=== PATIENT | male | born 1965 | race Caucasian/White ===

== ENCOUNTER 2017-12-11 03:26 | Emergency (ER) | payer OTHER, BC ==
[~2017-12-11] VITALS: Ht 175.3 cm; Wt 127.0 kg
[~2017-12-11 03:26] MED LIST: ALBUTEROL2.5 MG/3 M INH; ANDROGEL1.25 GM TD; ASPIRIN EC81 MG PO; ASPIRIN325 MG PO; CALCIUM500 MG PO; CENTRAL-VITE H1 EACH PO; CETIRIZINE HCL10 MG PO; GLUCOPHAGE XR500 MG PO; GLUCOPHAGE500 MG PO; IBUPROFEN200 MG PO; IRON325 M1 PO; LESCOL XL80 MG PO; LOVAZA1 GM PO; MEDROL4 M1 PO; MIRALAX17 GM PO; NORCO 5-325 TA1 EACH PO; NORCO 7.5-3251 EACH PO; OXYCODONE HCL5 MG PO; SEPTRA DS TABL1 EACH PO; VITAMIN C500 M1 PO; XARELTO10 MG PO; ZESTORETIC 20-1 EACH PO
[2017-12-11] MEDS ORDERED: NORCO 5-325 TA1 EACH PO (04:25)
== END 2017-12-11 05:10 | disposition home or self-care (01) ==
LOC: ED 03:26
DX: S46.212A Strain of muscle, fascia and tendon of other parts of biceps, left arm, initial encounter (principal); S93.401A Sprain of unspecified ligament of right ankle, initial encounter; I10 Essential (primary) hypertension; Z79.899 Other long term (current) drug therapy; Z79.84 Long term (current) use of oral hypoglycemic drugs; W10.9XXA Fall (on) (from) unspecified stairs and steps, initial encounter
CPT/HCPCS: 73130; 73610; 99283

== ENCOUNTER 2018-06-24 18:43 | Emergency (ER) | payer BC, OTHER ==
[~2018-06-24] VITALS: Ht 175.3 cm; Wt 138.3 kg
[~2018-06-24 18:43] MED LIST changes: +BIOTIN1000 MCG PO; +VALSARTAN-HCTZ1 EAC1 PO; +VITAMIN D34000 UNIT PO; +VITAMIN E400 UNI6 PO
[2018-06-24] MEDS ORDERED: ASPIRIN81 MG PO (18:56)
[2018-06-24] MEDS ORDERED: FISH OIL EC 1,1 EAC1 PO (18:56)
[2018-06-24] MEDS ORDERED: ATORVASTATIN CA40 MG PO (18:56)
[2018-06-24] MEDS ORDERED: DICLOFENAC POTA50 MG PO (18:56)
[2018-06-24] MEDS ORDERED: FLUOXETINE HCL20 MG PO (18:56)
[2018-06-24] MEDS ORDERED: NORCO 5-325 TA1 EACH PO (19:23)
== END 2018-06-24 19:44 | disposition home or self-care (01) ==
LOC: ED 18:43
DX: S92.514A Nondisplaced fracture of proximal phalanx of right lesser toe(s), initial encounter for closed fracture (principal); W22.8XXA Striking against or struck by other objects, initial encounter; I10 Essential (primary) hypertension; Z79.899 Other long term (current) drug therapy; Z79.82 Long term (current) use of aspirin; Z79.84 Long term (current) use of oral hypoglycemic drugs
CPT/HCPCS: 73630; 99283

== ENCOUNTER 2020-01-22 11:19 | Emergency (ER) | payer OTHER, BC ==
[~2020-01-22] VITALS: Ht 175.3 cm; Wt 136.1 kg
--- OUTSIDE RECORDS SUMMARY | ~2020-01-22 | XMS | Encounter Summary ---
Demographics + + + | Address | [address] | | | [place] [address] | + + + | Home Phone | | + + + | Preferred Language | Unknown | + + + | Marital Status | | + + + | Anabaptist Affiliation | [id number] | + + + | Race | White | + + + | Ethnic Group | Not or | + + + Author + + + | Author | [facility] | | | and [place] | + + + | Organization | [facility] | | | and [place] | + + + | Address | Unknown | + + + | Phone | Unavailable | + + + Support + + +---------+ + | Name | Relationship | Address | Phone | + + +---------+ + | Angie He | ECON | Unknown | | + + +---------+ + Care Team Providers + +------+ + | Care Molecular Biologist Name | Role | Phone | + +------+ + | Hiram Heredia DO | PCP | | + +------+ + Encounter Details +--------+ + + + + | Date | Type | Department | Care Team | Description | +--------+ + + + + | 04/05/ | Abstract | [facility] | Hiram Heredia | | | 2019 | | [facility] | E, DO [address] | | | | | [facility] [address] | [place] | | | | | [address] [place], | [address] | | | | | [place] [address] | [phone] | | | | | [phone] | | | +--------+ + + + + Social History + +-------+ +--------+------+ | Tobacco Use | Types | Packs/Day | Years | Date | | | | | Used | | + +-------+ +--------+------+ | Never Smoker | | | | | + +-------+ +--------+------+ + +------+---+--------+ | Smokeless Tobacco: | Chew | | Quit: | | Former User | | | 1992 | + +------+---+--------+ + + +---------+ + | Alcohol Use | Drinks/Week | oz/Week | Comments | + + +---------+ + | Yes | 0 Glasses of wine | 3.0 | | | | 3 Cans of beer 0 | | | | | Shots of liquor | | | + + +---------+ + + + + + | Alcohol Habits | Answer | Date Recorded | + + + + | How often do you have a drink containing | 2-3 times a week | 01/19/2019 | | alcohol? | | | + + + + | How many drinks containing alcohol do you | 1 or 2 | 01/19/2019 | | have on a typical day when you are | | | | drinking? | | | + + + + | How often do you have six or more drinks on | Never | 01/19/2019 | | one occasion? | | | + + + + + + + | Sex Assigned at | Date Recorded | | | | + + + | Not on file | | + + + documented as of this encounter Plan of Treatment +--------+---------+ + + + | Date | Type | Specialty | Care Team | Description | +--------+---------+ + + + | 02/13/ | Office | Primary Care | Hiram Heredia | | | 2020 | Visit | | E, DO [address] | | | | | | [place] | | | | | | [address] | | | | | | [phone] | | | | | | | | +--------+---------+ + + + documented as of this encounter Procedures + +--------+ + + + | Procedure Name | Priori | Date/Time | Associated Diagnosis | Comments | | | ty | | | | + +--------+ + + + | EXTERNAL LAB: [facility] | Routin | 08/06/2017 | | Results for this | | SCREEN | e | | | procedure are in the | | | | | | results section. | + +--------+ + + + documented in this encounter Results External Lab: [facility] (08/06/2017) + +-------+ + + + | Component | Value | Ref Range | Performed | Pathologist | | | | | At | Signature | + +-------+ + + + | PSA, | 0.257 | | | | | External | | | | | + +-------+ + + + + + | Specimen | + + | Blood | + + documented in this encounter Visit Diagnoses Not on filedocumented in this encounter"
--- OUTSIDE RECORDS SUMMARY | ~2020-01-22 | XMS | Encounter Summary ---
Demographics + + + | Address | [address] | | | [place] [address] | + + + | Home Phone | | + + + | Preferred Language | Unknown | + + + | Marital Status | | + + + | Hinduism Affiliation | 1073 | + + + | Race | White | + + + | Ethnic Group | Not or | + + + Author + + + | Author | [facility] | | | and [place] | + + + | Organization | [facility] | | | and [...] Team Providers + +------+ + | Care Maintenance Man Name | Role | Phone | + +------+ + | Hiram Heredia DO | PCP | | + +------+ + Reason for Visit + + + | Reason | Comments | + + + | CPAP Follow Up | | + + + Encounter Details +--------+---------+ + + + | Date | Type | Department | Care Team | Description | +--------+---------+ + + + | 05/19/ | Office | [facility] | Chino Angel PA | JOCELYN on CPAP (Primary | | 2017 | Visit | SLEEP DISORDER [address] | [address] | Dx) | | | | [address] [place] | [place] | | | | | [place] [address] | [address] | | | | | [phone] | | | +--------+---------+ + + + Social History + +-------+ +--------+------+ | Tobacco Use | Types | Packs/Day | Years | Date | | | | | Used | | + +-------+ +--------+------+ | Never Smoker | | | | | + +-------+ +--------+------+ + +------+---+---+ | Smokeless Tobacco: | Chew | | | | Former User | | | | + +------+---+---+ + + | Comments: Quit 16 years ago. | + + + + +---------+ + | Alcohol Use | Drinks/Week | oz/Week | Comments | + + +---------+ + | Yes | 6 Cans of beer | 6.0 | MODERATELY 2-3 beers | | | | | about 2-3 days | | | | | during the week | + + +---------+ + + + + | Sex Assigned at | Date Recorded | | | | + + + | Not on file | | + + + documented as of this encounter Last Filed Vital Signs + + + + + | Vital Sign | Reading | Time Taken | Comments | + + + + + | Blood Pressure | 120/70 | 05/19/2017 11:12 AM | | | | | PST | | + + + + + | Pulse | 87 | 05/19/2017 11:12 AM | | | | | PST | | + + + + + | Temperature | - | - | | + + + + + | Respiratory Rate | 16 | 05/19/2017 11:12 AM | | | | | PST | | + + + + + | Oxygen Saturation | 98% | 05/19/2017 11:12 AM | | | | | PST | | + + + + + | Inhaled Oxygen | - | - | | | Concentration | | | | + + + + + | Weight | 142.9 kg (315 lb 0.6 | 05/19/2017 11:12 AM | | | | oz) | PST | | + + + + + | Height | - | - | | + + + + + | Body Mass Index | 46.52 | 10/30/2016 1:24 PM | | | | | PDT | | + + + + + documented in this encounter Progress Notes Chino Angel PA - 05/19/2017 11:30 AM PST Subjective: Patient ID: Darin He is a 49 y.o. male. HPI last office visit: 03/17/2017 date of polysomnography: 07/08/2006 AHI: 41.4 O2%: 73% with 54.2 minutes below 90% Machine type: ResMed AirSense 10 Mask type: Cooper & Farhat Brevida nasal mask DME: [facility] [place] pressure: 9-18 cm Median: 11.1 cm 95%: 12.6 cm Maximum: 13.9 cm Nights using CPAP: 50/63 % of nights >4 hours: 76% Average usage (all nights): 7:45 Average usage (nights used): 9:46 AHI: 0.7 Darin continues to do well with his CPAP compliance. He is doing well with his CPAP usage w ith his ResMed AirSense 10. 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 He does not consider sleeping without CPAP. 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 I have discussed in detail. The download shows that his sleep apnea is controlled, with an AHI of 0.6. It also shows that his leaks are controlled. 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 It shows that he is wearing his CPAP >4 shira rs for 80% of the nights during 30 consecutive nights. He has had bilateral knee replacement surgery, cervical fusion surgery and rotator cuff yadira janneth in the last couple of years. He has fully recovered from each of the surgeries and is doing well. His pain has greatly reduced and he is starting to exercise more. BP 120/70 | Pulse 87 | Resp 16 | Wt (!) 142.9 kg (315 lb 0.6 oz) | SpO2 98% | BMI 46 .52 kg/m Review of Systems Objective: Physical Exam Assessment: Problem #1: OBSTRUCTIVE SLEEP APNEA ([id number]-X90.33) This is controlled with CPAP. His CPAP compliance is going well with his ResMed AirSense 10 . He has used his CPAP >4 hours for 80% of the nights for 30 consecutive nights. Plan: 1. He is to continue with CPAP indefinitely. 2. Touch base with medical supplier twice per year to ensure that all equipment is satisfa ctory. I will follow up again in 2 years, sooner prn. At that time we will reassess with all appr opriate paperwork. Fifteen minutes were spent [id number], with the majority of time spent in counseling. Chino Angel PA-C cc: Norman Heredia DO documented in this enco unter Plan of Treatment +--------+---------+ + + + | Date | Type | Specialty | Care Team | Description | +--------+---------+ + + + | 02/13/ | Office | Primary Care | Hiram Heredia | | | 2019 | Visit | | DO [address] | | | | | | [place] | | | | | | [address] | | | | | | [phone] | | | | | | | | +--------+---------+ + + + documented as of this encounter Visit Diagnoses + + | Diagnosis | + + | JOCELYN on CPAP - Primary Obstructive sleep apnea (adult) (pediatric) | + + documented in this encounter"
--- OUTSIDE RECORDS SUMMARY | ~2020-01-22 | XMS | Encounter Summary ---
Demographics + + + | Address | [address] | | | [place] [address] | + + + | Home Phone | | + + + | Preferred Language | Unknown | + + + | Marital Status | | + + + | Jehovah'S Witness Affiliation | 1073 | + + + | Race | White | + + + | Ethnic Group | Not or | + + + Author + + + | Author | [facility] | | | and [place] | + + + | Organization | [facility] | | | and [...] Team Providers + +------+ + | Care Spanish Tutor Name | Role | Phone | + +------+ + | Hiram Heredia DO | PCP | | + +------+ + Reason for Visit Auth/Cert +--------+--------+ + + + + | Status | Reason | Specialty | Diagnoses / | Referred By | Referred To | | | | | Procedures | Contact | Contact | +--------+--------+ + + + + | | | | Diagnoses | | | | | | | Special | | | | | | | screening | | | | | | | for | | | | | | | malignant | | | | | | | neoplasms, | | | | | | | colon | | | | | | | (Z12.11), | | | | | | | JOCELYN on CPAP | | | | | | | (G47.33, | | | | | | | Z99.89), | | | | | | | Obesity, | | | | | | | Class III, | | | | | | | BMI 40-49.9 | | | | | | | (morbid | | | | | | | obesity) | | | | | | | (HCC) | | | | | | | (E66.01) | | | | | | | Procedures | | | | | | | [place] | | | | | | | COLONOSCOPY | | | | | | | FLX DX | | | | | | | W/COLLJ SPEC | | | | | | | WHEN PFRMD | | | | | | | [place] | | | | | | | COLONOSCOPY | | | | | | | W/BIOPSY | | | | | | | SINGLE/MULTI | | | | | | | PLE [place] | | | | | | | COLSC FLX | | | | | | | W/RMVL OF | | | | | | | TUMOR POLYP | | | | | | | LESION SNARE | | | | | | | TQ [place] | | | | | | | ANESTH,INTES | | | | | | | EZEKIEL,SCOPE,L | | | | | | | OW | | | | | | | COLONOSCOPY | | | +--------+--------+ + + + + Encounter Details +--------+---------+ + + + | Date | Type | Department | Care Team | Description | +--------+---------+ + + + | 05// | Surgery | [facility] | Viraj Rodriguez MD | COLONOSCOPY | | 2017 | | MED [facility] | [address], [place] | | | | | [address] | [address] [place], [place] | | | | | [place], [place] | [address] | | | | | [address] | | | | | | [phone] | | | +--------+---------+ + + + [...] + + + | Blood Pressure | 126/83 | 10/04/2016 8:32 AM | | | | | PDT | | + + + + + | Pulse | 81 | 10/04/2016 8:32 AM | | | | | PDT | | + + + + + | Temperature | 36.3 C (97.3 F) | 10/04/2016 8:32 AM | | | | | PDT | | + + + + + | Respiratory Rate | 16 | 10/04/2016 8:32 AM | | | | | PDT | | + + + + + | Oxygen Saturation | 95% | 10/04/2016 8:32 AM | | | | | PDT | | + + + + + | Inhaled Oxygen | - | - | | | Concentration | | | | + + + + + | Weight | 133 kg (293 lb 3.2 | 10/04/2016 8:32 AM | | | | oz) | PDT | | + + + + + | Height | 175.3 cm (5' 9") | 10/04/2016 8:32 AM | | | | | PDT | | + + + + + | Body Mass Index | 43.3 | 10/04/2016 8:32 AM | | | | | PDT | | + + + + + documented in this encounter Discharge Instructions Instructions Donya Yang RN - 10/04/2016Formatting of this note might be different fr om the original. Colorectal Cancer Screening Colorectal cancer (cancer in the colon or rectum) is aleading cause of cancer deaths in [facility] [place] But it doesn t have to be. When this cancer is found and removed early, the chance s of a full recovery are very good. Because colorectal cancer rarely causes symptoms in its early stages, screening for the disease is important. It s even more crucial if you have r isk factors for the disease. Learn more about colorectal cancer and its risk factors. Then t alk to your healthcare provider about being screened. You could be saving your own life. Risk factors for colorectal cancer Your risk of having colorectal cancer increases if you: Are 50 years of age or older Have a family history or personal history of colorectal cancer orpolyps Have a personal history of type 2 diabetes, Crohn s disease, or ulcerative colitis Have an inherited genetic syndrome like Brantley syndrome (also known as HNPCC) or familial adenomatous polyposis (FAP) Are very overweight Are not physically active Smoke Drink a lot of alcohol Eat a lot of red or processed meat The colon and rectum Waste from food you eat enters the colon from the small intestine. As it travels through th e colon, the waste (stool) loses water and becomes more solid. Intestinal muscles push it to suresh the sigmoid the last section of the colon. Stool then moves into the rectum, where it s stored until it s ready to leave the body during a bowel movement. How cancer develops Polyps are growths that form on the inner lining of the colon or rectum. Most are benign, w hich means they aren t cancerous. But over time, some polyps can become cancer (malignant) . This happens when cells in these polyps begin growing abnormally. In time, malignant cells invade more and more of the colon and rectum. The cancer may also spread to nearby organs o r lymph nodes or to other parts of the body. Finding and removing polyps can help prevent ca ncer from ever forming. Your screening Screening means looking for a health problem before you have symptoms. During screening for colorectal cancer, your healthcare provider will ask about your health history, examine you , and do one or more tests. History and exam The history and exam involve the following: Health history. Your healthcare provider will ask about your health history. Mention if a family member has had colon cancer or polyps. Also mention any health problems you have watt d in the past. Digital rectal exam (DYLON). During a DYLON, the healthcare provider inserts a lubricated gl chris finger into the rectum. The test is painless and takes less than a minute. Healthcare p jennifer agree that this test alone is not enough to screen for colorectal cancer. Screening test choices Fecal occult blood test (FOBT) or fecal immunochemical test (FIT) These tests check for occult blood in stool (blood you can t see). Hidden blood may be a sign of colon polyps or cancer. A small sample of stool is tested for blood in a laboratory. Most often, you collect this sample at home using a kit your healthcare provider gives you. Follow the instructions carefully for using this kit. You might need to avoid certain foods and medicines before the test, as directed. Barium enema with contrast (double-contrast barium enema) This test uses X-rays to provide images of the entire colon and rectum. The day before this test, you will need to do a bowel prep to clean out the colon and rectum. A bowel prep is a liquid diet plus strong laxatives or enemas. You will be awake for the test, but you may be given medicine to help you relax. At the start of the test, a radiologist (a healthcare pro vider who specializes in imaging tests) places a soft tube into the rectum. The tube is used to fill the colon with a contrast liquid (barium) and air. This can be uncomfortable for so me people. The liquid helps the colon show up clearly on the X-rays. Because the test uses X -rays, it exposes you to a small amount of radiation. Virtual colonoscopy This exam is also called a CT colonography. Ituses a series of X-ray photographs to creat e a 3-D view of the colon and rectum. The day before the test, you will need to do a bowel p rep to clean out your colon. Your healthcare provider will give you instructions on how to d o this. During the procedure, you will lie on a table that is part of a special X-ray modesto e called a CT scanner. A small tube will be placed into your rectum to fill the colon and re ctum with air. This can be uncomfortable for some people. Then, the table will move into the machine and pictures will be taken of your colon and rectum. A computer will combine these photos to create a 3-D picture. Because the test uses X-rays, it exposes you to a small amou nt of radiation. Scope exams Here are two types of scope exams: Colonoscopy.This test can be used to find and remove polyps anywhere in the colon or r ectum. The day before the test, you will do a bowel prep. This is a liquid diet plus a stron g laxative solution or an enema. The bowel prep willcleanse your colon. You will be given instructions for this. Just before the test, you are given a medicine to make you sleepy. Th en, a long, flexible, lighted tube called a colonoscope is gently inserted into the rectum a nd guided through the entire colon. Images of the colon are viewed on a video screen. Any po lyps that are found are removed and sent to a lab for testing. If a polyp can t be removed , a sample of tissue is taken and the polyp might be removed later during surgery. You will need to bring someone with you to drive you home after this test. Sigmoidoscopy.This test is similar to colonoscopy, but focuses only on the sigmoid col on and rectum. As with colonoscopy, bowel prep must be done the day before this test. It etta ht not need to be as complete as the bowel prep for a colonoscopy. You are awake during the procedure, but you may be given medicine to help you relax. During the test, the healthcare provider guides a thin, flexible, lighted tube called a sigmoidoscope through your rectum an d lower colon. The images are displayed on a video screen. Polyps are removed, if possible, and sent to a lab for testing. Colonoscopy is the only screening test that lets your healthcare provider see the entire co luz elena and rectum. This test also lets your healthcare provider remove any pieces of tissue mary t need to be looked at by a lab. If something suspicious is found using any other tests, you will likely need a colonoscopy. When to call your healthcare provider after a test Call your healthcare provider if you have any of the following after any screening test: Bleeding Fever of 100.4F (38C) or higher, or as directed by your healthcare provider Abdominal pain Vomiting Date Last Reviewed: 04/05/201519992048-2628 [employer] [place] [address], [place] [address]. All righ ts reserved. This information is not intended as a substitute for professional medical care. Always follow your healthcare professional's instructions. documented in this encounter Medications at Time of Discharge + + + +---------+ + + | Medication | Sig | Dispensed | Refills | Start | End Date | | | | | | Date | | + + + +---------+ + + | cetirizine (ZYRTEC | Take 10 mg by mouth | | 0 | 02/14/20 | | | ALLERGY) 10 mg | Daily. | | | 12 | | | tablet | | | | | | + + + +---------+ + + | metFORMIN | Take 500 mg by mouth | | 0 | 09/14/20 | | | (GLUCOPHAGE) 500 mg | Daily. | | | 12 | | | tablet | | | | | | + + + +---------+ + + | multivitamin | daily | | 0 | 02/14/20 | | | (THERAGRAN) per | | | | 12 | | | tablet | | | | | | + + + +---------+ + + | Ascorbic Acid ([facility] | Take 1,000 mg by | | 0 | 02/14/20 | | | VITAMIN C PO) | mouth Daily. | | | 12 | 8 | + + + +---------+ + + | atorvaSTATin | Take 40 mg by mouth | | 0 | 08/14/19 | | | (LIPITOR) 40 mg | Daily. | | | 17 | 9 | | tablet | | | | | | + + + +---------+ + + | FLUoxetine | Take 20 mg by mouth | | 0 | 03/11/20 | | | (PROZAC) 20 mg | Daily. | | | 16 | 0 | | capsule | | | | | | + + + +---------+ + + | fluvastatin XL | Take 80 mg by mouth | | 0 | 02/14/20 | | | (LESCOL XL) 80 MG 24 | Daily. | | | 12 | 7 | | hr tablet | | | | | | + + + +---------+ + + | | Take 20-12.5 mg by | | 0 | 02/14/20 | | | lisinopril-hydrochlo | mouth Daily. | | | 12 | 7 | | rothiazide | | | | | | | (ZESTORETIC) 20-12.5 | | | | | | | MG per tablet | | | | | | + + + +---------+ + + | [place] 3-6-9 Fatty | Take by mouth. | | 0 | | | | Acids (OMEGA 3-6-9 | | | | | 8 | | COMPLEX PO) | | | | | | + + + +---------+ + + documented as of this encounter H&P Notes Viraj Rodriguez MD - 10/04/2016 10:25 AM PDTThe patient has no questions consent form is si gned we'll proceed with colonoscopy for colon cancer screening Viraj Long MD - 10/03/2016 8:16 AM PDTFormattin g of this note might be different from the original. PRE-ENDOSCOPY HISTORY AND PRE-SEDATION ASSESSMENT PATIENT NAME: Darin He : 1965 TODAY'S DATE: 10/04/2016 PLANNED PROCEDURE: colonoscopy PERTINENT HISTORY/INDICATION FOR PROCEDURE: Darin He is a 51 y.o. male who is un dergoing colonoscopy for colon cancer screening. There is no family history of colon cancer or polyps. He denies any change in bowel pattern denies any blood in the stools. He mov es his bowels once or twice a day. Patient has no questions with respect to the same as hi s recently underwent colonoscopy for colon cancer screening. Patient reports that he's had abnormal liver function tests for at least 3 years. 18 ALT have been modestly elevated at 1-1/2 of 1-4 times. Rarely an ultrasound was done 3 years a go which showed fatty liver. Patient has an elevated hemoglobin A1c at 6.8. In addition he has elevation of cholesterol and triglycerides at 227 and 365 respectively. Patient is on metformin for 3 years. In addition he's been on Lescol for treatment of his hyper lipid emia. He has had a voluntary weight loss of 17 pounds. The patient has tried to limit hi s carbohydrate intake but has not limited his fatty food intake. TSH has been normal. Th e patient reports that his family phenotype has not been of a large build which is his own b fletcher habitus. 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 Patient was congratulated with his 17 pound weight loss and encouraged to co ntinue the same along with additional dietary modifications and exercise regimen. The rhiannon ent was told that given his hyperglycemia hyperlipidemia normal TSH at this point in time do not feel that a detailed workup with respect to the etiology of fatty liver disease is need ed. . PAST HISTORY: Past Medical History Diagnosis Date Obstructive sleep apnea 08/21/2011 Benign hypertension Hyperlipidemia Diabetes mellitus (HCC) Arthritis Obesity Herniated nucleus pulposus, C6-7 left Herniated nucleus pulposus, C5-6 right Cervical radiculopathy at C7 Lumbago History of Lumbago - Chronic Hypogonadism in male Secondary polycythemia -testosterone use Testicular hypofunction Skin lesions Lesions of the scalp Dysmetabolic syndrome X Actinic keratosis PAST SURGICAL HISTORY Past Surgical History Procedure Laterality Date Knee arthroscopy 1994 AND 2007 BILATERAL Appendectomy Tonsillectomy Knee joint replacement 2013 Dr. Gonzalez, Bilateral Left rotator cuff 09/2014 Dr. Gonzalez Destruction of benign lesion by cryosurgery PARQ freeze Right rotator cuff 2015 Right elbow scope 1991 HOME MEDS: Prior to Admission medications Medication Sig Taking? Ascorbic Acid ([facility] VITAMIN C PO) Take 1,000 mg by mouth Daily. aspirin (ASPIRIN ADULT LOW STRENGTH) 81 MG EC tablet Take 81 mg by mouth Daily. atorvaSTATin (LIPITOR) 40 mg tablet Take 40 mg by mouth Daily. cetirizine (ZYRTEC ALLERGY) 10 mg tablet Take 10 mg by mouth Daily. FLUoxetine (PROZAC) 20 mg capsule Take 20 mg by mouth Daily. fluvastatin XL (LESCOL XL) 80 MG 24 hr tablet Take 80 mg by mouth Daily. lisinopril-hydrochlorothiazide (ZESTORETIC) 20-12.5 MG per tablet Take 20-12.5 mg by mouth Daily. metFORMIN (GLUCOPHAGE) 500 mg tablet Take 500 mg by mouth Daily. multivitamin (THERAGRAN) per tablet daily [place] 3-6-9 Fatty Acids (OMEGA 3-6-9 COMPLEX PO) Take by mouth. sodium sulfate-potassium sulfate-magnesium sulfate (SUPREP BOWEL PREP) oral solution Take 1 77 mLs by mouth every 12 hours. Drink one bottle at 4PM day prior to procedure and 2ND bottl e at 5AM day of procedure. ALLERGIES No Known Allergies ASA CLASSIFICATION:3 EXAMINATION: Blood pressure 126/83, pulse 81, temperature 36.3 C (97.3 F), temperature source Tempor al, resp. rate 16, height 1.753 m (5' 9"), weight 132.995 kg (293 lb 3.2 oz), SpO2 95 %. General: Alert and orientedx3 Throat: Normal Lungs: Clear Heart: Regular rate and rhythm with out significant murmur Abdomen: obese, normal bowel sounds. Soft, nontender 1. Available medical records have been reviewed.Gastroenterology consultation, medical terrell rds from [facility] 2. Medication list reviewed. IMPRESSION: colon cancer screening. Patient appropriate for procedure. PLAN: 1. Proceed with procedure as stated above with propofol sedation/analgesia due to JOCELYN and B ME >42. 2. Procedure, indications, risks and alternatives explained to patient/family and they agre ed to proceed and consent was signed. 3. Patient will be reevaluated immediately (1-2 minutes) before sedation administration and approved for the plan as stated above. Electronically Signed by: Viraj Rodriguez MD 10/04/2016 [facility] Portions of this chart may have been created with [employer] voice recognition software. Occasi onal wrong-word or sound-alike substitutions may have occurred due to the inherent [place] itations of voice recognition software. Please read the chart carefully and recognize, using context, where these substitutions have occurred documented in this enc ounter Miscellaneous Notes Op Note - Viraj Rodriguez MD - 10/04/2016 10:47 AM PDTColonoscopy was positive for small de scending colon polyp was removed. The tissue removed was slightly more generous than antici pated due to the patient's abdominal breathing. However there was no evidence of bleeding o r perforation. The patient will be discharged with post polypectomy instructions follow-up frequency I suspect 5 years -C Instructions Provation - Viraj Rodriguez MD - 10/04/2016 10:14 AM PDTDischarroxana Instr uctions for Colonoscopy Exams Patient: Darin He : 1965 Acct: [id number] Exam Date: Tuesday, October 04, 2016 Doctor: Vernon Rodriguez MD You have had an examination of the gastrointestinal tract. The chances of difficulty foll owing this procedure are minimal. The following instructions will assist you in your recov kathrin. ACTIVITIES: Rest quietly until sedation wears off. DO NOT drive a motor vehicle or operate machinery for 24 hours after sedation. Be cautious making critical decisions for 24 hours after sedation. DIET: If throat has been sprayed, do not eat or drink for 1 hour after. Start with a swallow of tap water, if you experience any lack of sensation in your throat, wait another 30 - 60 min utes and start with water again. Once swallowing has returned to normal you may resume your usual diet unless otherwise instructed by your physician. DISCOMFORT: If you had a bowel exam, you may have some abdominal discomfort from the air put into your bowel during the exam. Moving about will help you pass this air. Sometimes the medication s given to you during the exam can aggravate the veins. The chemical irritation can cause inflammation or pain along the arm with redness, swelling and warmth. This does not mean t here is an infection. You can treat the affected area by applying warm,wet compresses (tow els) 4 times a day for 20 minutes at a time until inflammation is resolved. REPORT TO YOUR DOCTOR: Unusual abdominal pain Chest pain or unusual shortness of breath Shoulder pain Nausea, vomiting Fever over 100 degrees, chills Signs of rectal bleeding (red or black stools) Any concern you have resulting from procedure You may reach your physician at Work: . If unable to reach your physician, call [facility] Emergency Department at Ext. [phone] Your doctor recommends these additional instructions: You have a contact number available for emergencies. The signs and symptoms of potential delayed complications were discussed with you. You may return to normal activities tomorro w. Written discharge instructions were provided to you. You are being discharged to home. Eat a mechanical soft diet for three days. Continue your present medications. Do not take any aspirin, ibuprofen (including Advil, Motrin or Nuprin), naproxen (includin g Aleve), or any other non-steroidal anti-inflammatory drugs for 7 days after your polyp re moval. We are waiting for your pathology results. Your physician has recommended a repeat colonoscopy for surveillance based on pathology re sults. Return to your primary care physician as previously scheduled. Telephone your GI clinic fo r pathology results in one week. These instructions have been explained to the patient and/ or escort. A copy has been given to the patient/escort. Nurse Signshania e Patient Signature Escort Signatu re Date Viraj Rodriguez MD 10/04/2016 10:52:44 AM This report has been signed electronically.Electronically signed by Viraj Rodriguez MD at 10:52 AM PDTdocumented in this encounter Plan of Treatment +--------+---------+ + + + | Date | Type | Specialty | Care Team | Description | +--------+---------+ + + + | 02/13/ | Office | Primary Care | Hiram Heredia | | | 2019 | Visit | | E, DO [address] | | | | | | [place], [place] | | | | | | [address] | | | | | | [phone] | | | | | | | | +--------+---------+ + + + documented as of this encounter Procedures + +--------+ + + + | Procedure Name | Priori | Date/Time | Associated Diagnosis | Comments | | | ty | | | | + +--------+ + + + | COLONOSCOPY | | 10/04/2016 | Special screening | | | | | 10:23 AM | for malignant | | | | | PDT | neoplasms, colon | | | | | | (Z12.11), JOCELYN on | | | | | | CPAP (G47.33, | | | | | | Z99.89), Obesity, | | | | | | Class III, BMI | | | | | | 40-49.9 (morbid | | | | | | obesity) (HCC) | | | | | | (E66.01) | | + +--------+ + + + | COLONOSCOPY | Routin | 10/04/2016 | | Results for this | | | e | 10:14 AM | | procedure are in the | | | | PDT | | results section. | + +--------+ + + + | POC GLUCOSE | Routin | 10/04/2016 | | Results for this | | | e | 9:02 AM | | procedure are in the | | | | PDT | | results section. | + +--------+ + + + | SURGICAL PATHOLOGY | Routin | 10/04/2016 | | Results for this | | EXAM | e | 12:00 AM | | procedure are in the | | | | PDT | | results section. | + +--------+ + + + documented in this encounter Results COLONOSCOPY (10/04/2016 10:14 AM PDT) + + | Specimen | + + | | + + + + -+ | Narrative | Performed At | + + -+ | | [facility] | | GastroenterologyPatient Name: Darin HeProcedure Date: 10/04/2016 | [facility] | | 10:14 AMMRN: [id number] #: [id number] of : | | | 1965Admit Type: AmbulatoryAge: [facility]: [facility]Gender: MaleNote | | | Status: FinalizedAttending MD: Viraj Rodriguez [facility]: | | | ColonoscopyIndications: Screening for colorectal malignant | | | neoplasmProviders: Viraj Rodriguez MD, Sharon Fountain, | | | RN, Laura Dacosta, Senior Telecommunications Technician, Geraldo Watkins | | | MD Julia (Anesthesia Staff)Referring MD: Norman Heredia DO | | | (Referring MD)Medicines: Sedation Required Anesthesia | | | Staff AssistanceComplications: No immediate complications. | | | Estimated blood loss: None.Procedure: Pre-Anesthesia Assessment: | | | - Prior to the procedure, a History and Physical was performed, | | | and patient medications, allergies and sensitivities were | | | reviewed. The patient's tolerance of previous anesthesia was | | | reviewed. - Prior to the procedure, a History and Physical was | | | performed, and patient medications and allergies were reviewed. | | | The patient is competent. The risks and benefits of the | | | procedure and the sedation options and risks were discussed | | | with the patient. All questions were answered and informed | | | consent was obtained. Patient identification and proposed | | | procedure were verified by the physician, the nurse, the | | | anesthesiologist and the pile driving technician in the endoscopy suite. Mental | | | Status Examination: alert and oriented. Airway Examination: | | | small/crowded oropharyngeal airway and Mallampati Class III (part of | | | the uvula and soft palate visualized). Prophylactic | | | Antibiotics: The patient does not require prophylactic | | | antibiotics. Prior Anticoagulants: The patient has taken no | | | previous anticoagulant or antiplatelet agents. ASA Grade | | | Assessment: III - A patient with severe systemic disease. After | | | reviewing the risks and benefits, the patient was deemed in | | | satisfactory condition to undergo the procedure. The anesthesia | | | plan was to use monitored anesthesia care (MAC). Immediately | | | prior to administration of medications, the patient was | | | re-assessed for adequacy to receive sedatives. The heart rate, | | | respiratory rate, oxygen saturations, blood pressure, adequacy | | | of pulmonary ventilation, and response to care were monitored | | | throughout the procedure. The physical status of the patient | | | was re-assessed after the procedure. - After reviewing the risks | | | and benefits, the patient was deemed in satisfactory condition | | | to undergo the procedure. - Using IV propofol under the | | | supervision of an anesthesiologist was determined to be | | | medically necessary for this procedure based on severe | | | comorbidity (greater than ASA Grade II), morbid obesity and patient's | | | history of sleep apnea. - Immediately prior to | | | administration of medications, the patient was re-assessed for | | | adequacy to receive sedatives. - The heart rate, respiratory | | | rate, oxygen saturations, blood pressure, adequacy of pulmonary | | | ventilation, and response to care were monitored throughout | | | the procedure. - The physical status of the patient was | | | re-assessed after the procedure. After I obtained informed | | | consent, the scope was passed under direct vision. Throughout | | | the procedure, the patient's blood pressure, pulse, and oxygen | | | saturations were monitored continuously. The Colonoscope was | | | introduced through the anus and advanced to the cecum, identified by | | | the appendiceal orifice, ileocecal valve and palpation. The | | | colonoscopy was performed without difficulty. The patient | | | tolerated the procedure well. The quality of the bowel | | | preparation was excellent.Findings: The perianal and digital | | | rectal examinations were normal. Pertinent negatives include | | | normal sphincter tone, no palpable rectal lesions and normal | | | prostate (size, shape, and consistency). A small polyp was found | | | in the proximal descending colon. The polyp was sessile. The | | | polyp was removed with a hot snare. Resection and retrieval | | | were complete. Verification of patient identification for the specimen | | | was done. Estimated blood loss: none. The exam was | | | otherwise without abnormality. The retroflexed view of the | | | distal rectum and anal verge was normal and showed no anal or | | | rectal abnormalities.Impression: - One small polyp in the | | | proximal descending colon, removed with a hot snare. Resected | | | and retrieved. - The examination was otherwise normal. - | | | The distal rectum and anal verge are normal on retroflexion | | | view.Recommendation: - Patient has a contact number available | | | for emergencies. The signs and symptoms of potential delayed | | | complications were discussed with the patient. Return to normal | | | activities tomorrow. Written discharge instructions were | | | provided to the patient. - Discharge patient to home | | | (ambulatory). - Mechanical soft diet for 3 days. - | | | Continue present medications. - No aspirin, ibuprofen, naproxen, | | | or other non-steroidal anti-inflammatory drugs for 7 days | | | after polyp removal. - Await pathology results. - Repeat | | | colonoscopy for surveillance based on pathology results. - | | | Return to primary care physician as previously scheduled. - | | | Telephone GI clinic for pathology results in 1 week.Viraj Rodriguez, | | | 10/04/2016 10:52:44 AMThis report has been signed | | | electronically.Number of Addenda: 0Note Initiated On: 10/04/2016 10:14 | | | AMScope Withdrawal Time: 0 hours 8 minutes 41 seconds Total Procedure | | | Duration: 0 hours 12 minutes 34 seconds Scope In: 10:31:22 AMScope | | | Out: 10:43:56 AM [facility], [address] | | | [place] [address] | | | - Await pathology results. | | | - Repeat colonoscopy for surveillance based on pathology results. | | | - Return to primary care physician as previously scheduled. | | | - Telephone GI clinic for pathology results in 1 week. | | |Viraj Rodriguez MD | | |10/04/2016 10:52:44 AM | | |This report has been signed electronically. | | |Number of Addenda: 0 | | |Note Initiated On: 10/04/2016 10:14 AM | | |Scope Withdrawal Time: 0 hours 8 minutes 41 seconds | | |Total Procedure Duration: 0 hours 12 minutes 34 seconds | | |Scope In: 10:31:22 AM | | |Scope Out: 10:43:56 AM | | | [facility], [address] [place], [place] | | | [address] | | + + -+ + +---------+ + + | Performing | Address | City/State/Zipcode | Phone Number | | Organization | | | | + +---------+ + + | [facility] | | | | + +---------+ + + POC Glucose (10/04/2016 9:02 AM PDT) + +-------+ + + + | Component | Value | Ref Range | Performed | Pathologist | | | | | At | Signature | + +-------+ + + + | Glucose, | 113 | 70 - 150 mg/dL | [facility] | | P[facility] | | | [facility] | | | | [facility] | | | | [facility] - | | | | | | LABORATORY | | + +-------+ + + + + + | Specimen | + + | Blood | + + + + + + + | Performing | Address | City/State/Zipcode | Phone Number | | Organization | | | | + + + + + | [facility] | [address] | [place], [place] | [phone] | | [facility] | | [address] | | | - LABORATORY | | | | + + + + + Surgical Pathology Exam (10/04/2016 12:00 AM PDT) + + | Specimen | + + | | + + + + + | Narrative | Performed At | + + + | SPECIMEN(S): A DESCENDING COLON POLYP SPECIMEN SOURCE: A. [facility] | | DESCENDING COLON POLYP CLINICAL HISTORY: Z12.11 (encounter for | [facility] | | screening for malignant neoplasm of colon), G47.33 (obstructive sleep | | | apnea [adult] [pediatric]), Z99.89 (Dependence on other enabling | | | machines and devices), E66.01 (morbid [severe] obesity due to excess | | | calories) MICROSCOPIC DESCRIPTION: Histologic sections of all | | | submitted blocks are examined by light microscopy. These findings, | | | together with the gross examination, support the pathologic diagnosis. | | | FINAL PATHOLOGIC DIAGNOSIS: Descending colon polyp, biopsy: - | | | Tubular adenoma (one fragment). JVR:[facility]:C2NR GROSS | | | DESCRIPTION: The specimen is labeled "HeDarin mcghee Mazin" and | | | designated "descending colon polyp" on the requisition. Received in | | | formalin is one light red colored tissue fragment, it measures 0.3 x | | | 0.4 cm, all into (A1). yt:JVR:[facility] PERFORMING LABORATORY: Tissue | | | processing and slide preparation were performed by [facility] | | | [facility], [address] [place] [address], [address], [place] [address] | | | (Slub[employer] Hand: Steve Triana M.D. CLIA#: [id number]). | | | Professional interpretation was performed by [facility], | | | [facility], [address] [facility] | | | [place] [address] (Slubber Hand: Steve Triana M.D.; CLIA#: | | | [id number]). Diagnostician: Steve Triana MD Pathologist | | | Electronically Signed 10/07/2016 | | + + + + +---------+ + + | Performing | Address | City/State/Zipcode | Phone Number | | Organization | | | | + +---------+ + + | [facility] | | | | | [facility] | | | | + +---------+ + + documented in this encounter Visit Diagnoses Not on filedocumented in this encounter Administered Medications + +---------+ +------+-------+------+ | Medication Order | MAR | Action | Dose | Rate | Site | | | Action | Date | | | | + +---------+ +------+-------+------+ | lactated ringers (LR) infusion | New Bag | 10/05/19 | | 100 | | | at 100 mL/hr, Intravenous, | | 17 9:25 | | mL/hr | | | CONTINUOUS, Starting Fri10/04/16 | | AM PDT | | | | | at 0900, Pre-op | | | | | | + +---------+ +------+-------+------+ +---+---+ | | | +---+---+ documented in this encounter
--- OUTSIDE RECORDS SUMMARY | ~2020-01-22 | XMS | Encounter Summary ---
Demographics + + + | Address | [address] | | | [place] [address] | + + + | Home Phone | | + + + | Preferred Language | Unknown | + + + | Marital Status | | + + + | Temple Affiliation | 1073 | + + + | Race | White | + + + | Ethnic Group | Not or | + + + Author + + + | Author | [facility] | | | and [place] | + + + | Organization | [facility] | | | and [...] Team Providers + +------+ + | Care Furnace Cleaner Name | Role | Phone | + +------+ + | Hiram Heredia DO | PCP | | + +------+ + Reason for Visit + +--------+ + | Reason | Onset | Comments | | | Date | | + +--------+ + | Follow-up | 01/21/ | | | | 2017 | | + +--------+ + Encounter Details +--------+ + + + + | Date | Type | Department | Care Team | Description | +--------+ + + + + | 01/21/ | Telephone | [facility] | Chino Angel PA | Follow-up | | 2017 | | SLEEP DISORDER [address] | [address] | | | | | [address] [place] | [place], [place] | | | | | [place] [address] | [address] | | | | | [phone] | | | +--------+ + + + [...] + + documented as of this encounter Miscellaneous Notes Telephone Encounter - Kellie Neil CNA - 01/27/2017 10:38 AM PDTPatient has appointme nt made with Chino Angel. elephone Encounter - Kellie Neil CNA - 01/21/2017 3:53 PM PDTCalled patient i n regards to their 2 year follow up with ANDERSON PRIEST. A message was left to give our off ice a call back to schedule. 3 :54 PM PDTdocumented in this encounter Plan of Treatment +--------+---------+ + + + | Date | Type | Specialty | Care Team | Description | +--------+---------+ + + + | 02/13/ | Office | Primary Care | Hiram Heredia | | | 2019 | Visit | | DO Edward [address] | | | | | | [place] | | | | | | [address] | | | | | | [phone] | | | | | | | | +--------+---------+ + + + documented as of this encounter Visit Diagnoses Not on filedocumented in this encounter"
--- OUTSIDE RECORDS SUMMARY | ~2020-01-22 | XMS | Encounter Summary ---
Demographics + + + | Address | [address] | | | [place] [address] | + + + | Home Phone | | + + + | Preferred Language | Unknown | + + + | Marital Status | | + + + | Mandaen Affiliation | Unknown | + + + | Race | White | + + + | Ethnic Group | Not or | + + + Author + + + | Author | [facility] | + + + | Organization | [facility] | + + + | Address | Unknown | + + + | Phone | Unavailable | + + + Support + + +---------+ + | Name | Relationship | Address | Phone | + + +---------+ + | Angie He | ECON | Unknown | | + + +---------+ + Care Team Providers + +------+ + | Care Mill Representative Name | Role | Phone | + +------+ + | Hiram Heredia DO | PCP | | + +------+ + Reason for Visit + + + | Reason | Comments | + + + | Bariatric Nutrition | | + + + Encounter Details +--------+---------+ + + + | Date | Type | Department | Care Team | Description | +--------+---------+ + + + | 03/06/ | Office | Digestive Health | | Morbid obesity with | | 2017 | Visit | Center at [facility] | | BMI of 45.0-49.9, | | | | [facility] [address] [address] [facility] | | adult (HCC) (Primary | | | | for Health and | | Dx) | | | | [facility] [address] | | | | | | [place], [place] | | | | | | [address] | | | | | | [phone] | | | +--------+---------+ + + + Social History + +-------+ +--------+------+ | Tobacco Use | Types | Packs/Day | Years | Date | | | | | Used | | + +-------+ +--------+------+ | Never Smoker | | | | | + +-------+ +--------+------+ + +---+---+---+ | Smokeless Tobacco: | | | | | Never Used | | | | + +---+---+---+ + + + + + | Alcohol Use | Drinks/Week | oz/Week | Comments | + + + + + | Yes | 3-4 Standard | 3.0 - 4.0 | | | | drinks or equivalent | | | + + + + + + + + [...] + + + | Blood Pressure | - | - | | + + + + + | Pulse | - | - | | + + + + + | Temperature | - | - | | + + + + + | Respiratory Rate | - | - | | + + + + + | Oxygen Saturation | - | - | | + + + + + | Inhaled Oxygen | - | - | | | Concentration | | | | + + + + + | Weight | 141.2 kg (311 lb 4.8 | 03/06/2018 4:08 PM | | | | oz) | PDT | | + + + + + | Height | 175.3 cm (5' 9") | 03/06/2018 4:08 PM | | | | | PDT | | + + + + + | Body Mass Index | 45.97 | 03/06/2018 4:08 PM | | | | | PDT | | + + + + + documented in this encounter Progress Notes Anjana Cardoso, RD - 03/06/2018 2:00 PM PDTFormatting of this note might be different fr om the original. Referring Provider: Hiram Heredia DO [facility], Pre-Bariatric Surgery Class Pre-Surgery Class #2 prior to having Eren-En-Y gastric bypass surgery or Sleeve Gastrectomy . Documented Time of Class: 2:00/3:00 until 3:00/4:00 (60 minutes djum-[id number] with patient) OBJECTIVE: Height: Ht Readings from Last 1 Encounters: 03/06/18 1.753 m (5' 9") Ht Readings from Last 1 Encounters: 03/06/18 1.753 m (5' 9") Wt Readings from Last 2 Encounters: 03/06/18 141.2 kg (311 lb 4.8 oz) 01/16/18 138.7 kg (305 lb 11.2 oz) BMI: Body mass index is 45.97 kg/m. Teaching Methods: PowerPoint and verbal presentation with additional written materials. Class content included: 1. Review of molina points. -Eat within one hour of waking, then every 3 to 4 waking hours (usually 3 meals and 2-3 sna cks daily)Include protein at meals (2-3 ounces) and at snacks (~1 ounce). -Goal is 60-80grams of protein/day -At least 64 ounces of fluids throughout the day (no calories, caffeine, or carbonation) -Separate fluids from meals nothing to drink 30 minutes before, during, and [address] eating -Practice mindful eating eat slowly (30 minutes for meals) without distractions such as T V, computer, phone -Choose foods with < 14 grams of sugar and < 5 grams of fat per serving -30-60 minutes of physical activity most days -Taking vitamins and minerals every day 2. Fluids 3. Exercise 4. Vitamins and Minerals & lab work. 5. Liver Reduction Diet 6. Post surgical diet progression Assessment: Pt remained attentive throughout the class and/or participated by asking questi ons or sharing information. Yes Anjana Cardoso RD, LD Pager # [phone] documented in this e ncounter Plan of Treatment Not on filedocumented as of this encounter Visit Diagnoses + + | Diagnosis | + + | Morbid obesity with BMI of 45.0-49.9, adult (HCC) - Primary | + + documented in this encounter
--- OUTSIDE RECORDS SUMMARY | ~2020-01-22 | XMS | Encounter Summary ---
Demographics + + + | Address | [address] | | | [place] [address] | + + + | Home Phone | | + + + | Preferred Language | Unknown | + + + | Marital Status | | + + + | Zoroastrianism Affiliation | 1073 | + + + | Race | White | + + + | Ethnic Group | Not or | + + + Author + + + | Author | [facility] | | | and [place] | + + + | Organization | [facility] | | | [...] Team Providers + +------+ + | Care Bobbin Handler Name | Role | Phone | + +------+ + | Hiram Heredia DO | PCP | | + +------+ + Reason for Visit +--------+ + | Reason | Comments | +--------+ + | Apnea | | +--------+ + Encounter Details +--------+---------+ + + + | Date | Type | Department | Care Team | Description | +--------+---------+ + + + | 08/19/ | Office | [facility] | Chino Angel PA | JOCELYN on CPAP (Primary | | 2012 | Visit | SLEEP DISORDER [address] | [address] | Dx); Organic | | | | [address] [place] | [place] | insomnia, | | | | [place] [address] | [address] | unspecified | | | | [phone] | | | +--------+---------+ + + + Social History + +-------+ +--------+------+ | Tobacco Use | Types | Packs/Day | Years | Date | | | | | Used | | + +-------+ +--------+------+ | Never Smoker | | | | | + +-------+ +--------+------+ + +---+---+---+ | Smokeless Tobacco: | | | | | Former User | | | | + +---+---+---+ + + | Comments: Quit 16 years ago. | + + + + +---------+ + | Alcohol Use | Drinks/Week | oz/Week | Comments | + + +---------+ + | Yes | | | MODERATELY | + + +---------+ + + + [...] + + + | Blood Pressure | 128/88 | 08/19/2012 9:47 AM | | | | | PDT | | + + + + + | Pulse | 75 | 08/19/2012 9:47 AM | | | | | PDT | | + + + + + | Temperature | - | - | | + + + + + | Respiratory Rate | 16 | 08/19/2012 9:47 AM | | | | | PDT | | + + + + + | Oxygen Saturation | - | - | | + + + + + | Inhaled Oxygen | - | - | | | Concentration | | | | + + + + + | Weight | 137.1 kg (302 lb 3.2 | 08/19/2012 9:47 AM | | | | oz) | PDT | | + + + + + | Height | - | - | | + + + + + | Body Mass Index | 43.36 | 06/09/2012 9:24 AM | | | | | PST | | + + + + + documented in this encounter Patient Instructions Patient Instructions Chino Angel PA - 08/19/2012 10:09 AM PDT1) Awaken at nearly the skyla e time ever day at 6:00am. 2) Obtain as much bright light as possible during your desired waking hours. Use your light box every morning at work in your cubicle and for 45 minutes after awakening on weekends. 3) No more than 2 small cups of coffee in the morning and NO OTHER SOURCES OF CAFFEINE. 4) Eliminate or minimize smoking and alcohol consumption, especially near bedtime. 5) Do not nap during the daytime; this will interfere with your night-time sleep. 6) Darken your environment an hour or two before bedtime. 7) Consider "unwinding" and "closing" your day about an hour before your anticipated bedtim e. 8) Go to bed only when you are sleepy and no earlier than 7-9 hours before your anticipated wake time. 9) Use your bedroom only for sleeping. 10) Only sleep in your bedroom - do not sleep in other areas of your house. 11) Between bedtime and wake time the only things you are allowed to do is to sleep in your bedroom or to sit comfortably in another room, in the dark, doing nothing. Do not watch TV, work on the computer, send text messages, do housework, or problem solve between bedtime an d wake time. 12) If you find that you aren't asleep, get up out of bed (keep your environment dark with just low level light, so that you won't fall) and go to another room. Sit quietly in the sridevi k until you are sleepy and then go back to bed. You may repeat this as many times as necessa ry. But you must awaken at the same time every day, regardless of how you slept that night. 13) If you continue to sleep poorly, consider going to bed a little later each night (but a waken at the same time every morning and don't nap) until you are sleeping through the major ity of the time between bed time and wake time. 14) Wear CPAP 100% of the time asleep or attempting to sleep. documented in this encounter Progress Notes Elodia Murrell - 08/19/2012 9:44 AM PDT 08/19/12 0900 Cruz Depression Inventory-II Depression Score 57.03 Insomnia Severity Index Insomnia Severity Index 54.4 Paradise Sleepiness Scale Sitting and reading 0 Watching TV 1 Sitting, inactive in a public place (e.g. a theatre or a meeting) 0 As a passenger in a car for an hour without a break 0 Lying down to rest in the afternoon when circumstances permit 2 Sitting and talking to someone 0 Sitting quietly after a lunch without alcohol 1 In a car, while stopped for a few minutes in traffic 0 Total score 4 SF-36v2 Score PF 57.03 RP 54.4 BP 50.29 GH 50.55 VT 52.09 SF 51.4 RE 48.1 MH 58.46 PCS 53.3 MCS 51.95 oram, KIMO Rodriguez - 9:20 AM PDT Subjective: Patient ID: Darin He is a 46 y.o. male. HPI last office visit was: 08/21/2011 date of polysomnography: 07/08/2006 AHI: 41.4 O2%: 73% with 54.2 minutes below 90% Machine type: ResMed S9 with nasal mask obtained from: [facility] pressure is: 9-18 cm 95%: Maximum: CPAP memory shows # nights >4 hours: 304/364 (no download) averaging hours per night: 8.4 Darin continues to do well with his CPAP compliance. He is now using a ResMed S9 when he s leeps at home. When he sleeps at [employer], he is using his [employer] and [employer]. T his appears to be working well for him. His main concern today is that he is waking during the night and struggling with getting ba ck to sleep. He falls asleep without difficulty, but is waking after 2-3 hours before he ne eds to wake to start his day. This has been happening on most nights during the last few mo nths. He works at the [employer] on 24 hour shifts and then is of for 48 hours. When he is working, his sleep is typically disrupted for him to respond to calls. As a result of many years of this, he is a very "light sleeper". I have discussed the results of the paperwork in detail. He declined slightly in several c ategories, including Vitality, OSWALDO and ESS. We were not able to get a download from his CPA P. Review of Systems Objective: Physical Exam Assessment: Problem # 1: OBSTRUCTIVE SLEEP APNEA (ICD-327.23) This is controlled with CPAP. 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 Plan: 1. He is to continue with CPAP indefinitely. I have recommended that he touch base with ia s medical supplier twice per year to ensure that his equipment is satisfactory. 2. 1) Awaken at nearly the same time ever day at 6:00am. 2) Obtain as much bright light as possible during your desired waking hours. Use your light box every morning at work in your cubicle and for 45 minutes after awakening on weekends. 3) No more than 2 small cups of coffee in the morning and NO OTHER SOURCES OF CAFFEINE. 4) Eliminate or minimize smoking and alcohol consumption, especially near bedtime. 5) Do not nap during the daytime; this will interfere with your night-time sleep. 6) Darken your environment an hour or two before bedtime. 7) Consider "unwinding" and "closing" your day about an hour before your anticipated bedtim e. 8) Go to bed only when you are sleepy and no earlier than 7-9 hours before your anticipated wake time. 9) Use your bedroom only for sleeping. 10) Only sleep in your bedroom - do not sleep in other areas of your house. 11) Between bedtime and wake time the only things you are allowed to do is to sleep in your bedroom or to sit comfortably in another room, in the dark, doing nothing. Do not watch TV, work on the computer, send text messages, do housework, or problem solve between bedtime an d wake time. 12) If you find that you aren't asleep, get up out of bed (keep your environment dark with just low level light, so that you won't fall) and go to another room. Sit quietly in the sridevi k until you are sleepy and then go back to bed. You may repeat this as many times as necessa ry. But you must awaken at the same time every day, regardless of how you slept that night. 13) If you continue to sleep poorly, consider going to bed a little later each night (but a waken at the same time every morning and don't nap) until you are sleeping through the major ity of the time between bed time and wake time. 14) Wear CPAP 100% of the time asleep or attempting to sleep. I will follow up again in 2 years, sooner prn. At that time we will reassess with all appr opiate paperwork. Thirty minutes were spent [id number], with the majority of time spent i n counseling. Chino Angel PA-C cc: Norman Heredia DO documented in this enco unter Miscellaneous Notes Miscellaneous - [facility] - 08/19/2012 12:00 AM PDT documented in this encounter Plan of Treatment +--------+---------+ + + + | Date | Type | Specialty | Care Team | Description | +--------+---------+ + + + | 02/13/ | Office | Primary Care | Hiram Heredia | | | 2019 | Visit | | DO [address] | | | | | | [place] | | | | | | [address] | | | | | | [phone] | | | | | | | | +--------+---------+ + + + documented as of this encounter Visit Diagnoses + + | Diagnosis | + + | JOCELYN on CPAP - Primary Obstructive sleep apnea (adult) (pediatric) | + + | Organic insomnia, unspecified | + + documented in this encounter
--- OUTSIDE RECORDS SUMMARY | ~2020-01-22 | XMS | Clinical Summary ---
Demographics + + + | Address | [address] | | | [place] [address] | + + + | Home Phone | | + + + | Preferred Language | Unknown | + + + | Marital Status | | + + + | Gnosticism Affiliation | Unknown | + + + | Race | White | + + + | Ethnic Group | Not or | + + + Author + + + | Author | [facility] | + + + | Organization | [facility] | + + + | Address | Unknown | + + + | Phone | Unavailable | + + + Support + + +---------+ + | Name | Relationship | Address | Phone | + + +---------+ + | Angie He | ECON | Unknown | | + + +---------+ + Care Team Providers + +------+ + | Care Glass Installer Name | Role | Phone | + +------+ + | Hiram Heredia DO | PCP | | + +------+ + Source Comments [facility] is fully live on both [facility] and [facility] Allergies No Known Allergies Medications + + + +---------+------+------+-------+ | Medication | Sig | Dispensed | Refills | Star | End | Statu | | | | | | t | Date | s | | | | | | Date | | | + + + +---------+------+------+-------+ | atorvastatin 40 mg | | | 0 | 03/1 | | Activ | | oral tablet | | | | 1/20 | | e | | | | | | 18 | | | + + + +---------+------+------+-------+ | FLUoxetine 20 mg | | | 0 | 03/1 | | Activ | | oral capsule | | | | 06/21 | | e | | | | | | 18 | | | + + + +---------+------+------+-------+ | metFORMIN SR 500 | take 2 tablets by | | 0 | 02/2 | | Activ | | mg oral tablet | mouth twice a day | | | 01/19 | | e | | extended release 24 | | | | 18 | | | | hr | | | | | | | + + + +---------+------+------+-------+ | | | | 0 | 03/2 | | Activ | | valsartan-hydrochlor | | | | 12/19 | | e | | othiazide 160-12.5 | | | | 18 | | | | mg oral tablet | | | | | | | + + + +---------+------+------+-------+ | fexofenadine 180 | Take 180 mg by mouth | | 0 | | | Activ | | mg oral tablet | once daily. | | | | | e | + + + +---------+------+------+-------+ | cholecalciferol | Take 2,000 Units by | | 0 | | | Activ | | (Vitamin D3) | mouth two times | | | | | e | | (VITAMIN D3) 2,000 | daily. | | | | | | | unit oral capsule | | | | | | | + + + +---------+------+------+-------+ | vitamin E 400 unit | Take 400 Units by | | 0 | | | Activ | | oral capsule | mouth two times | | | | | e | | | daily. | | | | | | + + + +---------+------+------+-------+ | Biotin 10,000 mcg | Take by mouth once | | 0 | | | Activ | | oral capsule | daily. | | | | | e | + + + +---------+------+------+-------+ | ascorbic acid SR | Take 1,000 mg by | | 0 | | | Activ | | (VITAMIN C) 1,000 mg | mouth two times | | | | | e | | oral tablet | daily. | | | | | | + + + +---------+------+------+-------+ | multivitamin oral | Take 1 tablet by | | 0 | | | Activ | | tablet | mouth once daily. | | | | | e | + + + +---------+------+------+-------+ | aspirin EC 81 mg | Take 81 mg by mouth | | 0 | | | Activ | | oral tablet,delayed | once daily. | | | | | e | | release (DR/EC) | | | | | | | + + + +---------+------+------+-------+ Active Problems + + + | Problem | Noted Date | + + + | Morbid obesity with BMI of 40.0-44.9, adult | 10/30/2017 | + + + | Essential hypertension | 10/30/2017 | + + + | Mixed hyperlipidemia | 10/30/2017 | + + + | JOCELYN on CPAP | 10/30/2017 | + + + | Primary osteoarthritis involving multiple joints | 10/30/2017 | + + + | H/O umbilical hernia repair | 10/30/2017 | + + + Family History + + +------+ + | Medical History | Relation | Name | Comments | + + +------+ + | Hypertension | Father | | | + + +------+ + | Breast Cancer | Mother | | | + + +------+ + + +------+--------+ + | Relation | Name | Status | Comments | + +------+--------+ + | Child | | Alive | | + +------+--------+ + | Child | | Alive | | + +------+--------+ + | Father | | Alive | | + +------+--------+ + | Mother | | Alive | | + +------+--------+ + | Sister | | Alive | | + +------+--------+ + Social History + +-------+ +--------+------+ | [...] on file | | + + + Last Filed Vital Signs + + + + + | Vital Sign | Reading | Time Taken | Comments | + + + + + | Blood Pressure | 113/81 | 10/30/2017 9:04 AM | | | | | PDT | | + + + + + | Pulse | 65 | 10/30/2017 9:04 AM | | | | | PDT | | + + + + + | Temperature | 36.7 C (98 F) | 10/30/2017 9:04 AM | | | | | PDT | | + + + + + | Respiratory Rate | 18 | 10/30/2017 9:04 AM | | | | | PDT [...] | | + + + + + Plan of Treatment + + + + + | Health Maintenance | Due Date | Last | Comments | | | | Done | | + + + + + | Pneumococcal | | 07/02/19 | | | vaccination (1 of 1 | 2 | 17 | | | - PPSV23) | | | | + + + + + | Influenza (Flu) | | 04/28/20 | | | vaccination (#1) | 9 | 18, | | | | | 06/05/19 | | | | | 18, | | | | | 07/02/19 | | | | | 17, | | | | | Addition | | | | | al | | | | | history | | | | | exists | | + + + + + Results Not on filefrom Last 3 Months Insurance + +--------+ +--------+ + +------+ | Payer | Benefi | Subscriber | Effect | Phone | Address | Type | | | t Plan | ID | chrissie | | | | | | / | | Dates | | | | | | Group | | | | | | + +--------+ +--------+ + +------+ | [employer] | REGENC | [id number] | | [phone] | [address] | PPO | | SHIELD | E BCBS | 6 | 999-Pr | 8 | [address] | | | | | | esent | | [place], | | | | | | | | [place] | | | | | | | | [id number] | | + +--------+ +--------+ + +------+ | [facility] | PROVID | [id number] | 06/02/19 | [phone] | [address] | PPO | | | ENCE | | 18-Pre | 0 | [address] | | | | CHOICE | | sent | | [place], | | | | [place] | | | | [place] [address] | | + +--------+ +--------+ + +------+ + +--------+ +--------+ + + | Guarantor Name | Accoun | Relation to | Date | Phone | Billing Address | | | t Type | Patient | of | | | | | | | | | | + +--------+ +--------+ + + | Darin He | Person | Self [birth year] | [address] | | | kirti/Shane | | 1966 | [phone] | [place] [address] | | | jarad | | | 1 (Home) | | + +--------+ +--------+ + +
--- OUTSIDE RECORDS SUMMARY | ~2020-01-22 | XMS | Encounter Summary ---
Demographics + + + | Address | [address] | | | [place] [address] | + + + | Home Phone | | + + + | Preferred Language | Unknown | + + + | Marital Status | | + + + | Christianity Affiliation | Unknown | + + + | Race | White | + + + | Ethnic Group | Not or | + + + Author + + + | Author | [facility] | + + + | Organization | [facility] | + + + | Address | Unknown | + + + | Phone | Unavailable | + + + Support + + +---------+ + | Name | Relationship | Address | Phone | + + +---------+ + | Angie He | ECON | Unknown | | + + +---------+ + Care Team Providers + +------+ + | Care Biotechnologist Name | Role | Phone | + +------+ + | Hiram Heredia DO | PCP | | + +------+ + Reason for Visit + +--------+ + | Reason | Onset | Comments | | | Date | | + +--------+ + | Evaluation AND/OR | 03/12/ | | | management - new | 2018 | | | patient | | | + +--------+ + Consultation (Routine) +--------+---------+ + + + + | Status | Reason | Specialty | Diagnoses / | Referred By | Referred To | | | | | Procedures | Contact | Contact | +--------+---------+ + + + + | Closed | Other | Pain | Diagnoses | Griffith, | Patient Registration Representative Psych | | | | Management | Morbid | Vianye, ACNP | [facility] [address] | | | | | obesity with | [address] | | | | | BMI of | [address] | Center for | | | | | 40.0-44.9, | [place], [place] | Health and | | | | | adult (HCC) | [address] | Healing, | | | | | Essential | Phone: | Building | | | | | hypertension | [phone] | [address] Floor | | | | | Mixed | Fax: | [place], [place] | | | | | hyperlipidem | [phone] | [address] | | | | | ia JOCELYN on | | Phone: | | | | | CPAP | | [phone] | | | | | Primary | | Fax: | | | | | osteoarthrit | | [phone] | | | | | is involving | | | | | | | multiple | | | | | | | joints H/O | | | | | | | umbilical | | | | | | | hernia | | | | | | | repair | | | | | | | Procedures | | | | | | | CONSULT TO | | | | | | | PAIN | | | | | | | MANAGEMENT | | | +--------+---------+ + + + + Encounter Details +--------+---------+ + + + | Date | Type | Department | Care Team | Description | +--------+---------+ + + + | 03/06/ | Office | [facility] | Ashutosh Pisano, PhD | Morbid obesity (HCC) | | 2018 | Visit | [address] | [address] | (Primary Dx); BMI | | | | Center for Health | [place], [place] | 45.0-49.9, adult | | | | and Healing, | [address] | ([facility]); Anxiety about | | | | | [phone] | health | | | | Floor [place], [place] | | | | | | [address] | | | | | | [phone] | | | +--------+---------+ + + + [...] + + documented as of this encounter Progress Notes Ashutosh Pisano, PhD - 03/06/2018 9:00 AM PDTBARIATRIC EVALUATION (INCLUDING DIET AND EXERCI SE COUNSELING) NAME: Darin He DATE OF : 1965 AGE: 52 y.o. WEIGHT: 306 lbs BMI: 45.2 CONSULTING PSYCHOLOGIST: Ashutosh Pisano, Ph.D. REFERRING PROVIDER: Vianey Griffith CHIEF COMPLAINT: Morbid obesity DATE OF SERVICE: 03/12/2018 IDENTIFYING INFORMATION: Darin He is a 52 y.o. male who lives with his in [place], [place]. He was referred for psychological evaluation and counseling on diet and exercise prior to bariatric surgery. Informed consent and limits of confidentiality were discussed p rior to the interview. Mr. He reported that he has engaged in numerous attempts at weight loss throughout his lifetime without sustained success, including 4 weight loss programs within the past year. Celena ramos see medical records for previous attempts at weight management. He stated that his ini tially encouraged to pursue bariatric surgery by his PCP, and his primary motivation for pur suing the surgery at this time is to improve his overall health so that he is able to enjoy nursing home. Recent Changes in Eating and Dietary Styles: In preparation for bariatric surgery, Mr. He has made the following lifestyle changes: He has increased the frequency of meals, including eating breakfast regularly within one shira r of waking. He has increased his water intake, and is practicing water from meal s. He is working on reducing his meal portion sizes, which has been on ongoing struggle, not ing that he often overeats during dinner and evening snacks. He has significantly reduced hi s intake of soda, and has a plan for stopping completely within the next month. Water: 64+ oz daily Soda: 12 oz weekly; also consumes 6-8 12-oz beers per week Coffee: 16 oz daily Tea: Denied Binge: Denied Overeating: Reports frequently eating more than he should for dinner and eats larger than r ecommended snacks in the evening after dinner. He reports that he will continue eating until he feels full at dinner, but refrains from overeating during other meals throughout the day . Night eating syndrome: Denied Compensatory Behaviors: The patient denied any compensatory behaviors such as vomiting, ove r-exercising, or using emetics or diuretics. Knowledge of Morbid Obesity & Surgical Intervention: The patient appears to have good knowl edge. He viewed an informational presentation and has read the Bariatric Surgery Notebook. Daily Activity and Functioning: The patient described an active lifestyle. 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 For enjoyment the patient likes to bhatia and fish, and spend time hiking in the mountains. He is socially engaged with his family and co workers. With respect to exercise, Mr. He reported that he has reduced his exercise lev el recently after injuring his bicep at work. He has been on light duty for the past month, and engages in light weight lifting. He also walks or uses a stationary bicylce for 60 minut es, 5+ days per week. Mental Status: Mr. He arrived on time for the appointment dressed in clean, casual clot billy. He was interviewed in the presence of his Angie. He was alert, oriented, pleas ant and cooperative. Speech was fluent and thought content was logical and relevant. Eye c ontact was good. Affect was normal and appropriate. Mood was cheerful. Emotional Symptoms: The patient denied any significant symptoms of depression. He denied an y current or historical suicidal ideation or intent. The patient also denied significant sy mptoms of anxiety. Mental Health History: The patient reported no history of mental health treatment. Emotional Coping: He appears to have adequate personal coping skills and good social suppo rt. He endorsed a habit of emotional eating in response to stress, and noted that he is work ing to develop better coping skills for stress management. Substance Use: Tobacco: Denied current tobacco use; has used smokeless tobacco in the past. Alcohol: Social drinker; consumes alcohol 2-3 times per week, 3-4 beers per drinking occasi on Other drug use: Denied History of substance abuse treatment: Denied Social History: Darin He was born and raised in [place], [place]. He described a hung l childhood, without history of abuse or neglect. His parents remained throughout hi s childhood, and both parents are still living in apparently good health. He has one younger sister who is also in good health. His parents and sister are not currently overweight. Relationship Status: Mr. He has been for 32 years. He described a stable and s upportive relationship and his supports his desire for surgery. His is not overwe ight. Children: 2 children, aged 31 and 29, and 5 grandchildren. His children and their families live in the [facility] and sees his children and grandchildren often. Plan for Support After Surgery: He appears to have a good plan of care. His will pro vide any needed care after surgery. He is able to take time off work as necessary following surgery. Education and Profession: Graduated from high school on time and completed a air bag curer cer tification program. 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 Current Life Stressors: He described normal life stress that is managed relatively well wi th existing coping strategies. Recent stressors have been primarily related to work as he is recovering from an injury to his bicep and has been on light duty since the injury. He is e ager to return to his regular work duties without restriction. Goals and Expectations: Mr. He stated that his primary motivation for considering baria tric surgery is to improve his health so that he may enjoy his nursing home and live a long li fe. Psychological testing: PHQ-9= 4 OLENA-7= 1 RSE= 27 Interpretation of Testing: The patient's score on the Patient Health Questionnaire-9 sugges ts minimal depression. This is consistent with his reported symptoms and presentation durin g the interview. The patient's score on the Generalized Anxiety Disorder-7 suggests minimal anxiety. This i s consistent with his reported symptoms and presentation during the interview. The patient's score on the Ellis Self-Esteem Scale suggests good self-esteem. This is consistent with his reported symptoms and presentation during the interview. Testing Performed Today: Patient Health Questionnaire-9 Generalized Anxiety Disorder-7 Ellis Self esteem Scale Weight and Lifestyle Inventory (TAYO) (shortened) CONCLUSIONS: Darin He appears from a psychological perspective to be an appropriate candidate for bariatric surgery. He appears to have adequate knowledge and understanding of the procedure and the required behavior changes and seems to have realistic goals and expec tations. He does not appear to have significant psychological factors to contraindicate the surgery. He does not currently report significant symptoms of depression, and has adequate self-esteem. And although he is worried about his terminal superintendent health and is somewhat anxious a bout his ability to change health-related habits, he does not report significant symptoms of anxiety. Although Mr. He has successfully implemented several lifestyle changes in prep aration for bariatric surgery, he has struggled to reduce overeating and endorsed frequent e motional eating. Several suggestions were provided to the patient to improve compliance in t hese areas. He expressed willingness to comply with these recommendations as well as the po st-operative treatment plan. As he continues to follow the recommendations he has been give n I anticipate that he will have successful weight loss. Diagnosis: 1. Morbid obesity with BMI 45.0-49.9 2. Anxiety about health [F41.8] RECOMMENDATIONS: 1. Darin He appears from a psychological perspective to be an appropriate candidate for bariatric surgery. 2. No psychological treatment is recommended at this time. He should return for follow-up 3 months after surgery. 3. He is urged to improve his consistency with following the shoveler's recommendations, especially engaging in mindful eating practices by chewing completely, drinking f rom eating, minimizing distractions while eating, and attending to physical cues of satiatio n. 4. He should continue his current routine for exercise. 5. He is urged to participate in a Bariatric Surgery Support Group. 6. He needs to avoid carbonated beverages. Total time I spent was approximately 50 minutes emfa-ry-byke with the patient and approxima tely 115 minutes of xsk-jsew-xc-face testing, interpreting and synthesizing results. Ashutosh Pisano, PhD [facility] [address] [place] [address] Mail Code: [address] [place] [address] documented in this enc ounter Plan of Treatment Not on filedocumented as of this encounter Visit Diagnoses + + | Diagnosis | + + | Morbid obesity (HCC) - Primary Morbid obesity | + + | BMI 45.0-49.9, adult (HCC) Body Mass Index 45.0-49.9, adult | + + | Anxiety about health | + + documented in this encounter"
--- OUTSIDE RECORDS SUMMARY | ~2020-01-22 | XMS | Encounter Summary ---
Demographics + + + | Address | [address] | | | [place] [address] | + + + | Home Phone | | + + + | Preferred Language | Unknown | + + + | Marital Status | | + + + | Latter Day Affiliation | 1073 | + + + | Race | White | + + + | Ethnic Group | Not or | + + + Author + + + | Author | [facility] | | | and [place] | + + + | Organization | [facility] | | | and [place] | + + + | Address | Unknown | + + + | Phone | Unavailable | + + + Support + + +---------+ + | Name | Relationship | Address | Phone | + + +---------+ + | Angie eH | ECON | Unknown | | + + +---------+ + Care Team Providers + +------+ + | Care Promotion Manager Name | Role | Phone | + +------+ + | Hiram Heredia DO | PCP | | + +------+ + Encounter Details +--------+ + + + + | Date | Type | Department | Care Team | Description | +--------+ + + + + | 03/25/ | [facility] | [facility] | Eduardo Mckenna | Status post cervical | | 2012 - | Encounter | MED CTR XRAY [address] | [address], [address] | spinal fusion | | | | [address] [place] | [address] | | | 03/27/ | | [place] [address] | [address] | | | 2011 | | [phone] | [phone] | | | | | | | | +--------+ + + + [...] | | | + +---+---+---+ + + +---------+ + | Alcohol Use | Drinks/Week | oz/Week | Comments | + + +---------+ + | Yes | | | MODERATELY | + + +---------+ + + + + | Sex Assigned at | Date Recorded | | | | + + + | Not on file | | + + + documented as of this encounter Medications at Time of Discharge [...] | 0 | 02/14/20 | | | (GLUCOPHAGE) 500 mg | [...] + + + +---------+ + + | aspirin (ASPIRIN | Take 81 mg by mouth | | 0 | 02/14/20 | | | ADULT LOW STRENGTH) | Daily. | | | 12 | 7 | | 81 MG EC tablet | | | | | | + + + +---------+ + + | Calcium | Take 1 tablet by | | 0 | 02/14/20 | | | Carbonate-Vitamin D | mouth Daily. | | | 12 | 3 | | (CALCIUM + D PO) | | | | | | [...] + + + +---------+ + + | omega-3 acid ethyl | Take 4 g by mouth | | 0 | 02/14/20 | | | esters (LOVAZA) 1 g | Daily. | | | 12 | 5 | | capsule | | | | | | + + + +---------+ + + documented as of this encounter Plan of Treatment +--------+---------+ + + + | Date | Type | Specialty | Care Team | Description | +--------+---------+ + + + | 02/13/ | Office | Primary Care | Hiram Heredia | | | 2020 | Visit | | E DO [address] | | | | | | [place] | | | | | | [address] | | | | | | [phone] | | | | | | | | +--------+---------+ + + + documented as of this encounter Procedures + +--------+ + + + | Procedure Name | Priori | Date/Time | Associated Diagnosis | Comments | | | ty | | | | + +--------+ + + + | XR CERVICAL SPINE 2 | Routin | 03/25/2012 | Status post | Results for this | | OR 3 VIEWS | e | 6:05 PM | cervical spinal | procedure are in the | | | | PDT | fusion | results section. | + +--------+ + + + documented in this encounter Results XR Cervical Spine 2 or 3 Vw (03/25/2012 6:05 PM PDT) + + | Specimen | + + | | + + + + + | Narrative | Performed At | + + + | [facility] | [facility] | | Department [address] [facility] | [facility] | | [ rep [address]] [ rep [facility] | [facility]] Signed | - IMAGING | | | | | Patient Name: CATHIJACLYN Physician: | | | DARRELL.01 : 1965 Age: 46 Sex: M Unit #: [id number] | | | Exam Date: 03/25/12 Location: [facility] | | | Report #: [id number] Page: | | | %(RAD)RES..mtdd.print.filter("pg") of %(RAD) | | | RES..mtdd.print.filter("tpg") | | | | | | Accession Number: [id number] | | | CERVICAL SPINE LIMITED X-RAY CLINICAL HISTORY: Status | | | post cervical fusion. COMPARISON: 01/30/2012 | | | FINDINGS: Anterior cervical spinal fusion hardware is again seen | | | at the levels of C6 through T1. The hardware appears intact and | | | appropriately positioned. Interbody fusion prostheses are seen in | | | stable position at intervening levels. Vertebral body height and | | | alignment is maintained. There is no evidence of fracture or | | | subluxation. Mild to moderate disc space narrowing and vertebral | | | spondylosis is again seen at C5-C6, with spondylosis again seen at | | | C3-C4 and C4-C5. A corticated ossicle along the posterior inferior | | | margin of the C2 spinous process is again seen, unchanged as compared | | | with the prior study. The prevertebral soft tissues and imaged | | | skull base are unremarkable. IMPRESSION: STABLE, | | | SATISFACTORY APPEARANCE OF ANTERIOR SPINAL FUSION HARDWARE AT C6-C7 | | | AND C7-T1. COMMENT: Dictated Date/Time: | | | 03/25/2012 18:05 Transcribed Date/Time: 03/25/2012 18:25 | | | Compliance Officer: AUTUMN <<Signature on File>> | | | | | | Blake Maradiaga MD03/26/12 [id number] <Electronically signed by Blake | | | Edward Maradiaga MD> Blake Maradiaga MD 03/25/12 [id number] | | | Compliance Officer: RiffRaff [id number] 1825 | | | Eduardo Mckenna MD | | + + + + + + + + | Performing | Address | City/State/Zipcode | Phone Number | | Organization | | | | + + + + + | [facility] | [address] | [place] | [phone] | | [facility] | | [address] | | | - IMAGING | | | | + + + + + documented in this encounter Visit Diagnoses + + | Diagnosis | + + | Status post cervical spinal fusion Arthrodesis status | + + documented in this encounter
--- OUTSIDE RECORDS SUMMARY | ~2020-01-22 | XMS | Encounter Summary ---
Demographics + + + | Address | [address] | | | [place] [address] | + + + | Home Phone | | + + + | Preferred Language | Unknown | + + + | Marital Status | | + + + | Methodist Affiliation | 1073 | + + + | Race | White | + + + | Ethnic Group | Not or | + + + Author + + + | Author | [facility] | | | and [place] | + + + | Organization | [facility] | | [...] Team Providers + +------+ + | Care Sas Developer Analyst Name | Role | Phone | + +------+ + | Hiram Heredia DO | PCP | | + +------+ + Reason for Visit + +--------+ + | Reason | Onset | Comments | | | Date | | + +--------+ + | Appointment | 03/23/ | regarding pre op apt with Bobo | | | 2018 | | + +--------+ + Encounter Details +--------+ + + + + | Date | Type | Department | Care Team | Description | +--------+ + + + + | 03/23/ | Telephone | [facility] | Hiram Heredia | Appointment | | 2019 | | [facility] | E, DO [address] | (regarding pre op | | | | [facility] | [place], [place] | apt with Jun) | | | | [address] [place], | [address] | | | | | [place] [address] | [phone] | | | | | [phone] | | | +--------+ + + + [...] this encounter Miscellaneous Notes Telephone Encounter - Refugio Troy - 03/24/2019 1:52 PM PDTPt scheduled 04-06-19 and apt with Bobo cancelled/robin elephone Encounter - Phoebe Alvarado CC CMA - 03/24/2019 1:43 PM PDTYes.Electronically sign ed by ISAAK Bosch CMA at 03/24/2019 1:43 PM PDTTelephone Encounter - Refugio Troy - 03/24/2019 1:34 PM PDTIt is 40 minutes is this okay? elephone Encounter - Phoebe Alvarado CC CMA - 03/24/2019 1:25 PM PDTThat is fine with me, please make sure it is a long visit. ISAAK Gandara CMA elephone Encounte r Refugio Dhillon - 03/24/2019 1:20 PM PDTI called pt and his surgery is not scheduled ye t they want the pre op appt first. Pt would like to see Dr Heredia as soon as possible, ple ase let me know when I can schedule pt, thank you, there is a same day on 04-06-19 40 minutes /robin elephone Encounter - Phoebe Alvarado CC CMA - 03/23/2019 3:59 PM PDTPlease call patient to add to schedule as per Dr. Heredia. ISAAK Gandara CMA elephone Encounte r Hiram Rome DO - 03/23/2019 3:12 PM PDTClearance needs to be within one month o f anticipated surgery; please make a spot in my schedule to see him. 40 min OK elephone Encounter - Mark Troy S - 03/23/2019 1:05 PM PDTPt called and has an apt with Bobo for a pre op for back surger y and pt saw Dr Heredia on 02-10-19 and [address] Dr Heredia would clear him for surger y or if he should keep this apt with Bobo. Please call pt/robin documented in this encounter Plan of Treatment [...] [place] | | | | | | [address] | | | | | | [phone] | | | | | | | | +--------+---------+ + + + documented as of this encounter Visit Diagnoses Not on filedocumented in this encounter"
--- OUTSIDE RECORDS SUMMARY | ~2020-01-22 | XMS | Encounter Summary ---
Demographics + + + | Address | [address] | | | [place] [address] | + + + | Home Phone | | + + + | Preferred Language | Unknown | + + + | Marital Status | | + + + | Jew Affiliation | 1073 | + + + | Race | White | + + + | Ethnic Group | Not or | + + + Author + + + | Author | [facility] | | | and [place] | + + + | Organization | [facility] | | | and [...] Team Providers + +------+ + | Care Media Marketing Specialist Name | Role | Phone | + +------+ + | Hiram Heredia DO | PCP | | + +------+ + Reason for Visit + +--------+ + | Reason | Onset | Comments | | | Date | | + +--------+ + | Diabetes Mellitus | 07/29/ | Diabetes Labs Reminder | | Management | 2020 | | + +--------+ + Encounter Details +--------+ + + + + | Date | Type | Department | Care Team | Description | +--------+ + + + + | 07/29/ | Telephone | [facility] | Hiram Heredia | Diabetes Mellitus | | 2020 | | [facility] | E, DO [address] | Management (Diabetes | | | | MED[facility] [address] | [place] | Labs Reminder) | | | [address] [place], | [address] | | | | | [place] [address] | [phone] | | | | | [phone] | | | +--------+ + + + [...] this encounter Miscellaneous Notes Telephone Encounter - Kenya Damon - 07/29/2019 4:36 PM PSTContacted patient to remind him of non-fasting labs for diabetes. He states he plans on getting those done prior to his appointment on 08/04. Spoke to [facility] in [place] and they confirmed that they have t he orders for HA1C and microalbumin in their system. documented in this encou nter Plan of Treatment +--------+---------+ + + + | Date | Type | Specialty | Care Team | Description | +--------+---------+ + + + | 02/13/ | Office | Primary Care | Hiram Heredia | | 2019 | Visit | | DO Edward [address] | | | | | | [place] | | | | | | [address] | | | | | | [phone] | | | | | | | | +--------+---------+ + + + documented as of this encounter Procedures + +--------+ + + + | Procedure Name | Priori | Date/Time | Associated Diagnosis | Comments | | | ty | | | | + +--------+ + + + | MICROALBUMIN, URINE, | Routin | 08/03/2019 | | Results for this | | RANDOM | e | 8:05 AM | | procedure are in the | | | | PST | | results section. | + +--------+ + + + | HEMOGLOBIN A1C | Routin | 08/03/2019 | | Results for this | | | e | 8:05 AM | | procedure are in the | | | | PST | | results section. | + +--------+ + + + documented in this encounter Results Microalbumin, Urine, Random (08/03/2019 8:05 AM PST) + + + + + + | Component | Value | Ref Range | Performed | Pathologist | | | | | At | Signature | + + + + + + | Microalbumi | <0.7 | 0.0 - 2.0 | REFERENCE | | | n, Urine | | | LAB | | | | | | [facility] | | | | | | [facility] | | + + + + + + | Creatinine, | 149.58 | | REFERENCE | | | random | | | LAB | | | urine | | | [facility] - | | | | | | [facility] | | + + + + + + | Microalb | Comment: Microalbumin | 0 - 30 | REFERENCE | | | Creat Ratio | Calculation is invalid | | LAB | | | | when Microalbumin | | [facility] - | | | | (mg/dl) is less than 0.7 | | BKR | | | | mg/dl | | | | | | | | | | + + + + + + + + | Specimen | + + | | + + + + + | Narrative | Performed At | + + + | Testing Performed at: [facility] CLIA: [id number] - [address] | REFERENCE LAB | | [place] [address] | [facility] | | | [place] | + + + + + + + + | Performing | Address | City/State/Zipcode | Phone Number | | Organization | | | | + + + + + | REFERENCE LAB | [address] [facility] | [place] | [phone] | | [facility] | | [address] | | + + + + + Hemoglobin A1C (08/03/2019 8:05 AM PST) + + + + + + | Component | Value | Ref Range | Performed | Pathologist | | | | | At | Signature | + + + + + + | Hemoglobin | 6.6 (H) | | REFERENCE | | | A1c | | | LAB | | | | | | [facility] | | | | | | [facility] | | + + + + + + | Estimated | 143Comment: | | REFERENCE | | | Average | Reference Range for | | LAB | | | Glucose | HEMOGLOBIN A1c: | | [facility] - | | | | Non-Diabetic | | [facility]KR | | | | <5.7% | | | | | | Increased Risk for | | | | | | Diabetes 5.7% - 6.4% | | | | | | Diagnostic for | | | | | | Diabetes >6.4 | | | | | | Diabetic Goal | | | | | | <7.0%These | | | | | | values are for | | | | | | non- individuals | | | | | | according to the | | | | | | [place] [employer] | | | | | | Association. 'Diabetes | | | | | | Care. | | | | | | 2009;33(suppl):S15-S61.' | | | | | | Hb A1C results may be | | | | | | falsely decreased in the | | | | | | presence of conditions | | | | | | that shorten red cell | | | | | | survival such as the | | | | | | presence of unstable | | | | | | hemoglobins or hemolytic | | | | | | anemia. Results may be | | | | | | falsely elevated in the | | | | | | presence of Iron | | | | | | deficiency anemia. | | | | + + + + + + + + | Specimen | + + | | + + + + + | Narrative | Performed At | + + + | Testing Performed at: [facility] CLIA: [id number] - [address] | REFERENCE LAB | | [place] [address] | [facility] | | | B[place] | + + + + + + + + | Performing | Address | City/State/Zipcode | Phone Number | | Organization | | | | + + + + + | REFERENCE LAB | [address] [facility] | [place] | [phone] | | [place] | | [address] | | + + + + + documented in this encounter Visit Diagnoses Not on filedocumented in this encounter"
--- OUTSIDE RECORDS SUMMARY | ~2020-01-22 | XMS | Encounter Summary ---
Demographics + + + | Address | [address] | | | [place] [address] | + + + | Home Phone | | + + + | Preferred Language | Unknown | + + + | Marital Status | | + + + | Buddhist Affiliation | 1073 | + + + | Race | White | + + + | Ethnic Group | Not or | + + + Author + + + | Author | [facility] | | | and [place] | + + + | Organization | [facility] | | [...] Team Providers + +------+ + | Care Custom Shoe Designer And Maker Name | Role | Phone | + +------+ + PCP | Unavailable | + +------+ + Encounter Details +--------+ + + + + | Date | Type | Department | Care Team | Description | +--------+ + + + + | 02/12/ | Abstract | [facility] | DATA [facility]IGRATION [facility] | | | 2011 | | Conversion Location | SR | | | | | [address] | | | | | | [place], [place] | | | | | | [address] | | | | | | [phone] | | | +--------+ + + + + Social History + +-------+ +--------+------+ | Tobacco Use | Types | Packs/Day | Years | Date | | | | | Used | | + +-------+ +--------+------+ | Never Assessed | | | | | + +-------+ +--------+------+ + + + | Sex Assigned at | Date Recorded | | | | + + + | Not on file | | + + + documented as of this encounter Last Filed Vital Signs + + + + + | Vital Sign | Reading | Time Taken | Comments | + + + + + | Blood Pressure | 100/66 | 08/21/2011 12:00 AM | | | | | PDT [...] + + + + | Weight | 133.4 kg (294 lb 1.6 | 08/21/2011 12:00 AM | | | | oz) | PDT | | + + + + + | Height | 177.8 cm (5' 10") | 08/21/2011 12:00 AM | | | | | PDT | | + + + + + | Body Mass Index | 42.2 | 08/21/2011 12:00 AM | | | | | PDT | | + + + + + documented in this encounter Plan of Treatment +--------+---------+ + + + | Date | Type | Specialty | Care Team | Description | +--------+---------+ + + + | 02/13/ | Office | Primary Care | Hiram Heredia | | | 2019 | Visit | | DO [address] | | | | | | [place] | | | | | | [address] | | | | | | [phone] | | | | | | | | +--------+---------+ + + + documented as of this encounter Visit Diagnoses Not on filedocumented in this encounter
--- OUTSIDE RECORDS SUMMARY | ~2020-01-22 | XMS | Encounter Summary ---
Demographics + + + | Address | [address] | | | [place] [address] | + + + | Home Phone | | + + + | Preferred Language | Unknown | + + + | Marital Status | | + + + | Voodoo Affiliation | 1073 | + + + | Race | White | + + + | Ethnic Group | Not or | + + + Author + + + | Author | [facility] | | | and [place] | + + + | Organization | [facility] | | | [...] Team Providers + +------+ + | Care Occupational Therapy Technician Name | Role | Phone | + +------+ + | Hiram Heredia DO | PCP | | + +------+ + Encounter Details +--------+ + + + + | Date | Type | Department | Care Team | Description | +--------+ + + + + | 09/24/ | Episode | [facility] | Marycruz Fine | | | 2017 | Changes | GASTROENTEROLOGY | M, RN | | | | | [address] [place] | | | | | | [address] [place] | | | | | | [address] | | | | | | [phone] | | | +--------+ + + + [...] + + +---------+ + | Yes | 3 Cans of beer | 3.0 | MODERATELY 2-3 beers | | | [...] | Visit | | DO [address] | | | | | | [place] | | | | | | [address] | | | | | | [phone] | | | | | | | | +--------+---------+ + + + documented as of this encounter Visit Diagnoses Not on filedocumented in this encounter"
--- OUTSIDE RECORDS SUMMARY | ~2020-01-22 | XMS | Encounter Summary ---
Demographics + + + | Address | [address] | | | [place] [address] | + + + | Home Phone | | + + + | Preferred Language | Unknown | + + + | Marital Status | | + + + | Pentecostalism Affiliation | 1073 | + + + | Race | White | + + + | Ethnic Group | Not or | + + + Author + + + | Author | [facility] | | | and [place] | + + + | Organization | [facility] | | | and [...] Team Providers + +------+ + | Care Cloud Consultant Name | Role | Phone | + +------+ + | Hiram Heredia DO | PCP | | + +------+ + Encounter Details +--------+ + + + + | Date | Type | Department | Care Team | Description | +--------+ + + + + | 02/12/ | Hospital | [facility] | Conversion | Pain | | 2018 | Encounter | CONVERSION DEP [address] | Transaction, | | | | | [address]NE [address] | Provider Unknown | | | | | [place], [place] | [phone] | | | | | [address] | | | | | | [phone] | | | +--------+ + + + [...] + + +---------+ + + | | take 1 tablet by | | 0 | 12/30/19 | | | HYDROcodone-acetamin | mouth every 4 to 6 | | | 18 | 9 | | ophen (NORCO) | hours if needed | | | | | | 7.5-325 mg per | | | | | | | tablet | | | | | | + + + +---------+ + + | Hecker 3-6-9 Fatty | Take by mouth. | | 0 | | | | Acids (OMEGA 3-6-9 | | | | | 8 | | COMPLEX PO) | | | | | | + + + +---------+ + + | | Take 1 tablet by | | 0 | 08/27/19 | | | valsartan-hydrochlor | mouth Daily. | | | 18 | 9 | | othiazide | | | | | | | (DIOVAN-HCT) | | | | | | | 160-12.5 MG per | | | | | | | tablet | | | | | | + + + +---------+ + + documented as of this encounter Plan of Treatment +--------+---------+ + + + | Date | Type | Specialty | Care Team | Description | +--------+---------+ + + + | 02/13/ | Office | Primary Care | Giovanna Hiram | | | 2019 | Visit | | E, DO [address] | | | | | | [place] | | | | | | [address] | | | | | | [phone] | | | | | | | | +--------+---------+ + + + documented as of this encounter Procedures + +--------+ + + + | Procedure Name | Priori | Date/Time | Associated Diagnosis | Comments | | | ty | | | | + +--------+ + + + | MRI CERVICAL SPINE | Routin | 12/17/2017 | | Results for this | | WO CONTRAST | e | 7:55 PM | | procedure are in the | | | | PDT | | results section. | + +--------+ + + + documented in this encounter Results MRI Cervical Spine wo Contrast (12/17/2017 7:55 PM PDT) + + | Specimen | + + | | + + + + + | Narrative | Performed At | + + + | This is a non-reportable procedure without a radiologist report and | | | is used for image storage only | | + + + + + | Procedure Note | + + | Fuentes Sandoval - 01/13/2019 2:50 PM PDT This is a non-reportable procedure | | without a radiologist report and isused for image storage only | + + documented in this encounter Visit Diagnoses + + | Diagnosis | + + | Pain Generalized pain | + + documented in this encounter"
--- OUTSIDE RECORDS SUMMARY | ~2020-01-22 | XMS | Encounter Summary ---
Demographics + + + | Address | [address] | | | [place] [address] | + + + | Home Phone | | + + + | Preferred Language | Unknown | + + + | Marital Status | | + + + | Yarsanism Affiliation | 1073 | + + + | Race | White | + + + | Ethnic Group | Not or | + + + Author + + + | Author | [facility] | | | and [place] | + + + | Organization | [facility] | | | [...] Team Providers + +------+ + | Care Television Installer Name | Role | Phone | + +------+ + | Hiram Heredia DO | PCP | | + +------+ + Reason for Visit + + + | Reason | Comments | + + + | Medication Refill | | + + + Encounter Details +--------+--------+ + + + | Date | Type | Department | Care Team | Description | +--------+--------+ + + + | 06/17/ | Refill | [place] [facility] | Giovanna Hiram | Medication Refill | | 2020 | | [facility] | E, DO [address] | | | | | MEDICAL [facility] [address] | [place], [place] | | | | | [address] [place], | [address] | | | | | [place] [address] | [phone] | | | | | [phone] | | | +--------+--------+ + + + Social History + +-------+ [...] this encounter Miscellaneous Notes Telephone Encounter - Phoebe Alvarado CC CMA - 06/17/2019 3:33 PM PSTLAST OFFICE VISIT 09/2018, labs up to date. ISAAK Gandara CMA documented in this encounter Plan of Treatment +--------+---------+ + + + | Date | Type | Specialty | Care Team | Description | +--------+---------+ + + + | 02/13/ | Office | Primary Care | Hiram Heredia | | 2019 | Visit | | DO [address] | | | | | | [place] | | | | | | [address] | | | | | | [phone] | | | | | | | | +--------+---------+ + + + documented as of this encounter Visit Diagnoses Not on filedocumented in this encounter"
--- OUTSIDE RECORDS SUMMARY | ~2020-01-22 | XMS | Encounter Summary ---
Demographics + + + | Address | [address] | | | [place] [address] | + + + | Home Phone | | + + + | Preferred Language | Unknown | + + + | Marital Status | | + + + | Congregational Affiliation | 1073 | + + + | Race | White | + + + | Ethnic Group | Not or | + + + Author + + + | Author | [facility] | | | and [place] | + + + | Organization | [facility] | | [...] Team Providers + +------+ + | Care House Piping Inspector Name | Role | Phone | + [...] | | | | | | | [place] | | | | | | | COLONOSCOPY | | | | | | | FLX DX | | | | | | | W/COLLJ SPEC | | | | | | | WHEN PFRMD | | | | | | | [place] | | | | | | | COLONOSCOPY | | | | | | | W/BIOPSY | | | | | | | SINGLE/MULTI | | | | | | | PLE MT | | | | | | | COLSC FLX | | | | | | | W/RMVL OF | | | | | | | TUMOR POLYP | | | | | | | LESION SNARE | | | | | | | TQ MT | | | | | | | ANESTH,INTES | | | | | | | EZEKIEL,SCOPE,L | | | | | | | OW | | | | | | | COLONOSCOPY | | | +--------+--------+ + + + + Encounter Details +--------+ + + + + | Date | Type | Department | Care Team | Description | +--------+ + + + + | 10/04/ | Hospital | [facility] | Viraj Rodriguez MD | Special screening | | 2017 | Encounter | MED [facility] | [address], [place] | for malignant | | | | [address] | [address] [place], [place] | neoplasms, colon | | | | [place], [place] | [address] | (Primary Dx) | | | | [address] | | | | | | [phone] | | | +--------+ + + + [...] + + + | Blood Pressure | 120/85 | 10/04/2016 11:30 AM | | | | | PDT | | + + + + + | Pulse | 64 | 10/04/2016 11:30 AM | | | | | PDT | | + + + + + | Temperature | 37.3 C (99.1 F) | 10/04/2016 10:52 AM | | | | | PDT | | + + + + + | Respiratory Rate | 14 | 10/04/2016 11:30 AM | | | | | PDT | | + + + + + | Oxygen Saturation | 97% | 10/04/2016 11:30 AM | | | | | PDT [...] is aleading cause of cancer deaths in [facility] [place] But it doesn t have to [...] provider Abdominal pain Vomiting Date Last Reviewed: 04/05/201519990448-[address] [place] [address], [place] [address]. All righ ts reserved. This information is [...] + + + +---------+ + + | Mcewen 3-6-9 Fatty | Take by mouth. 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 multivitamin (THERAGRAN) per tablet daily Mcewen 3-6-9 Fatty Acids (OMEGA 3-6-9 COMPLEX PO) [...] been reviewed.Gastroenterology consultation, medical terrell rds from [facility] 2. Medication list reviewed. IMPRESSION: colon [...] Electronically Signed by: Viraj Rodriguez MD 10/04/2016 [facility] Portions of this chart may have been created with WikiYou voice recognition software. Occasi onal wrong-word or [...] Viraj Rodriguez MD - 10/04/2016 10:14 AM PDTDischarge Instr uctions for Colonoscopy Exams Patient: Darin He : 1965 Acct: [id number] Exam Date: Tuesday, October 04, 2016 Doctor: [...] If unable to reach your physician, call [facility] Emergency Department at Ext. 2500 Your doctor [...] has been given to the patient/escort. Nurse Signatur e Patient Signature Escort Signatu re Date [...] ST | | | | | | [place], [place] | | | | | | [address] | | | | | | [phone] | | | | | | | [...] | | | | | | obesity) ([facility]) | | | | | | (E66.01) [...] 10/04/2016 | [facility]ATION | | 10:14 AMMRN: [id number] #: [id number] of : | | | 1965Admit Type: AmbulatoryAge: 51Room: [facility] 01Gender: MaleNote | | | Status: FinalizedAttending MD: Viraj Rodriguez , [facility]cedure: | | | ColonoscopyIndications: Screening for colorectal malignant | | | neoplasmProviders: Viraj Rodriguez MD, Sharon Fountain, | | | RNLaura, Station Mechanic, Gearldo Watkins | | | MD Julia (Anesthesia [...] the | | | anesthesiologist and the statistical technician in the endoscopy suite. Mental | [...] AMScope | | | Out: 10:43:56 AM [facility], [address] | | | [place] [address] | | | - Await pathology results. [...] |Scope Out: 10:43:56 AM | | | [facility], [address] [place], [place] | | | [address] | | + + -+ + +---------+ [...] | | | POC | | | [facility] ROOT | | | | | | [...] | + + + + + | [facility] [facility] | [address] | [place] | [phone] | | [facility] | | [address] | | | - LABORATORY | | | | + + + + + Surgical Pathology Exam (10/04/2016 12:00 AM PDT) + + | Specimen | + + | | + + + + + | Narrative | Performed At | + + + | SPECIMEN(S): A DESCENDING COLON POLYP SPECIMEN SOURCE: [facility] | | DESCENDING COLON POLYP CLINICAL [...] | | | Tubular adenoma (one fragment). JVR:[facility]:C2NR GROSS | | | DESCRIPTION: The specimen is labeled "Darin He" and | | | designated "descending colon polyp" on the requisition. Received in | | | formalin is one light red colored tissue fragment, it measures 0.3 x | | | 0.4 cm, all into (A1). yt:JVR:[facility] PERFORMING LABORATORY: Tissue | | | processing and slide preparation were performed by [facility] | | | [facility], [address], [place] [address] | | | (Hatchery Attendant: Steve Triana M.D. CLIA#: [id number]). | | | Professional interpretation was performed by [facility], | | | [facility], [address] [facility] | | | [place] [address] (Hatchery Attendant: Steve Triana M.D.; CLIA#: | | | [id number]). Diagnostician: Steve Triana MD Pathologist | | [...] + | Diagnosis | + + | Special screening for malignant neoplasms, colon - Primary | + + documented in this encounter Administered Medications + +---------+ [...] | mL/hr | | | CONTINUOUS, Starting 10/04/16 | | AM PDT | | | | | at 0900, Pre-op | | | | | | + +---------+ +------+-------+------+ +---+---+ | | | +---+---+ documented in this encounter
--- OUTSIDE RECORDS SUMMARY | ~2020-01-22 | XMS | Encounter Summary ---
Demographics + + + | Address | [address] | | | [place] [address] | + + + | Home Phone | | + + + | Preferred Language | Unknown | + + + | Marital Status | | + + + | Adventist Affiliation | 1073 | + + + | Race | White | + + + | Ethnic Group | Not or | + + + Author + + + | Author | [facility] | | | and [place] | + + + | Organization | [facility] [...] Providers + +------+ + | Care Cloud Engagement Partner Name | Role | Phone | + +------+ + | Hiram Heredia DO | PCP | | + +------+ + Reason for Visit + +--------+ + | Reason | Onset | Comments | | | Date | | + +--------+ + | Lab Results | 04/08/ | | | | 2018 | | + +--------+ + | Pre-Op | 04/08/ | | | | 2018 | | + +--------+ + Encounter Details +--------+ + + + + | Date | Type | Department | Care Team | Description | +--------+ + + + + | 04/08/ | Telephone | [facility] | Hiram Heredia | Lab Results; Pre-Op | | 2019 | | [facility] | E, DO [address] | | | | | [facility] [address] | [place], [place] | | | | | [address] [place], | [address] | | | | | [place] [address] | [phone] | | | | | [phone] | | | +--------+ + + + [...] this encounter Miscellaneous Notes Telephone Encounter - Aimee Davey CC [facility] - 04/08/2019 10:[address] Spencer ceron [phone] [email or web address] signed by ISAAK Andrea [facility] at 04/08/2019 10:05 AM PST Telephone Encounter - Aimee Davey CC [facility] - 04/08/2019 10:02 AM PST----- Message from Stephenie Heredia DO sent at 04/08/2019 7:14 PST ----- Please make sure surgeon has a copy of these labs. documented in this encounter Plan of Treatment +--------+---------+ + + + | Date | Type | Specialty | Care Team | Description | +--------+---------+ + + + | 02/13/ | Office | Primary Care | Hiram Heredia | | | 2019 | Visit | | DO Edward | | | | | | [place] | | | | | | [address] | | | | | | [phone] | | | | | | | | +--------+---------+ + + + documented as of this encounter Visit Diagnoses Not on filedocumented in this encounter"
--- OUTSIDE RECORDS SUMMARY | ~2020-01-22 | XMS | Encounter Summary ---
Demographics + + + | Address | [address] | | | [place] [address] | + + + | Home Phone | | + + + | Preferred Language | Unknown | + + + | Marital Status | | + + + | Jainism Affiliation | 1073 | + + + | Race | White | + + + | Ethnic Group | Not or | + + + Author + + + | Author | [facility] | | | and [place] | + + + | Organization | [facility] | | | [...] Team Providers + +------+ + | Care Registered Dental Hygienist Name | Role | Phone | + +------+ + | Hiram Heredia DO | PCP | | + +------+ + Reason for Referral Diagnostic/Screening (Routine) + +--------+ + + + + | Status | Reason | Specialty | Diagnoses / | Referred By | Referred To | | | | | Procedures | Contact | Contact | + +--------+ + + + + | Authorized | | | Diagnoses | [facility] | [address] | | | | | Lumbar | Hiram Leon | S[facility] | | | | | spondylosis | DO [address] | [facility]OS[facility] | | | | | DDD | [address] [place] | [address] | | | | | (degenerativ | [place], [place] | AVE | | | | | e disc | [address] | [place], [place] | | | | | disease), | Phone: | [phone] | | | | | lumbar | [phone] | Phone: | | | | | Procedures | Fax: | [phone] | | | | | MRI Lumbar | [phone] | Fax: | | | | | Spine wo | | [phone] | | | | | Contrast | | | + +--------+ + + + + Reason for Visit +--------+ + | Reason | Comments | +--------+ + | Other | | +--------+ + Encounter Details +--------+---------+ + + + | Date | Type | Department | Care Team | Description | +--------+---------+ + + + | 02/04/ | Office | [facility] | Hiram Heredia | Type 2 diabetes | | 2019 | Visit | [facility] | E, DO [address] | mellitus without | | | | [facility] [address] | [place], [place] | complication, | | | [address] [place], | [address] | without long-term | | | | [place] [address] | [phone] | current use of | | | | [phone] | | insulin (HCC) | | | | | | (Primary Dx); Mixed | | | | | | hyperlipidemia; | | | | | | Elevated liver | | | | | | enzymes; Lumbar | | | | | | spondylosis; DDD | | | | | | (degenerative disc | | | | | | disease), lumbar; | | | | | | Morbid obesity (HCC) | +--------+---------+ + + + Social History [...] + + + | Blood Pressure | 128/80 | 02/04/2019 10:09 AM | | | | | PDT | | + + + + + | Pulse | 75 | 02/04/2019 10:09 AM | | | | | PDT | | + + + + + | Temperature | - | - | | + + + + + | Respiratory Rate | 17 | 02/04/2019 10:09 AM | | | | | PDT | | + + + + + | Oxygen Saturation | 95% | 02/04/2019 10:09 AM | | | | | PDT | | + + + + + | Inhaled Oxygen | - | - | | | Concentration | | | | + + + + + | Weight | 137.4 kg (303 lb) | 02/04/2019 10:09 AM | | | | | PDT | | + + + + + | Height | 175.3 cm (5' 9") | 02/04/2019 10:09 AM | | | | | PDT | | + + + + + | Body Mass Index | 44.75 | 02/04/2019 10:09 AM | | | | | PDT | | + + + + + documented in this encounter Progress Notes Hiram Heredia, - 02/04/2019 10:20 AM PDT Patient ID: Darin He is a 53 y.o. year old male Chief Complaint: Chief Complaint Patient presents with Other Assessment 1. Type 2 diabetes mellitus without complication, without long-term current use of insulin (HCC) 2. Mixed hyperlipidemia 3. Elevated liver enzymes 4. Lumbar spondylosis - MRI Lumbar Spine wo Contrast; Future - traMADol (ULTRAM) 50 mg tablet; Take 1-2 tabs 2 times daily as needed for pain Dispense: 30 tablet; Refill: 0 5. DDD (degenerative disc disease), lumbar - MRI Lumbar Spine wo Contrast; Future - traMADol (ULTRAM) 50 mg tablet; Take 1-2 tabs 2 times daily as needed for pain Dispense: 30 tablet; Refill: 0 6. Morbid obesity (HCC) Plan: -Lengthy review of lab and xray results with the patient. -Encouraged compliance of medications. -Continue use of fish oil supplements, 2,000-4,000 units daily -MRI of lumbar spine ordered today. Will contact patient with results and updated treatment plan -Trial of Tramadol 50 mg 1-2x daily for pain. Continue use of NSAIDs rather than Tylenol gi iglesia elevated liver enzymes. -Encouraged weight loss. Consider Medifast. Not interested in weight loss surgery. Subjective: HPI: Patient presents to the clinic for lab review Labs performed on 01/20/19 included CBC, CMP, A1c, TSH, urine microalbumin, and UA. Notable results include low platelet count at 118, elevated triglycerides at 288, elevated AST/ALT a t 45/83, and elevated A1c at 7.2%. Regarding diabetes, the patient states that he has not been compliant with Metformin as he just simply forgets to take his medication occasionally. Continues to have lower back pain, radiating down left leg. Recently his pain has been loca marco a slightly higher, described as a spasm. Associated with some numbness/tingling of his lef t lower extremity. No incontinence of bladder or bowel. No saddle anesthesia. He had an xray performed on his lumbar spine 01/19/2019 which revealed degenerative disc disease with spond ylosis at L4-5. No significant change compared to previous imaging. He is considering disabi lity longterm. The patient has had chiropractic manipulation in the past without pain reli ef. Current Outpatient Medications Medication Sig Dispense Refill ascorbic acid (VITAMIN C) 500 mg chewable tablet Take 500 mg by mouth Daily. aspirin 81 MG tablet Take 81 mg by mouth. atorvaSTATin (LIPITOR) 40 mg tablet Take 1 tablet by mouth Daily. Labs needed before fu rther fills. (Patient taking differently: Take 40 mg by mouth Daily.) 90 tablet 3 cetirizine (ZYRTEC ALLERGY) 10 mg tablet Take 10 mg by mouth Daily. Cholecalciferol (VITAMIN D3 PO) Take 4,000 Int'l Units by mouth. fish oil 1,000 mg capsule Take 2,000 mg by mouth Daily. FLUoxetine (PROZAC) 20 mg capsule Take 20 mg by mouth Daily. metFORMIN (GLUCOPHAGE) 500 mg tablet Take 500 mg by mouth Daily. (Patient taking differ ently: Take 1,000 mg by mouth daily (with breakfast).) multivitamin (THERAGRAN) per tablet daily tiZANidine (ZANAFLEX) 4 mg tablet Take 1 tablet by mouth nightly for 28 days. 28 tablet 0 tocopherol (VITAMIN E) 400 units capsule Take by mouth. valsartan-hydrochlorothiazide (DIOVAN-HCT) 160-12.5 MG per tablet Take 1 tablet by mout h Daily. 90 tablet 1 No current facility-administered medications for this visit. Patient Active Problem List Diagnosis JOCELYN on CPAP Essential hypertension Mixed hyperlipidemia Diabetes mellitus Arthritis Morbid obesity Herniated nucleus pulposus, C6-7 left Herniated nucleus pulposus, C5-6 right Cervical radiculopathy at C7 S/P cervical spinal fusion H/O umbilical hernia repair Primary osteoarthritis involving multiple joints Ulnar neuropathy Family History Problem Relation Age of Onset Cancer Mother Arthritis Mother Hypertension Father No known problems Sister Heart disease Maternal Grandmother Lung cancer Maternal Grandfather Smoker Stroke Paternal Grandmother Alcohol abuse Paternal Grandmother Heart failure Paternal Grandmother Past Surgical History: Procedure Laterality Date APPENDECTOMY APPENDECTOMY BICEPS TENDON REPAIR Left 12/31/2017 CERVICAL FUSION COLONOSCOPY N/A 10/04/2016 Procedure: COLONOSCOPY; Surgeon: Viraj Rodriguez MD; Location: [facility] Destruction of benign lesion by cryosurgery PARQ freeze ELBOW ARTHROSCOPY Right KNEE ARTHROSCOPY 1994 AND 2007 BILATERAL KNEE ARTHROSCOPY Bilateral KNEE JOINT REPLACEMENT 2013 Dr. Gonzalez, Bilateral LEFT ROTATOR CUFF 09/2014 Dr. Gonzalez OTHER SURGICAL HISTORY TONSILLECTOMY Right Elbow scope 1991 Right Rotator Cuff 2016 ROTATOR CUFF REPAIR Bilateral TONSILLECTOMY TOTAL KNEE ARTHROPLASTY Bilateral UMBILICAL HERNIA REPAIR Social History Socioeconomic History Marital status: Spouse name: Angie Number of children: 2 Years of education: Not on file Highest education level: Not on file Social Needs Financial resource strain: Not on file Food insecurity - worry: Not on file Food insecurity - inability: Not on file Transportation needs - medical: Not on file Transportation needs - non-medical: Not on file Occupational History 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 Musculoskeletal: Positive for back pain and myalgias. Neurological: Positive for numbness. Negative for weakness. Objective: Vitals: BP 128/80 | Pulse 75 | Resp 17 | Ht 1.753 m (5' 9") | Wt (!) 137.4 kg (303 lb) | SpO2 95% | BMI 44.75 kg/m Physical Exam Constitutional: He is oriented to person, place, and time. He appears well-developed and we ll-nourished. HENT: Head: Normocephalic and atraumatic. Right Ear: External ear normal. Left Ear: External ear normal. Nose: Nose normal. Mouth/Throat: Oropharynx is clear and moist. No oropharyngeal exudate. Eyes: Pupils are equal, round, and reactive to light. Conjunctivae are normal. Neck: Normal range of motion. No thyromegaly present. Cardiovascular: Normal rate, regular rhythm and normal heart sounds. Pulmonary/Chest: Effort normal and breath sounds normal. Abdominal: Soft. Bowel sounds are normal. Musculoskeletal: Back: Able to balance on one leg Negative straight leg raise bilaterally Good ROM of bilateral hips Neurological: He is alert and oriented to person, place, and time. Reflex Scores: Patellar reflexes are 0 on the right side and 0 on the left side. Achilles reflexes are 0 on the right side and 0 on the left side. Subjective difficulty with left sided dorsiflexion Weakness of left lower extremity compared to right. Psychiatric: He has a normal mood and affect. His behavior is normal. Thought content hung gutierrez. This documentation prepared by Susan Mays medical collector. All aspects of this chart re viewed for accuracy and content by Hiram Heredia DO at the date and time of service. Electronically signed by: Dr. Hiram Heredia DO 02/04/2019 10:40 documented in this encounter Plan of Treatment +--------+---------+ + + + | Date | Type | Specialty | Care Team | Description | +--------+---------+ + + + | 02/13/ | Office | Primary Care | Hiram Heredia | | | 2019 | Visit | | DO Edward | | | | | | [place], [place] | | | | | | [address] | | | | | | [phone] | | | | | | | | +--------+---------+ + + + + +---------+--------+ + + | Name | Type | Priori | Associated Diagnoses | Order Schedule | | | | ty | | | + +---------+--------+ + + | MRI Lumbar Spine wo | Imaging | Routin | Lumbar spondylosis | Expected: | | Contrast | | e | DDD (degenerative | 02/04/2019, Expires: | | | | | disc disease), | 02/05/2020 | | | | | lumbar | | + +---------+--------+ + + documented as of this encounter Procedures + +--------+ + + + | Procedure Name | Priori | Date/Time | Associated Diagnosis | Comments | | | ty | | | | + +--------+ + + + | IMAGING REPORT - | | 03/04/2019 | | Results for this | | EXTERNAL SCAN | | 12:00 AM | | procedure are in the | | | | PDT | | results section. | + +--------+ + + + documented in this encounter Results IMAGING REPORT - EXTERNAL SCAN (03/04/2019 12:00 AM PDT) + + + | Narrative | Performed At | + + + | Ordered by an | | | unspecified provider. | | + + + documented in this encounter Visit Diagnoses + + | Diagnosis | + + | Type 2 diabetes mellitus without complication, without long-term current use of | | insulin (HCC) - Primary | + + | Mixed hyperlipidemia | + + | Elevated liver enzymes Nonspecific elevation of levels of transaminase or lactic acid | | dehydrogenase (LDH) | + + | Lumbar spondylosis Lumbosacral spondylosis without myelopathy | + + | DDD (degenerative disc disease), lumbar Degeneration of lumbar or lumbosacral | | intervertebral disc | + + | Morbid obesity (HCC) Morbid obesity | + + documented in this encounter
--- OUTSIDE RECORDS SUMMARY | ~2020-01-22 | XMS | Encounter Summary ---
Demographics + + + | Address | [address] | | | [place] [address] | + + + | Home Phone | | + + + | Preferred Language | Unknown | + + + | Marital Status | | + + + | Episcopalian Affiliation | 1073 | + + + | Race | White | + + + | Ethnic Group | Not or | + + + Author + + + | Author | [facility] | | | and [place] | + + + | Organization | [facility] | | | [...] Team Providers + +------+ + | Care Manager Ecommerce Name | Role | Phone | + +------+ + PCP | Unavailable | + +------+ + Encounter Details +--------+ + + + + | Date | Type | Department | Care Team | Description | +--------+ + + + + | 01/16/ | [facility] | [facility] | Ron Martinez, | | | 2009 - | Encounter | MED CTR GENERIC IP | MD [address] [facility] | | | | | CONV DEPT [address] | [place], [place] | | | 01/17/ | | [place], | [address] | | | 2009 | | [place] [address] | [phone] | | | | | [phone] | | | +--------+ + + + [...] | 2020 | Visit | | E, [address] | | | | | | [place] | | | | | | [address] | | | | | | [phone] | | | | | | | | +--------+---------+ + + + documented as of this encounter Visit Diagnoses Not on filedocumented in this encounter"
--- OUTSIDE RECORDS SUMMARY | ~2020-01-22 | XMS | Encounter Summary ---
Demographics + + + | Address | [address] | | | [place] [address] | + + + | Home Phone | | + + + | Preferred Language | Unknown | + + + | Marital Status | | + + + | Anabaptism Affiliation | 1073 | + + + | Race | White | + + + | Ethnic Group | Not or | + + + Author + + + | Author | [facility] | | | and [place] | + + + | Organization | [facility] | | [...] Team Providers + +------+ + | Care Retouching Operator Name | Role | Phone | + [...] Description | +--------+--------+ + + + | 06/16/ | Refill | [facility] | Giovanna Hiram | Medication Refill | | 2020 | | [facility] | E, DO [address] | | | | | MEDICAL [facility] [address] | [place], [place] | | | | | [address] [place], | [address] | | | | | [place] [address] | [phone] | | | | | [phone] | | | +--------+--------+ + + + [...] this encounter Miscellaneous Notes Telephone Encounter - Samantha Burnette - 06/17/2019 8:25 AM PSTPt is scheduled on 08/05/19 Tia elephone Encounter - Aimee Davey CC LAWN CARE TECHNICIAN - 06/17/2019 7:57 AM PSTPlease schedule DM fu appt 40 mins when we ather is better. Patient is aware he has nonfasting labs (dm labs) to do prior to appt. ISAAK Linton CMA elephone Aimee Villarreal CC CMA - 06/17/2019 7:12 AM PSTNeeds a1c and DM appt. I will have h im scheduled after the weather is better. ISAAK Linton CMA documented in th is encounter Plan of Treatment +--------+---------+ + + + | Date | Type | Specialty | Care Team | Description | +--------+---------+ + + + | 02/13/ | Office | Primary Care | Hiram Heredia | | 2019 | Visit | | E, DO [address] | | | | | | [place] | | | | | | [address] | | | | | | [phone] | | | | | | | | +--------+---------+ + + + documented as of this encounter Visit Diagnoses Not on filedocumented in this encounter"
--- OUTSIDE RECORDS SUMMARY | ~2020-01-22 | XMS | Encounter Summary ---
Demographics + + + | Address | [address] | | | [place] [address] | + + + | Home Phone | | + + + | Preferred Language | Unknown | + + + | Marital Status | | + + + | Sikh Affiliation | [id number] | + + + | Race | White | + + + | Ethnic Group | Not or | + + + Author + + + | Author | [facility] | | | and [place] | + + + | Organization | [facility] | | [...] Team Providers + +------+ + | Care Cone Winder Name | Role | Phone | + +------+ + | Hiram Heredia DO | PCP | | + +------+ + Reason for Visit + + + | Reason | Comments | + + + | New Patient | | + + + | Colon Cancer | | | Screening | | + + + Evaluate & Treat (Routine) +--------+--------+ + + + + | Status | Reason | Specialty | Diagnoses / | Referred By | Referred To | | | | | Procedures | Contact | Contact | +--------+--------+ + + + + | Closed | | Gastroenterol | Diagnoses | Giovanna, | Jennifer, | | | | ogy | Encounter | Hiram James, | Viraj James MD | | | | | for | DO [address] | [address], | | | | | screening | [address] [place] | [address] | | | | | for | [place], [place] | [place], | | | | | malignant | [address] | [place] [address] | | | | | neoplasm of | Phone: | Phone: | | | | | colon | [phone] | [phone] | | | | | Procedures | Fax: | Fax: | | | | | Office Visit | [phone] | [phone] | +--------+--------+ + + + + Encounter Details +--------+---------+ + + + | Date | Type | Department | Care Team | Description | +--------+---------+ + + + | 09/02/ | Office | [facility] | Viraj Rodriguez MD | Abnormal liver | | 2017 | Visit | GASTROENTEROLOGY | [address], [place] | function tests | | | | [address] [place] | [address] [place] | (Primary Dx) | | | | [address] [place] | [address] | | | | | [address] | | | | | | [phone] | | | +--------+---------+ + + + [...] + + + | Blood Pressure | 120/80 | 09/02/2016 1:58 PM | | | | | PDT | | + + + + + | Pulse | 94 | 09/02/2016 1:58 PM | | | | | PDT | | + + + + + | Temperature | 36.4 C (97.5 F) | 09/02/2016 1:58 PM | | | | | PDT | | + + + + + | Respiratory Rate | 16 | 09/02/2016 1:58 PM | | | | | PDT | | + + + + + | Oxygen Saturation | 97% | 09/02/2016 1:58 PM | | | | | PDT | | + + + + + | Inhaled Oxygen | - | - | | | Concentration | | | | + + + + + | Weight | 135.2 kg (298 lb) | 09/02/2016 1:58 PM | | | | | PDT | | + + + + + | Height | 177.8 cm (5' 10") | 09/02/2016 1:58 PM | | | | | PDT | | + + + + + | Body Mass Index | 42.76 | 09/02/2016 1:58 PM | | | | | PDT | | + + + + + documented in this encounter Progress Notes Viraj Rodriguez MD - 09/02/2016 6:26 PM PDT Subjective: Patient ID: Darin He is a 51 y.o. male. HPI Comments: The patient is seen for 2 gastrointestinal tract concerns outside records are reviewed Patient is seen for evaluation of colon cancer screening. There is no family history of co luz elena cancer or polyps. He denies any change in bowel pattern denies any blood in the stools. He moves his bowels once or twice a day. Patient has no questions with respect to the skyla james as his recently underwent colonoscopy for colon cancer screening. Patient reports that he's had abnormal liver function tests for at least 3 years. 18 ALT h ave been modestly elevated at 1-1/2 of 1-4 times. Rarely an ultrasound was done 3 years ago which showed fatty liver. Patient has an elevated hemoglobin A1c at 6.8. In addition he h as elevation of cholesterol and triglycerides at 227 and 365 respectively. Patient is on me tformin for 3 years. In addition he's been on Lescol for treatment of his hyper lipidemia. He has had a voluntary weight loss of 17 pounds. The patient has tried to limit his carboh ydrate intake but has not limited his fatty food intake. TSH has been normal. The patient reports that his family phenotype has not been of a large build which is his own body habitu s. 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 Patient was congratulated with his 17 pound weight loss and encouraged to con tinue the same along with additional dietary modifications and exercise regimen. The patien t was told that given his hyperglycemia hyperlipidemia normal TSH at this point in time do n ot feel that a detailed workup with respect to the etiology of fatty liver disease is needed . Filed Vitals: 09/02/16 1358 BP: 120/80 Pulse: 94 Temp: 36.4 C (97.5 F) Resp: 16 PainSc: 0 - No pain No Known Allergies Past Medical History Diagnosis Date Obstructive sleep apnea 08/21/2011 Benign hypertension Hyperlipidemia Diabetes mellitus (HCC) Arthritis Obesity Herniated nucleus pulposus, C6-7 left Herniated nucleus pulposus, C5-6 right Cervical radiculopathy at C7 Lumbago History of Lumbago - Chronic Hypogonadism in male Secondary polycythemia -testosterone use Testicular hypofunction Skin lesions Lesions of the scalp Dysmetabolic syndrome X Actinic keratosis Past Surgical History Procedure Laterality Date Knee arthroscopy 1994 AND 2007 BILATERAL Appendectomy Tonsillectomy Knee joint replacement 2013 Dr. Gonzalez, Bilateral Left rotator cuff 09/2014 Dr. 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 Alcohol Use: 1.8 oz/week 3 Cans of beer per week Comment: MODERATELY 2-3 beers about 2-3 days during the week Drug Use: No Sexual Activity: Not Asked Other Topics Concern None Social History Narrative Review of Systems HENT: Positive for rhinorrhea and sneezing. Respiratory: Positive for cough. Musculoskeletal: Positive for back pain and arthralgias. All other systems reviewed and are negative. Objective: Physical Exam Constitutional: He is oriented to person, place, and time. He appears well-developed and we ll-nourished. No distress. Obese BMI 43 HENT: Head: Normocephalic and atraumatic. Right Ear: External ear normal. Left Ear: External ear normal. Nose: Nose normal. Mouth/Throat: Oropharynx is clear and moist. Eyes: Conjunctivae and EOM are normal. Pupils are equal, round, and reactive to light. Righ t eye exhibits no discharge. Left eye exhibits no discharge. No scleral icterus. Neck: Normal range of motion. Neck supple. No JVD present. No tracheal deviation present. Cardiovascular: Normal rate, regular rhythm, normal heart sounds and intact distal pulses. Exam reveals no gallop and no friction rub. No murmur heard. Pulmonary/Chest: Effort normal and breath sounds normal. No stridor. No respiratory distres s. He has no wheezes. He has no rales. He exhibits no tenderness. Abdominal: Soft. Bowel sounds are normal. He exhibits no distension and no mass. There is n o tenderness. There is no rebound and no guarding. Obese liver and spleen nonpalpable no bruits were heard Musculoskeletal: Normal range of motion. He exhibits no edema or tenderness. Lymphadenopathy: He has no cervical adenopathy. Neurological: He is alert and oriented to person, place, and time. No cranial nerve deficit . He exhibits normal muscle tone. Coordination normal. Skin: Skin is warm and dry. No rash noted. He is not diaphoretic. No erythema. No pallor. Psychiatric: He has a normal mood and affect. His behavior is normal. Judgment and thought content normal. Nursing note and vitals reviewed. Assessment: Appropriate candidate for colon cancer screening via colonoscopy Fatty liver by ultrasound criteria by verbal report secondary to hyperglycemia hyperlipidem ia for which are being treated medically Other medical problems stable being addressed by primary care physician Plan: Colonoscopy with propofol sedation given his BMI of 43 obstructive sleep apnea with CPAP He was encouraged to maintain tighter control of his blood sugar and cholesterol and trigly cerides in an attempt to mobilize fat from within his liver to be metabolized peripherally. In addition to the above he was encouraged to continue his vitamin D supplement but institu te vitamin E 800 mg a day. The patient was told that there is ongoing currently to develop a medication specifically to treat fatty liver and I suspect within the next 3-4 years that that will be released on the market. Otherwise it is noted that he is on metformin which so me studies have shown to decrease the abnormalities with respect to liver biochemistries but may not alter the overall architecture of the liver on serial biopsies The patient should have liver biochemistry drawn on a semiannual basis. If his liver bioch emistries become progressively worse then liver biopsy would be indicated. documented in this enc ounter Plan of Treatment +--------+---------+ + + + | Date | Type | Specialty | Care Team | Description | +--------+---------+ + + + | 02/13/ | Office | Primary Care | Hiram Heredia | | | 2020 | Visit | | DO [address] | | | | | | [place] | | | | | | [address] | | | | | | [phone] | | | | | | | | +--------+---------+ + + + documented as of this encounter Visit Diagnoses + + | Diagnosis | + + | Abnormal liver function tests - Primary Other abnormal blood chemistry | + + documented in this encounter
--- OUTSIDE RECORDS SUMMARY | ~2020-01-22 | XMS | Encounter Summary ---
Demographics + + + | Address | [address] | | | [place] [address] | + + + | Home Phone | | + + + | Preferred Language | Unknown | + + + | Marital Status | | + + + | Anabaptist Affiliation | [id number] | + + + | Race | White | + + + | Ethnic Group | Not or | + + + Author + + + | Author | [facility] | | | and [place] | + + + | Organization | [facility] | | [...] Team Providers + +------+ + | Care Operators School Manager Name | Role | Phone | + +------+ + | Hiram Heredia DO | PCP | | + +------+ + Reason for Visit + + + | Reason | Comments | + + + | Establish Care | Re-establish care, skin check | + + + Encounter Details +--------+---------+ + + + | Date | Type | Department | Care Team | Description | +--------+---------+ + + + | 04/28/ | Office | [place] | Hiram Heredia | AK (actinic | | 2018 | Visit | [facility] | E, DO [address] | keratosis) (Primary | | | | [facility] [address] | [place], [place] | Dx); SK (seborrheic | | | | [address] [place], | [address] | keratosis); Skin | | | | [place] [address] | [phone] | tag; Type 2 diabetes | | | | [phone] | | mellitus without | | | | | | complication, | | | | | | without long-term | | | | | | current use of | | | | | | insulin (HCC); Need | | | | | | for influenza | | | | | | vaccination; | | | | | | Essential | | | | | | hypertension; Mixed | | | | | | hyperlipidemia; | | | | | | Morbid obesity | | | | | | (HCC); Nocturia; | | | | | | Prostate cancer | | | | | | screening | +--------+---------+ + + + Social History + +-------+ +--------+------+ | Tobacco Use | Types | Packs/Day | Years | Date | | | | | Used | | + +-------+ +--------+------+ | Never Smoker | | | | | + +-------+ +--------+------+ + +------+---+--------+ | Smokeless Tobacco: | Chew | | Quit: | | Former User | | | 2002 | + +------+---+--------+ + + | Tobacco Cessation: Counseling Given: No | + + + + +---------+ + [...] + | Blood Pressure | 128/80 | 04/28/2018 3:21 PM | | | | | PST | | + + + + + | Pulse | 86 | 04/28/2018 3:21 PM | | | | | PST | | + + + + + | Temperature | 36.9 C (98.4 F) | 04/28/2018 3:21 PM | | | | | PST | | + + + + + | Respiratory Rate | 17 | 04/28/2018 3:21 PM | | | | | PST | | + + + + + | Oxygen Saturation | 94% | 04/28/2018 3:21 PM | | | | | PST | | + + + + + | Inhaled Oxygen | - | - | | | Concentration | | | | + + + + + | Weight | 137.6 kg (303 lb 6.4 | 04/28/2018 3:21 PM | | | | oz) | PST | | + + + + + | Height | 175.3 cm (5' 9") | 04/28/2018 3:21 PM | | | | | PST | | + + + + + | Body Mass Index | 44.8 | 04/28/2018 3:21 PM | | | | | PST | | + + + + + documented in this encounter Progress Notes Hiram Heredia DO - 04/28/2018 3:30 PM PST Patient ID: Darin He is a 52 y.o. year old male Chief Complaint: Chief Complaint Patient presents with [facility] Re-establish care, skin check Assessment AK (actinic keratosis) (Primary) SK (seborrheic keratosis) Skin tag Type 2 diabetes mellitus without complication, without long-term current use of insulin (HC C) - Hemoglobin A1C; Future; Expected date: 2018 - Microalbumin/Creatinine Ratio, Urine; Future; Expected date: 2018 Need for influenza vaccination - Influenza PF 3Yrs or >,Quad PSKT or Vial Essential hypertension - CBC with Differential; Future; Expected date: 2018 - Comprehensive Metabolic Panel; Future; Expected date: 2018 - TSH; Future; Expected date: 2018 Mixed hyperlipidemia - Lipid Panel; Future; Expected date: 2018 Morbid obesity (HCC) Nocturia - Urinalysis with Microscopic with Culture if Indicated; Future; Expected date: 019 Prostate cancer screening - PSA, Screen; Future; Expected date: 2018 Plan -Okay to shower and bath, do not need to cover frozen spots -Continue current medications -Go to [facility] in [place] in August for blood work 60 minute visit with > 50% time spent in counseling. Subjective: SCOTT Webster presents to the clinic today to re-establish care with me from [facility], and discuss skin check. He would like to get a spot on his right forearm frozen off. He would also like his head sk in checked. He is feeling good. He was looking into weight loss surgery. He has these knobs on his heels. He does occasionally need to urinate in the middle of the night. He is seeing Dr. Zuniga for diabetic eye exam. He doesn't have any concerns about his feet. PARQ - AK face and scalp, SK right arm, Skin Tag left inter elbow Lesion treated with LN, freeze thaw times 4 cycles Procedure had no complications and patient tolerated well. Current Outpatient Prescriptions Medication Sig Dispense Refill Ascorbic Acid (VITAMIN C) 1000 MG tablet Take by mouth. aspirin 81 MG tablet Take 81 mg by mouth. atorvaSTATin (LIPITOR) 40 mg tablet Take 40 mg by mouth Daily. 0 cetirizine (ZYRTEC ALLERGY) 10 mg tablet Take 10 mg by mouth Daily. Cholecalciferol (VITAMIN D3 PO) Take 4,000 Int'l Units by mouth. FLUoxetine (PROZAC) 20 mg capsule Take 20 mg by mouth Daily. metFORMIN (GLUCOPHAGE) 500 mg tablet Take 500 mg by mouth Daily. (Patient taking differ ently: Take 1,000 mg by mouth 2 times daily.) multivitamin (THERAGRAN) per tablet daily tocopherol (VITAMIN E) 400 units capsule Take by mouth. valsartan-hydrochlorothiazide (DIOVAN-HCT) 160-12.5 MG per tablet Take 1 tablet by mout h Daily. No current facility-administered medications for this visit. Patient Active Problem List Diagnosis JOCELYN on CPAP Essential hypertension Mixed hyperlipidemia Diabetes mellitus Arthritis Morbid obesity Herniated nucleus pulposus, C6-7 left Herniated nucleus pulposus, C5-6 right Cervical radiculopathy at C7 S/P cervical spinal fusion H/O umbilical hernia repair Primary osteoarthritis involving multiple joints Family History Problem Relation Age of Onset Cancer Mother Arthritis Mother Hypertension Father No Known Problems Sister Heart disease Maternal Grandmother Lung cancer Maternal Grandfather Smoker Stroke Paternal Grandmother Alcohol abuse Paternal Grandmother Heart failure Paternal Grandmother Past Surgical History: Procedure Laterality Date APPENDECTOMY BICEPS TENDON REPAIR Left 12/31/2017 COLONOSCOPY N/A 10/04/2016 Procedure: COLONOSCOPY; Surgeon: Viraj Rodriguez MD; Location: [facility] Destruction of benign lesion by cryosurgery PARQ freeze KNEE ARTHROSCOPY 1994 AND 2007 BILATERAL KNEE JOINT REPLACEMENT 2013 Dr. Gonzalez, Bilateral LEFT ROTATOR CUFF 09/2014 Dr. 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 Respiratory: Negative for cough, chest tightness and shortness of breath. Cardiovascular: Negative for chest pain and palpitations. Gastrointestinal: Negative for abdominal pain, diarrhea and nausea. Musculoskeletal: Positive for back pain, joint swelling, neck pain and neck stiffness. Knob spots on bilateral heels Skin: Spot on skin on right forearm, and head Neurological: Positive for numbness. Negative for light-headedness and headaches. Objective: Vitals: BP 128/80 | Pulse 86 | Temp 36.9 C (98.4 F) (Oral) | Resp 17 | Ht 1.753 m (5' 9") | Wt (!) 137.6 kg (303 lb 6.4 oz) | SpO2 94% | BMI 44.80 kg/m Physical Exam Constitutional: He appears well-developed and well-nourished. Eyes: Pupils are equal, round, and reactive to light. Cardiovascular: Normal rate, regular rhythm and normal heart sounds. Pulmonary/Chest: Effort normal and breath sounds normal. Neurological: He is alert. Skin: 2 AK on face and on scalp 1 skin tag on inside left elbow SK on right forearm and right elbow All head, scalp lesions sub cm in size, macular, friable, flesh colored. Left inner elbow with tiny skin tag Right elbow with macular-papular flesh colored lesion firm, hard, scaly. Psychiatric: He has a normal mood and affect. Entered by Aury Montalvo, acting as scribe for Dr. Giovanna DO. The documentation recorded by the scribe accurately reflects the service I personally perfo rmed and the decisions made by me. Dr. Hiram Heredia DO. 04/28/2018 16:27Electronically signed by DO luz maria Acevedo 04/28/2018 5:22 PM Phoebe Duran CC CMA - 04/28/2018 3:30 PM JOSELormichaela He presents today with Chief Complaint of: Re-establish care, skin check. Current medications verified with her at time of visit. Pt currently shows no s/s of distress, shortness of breath. Vital signs: BP 128/80 | Pulse 86 | Temp 36.9 C (98.4 F) (Oral) | Resp 17 | Ht 1.75 3 m (5' 9") | Wt (!) 137.6 kg (303 lb 6.4 oz) | SpO2 94% | BMI 44.80 kg/m Labs Obtained per protocol: None. Verbal Report given to: Hiram Heredia DO. ISAAK Gandara CMA After obtaining consent, and per orders of Dr. Hiram Heredia, injection of FluZone given by Phoebe Alvarado. Site: LEFT Deltoid. Patient tolerated well and ambulated out of clinic w ith out assistance. ISAAK Gandara CMA documented in thi s encounter Plan of Treatment +--------+---------+ + + + | Date | Type | Specialty | Care Team | Description | +--------+---------+ + + + | 02/13/ | Office | Primary Care | Hiram Heredia | | | 2019 | Visit | | DO [address] | | | | | | [place] | | | | | | [address] | | | | | | [phone] | | | | | | | | +--------+---------+ + + + + +------+--------+ + + | Name | Type | Priori | Associated Diagnoses | Order Schedule | | | | ty | | | + +------+--------+ + + | Lipid Panel | Lab | Routin | Mixed | Expected: | | | | e | hyperlipidemia | 2018, Expires: | | | | | | 04/28/2019 | + +------+--------+ + + | Comprehensive | Lab | Routin | Essential | Expected: | | Metabolic Panel | | e | hypertension | 2018, Expires: | | | | | | 04/28/2019 | + +------+--------+ + + | PSA, Screen | Lab | Routin | Prostate cancer | Expected: | | | | e | screening | 2018, Expires: | | | | | | 04/28/2019 | + +------+--------+ + + | TSH | Lab | Routin | Essential | Expected: | | | | e | hypertension | 2018, Expires: | | | | | | 04/28/2019 | + +------+--------+ + + | Urinalysis with | Lab | Routin | Nocturia | Expected: | | Microscopic with | | e | | 2018, Expires: | | Culture if Indicated | | | | 04/28/2019 | + +------+--------+ + + | Hemoglobin A1C | Lab | Routin | Type 2 diabetes | Expected: | | | | e | mellitus without | 2018, Expires: | | | | | complication, | 04/28/2019 | | | | | without long-term | | | | | | current use of | | | | | | insulin (HCC) | | + +------+--------+ + + | Microalbumin/Creatin | Lab | Routin | Type 2 diabetes | Expected: | | ine Ratio, Urine | | e | mellitus without | 2018, Expires: | | | | | complication, | 04/28/2019 | | | | | without long-term | | | | | | current use of | | | | | | insulin (HCC) | | + +------+--------+ + + documented as of this encounter Visit Diagnoses + + | Diagnosis | + + | AK (actinic keratosis) - Primary Actinic keratosis | + + | SK (seborrheic keratosis) Other seborrheic keratosis | + + | Skin tag Unspecified hypertrophic and atrophic condition of skin | + + | Type 2 diabetes mellitus without complication, without long-term current use of | | insulin (HCC) | + + | Need for influenza vaccination Need for prophylactic vaccination and inoculation | | against influenza | + + | Essential hypertension Unspecified essential hypertension | + + | Mixed hyperlipidemia | + + | Morbid obesity (HCC) Morbid obesity | + + | Nocturia | + + | Prostate cancer screening Special screening for malignant neoplasm of prostate | + + documented in this encounter
--- OUTSIDE RECORDS SUMMARY | ~2020-01-22 | XMS | Encounter Summary ---
Demographics + + + | Address | [address] | | | [place] [address] | + + + | Home Phone | | + + + | Preferred Language | Unknown | + + + | Marital Status | | + + + | Nondenominational Affiliation | 1073 | + + + | Race | White | + + + | Ethnic Group | Not or | + + + Author + + + | Author | [facility] | | | and [place] | + + + | Organization | [facility] | | | [...] Team Providers + +------+ + | Care Drive Tester Name | Role | Phone | + +------+ + | Hiram Heredia DO | PCP | | + +------+ + Reason for Visit + +--------+ + | Reason | Onset | Comments | | | Date | | + +--------+ + | Lab Results | 01/20/ | | | | 2019 | | + +--------+ + Encounter Details +--------+ + + + + | Date | Type | Department | Care Team | Description | +--------+ + + + + | 01/20/ | Telephone | [facility] | Hiram Heredia | Lab Results | | 2019 | | [facility] | E, DO [address] | | | | | [facility] [address] | [place], [place] | | | | | [address] [place], | [address] | | | | | [place] [address] | [phone] | | | | | [phone] | | | +--------+ + + + [...] Notes Telephone Encounter - Aimee Davey CC CMA - 01/20/2019 4:49 PM PDTI sent patient a my chart message updating him ISAAK Linton CMA elephone Encoun Aimee Chavez CC CMA - 01/20/2019 4:42 PM PDTLabs were fasting, a1c and microalbu min ordered w/ dx elevated random bg level. Faxed requisition to [facility] [place] [facility] [place]. Copy in IP files. I left a message on [employer] number [phone]. ISAAK Linton CMA elephone Encoun Aimee Chavez CC CMA - 01/20/2019 4:36 PM PDT----- Message from Hiram Heredia DO sent at 01/20/2019 16:30 PDT ----- If this is fasting, add Hgba1c and microalbumin. documented in this encounter Plan of Treatment +--------+---------+ + + + | Date | Type | Specialty | Care Team | Description | +--------+---------+ + + + | 02/13/ | Office | Primary Care | Hiram Heredia | | | 2019 | Visit | | DO [address] | | | | | | [place], [place] | | | | | | [address] | | | | | | [phone] | | | | | | | | +--------+---------+ + + + + +------+--------+ + + | Name | Type | Priori | Associated Diagnoses | Order Schedule | | | | ty | | | + +------+--------+ + + | Hemoglobin A1C | Lab | Routin | Elevated random | 1 Occurrences | | | | e | blood glucose level | starting 01/20/2019 | | | | | | until 01/21/2020 | + +------+--------+ + + | Microalbumin/Creatin | Lab | Routin | Elevated random | 1 Occurrences | | ine Ratio, Urine | | e | blood glucose level | starting 01/20/2019 | | | | | | until 01/21/2020 | + +------+--------+ + + documented as of this encounter Visit Diagnoses + + | Diagnosis | + + | Elevated random blood glucose level - Primary Other abnormal glucose | + + documented in this encounter"
--- OUTSIDE RECORDS SUMMARY | ~2020-01-22 | XMS | Encounter Summary ---
Demographics + + + | Address | [address] | | | [place] [address] | + + + | Home Phone | | + + + | Preferred Language | Unknown | + + + | Marital Status | | + + + | Religion Affiliation | 1073 | + + + | Race | White | + + + | Ethnic Group | Not or | + + + Author + + + | Author | [facility] | | | and [place] | + + + | Organization | [facility] | | [...] Team Providers + +------+ + | Care Airplane Tube Builder Name | Role | Phone | + +------+ + | Hiram Heredia DO | PCP | | + +------+ + Reason for Visit + +--------+ + | Reason | Onset | Comments | | | Date | | + +--------+ + | Radiology | 01/20/ | | | Appointment | 2019 | | + +--------+ + Encounter Details +--------+ + + + + | Date | Type | Department | Care Team | Description | +--------+ + + + + | 01/20/ | Telephone | [facility] | Hiram Heredia | Radiology | | 2019 | | [facility] | E, DO [address] | Appointment | | | | [facility] [address] | [place], [place] | | | | | [address] [place], | [address] | | | | | [place] [address] | [phone] | | | | | [phone] | | | +--------+ + + + [...] this encounter Miscellaneous Notes Telephone Encounter - Melanie Corona CNA - 01/20/2019 9:26 AM PDTOrder for xray was darrel morrison and confirmation fax was received. Melanie L. Winburn, SKIN FORMER elephone [facility] Sil[facility] Harper - 01/20/2019 8:57 AM PDT[facility] don't have orders. Please fax to [phone] Thank you, Silvia Jamir Yousif documente d in this encounter Plan of Treatment +--------+---------+ + + + | Date | Type | Specialty | Care Team | Description | +--------+---------+ + + + | 02/13/ | Office | Primary Care | Hiram Heredia | | | 2019 | Visit | | DO [address] | | | | | | [place] | | | | | | [address] | | | | | | [phone] | | | | | | | | +--------+---------+ + + + documented as of this encounter Procedures + +--------+ + + + | Procedure Name | Priori | Date/Time | Associated Diagnosis | Comments | | | ty | | | | + +--------+ + + + | THYROID STIMULATING | Routin | 01/20/2019 | | Results for this | | HORMONE 3RD GEN | e | 8:30 AM | | procedure are in the | | | | PDT | | results section. | + +--------+ + + + | MICROALBUMIN, URINE, | Routin | 01/20/2019 | | Results for this | | RANDOM | e | 8:30 AM | | procedure are in the | | | | PDT | | results section. | + +--------+ + + + | URINALYSIS WITH | Routin | 01/20/2019 | | Results for this | | MICROSCOPIC WITH | e | 8:30 AM | | procedure are in the | | CULTURE IF INDICATED | | PDT | | results section. | + +--------+ + + + | LIPID PANEL | Routin | 01/20/2019 | | Results for this | | | e | 8:30 AM | | procedure are in the | | | | PDT | | results section. | + +--------+ + + + | CBC WITH | Routin | 01/20/2019 | | Results for this | | DIFFERENTIAL | e | 8:30 AM | | procedure are in the | | | | PDT | | results section. | + +--------+ + + + | HEMOGLOBIN A1C | Routin | 01/20/2019 | | Results for this | | | e | 8:30 AM | | procedure are in the | | | | PDT | | results section. | + +--------+ + + + | COMPREHENSIVE | Routin | 01/20/2019 | | Results for this | | METABOLIC PANEL | e | 8:30 AM | | procedure are in the | | | | PDT | | results section. | + +--------+ + + + documented in this encounter Results Thyroid Stimulating Hormone 3rd Gen (01/20/2019 8:30 AM PDT) + + + + + + | Component | Value | Ref Range | Performed | Pathologist | | | | | At | Signature | + + + + + + | TSH | 3.36Comment: Biotin in | 0.270 - 4.20 | REFERENCE | | | | specimens taken from | | LAB | | | | patients on high-dose | | [facility] | | | | biotin therapy or | | | | | | supplements may intefere | | | | | | with this test and | | | | | | cause inaccurate test | | | | | | results. It is | | | | | | recommended that for | | | | | | patients receiving | | | | | | therapy with high biotin | | | | | | doses (> 5 mg/day), no | | | | | | laboratory test specimen | | | | | | should be collected | | | | | | until at least 8 hours | | | | | | after the last biotin | | | | | | administration. | | | | + + + + + + + + | Specimen | + + | | + + + + + | Narrative | Performed At | + + + | Testing Performed at: [facility] [place] [facility] CLIA: [id number] - [address] | REFERENCE LAB | | [place] [address] | [facility] | + + + + + + + + | Performing | Address | City/State/Zipcode | Phone Number | | Organization | | | | + + + + + | REFERENCE LAB | [address] [facility] | [place] | [phone] | | [facility] | | [address] | | + + + + + | REFERENCE LAB | [address] [facility] | [place] | [phone] | | [facility] | | [address] | | + + + + + Hemoglobin A1C (01/20/2019 8:30 AM PDT) + + + + + + | Component | Value | Ref Range | Performed | Pathologist | | | | | At | Signature | + + + + + + | Hemoglobin | 7.2 (H) | | REFERENCE | | | A1c | | | LAB | | | | | | [facility] | | + + + + + + | Estimated | 160Comment: | | REFERENCE | | | Average | Reference Range for | | LAB | | | Glucose | HEMOGLOBIN A1c: | | [facility] | | | | Non-Diabetic | | | | | | <5.7% | | [...] the | | | | | | [place] Diabetes | | | | | | [...] Testing Performed at: [facility] [facility] CLIA: [id number] - [address] | REFERENCE LAB | | [place] [address] | [facility] | + + + + + + + + | Performing | Address | City/State/Zipcode | Phone Number | | Organization | | | | + + + + + | REFERENCE LAB | [address] [facility] | [place], [place] | [phone] | | [facility] | | [address] | | + + + + + | REFERENCE LAB | [address] [facility] | [place], [place] | [phone] | | [facility] | | [address] | | + + + + + Comprehensive Metabolic Panel (01/20/2019 8:30 AM PDT) + + + + + + | Component | Value | Ref Range | Performed | Pathologist | | | | | At | Signature | + + + + + + | Sodium | 141 | 132 - 143 | REFERENCE | | | | | | LAB | | | | | | [facility] | | + + + + + + | Potassium | 4.2 | 3.6 - 5.1 | REFERENCE | | | | | | LAB | | | | | | [facility] | | + + + + + + | Chloride | 103 | 95 - 112 | REFERENCE | | | | | | LAB | | | | | | [facility] | | + + + + + + | Carbon | 27 | 19 - 31 | REFERENCE | | | dioxide | | | LAB | | | | | | [facility] | | + + + + + + | Anion Gap | 15.2 | 7 - 21 | REFERENCE | | | | | | LAB | | | | | | [facility] | | + + + + + + | Glucose | 165 (H) | 70 - 100 | REFERENCE | | | | | | LAB | | | | | | [facility] | | + + + + + + | BUN | 15 | 6 - 23 | REFERENCE | | | | | | LAB | | | | | | [facility] | | + + + + + + | Creatinine | 0.88 | 0.70 - 1.33 | REFERENCE | | | | | | LAB | | | | | | [facility] | | + + + + + + | GFR | 91 | | REFERENCE | | | ESTIMATE | | | LAB | | | (REF) | | | [facility] | | + + + + + + | BUN/Creatin | 17.0 | 6.0 - 28.6 | REFERENCE | | | ine Ratio | | | LAB | | | | | | [facility] | | + + + + + + | Calcium | 9.6 | 8.5 - 10.3 | REFERENCE | | | | | | LAB | | | | | | [facility] | | + + + + + + | AST (SGOT) | 45 (H) | 13 - 39 | REFERENCE | | | (REF) | | | LAB | | | | | | [facility] | | + + + + + + | ALT (SGPT) | 83 (H) | 7 - 52 | REFERENCE | | | (REF) | | | LAB | | | | | | [facility] | | + + + + + + | MARY PINZON | 44 | 31 - 120 | REFERENCE | | | | | | LAB | | | | | | [facility] | | + + + + + + | BILIRUBIN, | 0.6 | 0.0 - 1.2 | REFERENCE | | | TOTAL | | | LAB | | | | | | [facility] | | + + + + + + | Protein, | 6.9 | 6.0 - 8.3 | REFERENCE | | | Total | | | LAB | | | | | | [facility] | | + + + + + + | Albumin | 4.4 | 3.5 - 5.0 | REFERENCE | | | | | | LAB | | | | | | [facility] | | + + + + + + | Globulin | 2.5 | 1.8 - 3.5 | REFERENCE | | | | | | LAB | | | | | | [facility] | | + + + + + + | A/G Ratio | 1.8Comment: | 1.1 - 2.4 | REFERENCE | | | | ESTIMATED GFR Reference | | LAB | | | | Range:GFR = Less than | | [facility] | | | | 60: Chronic Kidney | | | | | | Disease, if found over a | | | | | | 3 month period.GFR = | | | | | | Less than 15: Kidney | | | | | | Failure.For | | | | | | Americans, multiply the | | | | | | calculated GFR by | | | | | | 1.21.GFR calculation is | | | | | | not valid for patients | | | | | | under age 18 years.For | | | | | | patients over age 70 | | | | | | please interpret results | | | | | | with caution as results | | | | | | have not been validated | | | | | | for this calculation | | | | | | method Please Note:Total | | | | | | Protein Reference range | | | | | | change as of | | | | | | 10/20/2017.Please Note: | | | | | | Calcium reference range | | | | | | change as of 12/18/2017. | | | | + + + + + + + + | Specimen | + + | | + + + + + | Narrative | Performed At | + + + | Testing Performed at: [facility] [facility] CLIA: [id number] - [address] | REFERENCE LAB | | [place] [address] | [facility] | + + + + + + + + | Performing | Address | City/State/Zipcode | Phone Number | | Organization | | | | + + + + + | REFERENCE LAB | [address] | [place] | [phone] | | [facility] | | [address] | | + + + + + | REFERENCE LAB | [address] | [place] | [phone] | | [facility] | | [address] | | + + + + + Lipid Panel (01/20/2019 8:30 AM PDT) + + + + + + | Component | Value | Ref Range | Performed | Pathologist | | | | | At | Signature | + + + + + + | Cholesterol | 178 | OPT: <200 | REFERENCE | | | | | | LAB | | | | | | [facility] | | + + + + + + | Triglycerid | 288 (H) | 30 - 150 | REFERENCE | | | es | | | LAB | | | | | | [facility] | | + + + + + + | HDL | 36.6 (L) | OPT: >40 | REFERENCE | | | Cholesterol | | | LAB | | | | | | [facility] | | + + + + + + | LDL | 84 | OPT: <100 | REFERENCE | | | Cholesterol | | | LAB | | | | | | [facility] | | + + + + + + | Cholesterol | 58 (H) | 4 - 40 | REFERENCE | | | in VLDL | | | LAB | | | | | | [facility] | | + + + + + + | Chol/HDL | 4.9 | OPT: <4.97 | REFERENCE | | | Ratio | | | LAB | | | | | | [facility] | | + + + + + + | Non-HDL | 141 (H) | OPT: <130 | REFERENCE | | | Cholesterol | | | LAB | | | | | | [facility] | | + + + + + + + + | Specimen | + + | | + + + + + | Narrative | Performed At | + + + | Testing Performed at: [facility] [facility] CLIA: [id number] - [address] | REFERENCE LAB | | [place] [address] | [facility] | + + + + + + + + | Performing | Address | City/State/Zipcode | Phone Number | | Organization | | | | + + + + + | REFERENCE LAB | [address] [facility] | [place] | [phone] | | [facility] | | [address] | | + + + + + | REFERENCE LAB | [address] [facility] | [place] | [phone] | | [facility] | | [address] | | + + + + + Microalbumin, Urine, Random (01/20/2019 8:30 AM PDT) + +--------+ + + + | Component | Value | Ref Range | Performed | Pathologist | | | | | At | Signature | + +--------+ + + + | Microalbumi | 1.1 | 0.0 - 2.0 | REFERENCE | | | n, Urine | | | LAB | | | | | | [facility] | | + +--------+ + + + | CREATININE, | 154.76 | | REFERENCE | | | QN,UR | | | LAB | | | | | | [facility] | | + +--------+ + + + | Microalb | 7.1 | 0 - 30 | REFERENCE | | | Creat Ratio | | | LAB | | | | | | [facility] | | + +--------+ + + + + + | Specimen | + + | | + + + + + | Narrative | Performed At | + + + | Testing Performed at: [facility] [place] [facility] CLIA: [id number] - [address] | REFERENCE LAB | | [place] [address] | [facility] | + + + + + + + + | Performing | Address | City/State/Zipcode | Phone Number | | Organization | | | | + + + + + | REFERENCE LAB | [address] | [place] | [phone] | | [facility] | | [address] | | + + + + + | REFERENCE LAB | [address] | [place] | [phone] | | [facility] | | [address] | | + + + + + Urinalysis with Microscopic with Culture if Indicated (01/20/2019 8:30 AM PDT) + + + + + + | Component | Value | Ref Range | Performed | Pathologist | | | | | At | Signature | + + + + + + | Collection | CLEAN CATCH | | REFERENCE | | | | | | LAB | | | | | | [facility] | | + + + + + + | Color, UA | YELLOW | | REFERENCE | | | | | | LAB | | | | | | [facility] | | + + + + + + | Clarity, | CLEAR | | REFERENCE | | | Urine | | | LAB | | | | | | [facility] | | + + + + + + | Specific | 1.018 | 1.005 - 1.030 | REFERENCE | | | [place] | | | LAB | | | | | | [facility] | | + + + + + + | pH, | 5 | 5 - 9 | REFERENCE | | | Scalp | | | LAB | | | | | | [facility] | | + + + + + + | Protein, UA | NEGATIVE | negative | REFERENCE | | | | | | LAB | | | | | | [facility] | | + + + + + + | Glucose, UA | NORMAL | normal | REFERENCE | | | | | | LAB | | | | | | [facility] | | + + + + + + | Ketones, UA | NEGATIVE | negative | REFERENCE | | | | | | LAB | | | | | | [facility] | | + + + + + + | Bilirubin, | NEGATIVE | negative | REFERENCE | | | UA | | | LAB | | | | | | [facility] | | + + + + + + | Blood, UA | NEGATIVE | negative | REFERENCE | | | | | | LAB | | | | | | [facility] | | + + + + + + | Nitrite, UA | NEGATIVE | negative | REFERENCE | | | | | | LAB | | | | | | [facility] | | + + + + + + | Urobilinoge | NORMAL | normal | REFERENCE | | | n, Ur | | | LAB | | | | | | [facility] | | + + + + + + | Leukocyte | NEGATIVE | negative | REFERENCE | | | esterase, | | | LAB | | | UA | | | [facility] | | + + + + + + | Other Casts | NEGATIVE | 0-1+ Hyaline | REFERENCE | | | | | | LAB | | | | | | [facility] | | + + + + + + | WBC, UA | 0 | 0 - 4 | REFERENCE | | | | | | LAB | | | | | | [facility] | | + + + + + + | RBC, UA | 2 | 0 - 4 | REFERENCE | | | | | | LAB | | | | | | [facility] | | + + + + + + | Squamous | SQUAMOUS 1+ | 0-1+ Squamous | REFERENCE | | | epithelial, | | | LAB | | | UA | | | [facility] | | + + + + + + | CRYSTAL UA | SEE COMMENT | 0-1+ | REFERENCE | | | | | | LAB | | | | | | [facility] | | + + + + + + | Bacteria, | NEGATIVE | negative | REFERENCE | | | UA | | | LAB | | | | | | [facility] | | + + + + + + + + | Specimen | + + | | + + + + + | Narrative | Performed At | + + + | Testing Performed at: [facility] [place] [facility] CLIA: [id number] - [address] | REFERENCE LAB | | [place] [address] | [facility] | + + + + + + + + | Performing | Address | City/State/Zipcode | Phone Number | | Organization | | | | + + + + + | REFERENCE LAB | [address] | [place], [place] | [phone] | | [facility] | | [address] | | + + + + + | REFERENCE LAB | [address] | [place], [place] | [phone] | | [facility] | | [address] | | + + + + + CBC with Differential (01/20/2019 8:30 AM PDT) + +---------+ + + + | Component | Value | Ref Range | Performed | Pathologist | | | | | At | Signature | + +---------+ + + + | WBC | 6.1 | 4.5 - 11.0 | REFERENCE | | | | | | LAB | | | | | | [facility] | | + +---------+ + + + | Red Blood | 5.13 | 4.3 - 5.7 | REFERENCE | | | Cells | | | LAB | | | | | | [facility] | | + +---------+ + + + | Hemoglobin | 15.6 | 13.5 - 18.0 | REFERENCE | | | | | | LAB | | | | | | [facility] | | + +---------+ + + + | Hct | 46.2 | 41 - 50 | REFERENCE | | | | | | LAB | | | | | | [facility] | | + +---------+ + + + | MCV | 90.1 | 81 - 99 | REFERENCE | | | | | | LAB | | | | | | [facility] | | + +---------+ + + + | RDW | 13.5 | 10.5 - 15.0 | REFERENCE | | | | | | LAB | | | | | | [facility] | | + +---------+ + + + | MCH | 30 | 27 - 33 | REFERENCE | | | | | | LAB | | | | | | [facility] | | + +---------+ + + + | MCHC | 34 | 30 - 36 | REFERENCE | | | | | | LAB | | | | | | [facility] | | + +---------+ + + + | Platelet | 118 (L) | 140 - 440 | REFERENCE | | | Count | | | LAB | | | | | | [facility] | | + +---------+ + + + | % | 44.8 | 39 - 80 | REFERENCE | | | Neutrophils | | | LAB | | | | | | [facility] | | + +---------+ + + + | % | 42.4 | 24 - 44 | REFERENCE | | | Lymphocytes | | | LAB | | | | | | [facility] | | + +---------+ + + + | Monocyte % | 9.7 | 0 - 12 | REFERENCE | | | | | | LAB | | | | | | [facility] | | + +---------+ + + + | Eosinophils | 2.5 | 0 - 6 | REFERENCE | | | % | | | LAB | | | | | | [facility] | | + +---------+ + + + | Basophils % | 0.6 | 0 - 2 | REFERENCE | | | | | | LAB | | | | | | [facility] | | + +---------+ + + + + + | Specimen | + + | | + + + + + | Narrative | Performed At | + + + | Testing Performed at: [facility] CLIA: [id number] - [address] | REFERENCE LAB | | [place] [address] | [facility] | + + + + + + + + | Performing | Address | City/State/Zipcode | Phone Number | | Organization | | | | + + + + + | REFERENCE LAB | [facility] [facility] | [place], [place] | [phone] | | [facility] | | [address] | | + + + + + | REFERENCE LAB | [address] [place] [address] | [place], [place] | [phone] | | [facility] | | [address] | | + + + + + documented in this encounter Visit Diagnoses Not on filedocumented in this encounter"
--- OUTSIDE RECORDS SUMMARY | ~2020-01-22 | XMS | Encounter Summary ---
Demographics + + + | Address | [address] | | | [place] [address] | + + + | Home Phone | | + + + | Preferred Language | Unknown | + + + | Marital Status | | + + + | Catholic Affiliation | 1073 | + + + | Race | White | + + + | Ethnic Group | Not or | + + + Author + + + | Author | [facility] | | | and [place] | + + + | Organization | [facility] | | | [...] Team Providers + +------+ + | Care Vp Securities Name | Role | Phone | + +------+ + | Hiram Heredia DO | PCP | | + +------+ + Reason for Visit + +--------+ + | Reason | Onset | Comments | | | Date | | + +--------+ + | Medication Prior | 07/14/ | Fluorouracil 0.5% Cream | | Authorization | 2018 | | + +--------+ + Encounter Details +--------+ + + + + | Date | Type | Department | Care Team | Description | +--------+ + + + + | 07/14/ | Telephone | [facility] | Hiram Heredia | Medication Prior | | 2019 | | [facility] | E, DO [address] | Authorization | | | | [facility] [address] | [place] | (Fluorouracil 0.5% | | | | [address] [place], | [address] | [facility]) | | | | [place] [address] | [phone] | | | | | [phone] | | | +--------+ + + + + Social History + +-------+ +--------+------+ | Tobacco Use | Types | Packs/Day | Years | Date | | | | | Used | | + +-------+ +--------+------+ | Never Smoker | | | | | + +-------+ +--------+------+ + +------+---+--------+ | Smokeless Tobacco: | Chew | | Quit: | | Former User | | | 2001 | + +------+---+--------+ + + +---------+ + [...] this encounter Miscellaneous Notes Telephone Encounter - Jenny Phoebe ISAAK Bowie CMA - 08/19/2018 8:48 AM PDTPatient informed as l isted. ISAAK Gandara VENEER PATCHER elephone Encounte r - Jyothi Helm [place] - 08/18/2018 4:42 PM PDTMedication changed to Name Brand Only Carac 0.5% Cream. Medication change notification sent to scan. KIMO case closed. Jyothi Helm E lectronically signed by Jyothi Helm at 08/18/2018 4:43 PM PDTTelephone Encounter - Audrey Jyothi perez - 08/18/2018 8:29 AM PDTPA denied. I have sent the denial to the provider for review. I am waiting to hear back if our office will appeal the decision or not. Jyothi Helm elephone En counter - Jyothi Helm - 08/13/2018 11:06 AM PDTAdditional information faxed to [facility] for review. No time frame has been given for the review process. Paperwork sent to scan. Jyothi Helm P DTTelephone Encounter - Jyothi Helm - 08/12/2018 9:51 AM PDTAdditional information r equest was filled out and sent to the provider for signature, once received back I will fax the paperwork to the insurance for review. Jyothi Helm elephone Encounter - Jyothi Helm - 08/11/2018 1:56 PM PDTPanadine PA faxed to insurance for review by Clinical staff. No time frame has been given for the review process. Paperwork sent to scan. Jyothi Helm Electronically sign ed by Jyothi Helm at 08/11/2018 1:57 PM PDTTelephone Encounter - Jyothi Helm - 08/11/2018 8:09 AM PDTI spoke to the patient and informed him that I would be filling out a paper PA request and Darin agreed with this process. I advised him that it would be a long er process and longer time to review and he was still agreeable. I have decried to go this r oute as I have been unsuccessful in processing the request online. I have initiated the PA and sent it to the provider for signature, once received back I kasey gutierrez fax the paperwork to the insurance for review. Jyothi Helm elephone Encounter - Jyothi Helm - 08/10 10:42 AM PDTI have faxed the patient's [place] insurance information to Salvatore [employer]ruitt and advised them to bill [place]. I called [employer] and spoke Peggy who advised me the [employer] plan is medical only with no pharmacy benefits. Jyothi Helm Electronically si gned by Jyothi Helm at 08/10/2018 10:44 AM PDTTelephone Encounter - Toby Mejía - 08/10/2018 9:36 AM PDTPt states that he received denial of coverage letter from [facility], but that the letter stated that there may be other options that are covered under [facility]. Thanks, Toby Mejía P DTTelephone Encounter - Jyothi Helm - 08/06/2018 8:57 AM PSTThis patient does not watt ve any active pharmacy benefits through [facility] or [facility] [employer] these are both Medic al plans only. No PA's can be processed at this time. Thanks, Jyothi Helm Electronical ly signed by Jyothi Helm at 08/06/2018 8:58 AM PSTTelephone Encounter - Lanre Heredia DO - 08/06/2018 7:21 AM PSTI see this came in 3 weeks ago. 1. What is needed from me? 2. Did it take 3 weeks to process? 3. If it is complete, please do not forward to me, I don't need to see these. Electronicall y signed by Hiram Heredia DO at 08/06/2018 7:22 AM PSTTelephone Encounter - Sapphire Mejía - 08/05/2018 12:36 PM PSTPt would like Rx sent to [facility] to see if it is co k[place] that way. Thanks, Toby Mejía P STTelephone Encounter - Jyothi Helm - 07/14/2018 10:07 AM PSTPA initiated through [employer] and submitted to insurance for review. Confirmation faxed page sent to scan. Jyothi Helm Drug: Fluorouracil 0.5% EX CREA Form: [facility] [place] Prescription Drug Authorization Form documented in this enc ounter Plan of [...] [place] | | | | | | [address] | | | | | | [phone] | | | | | | | | +--------+---------+ + + + documented as of this encounter Visit Diagnoses Not on filedocumented in this encounter"
--- OUTSIDE RECORDS SUMMARY | ~2020-01-22 | XMS | Encounter Summary ---
Demographics + + + | Address | [address] | | | [place] [address] | + + + | Home Phone [...] + + + | Author | [facility] | + + + | Organization | [facility] | + + + | Address | Unknown | + + + | Phone | Unavailable | + + + Support + + +---------+ + | Name | Relationship | Address | Phone | + + +---------+ + | Angie He | ECON | Unknown | | + + +---------+ + Care Team Providers + +------+ + | Care Industrial Maintenance Manager Name | Role | Phone | [...] Description | +--------+---------+ + + + | 01/16/ | Office | [facility] | | Morbid obesity with | | 2017 | Visit | Center at [facility] [address] | | BMI of 40.0-44.9, | | | | [address] [facility] | | adult (HCC) (Primary | | | | for Health and | | Dx) | | | | [facility] | | | | | | [place], [place] | | | | | | [address] | | | | | | [phone] | | | +--------+---------+ + + + [...] + + + + | Weight | 138.7 kg (305 lb | 01/16/2018 3:54 PM | | | | 11.2 oz) | PDT | | + + + + + | Height | - | - | | + + + + + | Body Mass Index | 45.14 | 10/30/2017 9:04 AM | | | | | PDT | | + + + + + documented in this encounter Progress Notes Suzanne Ramos RD - 01/16/2018 2:00 PM PDTFormatting of this note might be different fro m the original. Referring Provider: Hiram Heredia DO [facility], Pre-Bariatric Surgery Class Pre-Surgery Class #1 prior to having Eren-En-Y gastric bypass surgery or Sleeve Gastrectomy . Documented Time of Class: 2:00/3:00 until 3:00/4:00 (60 minutes [id number] with patient) OBJECTIVE: Height: Ht Readings from Last 1 Encounters: 10/30/17 1.753 m (5' 9") Ht Readings from Last 1 Encounters: 10/30/17 1.753 m (5' 9") Wt Readings from Last 2 Encounters: 01/16/18 138.7 kg (305 lb 11.2 oz) 10/30/17 137.2 kg (302 lb 6.4 oz) BMI: Body mass index is 45.14 kg/m. Teaching Methods: PowerPoint and verbal presentation [...] -Taking vitamins and minerals every day 2. Mindful eating, emotional eating 3. Pre-surgery diet (plate method, label reading, keeping food logs) Assessment: Pt remained attentive throughout the class and/or participated by asking questi ons or sharing information. Yes Suzanne Ramos RD,KAREN Pager# [phone] Phone: [phone] documented in this en counter Plan of Treatment Not on filedocumented as of this encounter Visit Diagnoses + + | Diagnosis | + + | Morbid obesity with BMI of 40.0-44.9, adult (HCC) - Primary | + + documented in this encounter
--- OUTSIDE RECORDS SUMMARY | ~2020-01-22 | XMS | Encounter Summary ---
Demographics + + + | Address | [address] | | | [place] [address] | + + + | Home Phone | | + + + | Preferred Language | Unknown | + + + | Marital Status | | + + + | Gnosticism Affiliation | 1073 | + + + | Race | White | + + + | Ethnic Group | Not or | + + + Author + + + | Author | [facility] | | | and [place] | + + + | Organization | [facility] | | [...] Team Providers + +------+ + | Care Harness Preparer Name | Role | Phone | + +------+ + PCP | Unavailable | + +------+ + Encounter Details +--------+ + + + + | Date | Type | Department | Care Team | Description | +--------+ + + + + | 03/05/ | Abstract | [facility] | Eduardo Mckenna | | | 2011 | | NEUROSURGERY [address] | [facility] [address] | | | | | [address] | [place] | | | | | [place] | [address] | | | | | [address] | [phone] | | | | [phone] | | | +--------+ + + + [...] [place] | | | | | | [address] | | | | | | [phone] | | | | | | | | +--------+---------+ + + + documented as of this encounter Visit Diagnoses Not on filedocumented in this encounter"
--- OUTSIDE RECORDS SUMMARY | ~2020-01-22 | XMS | Encounter Summary ---
Demographics + + + | Address | [address] | | | [place] [address] | + + + | Home Phone [...] Team Providers + +------+ + | Care Restaurant Inspector Name | Role | Phone | + +------+ + | Hiram Heredia DO | PCP | | + +------+ + Reason for Visit + + + | Reason | Comments | + + + | Follow-up | 6 Month PO | + + + Encounter Details +--------+---------+ + + + | Date | Type | Department | Care Team | Description | +--------+---------+ + + + | 12/09/ | Office | [facility] | Rajesh Self, | S/P cervical spinal | | 2012 | Visit | NEUROSURGERY [address] | PA-C [address] | fusion (Primary Dx) | | | | [address] | [place], [place] | | | | | [place], [place] | [address] | | | | | [address] | | | | | | [phone] | | | +--------+---------+ + + + [...] + + + | Blood Pressure | 151/98 | 12/09/2012 10:09 AM | | | | | PDT | | + + + + + | Pulse | 83 | 12/09/2012 10:09 AM | | | | | PDT | | + + + + + | Temperature | - | - | | + + + + + | Respiratory Rate | 18 | 12/09/2012 10:09 AM | | | | | PDT | | + + + + + | Oxygen Saturation | - | - | | + + + + + | Inhaled Oxygen | - | - | | | Concentration | | | | + + + + + | Weight | 131.1 kg (289 lb) | 12/09/2012 10:09 AM | | | | | PDT | | + + + + + | Height | 177.8 cm (5' 10") | 12/09/2012 10:09 AM | | | | | PDT | | + + + + + | Body Mass Index | 41.47 | 12/09/2012 10:09 AM | | | | | PDT | | + + + + + documented in this encounter Patient Instructions Patient Instructions Rajesh Self PA-C - 12/09/2012 10:12 AM PDTFusion looks good. E lectronically signed by Rajesh Self PA-C at 12/09/2012 10:20 AM PDT documented in this encounter Progress Notes Rajesh Self PA-C - 12/09/2012 10:13 AM PDT Rajesh Self PA-C [address] [facility], [address] [place] [address] FAX: NEUROSURGERY FOLLOW-UP CHIEF COMPLAINT: Chief Complaint Patient presents with Follow-up 6 Month PO HISTORY OF PRESENT ILLNESS: The patient is a 47 y.o. male that had a C6-T1 cervical fusion about 1 year ago. He feels like he's doing great. He feels that the strength in his hands have significantly improved since we saw him last. 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 PAST MEDICAL HISTORY: Past Medical History Diagnosis Date Obstructive sleep apnea 08/21/2011 Hypertension Hyperlipidemia Diabetes mellitus Arthritis Obesity Herniated nucleus pulposus, C6-7 left Herniated nucleus pulposus, C5-6 right Cervical radiculopathy at C7 PAST SURGICAL HISTORY: Past Surgical History Procedure Date Knee arthroscopy 1994 AND 2007 BILATERAL Appendectomy Tonsillectomy CURRENT MEDICATIONS: Current Outpatient Prescriptions Medication Sig Dispense Refill Ascorbic Acid ([employer] VITAMIN C PO) Take 1,000 mg by mouth Daily. aspirin (ASPIRIN ADULT LOW STRENGTH) 81 MG EC tablet Take 81 mg by mouth Daily. cetirizine (ZYRTEC ALLERGY) 10 mg tablet Take 10 mg by mouth Daily. fluvastatin XL (LESCOL XL) 80 MG 24 hr tablet Take 80 mg by mouth Daily. lisinopril-hydrochlorothiazide (ZESTORETIC) 20-12.5 MG per tablet Take 20-12.5 mg by mo uth Daily. metFORMIN (GLUCOPHAGE) 500 mg tablet Take 500 mg by mouth Daily. multivitamin (THERAGRAN) per tablet daily omega-3 acid ethyl esters (LOVAZA) 1 g capsule Take 4 g by mouth Daily. ALLERGIES: No Known Allergies SOCIAL HISTORY: The patient reports that he has never smoked. He has quit using smokeless tobacco. He repo rts that he drinks alcohol. He reports that he does not use illicit drugs. FAMILY HISTORY: Family History Problem Relation Age of Onset Cancer Mother Arthritis Mother Hypertension Father Stroke Maternal Grandmother Alcohol abuse Maternal Grandmother Heart failure Maternal Grandmother INTERIM PHYSICAL EXAMINATION: Blood pressure 151/98, pulse 83, resp. rate 18, height 1.778 m (5' 10"), weight 131.09 kg ( 289 lb). Body mass index is 41.47 kg/(m^2). GENERAL: Darin He is in no acute distress with unlabored respirations. HEENT: HEAD/FACE: Normocephalic and atraumatic. There are no areas of recent trauma. SPINE: The patient s incision has healed further and is again without drainage, erythema, or discharge EXTREMITIES: No lower extremity edema. NEUROLOGICAL EXAMINATION: MENTAL STATUS: The patient is awake, alert, and oriented. He follows simple and complex commands MOTOR EXAM: Motor strength is . 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 RADIOGRAPHIC REVIEW: Cervical xray reviewed from today and it shows intact hardware with stable fusion. ASSESSMENT: S/p C6-T1 ACDF Encounter Diagnosis Name Primary? S/P cervical spinal fusion Yes Past Medical History Diagnosis Date Obstructive sleep apnea 08/21/2011 Hypertension Hyperlipidemia Diabetes mellitus Arthritis Obesity Herniated nucleus pulposus, C6-7 left Herniated nucleus pulposus, C5-6 right Cervical radiculopathy at C7 PLAN:Overall the patient is doing very well. He reports that he has a tiny spot of numbnes s on his pinky finger. This may improve with time, but will likely be permanent this far ou t of surgery. His fusion looks solid. He will follow up on a prn basis. I spent 10 minutes with the patient today, discussing his xrays. ELECTRONICALLY SIGNED BY: Rajesh Self PA-C, 12/09/2012 10:13 documented in this encounter Plan of Treatment [...] [place] | | | | | | [address] | | | | | | [phone] | | | | | | | | +--------+---------+ + + + documented as of this encounter Visit Diagnoses + + | Diagnosis | + + | S/P cervical spinal fusion - Primary Arthrodesis status | + + documented in this encounter
--- OUTSIDE RECORDS SUMMARY | ~2020-01-22 | XMS | Encounter Summary ---
Demographics + + + | Address | [address] | | | [place] [address] | + + + | Home Phone | | + + + | Preferred Language | Unknown | + + + | Marital Status | | + + + | Taoist Affiliation | 1073 | + + + [...] Team Providers + +------+ + | Care Works Manager Name | Role | Phone | + +------+ + PCP | Unavailable | + +------+ + Encounter Details +--------+ + + + + | Date | Type | Department | Care Team | Description | +--------+ + + + + | 01/05/ | [facility] | [facility] | Eduardo Mckenna | | | 2011 | Encounter | MED CTR XRAY [address] | [address] | | | | | [address] | [place] | | | | | [place] [address] | [address] | | | | | [phone] | | | | | | [...] [place] | | | | | | [address] | | | | | | [phone] | | | | | | | | +--------+---------+ + + + documented as of this encounter Procedures + +--------+ + + + | Procedure Name | Priori | Date/Time | Associated Diagnosis | Comments | | | ty | | | | + +--------+ + + + | XR CERVICAL SPINE 2 | | 01/06/2012 | | Results for this | | OR 3 VIEWS | | 11:16 AM | | procedure are in the | | | | PDT | | results section. | + +--------+ + + + documented in this encounter Results XR Cervical Spine 3 Vws or Less (01/06/2012 11:16 AM PDT) + + | Specimen | + + | | + + + + + | Narrative | Performed At | + + + | [facility] Diagnostic Imaging Department | [facility] | | [address] [facility] | [facility] | | CERVICAL SPINE CLINICAL | DIAG IMG | | HISTORY: NECK PAIN. FINDINGS: AP, lateral and lateral | | | flexion/extension views of the cervical spine are reviewed. The f | | | indings demonstrate C7-T1 level. Alignment is normal in the neural | | | position. Osteophytes are presen t anteriorly on the inferior | | | endplate of C3, C4 and C5. Disl spaces are relatively well | | | maintained. Mild uncinate hypertrophy is present in the mid | | | cervical spine as well. A small amount of soft tiss ue | | | calcification is present in the nuchal ligament at the C2-3 level. | | | No other adjacent soft tissue abnormalities are seen. | | | Alignment is normally maintained in flexion and extension. | | | IMPRESSION: NO RADIOGRAPHIC DEMONSTRATION OF INSTABILITY IN THE | | | CERVICAL SPINE. Dictated Date/Time: 01/07/2012 06:44 | | | Transcribed Date/Time: 01/07/2012 07:11 Glaucoma Specialist: | | | <Electronically Signed by Catracho Sandoval MD> 01/07/12 1551 | | + + + + + | Procedure Note | + + | Fuentes Sandoval Conversion - 07/09/2013 5:49 PM [facility] | | Diagnostic Imaging Department [address] [facility] | | CERVICAL SPINE CLINICAL HISTORY: NECK PAIN. | | FINDINGS: AP, lateral and lateral flexion/extension views of the cervical spine are | | reviewed. The findings demonstrate C7-T1 level. Alignment is normal in the neural | | position. Osteophytes are present anteriorly on the inferior endplate of C3, C4 and C5. | | Disl spaces are relatively well maintained. Mild uncinate hypertrophy is present in | | the mid cervical spine as well. A small amount of soft tissue calcification is present | | in the nuchal ligament at the C2-3 level. No other adjacent soft tissue abnormalities | | are seen. Alignment is normally maintained in flexion and extension. IMPRESSION: NO | | RADIOGRAPHIC DEMONSTRATION OF INSTABILITY IN THE CERVICAL SPINE. Dictated Date/Time: | | 01/07/2012 06:44Transcribed Date/Time: 01/07/2012 07:11Transcriptionist: | | <Electronically Signed by Catracho Sandoval MD> 01/07/12 [id number] | | Mild uncinate hypertrophy is present in the mid cervical spine as well. A small amount of soft tiss | |ue calcification is present in the nuchal ligament at the C2-3 level. No other adjacent so ft tissue | |abnormalities are seen. | | | |Alignment is normally maintained in flexion and extension. | | | |IMPRESSION: NO RADIOGRAPHIC DEMONSTRATION OF INSTABILITY IN THE CERVICAL SPINE. | | | | | | | |Dictated Date/Time: 01/07/2012 06:44 | |Transcribed Date/Time: 01/07/2012 07:11 | |Glaucoma Specialist: | |<Electronically Signed by Catracho Sandoval MD> 01/07/12 7148 | + + + +---------+ + + | Performing | Address | City/State/Zipcode | Phone Number | | Organization | | | | + +---------+ + + | [place] | | | | | [facility] | | | | + +---------+ + + documented in this encounter Visit Diagnoses Not on filedocumented in this encounter"
--- OUTSIDE RECORDS SUMMARY | ~2020-01-22 | XMS | Encounter Summary ---
Demographics + + + | Address | [address] | | | [place] [address] | + + + | Home Phone | | + + + | Preferred Language | Unknown | + + + | Marital Status | | + + + | [employer] Affiliation | 1073 | + + + | Race | White | + + + | Ethnic Group | Not or | + + + Author + + + | Author | [facility] | | | and [place] | + + + | Organization | [facility] | | | [...] Team Providers + +------+ + | Care Technology Strategist Name | Role | Phone | + +------+ + | Hiram Heredia DO | PCP | | + +------+ + Reason for Visit +--------+ + | Reason | Comments | +--------+ + | Apnea | | +--------+ + Encounter Details +--------+---------+ + + + | Date | Type | Department | Care Team | Description | +--------+---------+ + + + | 10/12/ | Office | [facility] | Chino Angel PA | JOCELYN on CPAP (Primary | | 2015 | Visit | SLEEP DISORDER [address] | [address] | Dx) | | | | [address] | [place] | | | | | [place] [address] | [address] | | | | | [phone] | | | +--------+---------+ + + + [...] + + + | Blood Pressure | 130/84 | 10/12/2014 9:03 AM | | | | | PDT | | + + + + + | Pulse | 72 | 10/12/2014 9:03 AM | | | | | PDT | | + + + + + | Temperature | - | - | | + + + + + | Respiratory Rate | 16 | 10/12/2014 9:03 AM | | | | | PDT | | + + + + + | Oxygen Saturation | 98% | 10/12/2014 9:03 AM | | | | | PDT | | + + + + + | Inhaled Oxygen | - | - | | | Concentration | | | | + + + + + | Weight | 132.4 kg (291 lb | 10/12/2014 9:03 AM | | | | 12.8 oz) | PDT | | + + + + + | Height | - | - | | + + + + + | Body Mass Index | 41.87 | 12/09/2012 10:09 AM | | | | | PDT | | + + + + + documented in this encounter Progress Notes Elodia Murrell, Master of Arts - 10/12/2014 9:00 AM PDTFormatting of this note might be di fferent from the original. 10/12/14 0800 Cruz Depression Inventory-II Depression Score 6 - Minimal depression Insomnia Severity Index Insomnia Severity Index 2 Bryan Sleepiness Scale Sitting and reading 1 Watching TV 1 Sitting, inactive in a public place (e.g. a theatre or a meeting) 0 As a passenger in a car for an hour without a break 2 Lying down to rest in the afternoon when circumstances permit 3 Sitting and talking to someone 0 Sitting quietly after a lunch without alcohol 2 In a car, while stopped for a few minutes in traffic 0 Total score 9 SF-36v2 Score PF 46.51 RP 39.71 BP 41.83 GH 55.32 VT 58.33 SF 40.49 RE 55.88 MH 58.46 PCS 40.96 MCS 58.85 oram, KIMO Rodriguez - 8:47 AM PDT Subjective: Patient ID: Darin He is a 49 y.o. male. HPI last office visit was: 08/21/2011 date of polysomnography: 07/08/2006 AHI: 41.4 O2%: 73% with 54.2 minutes below 90% Machine type: ResMed S9 with nasal mask obtained from: [facility] [place] pressure is: 9-18 cm Median: 10.1 cm 95%: 11.4 cm Maximum: 12.2 cm Nights using CPAP: 336/365 % of nights >4 hours: 86% Average usage (all nights): 7:49 Average usage (nights used): 8:30 AHI: 0.5 Darin continues to do well with his CPAP compliance. He is now using a ResMed S9 when he sl eeps at home. [facility] [employer], he is using his [employer]. This is working well for him. 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 He has had bilateral knee replacem ent surgery and cervical fusion surgery. He says he is going to have rotator cuff surgery i n the near future. This has had a negative impact on his sleep, but he continues to wear hi s CPAP anytime he is asleep. He does not have any questions or concerns. I have discussed the results of the paperwork in detail. He declined in several physical ca tegories. He says this is due to his shoulder pain. The download shows that his sleep apne a is well controlled, with an AHI of 0.5. It also shows that his leaks are well controlled. Review of Systems Objective: Physical Exam Assessment: Problem # 1: OBSTRUCTIVE SLEEP APNEA (ICD-327.23) This is controlled with CPAP. His CPAP compliance is going well. Plan: 1. He is to continue with CPAP indefinitely. I have recommended that he touch base with his medical supplier twice per year to ensure that his equipment is satisfactory. I will follow up again in 2 years, sooner prn. At that time we will reassess with all appro piate paperwork. Fifteen minutes were spent [id number], with the majority of time spent in [...] [place] | | | | | | [address] | | | | | | [phone] | | | | | | | | +--------+---------+ + + + documented as of this encounter Visit Diagnoses + + | Diagnosis | + + | JOCELYN on CPAP - Primary Obstructive sleep apnea (adult) (pediatric) | + + documented in this encounter"
--- OUTSIDE RECORDS SUMMARY | ~2020-01-22 | XMS | Encounter Summary ---
Demographics + + + | Address | [address] | | | [place] [address] | + + + | Home Phone | | + + + | Preferred Language | Unknown | + + + | Marital Status | | + + + | Church Affiliation | 1073 | + + + | Race | White | + + + | Ethnic Group | Not or | + + + Author + + + | Author | [facility] | | | and [place] | + + + | Organization | [facility] | | [...] Team Providers + +------+ + | Care Parking Meter Installer Name | Role | Phone | + +------+ + | Hiram Heredia DO | PCP | | + +------+ + Reason for Visit + +--------+ + | Reason | Onset | Comments | | | Date | | + +--------+ + | Appointment | 01/21/ | | | | 2019 | | + +--------+ + Encounter Details +--------+ + + + + | Date | Type | Department | Care Team | Description | +--------+ + + + + | 01/21/ | Telephone | [facility] | Hiram Heredia | Appointment | | 2019 | | [facility] | E, DO [address] | | | | | [facility] [address] | [place], [place] | | | | | [address] [place], | [address] | | | | | [place] [address] | [phone] | | | | | [phone] | | | +--------+ + + + [...] Notes Telephone Encounter - Refugio Troy - 01/21/2019 12:19 PM PDTPt is scheduled for 02-04-19 obin elephone Encounter - Hiram Heredia DO - 01/21/2019 11:33 AM PDTok elephone Encounter - Aimee Davey CC CMA - 01/21/2019 1 0:12 AM PDTOkay to use same day? Electronically signed by ISAAK Andrea CMA at 019 10:12 AM PDTTelephone Encounter - Refugio Troy - 01/21/2019 7:48 AM PDTI would have to use a Same day and it would be around 02-03-19, please let me know/robinElectronically sign ed by Refugio Troy at 01/21/2019 7:49 AM PDTTelephone Encounter - Aimee Davey CC A - 01/21/2019 7:30 AM PDTLorne had several labs results that Dr. Heredia would like to dis cuss with him. Pt has an appt coming up on 02/10 but it is only 20 mins. Can we find a 40 min spot for him please? Thanks, Aimee elephone Encounter - Aimee Davey CC CMA - 01/21/2019 7:30 AM PDT----- Message from Hiram Heredia DO sent at 01/21/2019 7:09 PDT ----- Please verify 40 minute f/u appt.Electronically signed by ISAAK Andrea CMA at 2018 7:30 AM PDTdocumented in this encounter Plan of [...] [place] | | | | | | [address] | | | | | | [phone] | | | | | | | | +--------+---------+ + + + documented as of this encounter Visit Diagnoses Not on filedocumented in this encounter"
--- OUTSIDE RECORDS SUMMARY | ~2020-01-22 | XMS | Encounter Summary ---
Demographics + + + | Address | [address] | | | [place] [address] | + + + | Home Phone | | + + + | Preferred Language | Unknown | + + + | Marital Status | | + + + | [employer] Affiliation | 1073 | + + + [...] Team Providers + +------+ + | Care Portfolio Lead Name | Role | Phone | + +------+ + | Hiram Heredia DO | PCP | | + +------+ + Encounter Details +--------+ + + + + | Date | Type | Department | Care Team | Description | +--------+ + + + + | 08/03/ | Abstract | [facility] | Hiram Heredia | | | 2020 | | [facility] | E, DO [address] | | | | | [facility] | [place] | | | | | [address] [place], | [address] | | | | | [place] [address] | [phone] | | | | | [phone] | | | +--------+ + + + [...] [place] | | | | | | [address] | | | | | | [phone] | | | | | | | | +--------+---------+ + + + documented as of this encounter Visit Diagnoses Not on filedocumented in this encounter"
--- OUTSIDE RECORDS SUMMARY | ~2020-01-22 | XMS | Encounter Summary ---
Demographics + + + | Address | [address] | | | [place] [address] | + + + | Home Phone | | + + + | Preferred Language | Unknown | + + + | Marital Status | | + + + | Church Affiliation | Unknown | + + + | Race | White | + + + | Ethnic Group | Not or | + + + Author + + + | Author | [facility] | + + + | Organization | [facility] | + + + | Address | Unknown | + + + | Phone | Unavailable | + + + Support + + +---------+ + | Name | Relationship | Address | Phone | + + +---------+ + | Angie He | ECON | Unknown | | + + +---------+ + Care Team Providers + +------+ + | Care Data Processing Manager Name | Role | Phone | + +------+ + | Hiram Heredia DO | PCP | | + +------+ + Reason for Referral Consultation (Routine) +--------+---------+ + + + + | Status | Reason | Specialty | Diagnoses / | Referred By | Referred To | | | | | Procedures | Contact | Contact | +--------+---------+ + + + + | Closed | Other | Pain | Diagnoses | 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, | 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 | Morbid | JEO Winters | [facility] [address] | | | | | obesity with | [address] | | | | | BMI of | [address] | Center for | | | | | 40.0-44.9, | [place], [place] | Health and | | | | | adult (HCC) | [address] | Healing, | | | | | Essential | Phone: | Building | | | | | hypertension | [phone] | [address] Floor | | | | | Mixed | Fax: | [place], [place] | | | | | hyperlipidem | [phone] | [address] | | | | | ia JOCELYN on | | Phone: | | | | | CPAP | | [phone] | | | | | Primary | | Fax: | | | | | osteoarthrit | | [phone] | | | | | is involving [...] | | +--------+---------+ + + + + Reason for Visit + + + | Reason | Comments | + + + | New patient | | | consultation | | + + + Intake Referral (Routine) +--------+ + + + + + | Status | Reason | Specialty | Diagnoses / | Referred By | Referred To | | | | | Procedures | Contact | Contact | +--------+ + + + + + | Closed | BAR: | Surgery | Diagnoses | Giovanna, | Eddi | | | Scheduled | | Overweight | DO Hiram | [facility] | | | with COST MANAGER | | | [address] | [address] | | | | | [place], | [address] | | | | | | [place] | [facility] | | | | | | [address] | Health and | | | | | | Phone: | Healing, | | | | | | [phone] | Building [address] | | | | | | Fax: | [place], [place] | | | | | | [phone] | [address] | | | | | | | Phone: | | | | | | | [phone] | | | | | | | Fax: | | | | | | | [phone] | +--------+ + + + + + Encounter Details +--------+---------+ + + + | Date | Type | Department | Care Team | Description | +--------+---------+ + + + | 10/30/ | Office | Digestive Health | Vianey Griffith, | Morbid obesity with | | 2018 | Visit | Center at [facility] [address] | ACNP [address] | BMI of 40.0-44.9, | | | | [address] | Ave [facility], [place] | adult (HCC) (Primary | | | | for Health and | [address] | Dx); Essential | | | | Healing, Building 2 | [phone] | hypertension; Mixed | | | | [place], [place] | | hyperlipidemia; JOCELYN | | | | [address] | | on CPAP; Primary | | | | [phone] | | osteoarthritis | | | | | | involving multiple | | | | | | joints; H/O | | | | | | umbilical hernia | | | | | | repair | +--------+---------+ + + + Social History [...] + + + + | Weight | 137.2 kg (302 lb 6.4 | 10/30/2017 9:04 AM | | | | oz) | PDT | | + + + + + | Height | 175.3 cm (5' 9") | 10/30/2017 9:04 AM | | | | | PDT | | + + + + + | Body Mass Index | 44.66 | 10/30/2017 9:04 AM | | | | | PDT | | + + + + + documented in this encounter Patient Instructions Patient Instructions Vianey Griffith ACNP - 10/30/2017 9:05 AM PDTImpression: 1. NIDDM type 2- takes metformin 2. HTN- BP normal today 113/81, takes valsartan/ HCTZ 3. HLD takes atorvastatin 4. JOCELYN uses CPAP last sleep study showed > 4 hrs use, 80% of the time 5. Osteoarthritis multiple joints- low back, neck, bilateral knees and shoulders 6. Hx umbilical repair w/ MESH This patient meets and or exceeds NIH criteria for morbid obesity with a BMI of 44.66 and c omorbidities related to obesity including Type 2 diabetes, sleep apnea, insulin resistance, obesity related hypoventilation syndrome, osteoarthritis, hypertension and hyperlipidemia wh ich may be improved with bariatric surgery. Records have been reviewed from his [facility] and [facility] attempts have been made to lose weight over the past years without success. He qualifi es for medically necessary weight loss surgery to control co-morbidities. Darin He has attended the Public Informational Session in which risks and benefits of bariatric surgery were discussed. Discussion of realistic expectations of bariatric surger y was held today. A Bariatric notebook with pre-op, inter-op and post-op guidance and inform ation was provided for the patient today. Plan: The following has been provided to Darin He This is a preliminary visit for a evaluation for bariatric surgery. There are some patients who have too many illnesses, and this elective surgery would not be safe for them. We have listed some of the potential reasons below. You can over eat ANY of the surgeries. The surgery is a tool with diet and exercise to help you obtain a healthy weight. + Dietitian consultation: Today. + Physical therapy referral for Bariatric Surgery Prehabilitation: Today + Weight Management classes: 2 classes are required in addition to your private appointme nt with the fuselage framer. These classes will be scheduled apporoximately 1 month apart to allow time for you to put the teaching into action. + Labs needed: Lipids, CBC, CMP, TSH, A1C, PTH, Vitamin D25, ferritin, B12, TIBC & iron. Please go to the 3rd floor and have these labs done. + Please have your PCP notes from the past 2 yrs faxed to us. Thank you. + EKG: Please go to 9th floor today to get this done. + Pre-op Psychological Evaluation: If your referral is at [facility], The Pain Management Office will call you in the next week to schedule. + Please start taking a daily multivitamin with iron. + Insurance requirements: your insurance requires: Six month supervised diet, [facility], fuselage framer or COST MANAGER once monthly to document supervised diet in order to get health insurance authorization for surgery. + Recommended weight loss: 5% wt loss goal of 15 pounds. If you are struggling with your w eight loss please call us to discuss some options. +The patient is willing to comply with the post-operative treatment plan Once the above list is completed and copies have been received by our office, we will submi t for insurance authorization then schedule with the surgeon. Vianey Griffith DNP ACNP MANAGER OF QUALITY Bariatric Surgery Nurse Practitioner [facility] | [address] | [place], [place] | [address] | Potential Contraindications to Bariatric Surgery Age over 69 BMI over 60 Oxygen dependence Immobility wheelchair or bed bound Cardiac issues such as ischemic heart disease as indicated on cardiac stress test or cardia c catheterization; severe or uncompensated heart failure which may be indicated by a decreas ed ejection fraction. Pulmonary issues such as untreated sleep apnea, obesity hypoventilation syndrome, severe CO PD or asthma. Liver disease such as cirrhosis, esophageal varices, or portal hypertension. Severe, untreated renal disease. Rheumatologic and other diseases requiring immune suppressant medications. Untreated or active cancer. Untreated psychological disability. If you have any of the above conditions, you may not be a candidate for bariatric surgery. Our program will perform a thorough evaluation prior to making such a determination. This evaluation may involve testing or consultations. We will make every effort to notify patien ts who are not candidates for surgery as early in the process as possible, but it is importa nt to realize that the surgeon may make that determination later in the process. Clearance for surgery by your PCP or other providers does not guarantee that the [facility] Bariatric Surger y program will deem you a surgical candidate. documented in this encounter Progress Notes Vianye Griffith ACNP - 10/30/2017 9:05 AM PDTI spent 50 minutes with the patient face to f carlos, 50% of which was counseling, 30 minutes doing chart review. Vianey Griffith DNP ACNP-BC MANAGER OF QUALITY-BC. Vianey Wynn ACNP - 10/30/2017 9:05 AM PDT BARIATRIC INITIAL VISIT Provider: Vianey DIAZ MANAGER OF QUALITY Referring Provider: Hiram Heredia DO Reason for Requested Consultation: Initial evaluation for bariatric surgery. Darin He is interested in sleeve gastrecto my. The pt is here with his , Angie, he will have his at home to help with post-op ca re after surgery. History of Present Illness: He is a morbidly obese, 52 y.o. male with a BMI of 44.66, 302 lbs., and 5 foot 9 inches who has failed prior attempts at sustained dietary/medical weight loss and desires surgical weight loss in order to "being outdoors, be more comfortable [place], be healthy". Duration of obesity: 30 years. Onset of obesity at age 22 First diet attempts at age 25 Personally initiated diets: NA Programmatic diets: 2001 Prism- lost 30 lbs, regained 30 lbs 2003 Out of [place]- lost 25 lbs, regained 30 lbs 2006 Nutrisystem- lost 15 lbs, regained 15 lbs 2007 Medifast- lost 25 lbs, regained 25 lbs 2009 Weight watchers- lost 20 lbs, regained 20 lbs Physician Monitored diet: NA Use of Redux or Phen/fen: no Transthoracic ECHO: yes Church or cultural reason you would refuse blood products? no Comorbidities include: Type 2 diabetes, sleep apnea, insulin resistance, obesity related hy poventilation syndrome, osteoarthritis, hypertension and hyperlipidemia All previous chart notes from PCP reviewed, previous tests and labs reviewed. ALLERGIES: No Known Allergies Current Outpatient Prescriptions: ascorbic acid SR (VITAMIN C) 1,000 mg oral tablet, Take 1 ,000 mg by mouth two times daily., Disp: , Rfl: atorvastatin 40 mg oral tablet, , Disp: , Rfl: 0 Biotin 10,000 mcg oral capsule, Take by mouth once daily., Disp: , Rfl: cholecalciferol (Vitamin D3) (VITAMIN D3) 2,000 unit oral capsule, Take 2,000 Units by mout h two times daily., Disp: , Rfl: fexofenadine 180 mg oral tablet, Take 180 mg by mouth once daily., Disp: , Rfl: FLUoxetine 20 mg oral capsule, , Disp: , Rfl: 0 metFORMIN SR 500 mg oral tablet extended release 24 hr, take 2 tablets by mouth twice a day , Disp: , Rfl: 0 multivitamin oral tablet, Take 1 tablet by mouth once daily., Disp: , Rfl: valsartan-hydrochlorothiazide 160-12.5 mg oral tablet, , Disp: , Rfl: 0 vitamin E 400 unit oral capsule, Take 400 Units by mouth two times daily., Disp: , Rfl: History: Past Medical History: Diagnosis Date Diabetes mellitus (HCC) HTN (hypertension) Hyperlipidemia JOCELYN treated with BiPAP Past Surgical History Procedure Laterality Date Tonsillectomy 1974 Knee arthroscopy Right 1992 Knee arthroscopy Left 2001 Appendectomy 2005 Discectomy Knee replacement Bilateral 2013 Rotator cuff surgery Left 2015 Rotator cuff surgery Right 2016 Elbow arthroscopy Right 1993 Social History Social History Marital status: Spouse name: N/A Number of children: N/A Years of education: N/A 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 Eyes/Ears/Nose/Throat: No visual changes, sore throat, dental pain, hoarseness, dysphagia, oral or tongue lesions. Respiratory: No cough or wheezing, daytime drowsiness or morning headaches. No history of asthma.Reports shortness of breath w/ exercise, nocturnal snoring, JOCELYN uses CPAP Cardiovascular: No exertional chest pain, palpitations, orthopnea, or paroxysmal nocturnal dyspnea. No history of lower extremity edema. No CHF, ID, ischemic heart disease, DVT/PE, o r pulmonary hypertension. States able to climb two flights of stairs. Reports syncopal episo de after knee surgery, HTN, HLD, had echocardiogram one year ago. Neurologic: No neurological impairment or TIAs; diplopia, dysphasia or unilateral disturba nce of motor or sensory function. No loss of balance, persistent headaches, numbness or pare sthesias. No history of seizure disorder. Reports vertigo w/ sinus changes. Musculoskeletal: No symptoms of swelling, myalgias. Reports low back pain, bilateral knee replacements, bilateral rotator cuff surgery Gastrointestinal: No abdominal or flank pain, anorexia, nausea or vomiting, dysphagia, pin[place] ge in bowel habits, black or bloody stools. No history of ulcers. Denies persistent reflux s ymptoms. No history of jaundice. Reports umbilical hernia repair with MESH, fatty liver. Genitourinary: No urinary incontinence. No history of kidney stones. No urethral discharge , dysuria, hematuria or sores on the genitals. No lumps or pain in the testicles. No prostat e sx. Skin: No intertrigenous skin infections, recent rashes, sores, or skin changes. Psychological: No anxiety, depression, thoughts of suicide or hallucinations. Heme/Lymphatic: No history of anemia, abnormal bruising, abnormal bleeding or enlarged lym ph nodes. Metabolic: No hypo or hyperthyroidism, history of polyuria, polyphagia or polydipsia. No hi story of gout. Reports NIDDM takes metformin. OBJECTIVE BP 113/81 | Pulse 65 | Temp (Src) 36.7 C (98 F) (Oral) | RR 18 | Ht 1.753 m (5' 9") | W t 137.2 kg (302 lb 6.4 oz) | BMI 44.66 kg/(m^2) Physical exam: General: Alert and cooperative. Neuro: Oriented x 3. CN III-XII grossly intact. No focal deficits. HEENT: Oropharynx clear without lesion or exudate. Neck: Neck supple. Respiratory: Good diaphragmatic excursion. Lungs clear to auscultation bilaterally. No whee zes, rales or rhonchi, able to speak in full sentences Cardiac: S1, S2, Regular rate and rhythm, no rub, murmur, gallop or bruits. Extremities: No lower extremity edema. Abdomen: Obese, surgical habitus, soft, nontender, no appreciable masses or hernia. Skin: No rashes Psych: Good eye contact. Speech clear. Laboratory/Imaging Data: 10/24/16 Nuc med myocardial perfusion study Intermediate risk myocardial perfusion imaging. Moderate inferior and small apical-inferior ischemia noted.Test limited by soft tissue and chest wall attenuation artifact. Stress EKG negative for ischemia. Low risk lynch treadmill score of 12. Normal LV systolic f unction with no wall motion abnormalities. REST EF: 53% STRESS EF: 58%. 10/24/16 Echocardiogram 1. Overall left ventricular systolic function is normal with, an EF between 60 - 65 %. 2. There is mild concentric left ventricular hypertrophy. 10/04/16 Colonoscopy Impression: - One small polyp in the proximal descending colon, removed with a hot snare. Resected and retrieved. - The examination was otherwise normal. - The distal rectum and anal verge are normal on retroflexion view. 05/19/17 CPAP use/ Sleep study Maximum: 13.9 cm. Nights using CPAP: 50/63. % of nights >4 hours: 76% Average usage (all nights): 7:45. Average usage (nights used): 9:46 Impression: 1. NIDDM type 2- takes metformin 2. HTN- BP normal today 113/81, takes valsartan/ HCTZ 3. HLD takes atorvastatin 4. JOCELYN uses CPAP last sleep study showed > 4 hrs use, 80% of the time 5. Osteoarthritis multiple joints- low back, neck, bilateral knees and shoulders 6. Hx umbilical repair w/ MESH This patient meets and or exceeds NIH criteria for morbid obesity with a BMI of 44.66 and c omorbidities related to obesity including Type 2 diabetes, sleep apnea, insulin resistance, obesity related hypoventilation syndrome, osteoarthritis, hypertension and hyperlipidemia wh ich may be improved with bariatric surgery. Records have been reviewed from his [facility] and [facility] attempts have been made to lose weight over the past years without success. He qualifi es for medically necessary weight loss surgery to control co-morbidities. Darin He has attended the Public Informational Session in which risks and benefits of bariatric surgery were discussed. Discussion of realistic expectations of bariatric surger y was held today. A Bariatric notebook with pre-op, inter-op and post-op guidance and inform ation was provided for the patient today. Plan: The following has been provided to Darin He This is a preliminary visit for a evaluation for bariatric surgery. There are some patients who have too many illnesses, and this elective surgery would not be safe for them. We have listed some of the potential reasons below. You can over eat ANY of the surgeries. The surgery is a tool with diet and exercise to help you obtain a healthy weight. + Dietitian consultation: Today. + Physical therapy referral for Bariatric Surgery Prehabilitation: Today + Weight Management classes: 2 classes are required in addition to your private appointme nt with the fuselage framer. These classes will be scheduled apporoximately 1 month apart to allow time for you to put the teaching into action. + Labs needed: Lipids, CBC, CMP, TSH, A1C, PTH, Vitamin D25, ferritin, B12, TIBC & iron. Please go to the 3rd floor and have these labs done. + Please have your PCP notes from the past 2 yrs faxed to us. Thank you. + EKG: Please go to 9th floor today to get this done. + Pre-op Psychological Evaluation: If your referral is at [facility], The Pain Management Office will call you in the next week to schedule. + Please start taking a daily multivitamin with iron. + Insurance requirements: your insurance requires: Six month supervised diet, please see [facility], fuselage framer or COST MANAGER once monthly to document supervised diet in order to get health insurance authorization for surgery. + Recommended weight loss: 5% wt loss goal of 15 pounds. If you are struggling with your w eight loss please call us to discuss some options. +The patient is willing to comply with the post-operative treatment plan Once the above list is completed and copies have been received by our office, we will submi t for insurance authorization then schedule with the surgeon. Vianey Griffith DNP ACNP MANAGER OF QUALITY Bariatric Surgery Nurse Practitioner [facility] | [address] | [place], [place] | [address] | Potential Contraindications to Bariatric Surgery Age over 69 BMI over 60 Oxygen dependence Immobility wheelchair or bed bound Cardiac issues such as ischemic heart disease as indicated on cardiac stress test or cardia c catheterization; severe or uncompensated heart failure which may be indicated by a decreas ed ejection fraction. Pulmonary issues such as untreated sleep apnea, obesity hypoventilation syndrome, severe [place] PD or asthma. Liver disease such as cirrhosis, esophageal varices, or portal hypertension. Severe, untreated renal disease. Rheumatologic and other diseases requiring immune suppressant medications. Untreated or active cancer. Untreated psychological disability. If you have any of the above conditions, you may not be a candidate for bariatric surgery. Our program will perform a thorough evaluation prior to making such a determination. This evaluation may involve testing or consultations. We will make every effort to notify patien ts who are not candidates for surgery as early in the process as possible, but it is importa nt to realize that the surgeon may make that determination later in the process. Clearance for surgery by your PCP or other providers does not guarantee that the [facility] Bariatric Surger y program will deem you a surgical candidate. documented in this e ncounter Plan of Treatment Not on filedocumented as of this encounter Procedures + +--------+ + + + | Procedure Name | Priori | Date/Time | Associated Diagnosis | Comments | | | ty | | | | + +--------+ + + + | 12 LEAD ECG | Routin | 10/30/2017 | Morbid obesity | Results for this | | | e | 10:18 AM | with BMI of | procedure are in the | | | | PDT | 40.0-44.9, adult | results section. | | | | | (HCC) Essential | | | | | | hypertension Mixed | | | | | | hyperlipidemia JOCELYN | | | | | | on CPAP Primary | | | | | | osteoarthritis | | | | | | involving multiple | | | | | | joints H/O | | | | | | umbilical hernia | | | | | | repair | | + +--------+ + + + documented in this encounter Results LIPID SET (TRIG, T CHOL, HDL, CALC LDL) (10/30/2017 12:34 PM PDT) + +---------+ + + + | Component | Value | Ref Range | Performed | Pathologist | | | | | At | Signature | + +---------+ + + + | CHOLESTEROL | 149 | <200 mg/dL | [facility] | | | (LAB) | | | LABORATORY | | | | | | SERVICES, | | | | | | CORE | | + +---------+ + + + | TRIGLYCERID | 268 (H) | <150 mg/dL | [facility] | | | ES | | | LABORATORY | | | | | | SERVICES, | | | | | | CORE | | + +---------+ + + + | HDL | 32 (L) | >40 mg/dL | [facility] | | | CHOLESTEROL | | | LABORATORY | | | | | | SERVICES, | | | | | | CORE | | + +---------+ + + + | HDL CMNT | No Hemo | | [facility] | | | | | | LABORATORY | | | | | | SERVICES, | | | | | | CORE | | + +---------+ + + + | LDL | 63 | <100 mg/dL | [facility] | | | CHOLESTEROL | | | LABORATORY | | | , | | | SERVICES, | | | CALCULATED | | | CORE | | + +---------+ + + + | VLDL | 54 (H) | <31 mg/dL | [facility] | | | CHOLESTEROL | | | LABORATORY | | | , | | | SERVICES, | | | CALCULATED | | | CORE | | + +---------+ + + + | NON-HDL | 117 | <130 mg/dL | [facility] | | | CHOLESTEROL | | | LABORATORY | | | | | | SERVICES, | | | | | | CORE | | + +---------+ + + + + + | Specimen | + + | Blood - Blood | | (substance) | + + + + + | Narrative | Performed At | + + + | Cholesterol Reference Range: Desirable: <200 | [facility] | | mg/dL Borderline High: 200 - 239 mg/dL | LABORATORY | | High: >=240 mg/dL LDL Cholesterol | SERVICES, CORE | | Reference Range: Optimal: <100 mg/dL | | | Near Optimal: 100-129 mg/dL Borderline High: 130-159 | | | mg/dL High: 160-189 mg/dL | | | Very High: >=190 mg/dL non-HDL Cholesterol Reference Range: | | | Optimal: <130 mg/dL Near Optimal: | | | 130-159 mg/dL Borderline High: 160-189 mg/dL | | | High: 190-209 mg/dL Very High: | | | >=210 mg/dL Triglyceride Reference Range: | | | Normal: <150 mg/dL Borderline High: 150-199 mg/dL | | | High: 200-499 mg/dL Very High: >=500 mg/dL | | | HDL Reference Range: High Risk: <40 mg/dL | | | Desirable: >=60 mg/dL | | + + + + + + + + | Performing | Address | City/State/Zipcode | Phone Number | | Organization | | | | + + + + + | [facility] | [address] | [place] [address] | | | SERVICES, CORE | [address] | | | + + + + + HEMOGLOBIN A1C, BLOOD (10/30/2017 12:34 PM PDT) + + + + + + | Component | Value | Ref Range | Performed | Pathologist | | | | | At | Signature | + + + + + + | HEMOGLOBIN | 6.3 (H)Comment: Hgb A1C | <5.7 % | [facility] | | | A1C | Interpretive | | LABORATORY | | | | Information: | | SERVICES, | | | | <5.7% - Normal | | SPECIAL IMM | | | | 5.7-6.4% - Consistent | | + COAG | | | | with pre-diabetes | | | | | | >6.4% - Consistent | | | | | | with diabetes | | | | | | | | | | + + + + + + + + | Specimen | + + | Blood - Blood | | (substance) | + + + + + | Narrative | Performed At | + + + | Alternate forms of testing such as fructosamine should be | [facility] | | considered for monitoring shelter glycemic control in patients with: | LABORATORY | | Increased red cell turnover, certain hemoglobinopathies (e.g., HbS, | SERVICES, | | HbE, HbC and thalassemia syndromes), anemias, blood loss, chronic | SPECIAL IMM + | | liver disease and hemochromatosis (artefactually low HbA1c); iron | [facility] | | deficiency anemia (artefactually high HbA1c due to enhanced glycation | | | of hemoglobin). | | + + + + + + + + | Performing | Address | City/State/Zipcode | Phone Number | | Organization | | | | + + + + + | [facility] | [address] | [place] [address] | | | SERVICES, SPECIAL | [address] | | | | IMM + COAG | | | | + + + + + VITAMIN B1, WHOLE BLOOD (10/30/2017 12:34 PM PDT) + + + + + + | Component | Value | Ref Range | Performed | Pathologist | | | | | At | Signature | + + + + + + | VITAMIN B1, | 117Comment: INTERPRETIVE | 70 - 180 nmol/L | [facility] | | | WHOLE | INFORMATION: Vitamin | | REG UNIV | | | BLOOD | B1, Whole Blood This | | PTH - [facility] | | | | assay measures the | | | | | | concentration of | | | | | | thiamine diphosphate | | | | | | (TDP), the primary | | | | | | active form of vitamin | | | | | | B1. Approximately 90 | | | | | | percent of vitamin B1 | | | | | | present in whole blood | | | | | | is TDP. Thiamine and | | | | | | thiamine monophosphate, | | | | | | which comprise the | | | | | | remaining 10 percent, | | | | | | are not measured. Test | | | | | | developed and | | | | | | characteristics | | | | | | determined by [facility] | | | | | | [facility]. See | | | | | | Compliance Statement B: | | | | | | [facility] | | | | | | by [employer],[address] | | | | [address], [facility],[place] | | | | | | [id number] | | | | | | [phone].[facility]. | | | | | | [facility] hospitalMatthew MD, | | | | | | Lab. Director | | | | + + + + + + + + | Specimen | + + | Blood - Blood | | (substance) | + + + + + + + | Performing | Address | City/State/Zipcode | Phone Number | | Organization | | | | + + + + + | [facility] | [address] | [place], [place] | | | UNIV [facility] | | [id number] | | + + + + + COMPLETE METABOLIC SET (NA,K,CL,CO2,BUN,CREAT,GLUC,CA,AST,ALT,BILI TOTAL,ALK PHOS,ALB,PROT TOTAL) (10/30/2017 12:34 PM PDT) + +---------+ + + + | Component | Value | Ref Range | Performed | Pathologist | | | | | At | Signature | + +---------+ + + + | GLUCOSE, | 96 | 70 - 99 mg/dL | [facility] | | | PLASMA | | | LABORATORY | | | (LAB) | | | SERVICES, | | | | | | CORE | | + +---------+ + + + | BUN, PLASMA | 18 | 6 - 20 mg/dL | [facility] | | | (LAB) | | | LABORATORY | | | | | | SERVICES, | | | | | | CORE | | + +---------+ + + + | CREATININE | 1.04 | 0.70 - 1.30 | [facility] | | | PLASMA | | mg/dL | LABORATORY | | | (LAB) | | | SERVICES, | | | | | | CORE | | + +---------+ + + + | EGFR | >60 | >60 mL/min | [facility] | | | - | | | LABORATORY | | | MAURITIAN | | | SERVICES, | | | | | | CORE | | + +---------+ + + + | EGFR NON | >60 | >60 mL/min | [facility] | | | -[facility] | | | LABORATORY | | | RICAN | | | SERVICES, | | | | | | CORE | | + +---------+ + + + | SODIUM, | 138 | 136 - 145 | [facility] | | | PLASMA | | mmol/L | LABORATORY | | | (LAB) | | | SERVICES, | | | | | | CORE | | + +---------+ + + + | POTASSIUM, | 4.4 | 3.4 - 5.0 | [facility] | | | PLASMA | | mmol/L | LABORATORY | | | (LAB) | | | SERVICES, | | | | | | CORE | | + +---------+ + + + | CHLORIDE, | 103 | 97 - 108 mmol/L | [facility] | | | PLASMA | | | LABORATORY | | | (LAB) | | | SERVICES, | | | | | | CORE | | + +---------+ + + + | TOTAL CO2, | 29 | 21 - 32 mmol/L | [facility] | | | PLASMA | | | LABORATORY | | | (LAB) | | | SERVICES, | | | | | | CORE | | + +---------+ + + + | CALCIUM, | 9.5 | 8.6 - 10.2 | [facility] | | | PLASMA | | mg/dL | LABORATORY | | | (LAB) | | | SERVICES, | | | | | | CORE | | + +---------+ + + + | CALCIUM(ALB | 9.3 | 8.6 - 10.2 | [facility] | | | CORRECTED) | | mg/dL | LABORATORY | | | | | | SERVICES, | | | | | | CORE | | + +---------+ + + + | BILIRUBIN | 0.6 | 0.3 - 1.2 mg/dL | [facility] | | | TOTAL | | | LABORATORY | | | | | | SERVICES, | | | | | | CORE | | + +---------+ + + + | TOTAL | 7.8 | 6.4 - 8.2 g/dL | [facility] | | | PROTEIN, | | | LABORATORY | | | PLASMA | | | SERVICES, | | | (LAB) | | | CORE | | + +---------+ + + + | ALBUMIN, | 4.3 | 3.5 - 4.7 g/dL | [facility] | | | PLASMA | | | LABORATORY | | | (LAB) | | | SERVICES, | | | | | | CORE | | + +---------+ + + + | ALK PHOS | 46 (L) | 53 - 128 U/L | [facility] | | | | | | LABORATORY | | | | | | SERVICES, | | | | | | CORE | | + +---------+ + + + | AST(SGOT) | 43 (H) | <=41 U/L | [facility] | | | | | | LABORATORY | | | | | | SERVICES, | | | | | | CORE | | + +---------+ + + + | ALT (SGPT) | 76 (H) | <=60 U/L | [facility] | | | | | | LABORATORY | | | | | | SERVICES, | | | | | | CORE | | + +---------+ + + + | ANION GAP | 6 | 4 - 11 mmol/L | [facility] | | | | | | LABORATORY | | | | | | SERVICES, | | | | | | CORE | | + +---------+ + + + | ANION | 5 | 4 - 11 mmol/L | [facility] | | | GAP(ALB | | | LABORATORY | | | CORRECTED) | | | SERVICES, | | | | | | CORE | | + +---------+ + + + | POTASSIUM | No Hemo | | [facility] | | | CMNT | | | LABORATORY | | | | | | SERVICES, | | | | | | CORE | | + +---------+ + + + | BILI T CMNT | No Hemo | | [facility] | | | | | | LABORATORY | | | | | | SERVICES, | | | | | | CORE | | + +---------+ + + + | AST CMNT | No Hemo | | [facility] | | | | | | LABORATORY | | | | | | SERVICES, | | | | | | CORE | | + +---------+ + + + + + | Specimen | + + | Blood - Blood | | (substance) | + + + + + | Narrative | Performed At | + + + | GFR is estimated using the MDRD equation recommended by the | [facility] | | National Kidney Disease Education Program. Estimated GFR | LABORATORY | | Interpretive Information: <60 mL/min/1.73 sq m | SERVICES, CORE | | Chronic Kidney Disease <15 mL/min/1.73 sq m | | | Kidney Failure Estimated GFR greater that 60 mL/min/1.73 sq m is of | | | limited clinical value. The MDRD equation is not valid in the | | | following situations: - Patients under 18 years of age - Severe | | | malnutrition or obesity - Vegetarian diet - Rapidly changing kidney | | | function - Amputees, paraplegics, or other muscle-wasting diseses | | + + + + + + + + | Performing | Address | City/State/Zipcode | Phone Number | | Organization | | | | + + + + + | [facility] | [address] | [place] [address] | | | SERVICES, CORE | [address] | | | + + + + + IRON AND TIBC (10/30/2017 12:34 PM PDT) + +-------+ + + + | Component | Value | Ref Range | Performed | Pathologist | | | | | At | Signature | + +-------+ + + + | IRON | 117 | 50 - 170 ug/dL | [facility] | | | | | | LABORATORY | | | | | | SERVICES, | | | | | | CORE | | + +-------+ + + + | IRON BIND | 372 | 240 - 450 ug/dL | [facility] | | | CAP | | | LABORATORY | | | | | | SERVICES, | | | | | | CORE | | + +-------+ + + + | % | 31 | 20 - 50 % | [facility] | | | SATURATION | | | LABORATORY | | | TRANSFERRIN | | | SERVICES, | | | , | | | CORE | | + +-------+ + + + + + | Specimen | + + | Blood - Blood | | (substance) | + + + + + + + | Performing | Address | City/State/Zipcode | Phone Number | | Organization | | | | + + + + + | [facility] | [address] | [place] [address] | | | SERVICES, CORE | [address] | | | + + + + + VITAMIN B-12 (10/30/2017 12:34 PM PDT) + +-------+ + + + | Component | Value | Ref Range | Performed | Pathologist | | | | | At | Signature | + +-------+ + + + | VITAMIN B12 | 642 | 193 - 986 pg/mL | [facility] | | | | | | LABORATORY | | | | | | SERVICES, | | | | | | CORE | | + +-------+ + + + | COMMENT | 1 | | [facility] | | | (HEMO) | | | LABORATORY | | | | | | SERVICES, | | | | | | CORE | | + +-------+ + + + | COMMENT | 1 | | [facility] | | | (ICTERUS) | | | LABORATORY | | | | | | SERVICES, | | | | | | CORE | | + +-------+ + + + | COMMENT | 1 | | [facility] | | | (LIPEMIA) | | | LABORATORY | | | | | | SERVICES, | | | | | | CORE | | + +-------+ + + + + + | Specimen | + + | Blood - Blood | | (substance) | + + + + + + + | Performing | Address | City/State/Zipcode | Phone Number | | Organization | | | | + + + + + | [facility] | [address] | [place] [address] | | | SERVICES, CORE | [address] | | | + + + + + FERRITIN (10/30/2017 12:34 PM PDT) + + + + + + | Component | Value | Ref Range | Performed | Pathologist | | | | | At | Signature | + + + + + + | FERRITIN | 243 (H)Comment: Male | 50 - 200 ng/mL | [facility] | | | | and Female >18 years: | | LABORATORY | | | | <20 ng/mL: | | SERVICES, | | | | Consistant with iron | | CORE | | | | deficiency 21-50 | | | | | | ng/mL: Possible | | | | | | iron deficiency 51-99 | | | | | | ng/mL: Iron | | | | | | deficiency unlikely | | | | | | unless inflammation | | | | | | present or | | | | | | patient | | | | | | >65 years of age | | | | | | 100-200 ng/mL: | | | | | | Normal, not consistent | | | | | | with iron deficiency | | | | | | >200 ng/mL: If | | | | | | transferrin saturation | | | | | | >45%, consider | | | | | | hemochromatosis | | | | + + + + + + + + | Specimen | + + | Blood - Blood | | (substance) | + + + + + + + | Performing | Address | City/State/Zipcode | Phone Number | | Organization | | | | + + + + + | [facility] | [address] [address] | [place] [address] | | | SERVICES, CORE | [address] | | | + + + + + PTH, SERUM (10/30/2017 12:34 PM PDT) + +-------+ + + + | Component | Value | Ref Range | Performed | Pathologist | | | | | At | Signature | + +-------+ + + + | PTH, SERUM | 68 | 18 - 88 pg/mL | [facility] | | | | | | LABORATORY | | | | | | SERVICES, | | | | | | CORE | | + +-------+ + + + + + | Specimen | + + | Blood - Blood | | (substance) | + + + + + | Narrative | Performed At | + + + | New Reference Range effective 17. | [facility] | | | LABORATORY | | | SERVICES, CORE | + + + + + + + + | Performing | Address | City/State/Zipcode | Phone Number | | Organization | | | | + + + + + | [facility] | [address] | [place] [address] | | | SERVICES, CORE | [address] | | | + + + + + VITAMIN D, 25-HYDROXY, SERUM (10/30/2017 12:34 PM PDT) + +-------+ + + + | Component | Value | Ref Range | Performed | Pathologist | | | | | At | Signature | + +-------+ + + + | VITAMIN D | 39.9 | 30 - 80 ng/mL | [facility] | | | 25 HYDROXY | | | LABORATORY | | | | | | SERVICES, | | | | | | CORE | | + +-------+ + + + + + | Specimen | + + | Blood - Blood | | (substance) | + + + + + | Narrative | Performed At | + + + | Reference Interval: 0-18years: Deficiency: <20 ng/mL | [facility] | | Optimum level: >or=20 ng/mL | LABORATORY | | >18years: Deficiency: <20 | SERVICES, CORE | | ng/mL Insufficiency: 20-29 ng/mL | | | Optimum Level: 30-80 ng/mL High: | | | 81-150 ng/ml Toxic: >150 ng/mL | | + + + + + + + + | Performing | Address | City/State/Zipcode | Phone Number | | Organization | | | | + + + + + | [facility] | [address] | [place] [address] | | | SERVICES, CORE | [address] | | | + + + + + TSH (10/30/2017 12:34 PM PDT) + +-------+ + + + | Component | Value | Ref Range | Performed | Pathologist | | | | | At | Signature | + +-------+ + + + | TSH | 3.90 | 0.50 - 5.07 | [facility] | | | | | mIU/L | LABORATORY | | | | | | SERVICES, | | | | | | CORE | | + +-------+ + + + + + | Specimen | + + | Blood - Blood | | (substance) | + + + + + | Narrative | Performed At | + + + | TSH reference ranges are influenced by a variety of environmental | [facility] | | influences, age, gender and ethnicity. The supplied reference limits | LABORATORY | | are based on published values utilizing a similar TSH assay, and | SERVICES, CORE | | should be interpreted with caution. | | + + + + + + + + | Performing | Address | City/State/Zipcode | Phone Number | | Organization | | | | + + + + + | [facility] | [address] | [place] [address] | | | SERVICES, CORE | [address] | | | + + + + + 12 LEAD ECG (10/30/2017 10:18 AM PDT) + + + + + + | Component | Value | Ref Range | Performed | Pathologist | | | | | At | Signature | + + + + + + | VENTRICULAR | 55 | bpm | [facility] | | | RATE | | | OF | | | | | | CARDIOLOGY | | + + + + + + | ATRIAL RATE | 54 | ms | [facility] | | | | | | OF | | | | | | CARDIOLOGY | | + + + + + + | P-R | 139 | ms | [facility] | | | INTERVAL | | | OF | | | | | | CARDIOLOGY | | + + + + + + | P AXIS | 28 | deg | [facility] | | | | | | OF | | | | | | CARDIOLOGY | | + + + + + + | QRS | 94 | ms | [facility] | | | DURATION | | | OF | | | | | | CARDIOLOGY | | + + + + + + | QT | 412 | ms | [facility] | | | | | | OF | | | | | | CARDIOLOGY | | + + + + + + | QTC-BAZETT | 394 | ms | [facility] | | | | | | OF | | | | | | CARDIOLOGY | | + + + + + + | R AXIS | -13 | deg | [facility] | | | | | | OF | | | | | | CARDIOLOGY | | + + + + + + | T AXIS | 22 | deg | [facility] | | | | | | OF | | | | | | CARDIOLOGY | | + + + + + + | ECG | Sinus bradycardia- | | [facility] | | | IMPRESSION | OTHERWISE NORMAL ECG - | | OF | | | | | | CARDIOLOGY | | + + + + + + | ECG | Electronically signed | | [facility] | | | IMPRESSION | by: JOSE JACKMAN | | OF | | | | 10-30-2017 16:41:05 | | CARDIOLOGY | | + + + + + + + + | Specimen | + + | | + + + + + | Narrative | Performed At | + + + | | | + + + + + + + + | Performing | Address | City/State/Zipcode | Phone Number | | Organization | | | | + + + + + | [facility] | [address] | [place], [place] | | | CARDIOLOGY | [address] | [address] | | + + + + + documented in this encounter Visit Diagnoses + + | Diagnosis | + + | Morbid obesity with BMI of 40.0-44.9, adult (HCC) - Primary | + + | Essential hypertension | + + | Mixed hyperlipidemia | + + | JOCELYN on CPAP Obstructive sleep apnea (adult) (pediatric) | + + | Primary osteoarthritis involving multiple joints | + + | H/O umbilical hernia repair Personal history of surgery to other organs | + + documented in this encounter
--- OUTSIDE RECORDS SUMMARY | ~2020-01-22 | XMS | Encounter Summary ---
Demographics + + + | Address | [address] | | | [place] [address] | + + + | Home Phone | | + + + | Preferred Language | Unknown | + + + | Marital Status | | + + + | Mormonism Affiliation | 1073 | + + + [...] Team Providers + +------+ + | Care Performance Makeup Artist Name | Role | Phone | + +------+ + PCP | Unavailable | + +------+ + Encounter Details +--------+ + + + + | Date | Type | Department | Care Team | Description | +--------+ + + + + | [facility] | Eduardo Mckenna | | | 2011 | Encounter | [facility] OP | F, MD [address] | | | | | [address] | [address] [place] | | | | | [place] | [address] | | | | | [address] | [phone] | | | | | [phone] | | | +--------+ + + + [...] documented as of this encounter Miscellaneous Notes Op Note - Eduardo Mckenna MD - 01/30/2012 10:09 AM PDTDATE: 01/30/2012 PROCEDURE TITLE 1. C6-7 anterior cervical diskectomy and allograft interbody arthrodesis. 2. C7-T1 anterio r cervical diskectomy and allograft interbody arthrodesis. 3. C6-7 and C7-T1 anterior cervi hal plating arthrodesis. 4. Microsurgical technique. 5. Placement and removal of head halter traction. SURGEON: Eduardo Mckenna MD SECURITY POLICE: Blake Lees MD ANESTHESIA: General endotracheal by Mayco Hatch MD PREOPERATIVE DIAGNOSES 1. Herniated nucleus pulposus, C6-7, eccentric to the left. 2. Herniated nucleus pulposus, C7-T1, eccentric to the left. 3. Left C7 and T1 radiculopathy. POSTOPERATIVE DIAGNOSES 1. HERNIATED NUCLEUS PULPOSUS, C6-7, ECCENTRIC TO THE LEFT. 2. HERNIATED NUCLEUS PULPOSUS, C7-T1, ECCENTRIC TO THE LEFT. 3. LEFT C7 AND T1 RADICULOPATHY. INTRAOPERATIVE FINDINGS 1. Herniated nucleus pulposus, C6-7, eccentric to the left. 2. Herniated nucleus pulposus, C7-T1, eccentric to the left. 3. Left C7 and T1 radiculopathy. SPECIMENS: None. ESTIMATED BLOOD LOSS: 55 mL. COMPLICATIONS: None. PROCEDURE TIME: 2-1/2 hours. INDICATIONS: Mr. He is a 46-year-old gentleman who has developed severe pain as well as profound left upper extremity weakness after an injury which resulted in a disk herniation . Due to the extent of his weakness, determination was made to proceed to surgical decompre ssion and stabilization rapidl y. Therefore, after discussion of the risks, alternatives, a nd benefits of surgical intervention, he provided his informed consent for the following pr ocedure. PROCEDURE DESCRIPTION: Ms. He was brought in the operative suite in supine position on a stretche r and placed under general anesthesia without difficulty. He received 2 grams of Ancef prophylactic a ntibiosis, 10 mg of Decadron, and 20 mg of Pepcid. He was placed on t he [facility] [facility] flat top table in the supine position with a shoulder roll for gentle cervic al extension and 15 pounds of cervical tra ction and his shoulders were taped for better vi sualization with lateral fluoroscopy. Anterior portio n of the neck was prepped and draped in the usual sterile fashion, and then a #10 blade was employed to perform approximately a 9 cm transverse incision along a skin fold. Immaculate hemostasis was obta ined with monopo lar and bipolar cautery, and then the platysma was transected with monopolar cautery. A sub platysmal releasing dissection was performed sharply, and then the anterior intermediate cer justice al fascia was incised sharply. A blunt dissection then ensued which was medial to the c arotid sheath, lateral to the cervical strap muscles, and inferior to the omohyoid. This al lowed access to the ante rior longitudinal ligament where a spinal needle was then placed i n the C6-7 interspace. This was con firmed with lateral fluoroscopy. The longus colli was r eleased bilaterally with monopolar cautery and this allowed placement of the Trabajo[employer] anterior cervical retractor system. It should be noted that due to the patient's size the retractor system only had 70 mm blades and so the self-retaining Weitlaner retractor also had to be employed. Once the retractors were positioned, then good visualization of th e C6-7 as well as C7-T1 were obtained. Diskectomies then ensued. Diskectomies were provide for direct as well as indirect decompression and to prepare the endplates for arthrodesis. The anterior lo ngitu dinal ligament and anterior annulus were incised sharply with a #15 blade, and then d iskectomy was pe rformed with a combination of curettes and rongeurs. Anterior osteophytes and posterior osteophytes w ere drilled with a high-speed drill and resected with rongeurs. The cartilaginous endplates were rese cted. The bony endplates were preserved. Once the po sterior longitudinal ligament was reached, then i t was dissected with a micronerve hook an d then resected with Kerrison rongeurs. Dissection was karlie ed bilaterally into the neural foramina to ensure complete decompression. On the left side at the C6- 7 as well as C7-T1 level, extensive disk herniation material was evident. This was in the form of a l arge num gerry of small fragments and extensive period of time was dispensed to tease these fragments o u t of the spinal canal. The neural foramina was also well decompressed subsequent to decom pression wit h these fragments. Copious irrigation was applied, immaculate hemostasis was o btained. The cord and d ura were noted to be pulsatile and well decompressed subsequent to decompression. Some additional dri lling was performed into the body in a channel from the C6-7 interspace caudally in order to allow be tter access to decompress this lateral gutter , and then immaculate hemostasis was obtained with hemos tatic agents as well as bipolar, a nd then copious irrigation was applied. The biomechanical spacer tr ials were then placed a nd ultimately two 8 mm x 14.5 x 11.5 lordotic allograft spacers were placed, t hese were fr om [employer], and they were also filled with 1 mL of Nathanael. The spacers were plac e d into position and the weights were removed from the head, then a 39 mm anterior plate [facility] was sized and placed. Weight And Test Bar Clerk holes were drilled into the bodies of C6, C7 and T1, and then 14 m m variable angle screws were placed in the bodies of C6 and C7 and 60 mm variable angle screws were p laced into T1. These screws were locked into the plate per fl nufacturer specification, and then copio us irrigation was applied, immaculate hemostasis o btained. Good purchase was obtained and a rigid con struct was obtained. The retractor was withdrawn, and then a 360-degree circumferential evaluation of the surgical corridor was pe rformed to ensure immaculate hemostasis with bipolar cautery, and then t he anterior interm ediate cervical fascia was closed and reapproximated with interrupted, inverted 3-0 Vicryl sutures. The platysma was closed with interrupted, inverted 3-0 Vicryl sutures. The dermis w a s closed with interrupted, inverted 4-0 Vicryl sutures, and then over the surface of the skin Dermabo nd was applied. The patient was then awoke from general anesthesia without seema arent complications, watt ving tolerated the procedure well. It should be noted that a timeou t was performed prior to initiatio n of the procedure and all counts were reported correct at the end of the procedure. DICTATED BY: Eduardo Mckenna MD Neurosurgery JOB #: [id number] EXT JOB #:[id number] cc: Blake Lees MD <Electronically Signed by Eduardo Mckenna MD> 02/04/12 1105 documented in this encounter Plan of Treatment +--------+---------+ + + + | Date | Type | Specialty | Care Team | Description | +--------+---------+ + + + | 02/13/ | Office | Primary Care | Hiram Heredia | | | 2019 | Visit | | DO [address] | | | | | | [place] | | | | | | [address] | | | | | | [phone] | | | | | | | | +--------+---------+ + + + documented as of this encounter Procedures + +--------+ + + + | Procedure Name | Priori | Date/Time | Associated Diagnosis | Comments | | | ty | | | | + +--------+ + + + | XR SPINE 1 VW | | 01/30/2012 | | Results for this | | | | 10:09 AM | | procedure are in the | | | | PDT | | results section. | + +--------+ + + + documented in this encounter Results XR Spine 1 Vw (01/30/2012 10:09 AM PDT) + + | Specimen | + + | | + + + + + | Narrative | Performed At | + + + | [facility] | [facility] | | [address] [facility] | [facility] | | THREE VIEWS CERVICAL SPINE, | DIAG IMG | | 01/30/2012 CLINICAL HISTORY: STATUS POST ACDF. COMPARISON: | | | Intraoperative spot films from the same day, cervical radiographs | | | 01/06/2012, cervical M RI 01/02/2012. FINDINGS: Anterior plate | | | and screw fusion hardware is now present, extending from C6 through | | | T1. Th e hardware appears to be well seated, and interbody fusion | | | prostheses are present at these levels as well. Cervical vertebral | | | height and alignment are maintained, without evident fracture or | | | subluxatio n. Mild to moderate disk space narrowing and vertebral | | | spondylosis persist at C5-C6, and spondylosis is also evident at | | | C3-C4 and C4-C5. A corticated ossicle projecting along the | | | posterior, inferior m argin of the C2 spinous process is unchanged | | | and may reflect sequela of previous trauma or a developm ental | | | phenomenon. Imaged skull base and soft tissues are unremarkable. | | | IMPRESSION: 1. SATISFACTORY APPEARANCE STATUS POST ACDF AT C6-C7 | | | AND C7-T1. Dictated Date/Time: 01/31/2012 07:23 Transcribed | | | Date/Time: 01/31/2012 07:38 Supplier Quality Engineer: | | | <Electronically Signed by Michele Carbajal MD> 01/31/12 0844 | | + + + + + | Procedure Note | + + | Jaime, Rad Conversion - 07/09/2013 5:56 PM [facility] | | Diagnostic Imaging Department [address] [facility] [place] | | THREE VIEWS CERVICAL SPINE, 01/30/2012 CLINICAL HISTORY: | | STATUS POST ACDF. COMPARISON: Intraoperative spot films from the same day, cervical | | radiographs 01/06/2012, cervical MRI 01/02/2012. FINDINGS: Anterior plate and screw | | fusion hardware is now present, extending from C6 through T1. The hardware appears to | | be well seated, and interbody fusion prostheses are present at these levels as well. | | Cervical vertebral height and alignment are maintained, without evident fracture or | | subluxation. Mild to moderate disk space narrowing and vertebral spondylosis persist at | | C5-C6, and spondylosis is also evident at C3-C4 and C4-C5. A corticated ossicle | | projecting along the posterior, inferior margin of the C2 spinous process is unchanged | | and may reflect sequela of previous trauma or a developmental phenomenon. Imaged skull | | base and soft tissues are unremarkable. IMPRESSION: 1. SATISFACTORY APPEARANCE STATUS | | POST ACDF AT C6-C7 AND C7-T1. Dictated Date/Time: 01/31/2012 07:23Transcribed | | Date/Time: 01/31/2012 07:38Transcriptionist: <Electronically Signed by Michele Solomon | | MD Solomon> 01/31/12 0844 | |n. Mild to moderate disk space narrowing and vertebral spondylosis persist at C5-C6, and s pondylosis | | is also evident at C3-C4 and C4-C5. A corticated ossicle projecting along the posterior, inferior m | |argin of the C2 spinous process is unchanged and may reflect sequela of previous trauma or a developm | |ental phenomenon. Imaged skull base and soft tissues are unremarkable. | | | |IMPRESSION: | |1. SATISFACTORY APPEARANCE STATUS POST ACDF AT C6-C7 AND C7-T1. | | | |Dictated Date/Time: 01/31/2012 07:23 | |Transcribed Date/Time: 01/31/2012 07:38 | |Supplier Quality Engineer: | |<Electronically Signed by Michele Carbajal MD> 01/31/12 0844 | + + + +---------+ + + | Performing | Address | City/State/Zipcode | Phone Number | | Organization | | | | + +---------+ + + | [place] | | | | | [facility] | | | | + +---------+ + + documented in this encounter Visit Diagnoses Not on filedocumented in this encounter"
--- OUTSIDE RECORDS SUMMARY | ~2020-01-22 | XMS | Encounter Summary ---
Demographics + + + | Address | [address] | | | [place] [address] | + + + | Home Phone | | + + + | Preferred Language | Unknown | + + + | Marital Status | | + + + | Orthodox Affiliation | 1073 | + + + | Race | White | + + + | Ethnic Group | Not or | + + + Author + + + | Author | [facility] | | | and [place] | + + + | Organization | [facility] | | [...] Team Providers + +------+ + | Care Senior Insight Manager Name | Role | Phone | + +------+ + | Hiram Heredia DO | PCP | | + +------+ + Encounter Details +--------+ + + + + | Date | Type | Department | Care Team | Description | +--------+ + + + + | 02/07/ | Hospital | [facility] | Conversion | Neck pain | | 2018 | Encounter | CONVERSION DEP [address] | Transaction, | | | | | JOANNE ROSAS | Provider Unknown | | | | | [place] | [phone] | | | | | [address] | | | | | | [phone] | | | +--------+ + + + [...] + + + +---------+ + + | [place] 3-6-9 Fatty | Take by mouth. | [...] 02/13/ | Office | Primary Care | Lambertomasood Hiram | | | 2019 | Visit | | E, DO [address] | | | | | | [place] | | | | | | [address] | | | | | | [phone] | | | | | | | | +--------+---------+ + + + documented as of this encounter Procedures + +--------+ + + + | Procedure Name | Priori | Date/Time | Associated Diagnosis | Comments | | | ty | | | | + +--------+ + + + | XR CERVICAL SPINE 4 | Routin | 12/01/2017 | | Results for this | | OR 5 VWS | e | 10:34 AM | | procedure are in the | | | | PDT | | results section. | + +--------+ + + + documented in this encounter Results XR Cervical Spine 4 or 5 Vws (12/01/2017 10:34 AM PDT) + + | Specimen | [...] + | Diagnosis | + + | Neck pain Cervicalgia | + + documented in this encounter"
--- OUTSIDE RECORDS SUMMARY | ~2020-01-22 | XMS | Encounter Summary ---
Demographics + + + | Address | [address] | | | [place] [address] | + + + | Home Phone | | + + + | Preferred Language | Unknown | + + + | Marital Status | | + + + | Quaker Affiliation | 1073 | + + + | Race | White | + + + | Ethnic Group | Not or | + + + Author + + + | Author | [facility] | | | and [place] | + + + | Organization | [facility] | | | and [...] Team Providers + +------+ + | Care Model Maker Fiberglass Name | Role | Phone | + +------+ + | Hiram Heredia DO | PCP | | + +------+ + Reason for Visit +--------+--------+ + | Reason | Onset | Comments | | | Date | | +--------+--------+ + | Other | 05/04/ | RETURNING PHONE CALL | | | 2011 | | +--------+--------+ + Encounter Details +--------+ + + + + | Date | Type | Department | Care Team | Description | +--------+ + + + + | 05/04/ | Telephone | [facility] | Eduardo Mckenna | Other (RETURNING | | 2011 | | [address] | MD Stephenie [address] | PHONE CALL) | | | | [address] | [address] [place], [place] | | | | | [place], [place] | [address] | | | | | [address] | [phone] | | | | | [phone] | | | +--------+ + + + [...] this encounter Miscellaneous Notes Telephone Encounter - Nathaniel Ni 05/04/2012 12:46 PM PSTPatient is returning a phone call and states that he would like to go to [facility] Physical Therapy documented in this encounter Plan of Treatment +--------+---------+ + + + | Date | Type | Specialty | Care Team | Description | +--------+---------+ + + + | 02/13/ | Office | Primary Care | Hiram Heredia | | | 2019 | Visit | | DO [address] [facility] [address] | | | | | | [place] | | | | | | [address] | | | | | | [phone] | | | | | | | | +--------+---------+ + + + documented as of this encounter Visit Diagnoses Not on filedocumented in this encounter"
--- OUTSIDE RECORDS SUMMARY | ~2020-01-22 | XMS | Encounter Summary ---
Demographics + + + | Address | [address] | | | [place] [address] | + + + | Home Phone | | + + + | Preferred Language | Unknown | + + + | Marital Status | | + + + | Quaker Affiliation | 1073 | + + + | Race | White | + + + | Ethnic Group | Not or | + + + Author + + + | Author | [facility] | | | and [place] | + + + | Organization | [facility] | | | [...] Team Providers + +------+ + | Care Checkering Machine Operator Name | Role | Phone | + +------+ + | Hiram Heredia DO | PCP | | + +------+ + Reason for Visit + + + | Reason | Comments | + + + | Back Pain | left leg pain, weakness | + + + Encounter Details +--------+---------+ + + + | Date | Type | Department | Care Team | Description | +--------+---------+ + + + | 01/19/ | Office | [facility] | Hiram Heredia | Lumbar radiculopathy | | 2019 | Visit | [facility] | E, DO [address] | (Primary Dx); | | | | [facility] | [place] | Lumbar spondylosis | | | | [address] [place], | [address] | | | | | [place] [address] | [phone] | | | | | [phone] | | | +--------+---------+ + + + [...] | 1992 | + +------+---+--------+ + + | Tobacco [...] + + + | Blood Pressure | 144/86 | 01/19/2019 9:10 AM | Large cuff, right | | | | PDT | arm | + + + + + | Pulse | 82 | 01/19/2019 9:10 AM | Reg | | | | PDT | | + + + + + | Temperature | - | - | | + + + + + | Respiratory Rate | 14 | 01/19/2019 9:10 AM | | | | | PDT | | + + + + + | Oxygen Saturation | 94% | 01/19/2019 9:10 AM | RA | | | | PDT | | + + + + + | Inhaled Oxygen | - | - | | | Concentration | | | | + + + + + | Weight | 142.2 kg (313 lb 6.4 | 01/19/2019 9:10 AM | | | | oz) | PDT | | + + + + + | Height | 175.3 cm (5' 9") | 01/19/2019 9:10 AM | Stated | | | | PDT | | + + + + + | Body Mass Index | 46.28 | 01/19/2019 9:10 AM | | | | | PDT | | + + + + + documented in this encounter Progress Notes Hiram Heredia DO - 01/19/2019 9:20 AM PDT Patient ID: Darin He is a 53 y.o. year old male Chief Complaint: Chief Complaint Patient presents with Back Pain left leg pain, weakness Assessment and Plan: 1. Lumbar radiculopathy - tiZANidine (ZANAFLEX) 4 mg tablet; Take 1 tablet by mouth nightly for 28 days. Dispense: 28 tablet; Refill: 0 - XR Lumbar Spine 2 or 3 Vw; Future 2. Lumbar spondylosis Subjective: HPI: Patient presents to the clinic for worsening back pain. 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 He is worried that if his pain and weakness progressively get worse that he will not be able to perform his job duties . He has had chronic low back pain for years. Now the pain and weakness is radiating into hi s lateral left ankle. In the past couple of weeks he noticed that his left foot is dragging. About 4 weeks ago started on a Medrol Dosepak but did not He denies saddle numbness and changes in bowel/bladder. He has a Tens unit that he has been applying to his low back. The Tens unit helps while it is on but as soon as he takes it off his symptoms return. He saw Dr. Murdock for neck pain but states that it did not get addressed. Instead had a nerv e conduction study which showed Ulnar Neuropathy. Current Outpatient Medications Medication Sig Dispense Refill [...] Procedure: COLONOSCOPY; Surgeon: Viraj Rodriguez MD; Location: [facility] Destruction of benign lesion by cryosurgery PARQ freeze ELBOW ARTHROSCOPY Right KNEE ARTHROSCOPY 1994 AND 2007 BILATERAL KNEE ARTHROSCOPY Bilateral KNEE JOINT REPLACEMENT 2014 Dr. 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 Gastrointestinal: Negative for constipation and diarrhea. Genitourinary: Negative for difficulty urinating and urgency. Musculoskeletal: Positive for back pain. Objective: Vitals: BP 144/86 Comment: Large cuff, right arm | Pulse 82 Comment: Reg | Resp 14 | Ht 1.753 m (5 ' 9") Comment: Stated | Wt (!) 142.2 kg (313 lb 6.4 oz) | SpO2 94% Comment: RA | BMI 46.28 kg/m Physical Exam Constitutional: He is oriented to person, place, and time. He appears well-developed and we ll-nourished. HENT: Head: Normocephalic and atraumatic. Musculoskeletal: Left ankle: He exhibits decreased range of motion (Decreased Dorsiflexion). Lumbar back: He exhibits decreased range of motion, tenderness (Left SI joint), pain a nd spasm. 5/5 strength on right Diminished strength on left Weakness with dorsiflexion on left Positive straight leg on left Neurological: He is alert and oriented to person, place, and time. Reflex Scores: Patellar reflexes are 0 on the right side and 0 on the left side. Psychiatric: He has a normal mood and affect. His behavior is normal. Judgment and thought content normal. Entered by Melanie Corona CNA 2, [facility], acting as scribe for Dr. Giovanna DO The documentation recorded by the scribe accurately reflects the service I personally perfo rmed and the decisions made by me. Electronically signed by: Dr. Hiram Heredia DO 01/19/2019 11:15 documented in this encounter Plan of Treatment +--------+---------+ + + + | Date | Type | Specialty | Care Team | Description | +--------+---------+ + + + | 02/13/ | Office | Primary Care | Hiram Heredia | | | 2019 | Visit | | DO [address] | | | | | | [place] | | | | | | [address] | | | | | | [phone] | | | | | | | | +--------+---------+ + + + + +---------+--------+ + + | Name | Type | Priori | Associated Diagnoses | Order Schedule | | | | ty | | | + +---------+--------+ + + | XR Lumbar Spine 2 or | Imaging | Routin | Lumbar | Expected: | | 3 Vw | | e | radiculopathy | 01/19/2019, Expires: | | | | | | 01/20/2020 | + +---------+--------+ + + documented as of this encounter Visit Diagnoses + + | Diagnosis | + + | Lumbar radiculopathy - Primary Thoracic or lumbosacral neuritis or radiculitis, | | unspecified | + + | Lumbar spondylosis Lumbosacral spondylosis without myelopathy | + + documented in this encounter
--- OUTSIDE RECORDS SUMMARY | ~2020-01-22 | XMS | Encounter Summary ---
Demographics + + + | Address | [address] | | | [place] [address] | + + + | Home Phone | | + + + | Preferred Language | Unknown | + + + | Marital Status | | + + + | Zoroastrianism Affiliation | 1073 | + + + | Race | White | + + + | Ethnic Group | Not or | + + + Author + + + | Author | [facility] | | | and [place] | + + + | Organization | [facility] | | | [...] Providers + +------+ + | Care Manager Appointment Name | Role | Phone | + [...] [facility] | Hiram Heredia | Lab Results | | 2019 | | [facility] | E, DO [address] | | | | | [facility] [address] | [place], [place] | | | | [address] [place], | [address] | | | | | [place] [address] | [phone] | | | | | [phone] | | | +--------+ + + + [...] - Aimee Davey CC CMA - 01/20/2019 5:03 PM PDT----- Message from Hiram Heredia DO sent at 01/20/2019 16:59 PDT ----- We will review labs with him in January at next appt. documented in this encounter Plan of Treatment +--------+---------+ + + + | Date | Type | Specialty | Care Team | Description | +--------+---------+ + + + | 02/13/ | Office | Primary Care | Hiram Heredia | | | 2019 | Visit | | DO [address] | | | | | | [place] | | | | | | [address] | | | | | | [phone] | | | | | | | [...] in this encounter Results Microalbumin, Urine, Random (01/20/2019 8:30 AM PDT) + + + + +------ --------+ | Component | Value | Ref Range | Performed | Patho logist | | | | | At | Signa ture | + + + + +------ --------+ | Microalbumi | 0.9 | 0.0 - 2.0 | REFERENCE | | | n, Urine | | | LAB | | | | | | [facility] | | + + + + +------ --------+ | CREATININE, | 156.74 | | REFERENCE | | | QN,UR | | | LAB | | | | | | [facility] | | + + + + +------ --------+ | Microalb | 5.7Comment: 1113 | 0 - 30 | REFERENCE | | | Creat Ratio | MICROALBUMIN ADD ON TEST | | LAB | | | | PER NONA. | | [facility] | | | |1113 MICROALBUMIN ADD ON TEST PER NONA. | | | | | | | | | | + + + + +------ --------+ + + | Specimen | + + | | + + + + + | Narrative | Performed At | + + + | Testing Performed at: [facility] [place] [facility] CLIA: [id number] - [address] | REFERENCE LAB | | [place] [address] | [facility] | + + + + + + + + | Performing | Address | City/State/Zipcode | Phone Number | | Organization | | | | + + + + + | REFERENCE LAB | [address] | [place] | [phone] | | [place] | | [address] | | + + + + + | REFERENCE LAB | [address] [facility] | [place] | [phone] | | [facility] | | [address] | | + + + + + documented in this encounter Visit Diagnoses Not on filedocumented in this encounter"
--- OUTSIDE RECORDS SUMMARY | ~2020-01-22 | XMS | Encounter Summary ---
Demographics + + + | Address | [address] | | | [place] [address] | + + + | Home Phone | | + + + | Preferred Language | Unknown | + + + | Marital Status | | + + + | Episcopal Affiliation | 1073 | + + + | Race | White | + + + | Ethnic Group | Not or | + + + Author + + + | Author | [facility] | | | and [place] | + + + | Organization | [facility] | | [...] Team Providers + +------+ + | Care Upholstery Estimator Name | Role | Phone | + +------+ + | Hiram Heredia DO | PCP | | + +------+ + Encounter Details +--------+ + + + + | Date | Type | Department | Care Team | Description | +--------+ + + + + | 10/24/ | Orders Only | [facility] | Jeremy Mujica | | | 2017 | | CARDIOLOGY BASSEM Solomon MD [address] | | | | | [address] [address] | [address] | | | | | [address] | [place] [address] | | | | | [place], [place] | [phone] | | | | | [address] | | | | | | [phone] | | | +--------+ + + + [...] [place] | | | | | | [address] | | | | | | [phone] | | | | | | | | +--------+---------+ + + + documented as of this encounter Procedures + +--------+ + + + | Procedure Name | Priori | Date/Time | Associated Diagnosis | Comments | | | ty | | | | + +--------+ + + + | NM MYOCARDIAL | Routin | 10/24/2016 | | Results for this | | PERFUSION MULT SPECT | e | 8:47 AM | | procedure are in the | | | | PDT | | results section. | + +--------+ + + + documented in this encounter Results NM Myocardial Perfusion Mult SPECT (10/24/2016 8:47 AM PDT) + + | Specimen | + + | | + + + + + | Impressions | Performed At | + + + | Intermediate risk myocardial perfusion imaging. Moderate inferior | | | and small apical-inferior ischemia noted. Test limited by soft tissue | | | and chest wall attenuation artifact. Stress EKG negative for | | | ischemia. Low risk lynch treadmill score of 12. Normal LV systolic | | | function with no wall motion abnormalities. REST EF: 53% STRESS EF: | | | 58%. Jeremy Mujica MD | | + + + + + + | Narrative | Performed At | + + + | [facility] CARDIOLOG[facility] [address] , [place], [place] | | | [phone] NUCLEAR TREADMILL STRESS TEST TEST DATE: | | | 10/24/2016 NAME: Radha He : 1965 | | | ORDERING MD: Jeremy Mujica INDICATION FOR TEST: 69 year old | | | male being evaluated for coronary artery calcification RISK | | | FACTORS: hypertension, hyperlipidemia, obesity, diabetes mellitus, | | | history of tobacco abuse, family history, stress PROCEDURE: Solomon | | | protocol. Rest dose- 31.4 mCi of 99m Tc Myoview given intravenously. | | | Stress dose- At 10:59 minutes 34.6 mCi of 99m Tc Myoview given | | | intravenously. Effective Dose Equivalent: 34.3 mSv. The predicted | | | exercise time was 09:30 minutes. Patient's Predicted Maximum HR: | | | 169. Patient's Predicted 85% Max HR: 144. REST DATA: HR: 73 bpm | | | BP: 139/91 Rest EKG shows Sinus bradycardia 59BPM. STRESS DATA: | | | Exercise Time: 12:00minutes, HR achieved: 169 bpm, Max BP 174/99. RPP: | | | 577[address]. METS: 13.70.Symptoms none. The test was terminated due to knee | | | pain. Max heart rate 169 bpm at 100% of MPHR. Stress EKG shows no | | | significant ST T changes noted. GATED IMAGES: Rest EDV: 150 mL | | | Rest ESV: 70 mL Stress EDV: 105 mL Stress ESV: 44 mL. EJECTION | | | FRACTION: REST EF: 53% STRESS EF: 58%. IMAGIN. The quality | | | of the study is limited by soft tissue and chest wall attenuation | | | artifact. 2. Perfusion showed moderate inferior and small apical | | | reversible perfusion defect of moderate intensity, RV insertion | | | artifact noted. 3. LV Cavity size is normal with TID: 0.70). 4. | | | Gated SPECT images showed normal LV systolic function with no wall | | | motion abnormalities. 5. There is no previous test to compare with. | | | | | + + + + + | Procedure Note | + + | Fuentes Sandoval Conversion - 01/21/2019 8:02 PM PDT [facility] [id number] | | , [address], [place], [phone] NUCLEAR TREADMILL STRESS TESTTEST DATE: | | 10/24/2016NAME: Rogelio HeOB: 1965MRN: [id number] MD: Jeremy Mujica | | INDICATION FOR TEST: 69 year old male being evaluated for coronary artery calcification | | RISK FACTORS: hypertension, hyperlipidemia, obesity, diabetes mellitus, history of | | tobacco abuse, family history, stress PROCEDURE: Solomon protocol. Rest dose- 31.4 mCi of | | 99m Tc Myoview given intravenously. Stress dose- At 10:59 minutes 34.6 mCi of 99m Tc | | Myoview given intravenously. Effective Dose Equivalent: 34.3 mSv. The predicted exercise | | time was 09:30 minutes. Patient's Predicted Maximum HR: 169. Patient's Predicted 85% | | Max HR: 144. REST DATA: HR: 73 bpm BP: 139/91 Rest EKG shows Sinus bradycardia 59BPM. | | STRESS DATA: Exercise Time: 12:00minutes, HR achieved: 169 bpm, Max BP 174/99. RPP: | | [address]. METS: 13.70.Symptoms none. The test was terminated due to knee pain. Max heart | | rate 169 bpm at 100% of MPHR. Stress EKG shows no significant ST T changes noted. GATED | | IMAGES: Rest EDV: 150 mL Rest ESV: 70 mL Stress EDV: 105 mL Stress ESV: 44 mL. EJECTION | | FRACTION: REST EF: 53% STRESS EF: 58%. IMAGIN. The quality of the study is limited | | by soft tissue and chest wall attenuation artifact.2. Perfusion showed moderate | | inferior and small apical reversible perfusion defect of moderate intensity, RV | | insertion artifact noted.3. LV Cavity size is normal with TID: 0.70).4. Gated SPECT | | images showed normal LV systolic function with no wall motion abnormalities.5. There is | | no previous test to compare with. IMPRESSION: Intermediate risk myocardial perfusion | | imaging.Moderate inferior and small apical-inferior ischemia noted.Test limited by soft | | tissue and chest wall attenuation artifact.Stress EKG negative for ischemia.Low risk | | lynch treadmill score of 12.Normal LV systolic function with no wall motion | | abnormalities.REST EF: 53% STRESS EF: 58%. Jeremy Mujica MD | | | |IMAGING: | |1. The quality of the study is limited by soft tissue and chest wall attenuation artifact. | |2. Perfusion showed moderate inferior and small apical reversible perfusion defect of mode rate intensity, RV insertion artifact noted. | |3. LV Cavity size is normal with TID: 0.70). | |4. Gated SPECT images showed normal LV systolic function with no wall motion abnormalities . | |5. There is no previous test to compare with. | | | |IMPRESSION: | |Intermediate risk myocardial perfusion imaging. | |Moderate inferior and small apical-inferior ischemia noted. | |Test limited by soft tissue and chest wall attenuation artifact. | |Stress EKG negative for ischemia. | |Low risk lynch treadmill score of 12. | |Normal LV systolic function with no wall motion abnormalities. | |REST EF: 53% STRESS EF: 58%. | | | | | | | |Jeremy Mujica MD | | | | | + + documented in this encounter Visit Diagnoses Not on filedocumented in this encounter"
--- OUTSIDE RECORDS SUMMARY | ~2020-01-22 | XMS | Encounter Summary ---
Demographics + + + | Address | [address] | | | [place] [address] | + + + | Home Phone | | + + + | Preferred Language | Unknown | + + + | Marital Status | | + + + | Mandaen Affiliation | 1073 | + + + | Race | White | + + + | Ethnic Group | Not or | + + + Author + + + | Author | [facility] | | | and [place] | + + + | Organization | [facility] | | [...] Team Providers + +------+ + | Care Research Scholar Name | Role | Phone | + +------+ + PCP | Unavailable | + +------+ + Encounter Details +--------+ + + + + | Date | Type | Department | Care Team | Description | +--------+ + + + + | 07/08/ | [facility] | [facility] | Jt Casey | | | 2006 | Encounter | MED CTR SLEEP | MD Jillian [address] | | | | | CENTER [address] | [address] [place] | | | | | [place] | [place] [address] | | | | | [address] | [phone] | | | | | [phone] | | | +--------+ + + + [...] | 2019 | Visit | | E, [address] | | | | | | [place] | | | | | | [address] | | | | | | [phone] | | | | | | | | +--------+---------+ + + + documented as of this encounter Visit Diagnoses Not on filedocumented in this encounter"
--- OUTSIDE RECORDS SUMMARY | ~2020-01-22 | XMS | Clinical Summary ---
Demographics + + + | Address | [address] | | | [place] [address] | + + + | Home Phone | | + + + | Preferred Language | Unknown | + + + | Marital Status | | + + + | Restorationism Affiliation | 1073 | + + + | Race | White | + + + | Ethnic Group | Not or | + + + Author + + + | Author | [facility] | | | and [place] | + + + | Organization | [facility] | | | [...] Team Providers + +------+ + | Care Swimming Pool Maintenance Supervisor Name | Role | Phone | + +------+ + | Hiram Heredia DO | PCP | | + +------+ + Allergies No Known Allergies Medications + + + +---------+------+------+-------+ | Medication | Sig | Dispensed | Refills | Star | End | Statu | | | | | | t | Date | s | | | | | | Date | | | + + + +---------+------+------+-------+ | cetirizine (ZYRTEC | Take 10 mg by mouth | | 0 | 01/31 | | Activ | | ALLERGY) 10 mg | Daily. | | | 09/19 | | e | | tablet | | | | 12 | | | + + + +---------+------+------+-------+ | metFORMIN | Take 500 mg by mouth | | 0 | 01/31 | | Activ | | (GLUCOPHAGE) 500 mg | Daily. | | | 09/19 | | e | | tablet | | | | 12 | | | + + + +---------+------+------+-------+ +---+ + | | Additional | | | InformationPatient | | | taking differently: | | | 1,000 mg Oral DAILY | | | WITH BREAKFAST, | | | Reported on | | | 01/19/2019 9:08 AM | +---+ + + + +---------+---+------+---+-------+ | multivitamin | daily | | 0 | 01/31 | | Activ | | (THERAGRAN) per | | | | 4/20 | | e | | tablet | | | | 12 | | | + + +---------+---+------+---+-------+ | ascorbic acid | Take 500 mg by mouth | | 0 | | | Activ | | (VITAMIN C) 500 mg | Daily. | | | | | e | | chewable tablet | | | | | | | + + +---------+---+------+---+-------+ | aspirin 81 MG | Take 81 mg by mouth. | | 0 | | | Activ | | tablet | | | | | | e | + + +---------+---+------+---+-------+ | tocopherol | Take by mouth. | | 0 | | | Activ | | (VITAMIN E) 400 | | | | | | e | | units capsule | | | | | | | + + +---------+---+------+---+-------+ | Cholecalciferol | Take 4,000 Int'l | | 0 | | | Activ | | (VITAMIN D3 PO) | Units by mouth. | | | | | e | + + +---------+---+------+---+-------+ | fish oil 1,000 mg | Take 2,000 mg by | | 0 | | | Activ | | capsule | mouth Daily. | | | | | e | + + +---------+---+------+---+-------+ | metFORMIN | Take 2 tablets by | 360 | 3 | 06/02 | | Activ | | (GLUCOPHAGE-XR) 500 | mouth 2 times daily. | tablet | | 6/20 | | e | | mg 24 hr tablet | Do not cut or | | | 20 | | | | | crush. Follow | | | | | | | | hospital guidelines | | | | | | | | to determine if | | | | | | | | metFORMIN should be | | | | | | | | held following | | | | | | | | procedures using IV | | | | | | | | iodinated contrast. | | | | | | + + +---------+---+------+---+-------+ | | take 1 tablet once | 90 | 3 | 06/02 | | Activ | | valsartan-hydrochlor | daily | tablet | | 6/20 | | e | | othiazide | | | | 20 | | | | (DIOVAN-HCT) | | | | | | | | 160-12.5 MG per | | | | | | | | tablet | | | | | | | + + +---------+---+------+---+-------+ | atorvaSTATin | take 1 tablet by | 90 | 3 | 05/ | | Activ | | (LIPITOR) 40 mg | mouth once daily | tablet | | 9/20 | | e | | tablet | (LABS NEEDED BEFORE | | | 20 | | | | | FURTHER FILLS) | | | | | | + + +---------+---+------+---+-------+ | FLUoxetine | Take 2 capsules by | 180 | 3 | 06/ | | Activ | | (PROZAC) 20 mg | mouth Daily. | capsule | | 9/20 | | e | | capsule | | | | 20 | | | + + +---------+---+------+---+-------+ Active Problems + + + | Problem | Noted Date | + + + | Lumbar disc herniation with radiculopathy | 04/15/2019 | + + + | Ulnar neuropathy | 05/22/2018 | + + + | H/O umbilical hernia repair | 10/30/2017 | + + + | Primary osteoarthritis involving multiple joints | 10/30/2017 | + + + | S/P cervical spinal fusion | 06/04/2012 | + + + | JOCELYN on CPAP | 08/21/2011 | + + + | Essential hypertension | | + + + | Mixed hyperlipidemia | | + + + | Diabetes mellitus | | + + + | Arthritis | | + + + | Morbid obesity | | + + + | Herniated nucleus pulposus, C6-7 left | | + + + | Herniated nucleus pulposus, C5-6 right | | + + + | Cervical radiculopathy at C7 | | + + + Resolved Problems + + + + | Problem | Noted | Resolved | | | Date | Date | + + + + | Special screening for malignant neoplasms, colon | 10/04/19 | | | | 17 | 8 | + + + + Encounters +--------+ + + + + | Date | Type | Specialty | Care Team | Description | +--------+ + + + + | 12/27/ | Telephone | Primary Care | Hiram Heredia | Lab Order | | 2019 | | | E, DO | | +--------+ + + + + | 12/02/ | Telephone | Primary Care | Hiram Heredia | Medication Refill | | 2020 | | | E, DO | | +--------+ + + + + from Last 3 Months Immunizations + + + + | Name | Administration Dates | Next Due | + + + + | HEP A, 2 DOSE | 06/05/2004 | | | (ADULT) | | | + + + + | INFLUENZA PF | 03/30/2019, 04/28/2018 | | | QUAD(PED/ADOL/ADULT) | | | | ,PSKT or VIAL | | | + + + + | INFLUENZA PF | 06/05/2017 | | | TRIVALENT(PED/ADOL/A | | | | DULT)BHUMIKA | | | + + + + | INFLUENZA TRIV | 07/02/2016, 07/02/2016, 03/07/2014, | | | W/PRES(PED/ADOL/ADUL | 02/27/2013, 02/29/2012 | | | T),MULTIDOSE | | | + + + + | INFLUENZA, P0U5-08, | 03/20/2009 | | | UNSPECIFIED | | | + + + + | INFLUENZA, | 03/30/2019, 07/02/2016, 02/27/2010, | | | UNSPECIFIED | 03/03/2009 | | | FORMULATION | | | + + + + | MMR, 2 DOSE | 10/03/1989, 04/23/1978 | | | (PED/ADULT) | | | + + + + | PNEUMOCOCCAL | 07/02/2016 | | | CONJUGATE 13-VALENT | | | | (PCV13) | | | + + + + | POLIOVIRUS,OPV | 09/10/1970 | | | (LIVE) | | | + + + + | TD PF (2 LF TETANUS) | 11/01/1997, 02/02/1991, 07/04/1981 | | | (ADOL/ADULT) | | | + + + + | TDAP, (ADOL/ADULT) | 08/24/2012 | | + + + + Family History + + +------+ + | Medical History | Relation | Name | Comments | + + +------+ + | Hypertension | Father | | | + + +------+ + | Lung cancer | Maternal | | Smoker | | | Grandfath | | | | | er | | | + + +------+ + | Heart disease | Maternal | | | | | Grandmoth | | | | | er | | | + + +------+ + | Arthritis | Mother | | | + + +------+ + | Cancer | Mother | | | + + +------+ + | Alcohol abuse | Paternal | | | | | Grandmoth | | | | | er | | | + + +------+ + | Heart failure | Paternal | | | | | Grandmoth | | | | | er | | | + + +------+ + | Stroke | Paternal | | | | | Grandmoth | | | | | er | | | + + +------+ + | No known problems | Sister | | | + + +------+ + + +------+ + + | Relation | Name | Status | Comments | + +------+ + + | Father | | Alive | HTN | + +------+ + + | Maternal Grandfather | | | | + +------+ + + | Maternal Grandmother | | | | + +------+ + + | Mother | | Alive | Hx of Breast cancer, and Glaucoma | + +------+ + + | Paternal Grandmother | | | | + +------+ + + | Sister | | Alive | | + +------+ + + Social History + +-------+ +--------+------+ [...] + + + | Blood Pressure | 124/78 | 08/05/2019 8:00 AM | LEFT arm, adult cuff | | | | PST | | + + + + + | Pulse | 65 | 08/05/2019 8:00 AM | | | | | PST | | + + + + + | Temperature | 36.9 C (98.5 F) | 08/05/2019 8:00 AM | | | | | PST | | + + + + + | Respiratory Rate | 19 | 08/05/2019 8:00 AM | | | | | PST | | + + + + + | Oxygen Saturation | 95% | 08/05/2019 8:00 AM | | | | | PST | | + + + + + | Inhaled Oxygen | - | - | | | Concentration | | | | + + + + + | Weight | 138.8 kg (306 lb) | 08/05/2019 8:00 AM | | | | | PST | | + + + + + | Height | 175.3 cm (5' 9") | 08/05/2019 8:00 AM | | | | | PST | | + + + + + | Body Mass Index | 45.19 | 08/05/2019 8:00 AM | | | | | PST | | + + + + + Plan of Treatment +--------+---------+ + + + | Date | Type | Specialty | Care Team | Description | +--------+---------+ + + + | 02/13/ | Office | Primary Care | Hiram Heredia | | | 2020 | Visit | | E, DO [address] | | | | | | [place] | | | | | | [address] | | | | | | [phone] | | | | | | | | +--------+---------+ + + + + + + + + | Health Maintenance | Due Date | Last | Comments | | | | Done | | + + + + + | Hepatitis C | | | | | Screening | 6 | | | + + + + + | Diabetic Foot Exam | | | | | | 4 | | | + + + + + | Vaccine: Zoster (1 | | | | | of 2) | 6 | | | + + + + + | Vaccine: | | 07/02/19 | | | Pneumococcal 19-64 | 7 | 17 | | | (1 of 1 - PPSV23) | | | | + + + + + | Primary Care | | 08/05/19 | | | Outreach (Intense | 0 | 20, | | | Risk) | | 05/21/20 | | | | | 19, | | | | | 04/06/20 | | | | | 19, | | | | | Addition | | | | | al | | | | | history | | | | | exists | | + + + + + | Vaccine: Influenza | | 03/30/20 | | | (#1) | 0 | 19, | | | | | 03/30/20 | | | | | 19, | | | | | 04/28/20 | | | | | 18, | | | | | Addition | | | | | al | | | | | history | | | | | exists | | + + + + + | Hemoglobin A1c | | 08/03/19 | | | Screening | 0 | 20, | | | | | 01/21/20 | | | | | 19, | | | | | 10/31/19 | | | | | 18 | | + + + + + | Med Mgmt: HBA1C | | 08/03/19 | | | | 0 | 20, | | | | | 01/21/20 | | | | | 19, | | | | | 10/31/19 | | | | | 18 | | + + + + + | Medication | | 08/03/19 | | | Management | 0 | 20 | | + + + + + | Med Mgmt: Cr | | 04/06/20 | | | | 0 | 19, | | | | | 01/21/20 | | | | | 19 | | + + + + + | Med Mgmt: K | | 04/06/20 | | | | 0 | 19, | | | | | 01/21/20 | | | | | 19 | | + + + + + | Med Mgmt: Na | | 04/06/20 | | | | 0 | 19, | | | | | 01/21/20 | | | | | 19 | | + + + + + | Med Mgmt: eGFR | | 04/06/20 | | | | 0 | 19, | | | | | 01/21/20 | | | | | 19 | | + + + + + | Diabetic Eye Exam | | 05/06/20 | | | | 1 | 19 | | + + + + + | Vaccine: | | 08/25/19 | | | Dtap/Tdap/Td (3 - | 3 | 13, | | | Td) | | 11/01/18 | | | | | 98, | | | | | 02/02/19 | | | | | 91, | | | | | Addition | | | | | al | | | | | history | | | | | exists | | + + + + + | Colorectal Cancer | | 10/05/19 | | | Screening | 7 | 17, | | | (Colonoscopy) | | 10/05/19 | | | | | 17 | | + + + + + Results Not on filefrom Last 3 Months Insurance + +--------+ +--------+ +---------+--------+ | Payer | Benefi | Subscriber | Effect | Phone | Address | Type | | | t Plan | ID | chrissie | | | | | | / | | Dates | | | | | | Group | | | | | | + +--------+ +--------+ +---------+--------+ | [facility] | [id number] | [phone] | Indemn | | SERVICES | COUNTY | | 012-Pr | 5 | | ity | | | WC | | esent | | | | + +--------+ +--------+ +---------+--------+ | BCBS | BCBS | [id number] | 06/02/19 | | | PPO | | | OOS | 6 | 17-Pre | | | | | | PPO | | sent | | | | + +--------+ +--------+ +---------+--------+ | BCBS | BCBS | [id number] | 06/02/19 | | | PPO | | | OOS | 6 | 19-Pre | | | | | | PPO | | sent | | | | + +--------+ +--------+ +---------+--------+ | [place] | [id number] | 06/02/19 | [phone] | | [place] | | | [place] | 6 | 18-Pre | 9 | | | | | | | sent | | | | + +--------+ +--------+ +---------+--------+ | [facility] | PHP | [id number] | 06/02/19 | [phone] | | PPO | | PLAN | PEBB | | 15-Pre | 5 | | | | | PROV | | sent | | | | | | CHOICE | | | | | | + +--------+ +--------+ +---------+--------+ | [facility] | PHP | [id number] | 06/02/19 | [phone] | | PPO | | PLAN | PEBB | | 18-Pre | 5 | | | | | PROV | | sent | | | | | | CHOICE | | | | | | + +--------+ +--------+ +---------+--------+ | [facility] | PHP | [id number] | 06/02/19 | [phone] | | PPO | | PLAN | PEBB | | 18-Pre | 5 | | | | | PROV | | sent | | | | | | CHOICE | | | | | | + +--------+ +--------+ +---------+--------+ + +--------+ +--------+ + + | Guarantor Name | Accoun | Relation to | Date | Phone | Billing Address | | | t Type | Patient | of | | | | | | | | | | + +--------+ +--------+ + + | Darin He | Person | Self | [birth year] | [address] | | | al/Fam | | 1966 | [phone] | [place], [place] | | | jarad | | | 1 (Home) | [address] | | | | | | [phone] | | | | | | | 2 (Work) | | + +--------+ +--------+ + + | Darin He | Person | Self | [birth year] | | [address] | | | al/Fam | | 1966 | [phone] | [place], [place] | | | jarad | | | 1 (Home) | [address] | | | | | | [phone] | | | | | | | 2 (Work) | | + +--------+ +--------+ + + | Darin He | Person | Self | [birth year] | | [address] | | | al/Fam | | 1966 | [phone] | [place], [place] | | | jarad | | | 1 (Home) | [address] | | | | | | [phone] | | | | | | | 2 (Work) | | + +--------+ +--------+ + + | Darin He | 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
--- OUTSIDE RECORDS SUMMARY | ~2020-01-22 | XMS | Encounter Summary ---
Demographics + + + | Address | [address] | | | [place] [address] | + + + | Home Phone | | + + + | Preferred Language | Unknown | + + + | Marital Status | | + + + | Mu-Ism Affiliation | 1073 | + + + | Race | White | + + + | Ethnic Group | Not or | + + + Author + + + | Author | [facility] | | | and [place] | + + + | Organization | [facility] | | | [...] Team Providers + +------+ + | Care First Aid Teacher Name | Role | Phone | + +------+ + | Hiram Heredia DO | PCP | | + +------+ + Reason for Visit +--------+ + | Reason | Comments | +--------+ + | Other | Discuss returning to work | +--------+ + Encounter Details +--------+---------+ + + + | Date | Type | Department | Care Team | Description | +--------+---------+ + + + | 05/12/ | Office | [facility] | Pito Jones | S/P cervical spinal | | 2011 | Visit | NEUROSURGERY [address] | [address] | fusion (Primary Dx) | | | | [address] | [address] [place], [place] | | | | | [place], [place] | [id number] | | | | | [address] | | | | | | [phone] | | | +--------+---------+ + + + [...] + + + | Blood Pressure | 154/92 | 05/12/2012 3:56 PM | | | | | PST | | + + + + + | Pulse | 119 | 05/12/2012 3:56 PM | | | | | PST | | + + + + + | Temperature | - | - | | + + + + + | Respiratory Rate | 18 | 05/12/2012 3:56 PM | | | | | PST | | + + + + + | Oxygen Saturation | - | - | | + + + + + | Inhaled Oxygen | - | - | | | Concentration | | | | + + + + + | Weight | 138.8 kg (306 lb) | 05/12/2012 3:56 PM | | | | | PST | | + + + + + | Height | 177.8 cm (5' 10") | 05/12/2012 3:56 PM | | | | | PST | | + + + + + | Body Mass Index | 43.91 | 05/12/2012 3:56 PM | | | | | PST | | + + + + + documented in this encounter Patient Instructions Patient Instructions Pito Jones PA-C - 05/12/2012 4:25 PM PSTContinue with your PT. Also continue with light duty at work. We will see you back in 4 weeks and discuss re turning tho full duty after you are done with your PT documented in this encounter Progress Notes Pito Jones PA-C - 05/12/2012 4:28 PM PSTFormatting of this note might be differ ent from the original. KIMO Enrique [address] [facility], [address] [place], [place] [id number] FAX: NEUROSURGERY FOLLOW-UP CHIEF COMPLAINT: Chief Complaint Patient presents with Other Discuss returning to work HISTORY OF PRESENT ILLNESS: The patient is a 46 y.o. male that had a cervical fusion appro ximately 3 months ago. He feels like he's doing relatively well. He is back to work with l ight duty only at this time. He just started physical therapy a week and a half to 2 weeks ago. He feels like he still has some weakness in his left hand he notices some numbness in his left fifth finger as well which has persisted post surgery. He does notice that he is l eft-hand strength is improving initially he had rapid improvement and now the improvement h as slowed. PAST MEDICAL HISTORY: Past Medical History Diagnosis Date Obstructive sleep apnea 08/21/2011 Hypertension Hyperlipidemia Diabetes mellitus Arthritis Obesity Herniated nucleus pulposus, C6-7 left Herniated nucleus pulposus, C5-6 right Cervical radiculopathy at C7 PAST SURGICAL HISTORY: Past Surgical History Procedure Date Knee arthroscopy 1994 AND 2007 BILATERAL Appendectomy Tonsillectomy CURRENT MEDICATIONS: Current Outpatient Prescriptions Medication Sig Dispense Refill omega-3 acid ethyl esters (LOVAZA) 1 g capsule Take 4 g by mouth Daily. Calcium Carbonate-Vitamin D (CALCIUM + D PO) Take 1 tablet by mouth Daily. Ascorbic Acid (CVS VITAMIN C PO) Take [...] mouth Daily. multivitamin (THERAGRAN) per tablet daily ALLERGIES: No Known Allergies SOCIAL HISTORY: The [...] Maternal Grandmother INTERIM PHYSICAL EXAMINATION: Blood pressure 154/92, pulse 119, resp. rate 18, height 1.778 m (5' 10"), weight 138.801 kg (306 lb). Body mass index is 43.91 kg/(m^2). 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 RADIOGRAPHIC REVIEW: No x-rays were performed for this visit. I did review the x-rays from March with the bindu martin today ASSESSMENT: Encounter Diagnosis Name Primary? S/P cervical spinal fusion Yes Past Medical History Diagnosis Date Obstructive sleep apnea 08/21/2011 Hypertension Hyperlipidemia Diabetes mellitus Arthritis Obesity Herniated nucleus pulposus, C6-7 left Herniated nucleus pulposus, C5-6 right Cervical radiculopathy at C7 PLAN:Overall the patient is doing very well he continues to improve. He is just starting h is physical therapy at this time and still has some mild weakness of his left hand. I've as ked him to continue with his light duty at this time and then we should see him back in abou t 4 weeks. He should be nearly done with physical therapy at that time and if he continues to progress I do not think there should be any problems returning to work without restrictio ns at that time. ELECTRONICALLY SIGNED BY: KIMO Enrique, 05/12/2012 16:28 documented in this encounter Plan of Treatment +--------+---------+ + + + | Date | Type | Specialty | Care Team | Description | +--------+---------+ + + + | 02/13/ | Office | Primary Care | Hiram Heredia | | | 2019 | Visit | | [address] | | | | | | [place] | | | | | | [address] | | | | | | [phone] | | | | | | | | +--------+---------+ + + + documented as of this encounter Visit Diagnoses + + | Diagnosis | + + | S/P cervical spinal fusion - Primary Arthrodesis status | + + documented in this encounter
--- OUTSIDE RECORDS SUMMARY | ~2020-01-22 | XMS | Encounter Summary ---
Demographics + + + | Address | [address] | | | [place] [address] | + + + | Home Phone | | + + + | Preferred Language | Unknown | + + + | Marital Status | | + + + | Zoroastrian Affiliation | Unknown | + + + | Race | White | + + + | Ethnic Group | Not or | + + + Author + + + | Author | [facility] | + + + | Organization | [facility] | + + + | Address | Unknown | + + + | Phone | Unavailable | + + + Support + + +---------+ + | Name | Relationship | Address | Phone | + + +---------+ + | Angie He | ECON | Unknown | | + + +---------+ + Care Team Providers + +------+ + | Care Options Trader Name | Role | Phone | + +------+ + | Hiram Heredia DO | PCP | | + +------+ + Reason for Visit +--------+ + | Reason | Comments | +--------+ + | Other | Bariatric questionnaire | +--------+ + Encounter Details +--------+ + + + + | Date | Type | Department | Care Team | Description | +--------+ + + + + | 08/27/ | Documentati | [facility] | Petcu, Aura, ACNP | Other (Bariatric | | 2018 | on | Center at [facility] [address] | [address] [facility] [address] | questionnaire) | | | | [address] [facility] | [address] [place], | | | | | for Health and | [place] [address] | | | | | [facility] [address] | [phone] | | | | | [place], [place] | | | | | | [address] | | | | | | [phone] | | | +--------+ + + + + Social History + +-------+ +--------+------+ | Tobacco Use | Types | Packs/Day | Years | Date | | | | | Used | | + +-------+ +--------+------+ | Never Smoker | | | | | + +-------+ +--------+------+ + + + + + | Alcohol [...] as of this encounter Plan of Treatment Not on filedocumented as of this encounter Visit Diagnoses Not on filedocumented in this encounter"
--- OUTSIDE RECORDS SUMMARY | ~2020-01-22 | XMS | Encounter Summary ---
Demographics + + + | Address | [address] | | | [place] [address] | + + + | Home Phone [...] + + | Author | [facility] | | | and [place] | + + + | Organization | [facility] | | [...] Team Providers + +------+ + | Care Inside Wireman Name | Role | Phone | + +------+ + | Hiram Heredia DO | PCP | | + +------+ + Encounter Details +--------+ + + + + | Date | Type | Department | Care Team | Description | +--------+ + + + + | 09/02/ | Episode | [facility] | Marycruz Fine | | | 2017 | Changes | GASTROENTEROLOGY | M, RN | | | | | [address] | | | | | | [address] | | | | | | [address] | | | | | | [phone] | | | +--------+ + + + [...] [place] | | | | | | [address] | | | | | | [phone] | | | | | | | | +--------+---------+ + + + documented as of this encounter Visit Diagnoses Not on filedocumented in this encounter"
--- OUTSIDE RECORDS SUMMARY | ~2020-01-22 | XMS | Encounter Summary ---
Demographics + + + | Address | [address] | | | [place] [address] | + + + | Home Phone | | + + + | Preferred Language | Unknown | + + + | Marital Status | | + + + | Sikh Affiliation | 1073 | + + + | Race | White | + + + | Ethnic Group | Not or | + + + Author + + + | Author | [facility] | | | and [place] | + + + | Organization | [facility] | | | and [...] Team Providers + +------+ + | Care Health And Safety Instructor Name | Role | Phone | + +------+ + | Hiram Heredia DO | PCP | | + +------+ + Encounter Details +--------+ + + + + | Date | Type | Department | Care Team | Description | +--------+ + + + + | 06/21/ | Imaging | [facility] | Provider, | | | 2019 | Exam | [facility] | MD [address] | | | | | IMAGING [address] | [address] | | | | | [address] [place] | [place] [address] | | | | | [place] [address] | | | | | | [phone] | | | +--------+ + + + [...] [place] | | | | | | [address] | | | | | | [phone] | | | | | | | [...] | | WO CONTRAST | e | 12:00 AM | | procedure are in the | | | | PDT | | results section. | + +--------+ + + + documented in this encounter Results MRI Cervical Spine wo Contrast (12/17/2017 12:00 AM PDT) + + | Specimen | + + | | + + + + + | Narrative | Performed At | + + + | External films for comparison only | [facility] | | | | | No results will be in the chart. | | + + + + +---------+ + + | Performing | Address | City/State/Zipcode | Phone Number | | Organization | | | | + +---------+ + + | [facility] | | | | + +---------+ + + documented in this encounter Visit Diagnoses Not on filedocumented in this encounter"
--- OUTSIDE RECORDS SUMMARY | ~2020-01-22 | XMS | Encounter Summary ---
Demographics + + + | Address | [address] | | | [place] [address] | + + + | Home Phone | | + + + | Preferred Language | Unknown | + + + | Marital Status | | + + + | Scientology Affiliation | 1073 | + + + | Race | White | + + + | Ethnic Group | Not or | + + + Author + + + | Author | [facility] | | | and [place] | + + + | Organization | [facility] | | | [...] Providers + +------+ + | Care Portfolio Specialist Name | Role | Phone | + +------+ + | Hiram Heredia DO | PCP | | + +------+ + Reason for Referral Evaluate & Treat (Routine) +--------+ + + + + + | Status | Reason | Specialty | Diagnoses / | Referred By | Referred To | | | | | Procedures | Contact | Contact | +--------+ + + + + + | Closed | Specialty | Physical | Diagnoses | [facility] | | | | Services | Therapy | S/P | Eduardo F, | | | | Required | | cervical | MD [address] | | | | | | spinal | [address] | | | | | | fusion | [place], | | | | | | Procedures | [place] [address] | | | | | | 05/15 PEND | Phone: | | | | | | CLAIM | [phone] | | | | | | [email or web address] | [phone] Fax: | | | | | | | | | | | | | | [phone] | | +--------+ + + + + + Reason for Visit +--------+ + | Reason | Comments | +--------+ + | Other | Post Op | +--------+ + Encounter Details +--------+---------+ + + + | Date | Type | Department | Care Team | Description | +--------+---------+ + + + | 04/10/ | Office | [facility] | Eduardo Mckenna | S/P cervical spinal | | 2011 | Visit | NEUROSURGERY [address] | F, [address] | fusion (Primary Dx) | | | | [address] | [place], [place] | | | | | [place], [place] | [address] | | | | | [address] | [phone] | | | | | [phone] | | | +--------+---------+ + + + [...] + + + | Blood Pressure | 134/84 | 04/10/2012 9:05 AM | | | | | PST | | + + + + + | Pulse | 75 | 04/10/2012 9:05 AM | | | | | PST | | + + + + + | Temperature | - | - | | + + + + + | Respiratory Rate | 18 | 04/10/2012 9:05 AM | | | | | PST | | + + + + + | Oxygen Saturation | - | - | | + + + + + | Inhaled Oxygen | - | - | | | Concentration | | | | + + + + + | Weight | 136.1 kg (300 lb) | 04/10/2012 9:05 AM | | | | | PST | | + + + + + | Height | 177.8 cm (5' 10") | 04/10/2012 9:05 AM | | | | | PST | | + + + + + | Body Mass Index | 43.05 | 04/10/2012 9:05 AM | | | | | PST | | + + + + + documented in this encounter Progress Notes Eduardo Mckenna MD - 04/10/2012 9:51 AM PSTFormatting of this note might be differen t from the original. Eduardo Mckenna MD [address] [place] [address], [address] [place] [address] FAX: NEUROSURGERY SURGICAL FOLLOW-UP CHIEF COMPLAINT: Chief Complaint Patient presents with Other Post Op HISTORY OF PRESENT ILLNESS: The patient is a 46 y.o. male that had a C6-T1 anterior cervic al discectomy and fusion by me around 6-8 weeks ago. He returns and overall is doing well. The patient complains of occasional pain in the side of the neck. The patient has been wa lking as much as possible and has been following their restrictions overall. The patient watt s had no issues with his surgical site. So far issues with swallowing have not been a major issue. He has not had major issues with hoarseness. Overall he is pleased. CURRENT MEDICATIONS: Current Outpatient Prescriptions on File Prior to Visit Medication Sig Dispense Refill omega-3 acid ethyl [...] that he does not use illicit drugs. INTERIM PHYSICAL EXAMINATION: Blood pressure 134/84, pulse 75, resp. rate 18, height 1.778 m (5' 10"), weight 136.079 kg (300 lb). Body mass index is 43.05 kg/(m^2). GENERAL: Darin He is in no acute distress with unlabored respirations. HEENT: HEAD/FACE: Normocephalic and atraumatic. There are no areas of recent trauma. SPINE: The patient s incision is healing well. There is not significant erythema or disc harge. EXTREMITIES: No lower extremity edema. NEUROLOGICAL EXAMINATION: MENTAL STATUS: The patient is awake, alert, and oriented. He follows simple and complex commands MOTOR EXAM: Motor strength is improved from the preoperative exam. SENSORY EXAM: The sensory examination improved from the preoperative exam. He still has so me numbness of the left pinky. REFLEXES: Reflexes are unchanged from his preoperative history and physical. RADIOGRAPHIC REVIEW: The patient s postoperative x-rays show stable instrumentation and alignment and were rev iewed with the patient today. There have been no interval changes since the immediate posto perative films. Complete fusion has not yet occurred, but this is normal and would not be e xpected at this time. ASSESSMENT: S/P C6-T1 anterior cervical discectomy and fusion: Encounter Diagnosis Name Primary? S/P cervical spinal fusion Yes Past Medical History Diagnosis Date Obstructive sleep apnea 08/21/2011 Hypertension Hyperlipidemia Diabetes mellitus Arthritis Obesity Herniated nucleus pulposus, C6-7 left Herniated nucleus pulposus, C5-6 right Cervical radiculopathy at C7 PLAN: Overall, the patient is doing well. 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 Hopefully, we will see further improvement over time. I increased the patient s activities today allowing 15 pound lifting. I would like the patient to advance slowly with this process and discussed this at length. I would also like the patient to continue with postoperative rehabilitation and to advance with independent or directed therapy as tolerated. So far, things are progressing as planned. I do recommend he continue to use the bone grow th stimulator for another 6 months. I will also tentatively release him to light duty on No vember 26. I do want him to resume physical therapy for cervical strengthening conditioning I spent 20 minutes in visit with Darin He today with the majority of time spent couns elling the patient on his recovery and coordinating his future care. The patient will follo w-up with me in around 5-7 weeks for re-evaluation. ELECTRONICALLY SIGNED BY: Eduardo Mckenna MD, 04/10/2012 9:51 documented in this encounter Plan of Treatment +--------+---------+ + + + | Date | Type | Specialty | Care Team | Description | +--------+---------+ + + + | 02/13/ | Office | Primary Care | Hiram Heredia | | | 2019 | Visit | | E, DO [address] | | | | | | [place] | | | | | | [address] | | | | | | [phone] | | | | | | | | +--------+---------+ + + + + + +--------+ + + | Name | Type | Priori | Associated Diagnoses | Order Schedule | | | | ty | | | + + +--------+ + + | Ambulatory referral | Outpatient | Routin | S/P cervical | 1 Occurrences | | to Physical Therapy | Referral | e | spinal fusion | starting 04/10/2012 | | | | | | until 04/10/2013 | + + +--------+ + + documented as of this encounter Visit Diagnoses + + | Diagnosis | + + | S/P cervical spinal fusion - Primary Arthrodesis status | + + documented in this encounter
--- OUTSIDE RECORDS SUMMARY | ~2020-01-22 | XMS | Encounter Summary ---
Demographics + + + | Address | [address] | | | [place] [address] | + + + | Home Phone | | + + + | Preferred Language | Unknown | + + + | Marital Status | | + + + | Mosque Affiliation | 1073 | + + + [...] Team Providers + +------+ + | Care Market Director Name | Role | Phone | + +------+ + | Hiram Heredia DO | PCP | | + +------+ + Reason for Visit + +--------+ + | Reason | Onset | Comments | | | Date | | + +--------+ + | Lab Order | 12/27/ | | | | 2020 | | + +--------+ + Encounter Details +--------+ + + + + | Date | Type | Department | Care Team | Description | +--------+ + + + + | 12/27/ | Telephone | [facility] | Hiram Heredia | Lab Order | | 2020 | | [facility] | E, DO [address] | | | | | [facility] [address] | [place], [place] | | | | [address] [place], | [address] | | | | | [place] [address] | [phone] | | | | | [phone] | | | +--------+ + + + [...] this encounter Miscellaneous Notes Telephone Encounter - Quan Monet DNP - 12/28/2019 6:59 PM PDTYes.Electronically akosua d by Quan Monet DNP at 12/28/2019 6:59 PM PDTTelephone Encounter - Aimee Davey CC CMA - 12/28/2019 8:17 AM PDTOkay to add order? elephone Encounter - Refugio Troy - 12/28/2019 8:14 AM PDTPt called and he would like the test for testosterone added to his current lab order, pt uses the lab at [facility]/Jenaelectronically signed by Refugio Troy at 12/28/2019 8:16 AM PDTd ocumented in this encounter Plan of Treatment +--------+---------+ + + + | Date | Type | Specialty | Care Team | Description | +--------+---------+ + + + | 02/13/ | Office | Primary Care | Hiram Heredia | | | 2019 | Visit | | [address] | | | | | | [place] | | | | | | [address] | | | | | | [phone] | | | | | | | | +--------+---------+ + + + + +------+--------+ + + | Name | Type | Priori | Associated Diagnoses | Order Schedule | | | | ty | | | + +------+--------+ + + | Total and Free | Lab | Routin | Hypogonadism in | 1 Occurrences | | Testosterone | | e | male Testicular | starting 12/28/2019 | | | | | hypofunction | until 12/27/2020 | + +------+--------+ + + documented as of this encounter Visit Diagnoses + + | Diagnosis | + + | Hypogonadism in male - Primary | + + | Testicular hypofunction Other testicular hypofunction | + + documented in this encounter"
--- OUTSIDE RECORDS SUMMARY | ~2020-01-22 | XMS | Encounter Summary ---
Demographics + + + | Address | [address] | | | [place] [address] | + + + | Home Phone | | + + + | Preferred Language | Unknown | + + + | Marital Status | | + + + | Yarsani Affiliation | Unknown | + + + | Race | White | + + + | Ethnic Group | Not or | + + + Author + + + | Author | [facility] | + + + | Organization | [facility] | + + + | Address | Unknown | + + + | Phone | Unavailable | + + + Support + + +---------+ + | Name | Relationship | Address | Phone | + + +---------+ + | Angie He | ECON | Unknown | | + + +---------+ + Care Team Providers + +------+ + | Care Car Dropper Name | Role | Phone | + +------+ + | Hiram Heredia DO | PCP | | + +------+ + Encounter Details +--------+ + + + + | Date | Type | Department | Care Team | Description | +--------+ + + + + | 08/29/ | Documentati | [facility] | Clinic, Surgery | | | 2018 | on | Center at [facility] [address] | | | | | | [address] [facility] | | | | | | for Health and | | | | | | Healing, [address] | | | | | | [place], [place] | | | | | | [address] | | | | | | [phone] | | | +--------+ + + + [...]
--- OUTSIDE RECORDS SUMMARY | ~2020-01-22 | XMS | Encounter Summary ---
Demographics + + + | Address | [address] | | | [place] [address] | + + + | Home Phone | | + + + | Preferred Language | Unknown | + + + | Marital Status | | + + + | Lutheran Affiliation | Unknown | + + + | Race | White | + + + | Ethnic Group | Not or | + + + Author + + + | Author | [facility] | + + + | Organization | [facility] | + + + | Address | Unknown | + + + | Phone | Unavailable | + + + Support + + +---------+ + | Name | Relationship | Address | Phone | + + +---------+ + | Angie He | ECON | Unknown | | + + +---------+ + Care Team Providers + +------+ + | Care Greaser Operator Name | Role | Phone | + +------+ + | Hiram Heredia DO | PCP | | + +------+ + Reason for Visit Physical Therapy (Routine) +--------+--------+ + + + + | Status | Reason | Specialty | Diagnoses / | Referred By | Referred To | | | | | Procedures | Contact | Contact | +--------+--------+ + + + + | Closed | | Physical | Diagnoses | Nacho, | Josie [facility] | | | | Therapy | Morbid | JOE Winters | [address] | | | | | obesity | [address] | | | | | ([facility]) | [address] | for Health | | | | | Procedures | [place], [place] | and Healing, | | | | | PHYSICAL | [address] | Building [address], | | | | | THERAPY | Phone: | 1st Floor | | | | | REFERRAL | [phone] | [place], [place] | | | | | | Fax: | [address] | | | | | | [phone] | Phone: | | | | | | | [phone] | | | | | | | Fax: | | | | | | | [phone] | +--------+--------+ + + + + Encounter Details +--------+---------+ + + + | Date | Type | Department | Care Team | Description | +--------+---------+ + + + | 10/30/ | Office | [facility] | Amparo Hernandez, PT | Morbid obesity with | | 2018 | Visit | Therapy Services at | [address] [facility] | BMI of 40.0-44.9, | | | | [facility] | [facility], | adult (HCC) (Primary | | | | [address] | [place] [address] | Dx) | | | | [facility] | [phone] | | | | | and Healing, | | | | | | Building 1, | | | | | | Floor [facility] [place] | | | | | | [address] | | | | | | [phone] | | | +--------+---------+ + + + [...] documented as of this encounter Progress Notes Amparo Hernandez, PT - 10/30/2017 11:30 AM PDT Insurance: Payor: [employer] / Plan: WAPA / Product Type: PPO / Non-Medicare [facility] PHYSICAL THERAPY EVALUATION Past Medical History: Diagnosis Date Diabetes mellitus (HCC) HTN (hypertension) Hyperlipidemia JOCELYN treated with BiPAP Past Surgical History Procedure Laterality Date Tonsillectomy 1974 Knee arthroscopy Right 1992 Knee arthroscopy Left 2001 Appendectomy 2005 Discectomy Knee replacement Bilateral 2013 Rotator cuff surgery Left 2015 Rotator cuff surgery Right 2016 Elbow arthroscopy Right 1993 Current Outpatient Prescriptions: ascorbic acid SR (VITAMIN C) 1,000 mg oral tablet, Take 1 ,000 mg by mouth two times daily., Disp: , Rfl: aspirin EC 81 mg oral tablet,delayed release (DR/EC), Take 81 mg by mouth once daily., Disp : , Rfl: atorvastatin 40 mg oral tablet, [...] mouth two times daily., Disp: , Rfl: Previous physical therapy treatment or alternative treatments for this condition includes: none. Results of previous treatment: N/A. Concurrent medical treatment: PCP. Condition Specific Evaluation: Including Body functions, Body structures and Impairments Pain: pain is not a significant clinical problem who is here for Prehabilitation evaluation prior to Bariatric abdominal surgery. He plans to have surgery gastric/by pass abdominal surgery. 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 Lives with his spouse. Living situation/environment is limiting function: no Equipment at home: treadmill Anxieties or concerns about therapy: OBJECTIVE EXAM: Weight: Strength Screen: Muscle Group Left 10/30/2017 Right 10/30/2017 Shoulder Elevation 5/5 5/5 Shoulder Abduction 5/5 5/5 Elbow Flexion 5/5 5/5 Elbow Extension 5/5 5/5 Hip Flexion (L2-3) 5/5 5/5 Knee Extension (L3-4) 5/5 5/5 Knee Flexion (L1-2) 5/5 5/5 Dorsiflexors (L4-5) 5/5 5/5 Plantar flexors (L5-S1) 5/5 5/5 Note 5/5=normal strength *= pain with motion BOLD= concerning ROM: unable to fully squat to floor and decreased trunk flexion and rotation due to excessi ve soft tissue. Balance/Coordination: - rhomberg eyes closed , unilateral balance right (seconds) 10 and un ilateral balance left (seconds) 10. Outcome Measures: Outcome measure Interpretation 52 y.o. Score 10/30/2017 30 sec sit to stand Normal values; 50 y/o = 20 reps 30 reps, without use of UEs GOAL MET 6 min walk test 18-29 yo: male 2346'/female 2129' 30-39 yo: male 2346'/female 2133' 40-49 yo: male 2323'/female 2178' 50-59 yo: male 2178'/female 2093' 60-69 yo: male 2073'/female 1880' 70-79 yo: male 1883'/female 1673' 80-89 yo: male 1660'/female 1737' Significant change is ~ > 170 ft Distance: 1760 (10/30/17 1200) Distance prediction: 2178 (10/30/17 1200) Pre Walk Vitals Pulse: 61 (10/30/17 1200) BP: 113/63 (10/30/17 1200) Post Walk Vitals Pulse: 98 (10/30/17 1200) BP: 147/70 (10/30/17 1200) TREATMENT TODAY: Evaluation, Therapeutic Exercise Treatment: Established home program with handout as listed below: Treatment: Patient education on >150 minutes of PA a week. Broken into 10 minute sessions for a total of 30 minutes a day Patient education on using RPE scale Patient education on Abdominal precautions Patient education on Log roll technique Treatment: Pt instructed in global UE/LE strengthening program. Will need follow up appoin tment for continuation of education to complete comprehensive program. Exercise handout iss ued. Intervention Date* Comments Compliance 10/30/2017 Predicted: good Progressive walking program 10/30/2017 General light strengthening/stretching exercises 10/30/2017 Logroll instruction 10/30/2017 Abdominal precautions instruction 10/30/2017 * indicates date intervention started. see comments for details of compliance, modification s, deletions ASSESSMENT: Patient is a 52 y.o. male referred to PT for prehabilitation evaluation prior t o Bariatric abdominal surgery. Patient exam findings include decreased trunk ROM. Pt scored at 80% predicted distance in 6 Minute Walk Test as compared to age and gender matched normat chrissie values, indicating deficits in aerobic endurance. He currently works out at a gym 3x wee k. Recommend he add 30 minutes of aerobic activity as well. Symptoms are limiting patient with daily and functional activities including bending over, squatting activities, and runni ng . Patient has been provided instruction on appropriate exercise and pain control strateg ies to increase aerobic PA to prepare for major bariatric abdominal surgery. Patient requires services that can be safely and effectively performed only by a qualified therapist to address the following problems and achieve the following goals: Goals: 12 wks Goal: Date Set Status Pt will be 100% independent in home exercise program 10/30/2017 Pt will participate in 30 minutes or aerobic activity, 5 days per week 10/30/2017 Pt will perform strength training 3 times per week 10/30/2017 Pt will show improvement in 6 minute walk test by at least 170 ft, representing clinical an d functional improvement in endurance 10/30/2017 Pt will report improvement in PFPS by at least 3 points in individual item or 2 points in a verage, indicating clinical improvement in function. 10/30/2017 See topics above to identify problem areas and goals Personal factors/Comorbidities: ROM and Height/Weight BMI Communication: No noted deficit s, Psychosocial: No noted deficits, Moderate 1-2 Body structures & functions, Activity limitations, participation restrictions: ROM, Cardiop ulmonary and Height/Weight BMI Work/school, Family home life and Recreational sport Moderat e - 3 or more Stability of condition: Signs and symptoms are unpredictable Moderate - Evolving Clinical decision making: Moderate level of skill to determine plan of care and implement c hanges Moderate - Moderate complexity Complexity: Moderate - 58573 The patient requires services that can be safely and effectively performed only by a qualif ied therapist to address the aforementioned and highlighted problems and goals. Goals discussed and agreed upon with patient and/or family. Individual cultural and social needs addressed. Rehab Potential: Good, if Darin carries through with home exercise program. This note is to serve as the discharge summary if the patient fails to attend further Physi hal Therapy appointments or contact the therapist regarding any change in their status. AMPARO HERNANDEZ, PT [facility] AT [facility] 1ST FLOOR Scheduled Appointment time: 11:30 AM Treatment began: 1130 Treatment ended: 1210 Patient was seen for a total of 40 minutes of treatment time. 40 minutes was in direct cont act care as described above and on completed flow sheets. Treatment Interventions duration in minutes: Procedure:Therapeutic Exercise 15 min PLAN OF CARE (Established 10/30/2017 to be updated every 60 days): Treatment Plan Summary: Home exercise program including: Aerobic PA Strengthening exercises Stretching exercises Continue home program. Service period from: 10/30/2017 to: - Start of care: 10/30/2017 Referral information Authorizing Provider: RONALD HAIRSTON [[id number]] Onset/Referral Date: 09/01/17 Primary/Referral Diagnosis: E66.01, Z68.41 Morbid obesity with BMI of 40.0-44.9, adult (H CC) Next progress report 12/29/2017 Insurance: Payor: [employer] BLUE SHIELD / Plan: [place] BC[employer] / Product Type: PPO / G-code:- code not needed. Number visits authorized: 1 Number visits used: 1 . documented in this enco unter Plan of Treatment Not on filedocumented as of this encounter Procedures + +--------+ + + + | Procedure Name | Priori | Date/Time | Associated Diagnosis | Comments | | | ty | | | | + +--------+ + + + | MA THERAPEUTIC | Routin | 10/30/2017 | Morbid obesity | | | EXERCISES | e | 12:28 PM | with BMI of | | | | | PDT | 40.0-44.9, adult | | | | | | (HCC) | | + +--------+ + + + documented in this encounter Visit Diagnoses + + | Diagnosis | + + | Morbid obesity with BMI of 40.0-44.9, adult (HCC) - Primary | + + documented in this encounter"
--- OUTSIDE RECORDS SUMMARY | ~2020-01-22 | XMS | Encounter Summary ---
Demographics + + + | Address | [address] | | | [place] [address] | + + + | Home Phone | | + + + | Preferred Language | Unknown | + + + | Marital Status | | + + + | Orthodoxy Affiliation | 1073 | + + + | Race | White | + + + | Ethnic Group | Not or | + + + Author + + + | Author | [facility] | | | and [place] | + + + | Organization | [facility] | | | [...] Team Providers + +------+ + | Care Nurse Leader Name | Role | Phone | + [...] | | | | | | | ME | | | | | | | COLONOSCOPY | | | | | | | FLX DX | | | | | | | W/COLLJ SPEC | | | | | | | WHEN PFRMD | | | | | | | ME | | | | | | | COLONOSCOPY | | | | | | | W/BIOPSY | | | | | | | SINGLE/MULTI | | | | | | | PLE ME | | | | | | | COLSC FLX | | | | | | | W/RMVL OF | | | | | | | TUMOR POLYP | | | | | | | LESION SNARE | | | | | | | TQ ME | | | | | | | [...] +--------+ + + + + | 10/04/ Anesthesia | [facility] | Geraldo Dumont | | | 2017 | Event | [facility] | MD Patel [address] | | | | | [address] | [address] [place], [place] | | | | | [place], [place] | [address] | | | | | [address] | | | | | | [phone] | | | +--------+ + + + + Anesthesia Record + + + + + | Procedure Name | Responsible | Anesthesia Start | Anesthesia Stop Time | | | Anesthesiologist | Time | | + + + + + | COLONOSCOPY (N/A | Geraldo Dumont, | 10/04/16 1022 | 10/04/16 1054 | | Rectum) | MD | | | + + + + + +----+---+ + + | Da | T | Event | Comment | | te | i | | | | | m | | | | | e | | | +----+---+ + + | 05 | 0 | | | | /0 | 9 | | | | 5/ | 2 | | | | 20 | 8 | | | | 17 | | | | +----+---+ + + | | 1 | An Checkout | Pre-use anesthesia machine/equipment checkout. | | | 0 | | | | | 2 | | | | | 2 | | | +----+---+ + + | | 1 | An Start | Reassessment prior to anesthesia induction/procedure. | | | 0 | | | | | 2 | | | | | 2 | | | +----+---+ + + | | 1 | AN | Per surgeon request | | | 0 | Antibiotic | | | | 2 | declined | | | | 5 | | | +----+---+ + + | | 1 | Pre-Procedu | | | | 0 | ral Timeout | | | | 2 | Completed | | | | 5 | | | +----+---+ + + | | 1 | An | Monitors applied, supplemental O2 place, patient positioned, time | | | 0 | Induction | out taken, IV induction to the point of the patient being | | | 2 | | unconscious and un responsive, breathing spontaneously. | | | 8 | | | +----+---+ + + | | 1 | Breathing | | | | 0 | Spontaneous | | | | 2 | ly | | | | 8 | | | +----+---+ + + | | 1 | An Stop | Patient handed off to recovery nurse. | | | 5 | | | | | 4 | | | +----+---+ + + +------+ | Meds | +------+ + +--------+ | Name | Total | + +--------+ | lidocaine 2% | 60 mg | + +--------+ | propofol | 300 mg | + +--------+ | lactated ringers (LR) infusion | 600 mL | + +--------+ + + | Name | + + | O2 Flow Rate (L/Min) | + + + + | No blood administrations on file. | + + +--------+ + + + | Type | Details | Placement | Removal | +--------+ + + + | Periph | 10/04/16905; Left; | 10/04/16905 by | 10/04/16 1135 by | | eral | Antecubital; spfi-jji-dlauul | Toby Ignacio, | Ivett Yang RN | | IV | catheter system; 20 gauge; | RN | | | | intradermal injection; no longer | | | | | indicated; short term use; | | | | | 10/04/16; 1135 | | | +--------+ + + + documented in this encounter Social History + +-------+ +--------+------+ | Tobacco [...] + + documented as of this encounter [place] Notes Anesthesia Postprocedure Evaluation - Geraldo Dumont MD - 10/04/2016 11:22 AM PDTForma tting of this note might be different from the original. ANESTHESIA POSTANESTHESIA EVALUATION Darin He 51 y.o. male 1965 [id number] Procedure(s) COLONOSCOPY (N/A Rectum) Cooperates? Yes Mental Status Performs simple tasks. Respiratory Satisfactory - Airway patent (self maintained). Cardiovascular Satisfactory Blood pressure and heart rate acceptable Temperature Satisfactory Pain Satisfactory N/V Control Satisfactory Hydration Satisfactory No signs of dehydration Complications None apparent Filed Vitals: 10/04/16 0832 10/04/16 1052 BP: 126/83 101/47 Pulse: 81 87 Temp: 36.3 C (97.3 F) 37.3 C (99.1 F) Resp: 16 12 SpO2: 95% 96% Electronically signed by Geraldo Dumont MD 10/04/2016 11:22 [facility] nesthesia Preproc edure Evaluation - Geraldo Dumont MD - 10/03/2016 7:29 PM PDTFormatting of this note m ight be different from the original. ANESTHESIA PREANESTHESIA EVALUATION Darin He 51 y.o. male 1965 [id number] Procedure(s): COLONOSCOPY (N/A Rectum) Medical history, anesthesia, medications, allergy, NPO status verified histories reviewed. Review of Systems / Med History Anesthesia History (-) PONV, malignant hyperthermia Cardiovascular (+) hypertension, pulmonary hypertension(-) pacemaker, AICD (-) valvular disease Pulmonary (+) sleep apnea: known Neurology (+) back pain Renal Negative except where noted below. Gastrointestinal/Hepatic (+) hyperlipidemia Endocrine (+) Diabetes: type 2, NIDDM (+) obesity: morbid BMI 40+ Other (+) arthritis Cancer Negative except where noted below. Physical Exam Airway MP II, TM >3 FB, Mouth opening >2 FB. Neck: full ROM, extends >30 degrees. Jaw protrus ion normal. Dental Grossly normal except where noted below.; (+) Age appropriate dentition. CV Rhythm regular. Rate Normal. (-) murmur, carotid bruit, peripheral edema, JVD and weak pulses. Pulm Clear to auscultation bilaterally. (-) wheezing, rhonchi, decreased breath sounds, rales and stridor. Neuro Grossly normal. Anesthesia Plan ASA 3 Type: TIVA. Induction: Intravenous. Potential problems: Difficult airway. Monitors: Standard ASA monitors. Consent statement:Anesthetic plan, alternatives, risks and benefits discussed with patient and family. Risks discussed included (but were not limited to): dental injury, pain, sore throat, infec tion, voice injury, muscle aches, nausea, respiratory events, . Consenting person understands and agrees to proceed. PARQ. Risks and benefits of TIVA anesthetic discussed with patient and available family members. They agree to proceed, answered all questions. Past Medical History: Obstructive sleep apnea 08/21/2011 Benign hypertension Hyperlipidemia Diabetes mellitus (HCC) Arthritis Obesity Herniated nucleus pulposus, C6-7 left Herniated nucleus pulposus, C5-6 right Cervical radiculopathy at C7 Lumbago Comment:History of Lumbago - Chronic Hypogonadism in male Secondary polycythemia Comment:-testosterone use Testicular hypofunction Skin lesions Comment:Lesions of the scalp Dysmetabolic syndrome X Actinic keratosis . documented in this encounter Plan of Treatment [...] [place] | | | | | | [address] | | | | | | [phone] | | | | | | | | +--------+---------+ + + + documented as of this encounter Visit Diagnoses Not on filedocumented in this encounter Administered Medications + +--------+ +-------+------+------+ | Medication Order | MAR | Action | Dose | Rate | Site | | | Action | Date | | | | + +--------+ +-------+------+------+ | lidocaine (PF) 2% injection | Given | 10/05/19 | 60 mg | | | | Intravenous, PRN, Starting Fri | | 17 10:28 | | | | | 10/04/16 at 1028, Anesthesia | | AM PDT | | | | | Intra-op | | | | | | + +--------+ +-------+------+------+ +---+---+ | | | +---+---+ + +-------+ +--------+---+---+ | propofol (DIPRIVAN) injection | Given | 10/05/19 | 100 mg | | | | Intravenous, PRN, Starting Fri | | 17 10:37 | | | | | 10/04/16 at 1028, Anesthesia | | AM PDT | | | | | Intra-op | | | | | | + +-------+ +--------+---+---+ +-------+ +--------+---+---+ | Given | 10/05/19 | 100 mg | | | | | 17 10:30 | | | | | | AM PDT | | | | +-------+ +--------+---+---+ | Given | 10/05/19 | 100 mg | | | | | 17 10:28 | | | | | | AM PDT | | | | +-------+ +--------+---+---+ +---+---+ | | | +---+---+ documented in this encounter"
--- OUTSIDE RECORDS SUMMARY | ~2020-01-22 | XMS | Encounter Summary ---
Demographics + + + | Address | [address] | | | [place] [address] | + + + | Home Phone | | + + + | Preferred Language | Unknown | + + + | Marital Status | | + + + | Buddhist Affiliation | 1073 | + + + | Race | White | + + + | Ethnic Group | Not or | + + + Author + + + | Author | [facility] | | | and [place] | + + + | Organization | [facility] | | | [...] Team Providers + +------+ + | Care Semiconductor Bonder Name | Role | Phone | + [...] Description | +--------+--------+ + + + | 07/26/ | Refill | [facility] | Giovanna Hiram | Medication Refill | | 2019 | | [facility] | E, DO [address] | | | | | [facility] [address] | [place], [place] | | | | | [address] [place], | [address] | | | | | [place] [address] | [phone] | | | | | [phone] | | | +--------+--------+ + + + [...] Encounter - Aimee Davey CC CMA - 07/26/2019 11:42 AM PST Labs UTD Patient was last seen on Recent Visits 04/06/2019 Pre-op examination [facility] Hiram Heredia DO Office Visit 02/04/2019 Type 2 diabetes mellitus without complication, without long-term current use of insulin ([facility]) [facility] Hiram Leon Giovanna, DO Office Visit 01/19/2019 Lumbar radiculopathy [facility] Hiram Edward Giovanna, DO Office Visit ISAAK Linton CMA documented in th is [...] [place] | | | | | | [address] | | | | | | [phone] | | | | | | | | +--------+---------+ + + + documented as of this encounter Visit Diagnoses Not on filedocumented in this encounter"
--- OUTSIDE RECORDS SUMMARY | ~2020-01-22 | XMS | Encounter Summary ---
Demographics + + + | Address | [address] | | | [place] [address] | + + + | Home Phone | | + + + | Preferred Language | Unknown | + + + | Marital Status | | + + + | Rastafari Affiliation | 1073 | + + + | Race | White | + + + | Ethnic Group | Not or | + + + Author + + + | Author | [facility] | | | and [place] | + + + | Organization | [facility] | | | and [...] Team Providers + +------+ + | Care Mold Presser Name | Role | Phone | + +------+ + | Hiram Heredia DO | PCP | | + +------+ + Reason for Visit + +--------+ + | Reason | Onset | Comments | | | Date | | + +--------+ + | Medication Refill | 06/16/ | | | | 2019 | | + +--------+ + Encounter Details +--------+--------+ + + + | Date | Type | Department | Care Team | Description | +--------+--------+ + + + | 06/16/ | Refill | [facility] | Hiram Heredia | Medication Refill | | 2019 | | [facility] | E, DO [address] | | | | | MEDICAL CLIN[address] | [place], [place] | | | | | [address] [facility], | [address] | | | | | [place] [address] | [phone] | | | | | [phone] | | | +--------+--------+ + + + [...] documented as of this encounter Miscellaneous Notes Addendum Note - Aimee Davey CC CMA - 07/13/2018 12:09 PM PST Addended by: GAMALIEL DAVEY on: 07/13/2018 12:09 Modules accepted: Orders ddendum Note - Aimee Davey CC CMA - 07/13/2018 10:52 AM PST Addended by: AIMEE DAVEY on: 2018 10:52 Modules accepted: Orders elephone Enco unter - Aimee Davey CC CMA - 07/13/2018 10:50 AM PSTFormatting of this note might be d ifferent from the original. CMP is UTD. GFR is 85 in December. I'm not sure which cream they are referring to. Patient was last seen on Recent Visits 04/28/2018 [place] (actinic keratosis) [facility] Hiram Heredia, Office Visit ISAAK iLnton CMA elephone Encoun ter - Refugio Troy - 07/13/2018 10:41 AM PSTPt called back regarding a cream that Dr Keke harris suggested for pt to use on some spots he froze on pts head. Pt uses [facility] in [place] on, please call pt with questions or when a script has been sent/refugio elephone Encounter - Sushma Thacker CC CMA - 06/16/2018 8:24 AM PSTPt would also like a cream that was discusse d in last visit. ISAAK Phelan CMA elephone Encounter - Refugio Troy - 06/16/2018 8:02 AM PSTval sartan-hydrochlorothiazide (DIOVAN-HCT) 160-12.5 MG per tablet Refill, pt uses [facility] in [place]. Dr Heredia froze some sunt spots on pts head and Dr Heredia suggested if they com e back he would prescribe a cream for pt/robinElectronically signed by Refugio Troy at 8:04 AM PSTdocumented in this encounter Plan of Treatment +--------+---------+ + + + | Date | Type | Specialty | Care Team | Description | +--------+---------+ + + + | 02/13/ | Office | Primary Care | Hiram Heredia | | | 2019 | Visit | | [address] | | | | | | [place] | | | | | | [address] | | | | | | [phone] | | | | | | | | +--------+---------+ + + + documented as of this encounter Visit Diagnoses Not on filedocumented in this encounter"
--- OUTSIDE RECORDS SUMMARY | ~2020-01-22 | XMS | Encounter Summary ---
Demographics + + + | Address | [address] | | | [place] [address] | + + + | Home Phone [...] + + + | Author | [facility] | | | and [place] | + + + | Organization | [facility] | | | [...] Team Providers + +------+ + | Care Screw Driver Operator Name | Role | Phone | + +------+ + | Hiram Heredia DO | PCP | | + +------+ + Encounter Details +--------+ + + + + | Date | Type | Department | Care Team | Description | +--------+ + + + + | 12/09/ | Orders Only | [facility] | Mckenna, Eduardo | Status post cervical | | 2013 | | NEUROSURGERY [address] | F, MD [address] | spinal fusion | | | | [address] | [place], [place] | (Primary Dx) | | | | [place], [place] | [address] | | | | | [address] | [phone] | | | | [phone] | | | +--------+ + + + [...] [place] | | | | | | [address] | | | | | | [phone] | | | | | | | | +--------+---------+ + + + documented as of this encounter Results XR Cervical Spine 3 Vws or Less (12/09/2012 11:17 AM PDT) + + | Specimen | + + | | + + + + + | Narrative | Performed At | + + + | [facility] | [place] | | Department [address] [facility] | [facility] | | [ rep ct [address]] [ rep ct [facility] | | [facility]] Signed | - IMAGING | | | | | Patient Name: JACLYN HE Physician: | | | DARRELL. : 1965 Age: 47 Sex: M Unit #: [id number] | | | Exam Date: 12/09/12 Location: [facility] | | | Report #: [id number] Page: | | | %(RAD)RES..mtdd.print.filter("pg") of %(RAD) | | | RES..mtdd.print.filter("tpg") | | | | | | Accession Number: [id number] | | | CERVICAL SPINE, 12/09/2012 CLINICAL HISTORY: STATUS | | | POST FUSION. COMPARISON: 06/19/2012. | | | FINDINGS: Three views of the cervical spine. Fusion hardware is in | | | place and intact at the level of C6, C7, T1. Interbody grafts at | | | the intervening disk spaces show stable positioning. Spine | | | alignment and spondylosis are stable. Ossification posterior to the | | | C2 posterior spinous process also unchanged. No precervical soft | | | tissue thickening. IMPRESSION: 1. FUSION | | | AT C6 THROUGH T1 WITHOUT EVIDENCE FOR INTERVAL CHANGE OR COMPLICATION. | | | Dictated Date/Time: 12/09/2012 11:17 | | | Transcribed Date/Time: 12/09/2012 13:19 Sales Management Trainee: | | | <<Signature on File>> | | | Viraj | | | Patrick John MD12/09/12 170 <Electronically signed by Viraj Nguyen | | | Dora COFFMAN> Viraj John MD 12/09/12 1117 | | | Sales Management Trainee: Kivo Mcpnljzavaaik11/10/13 5053 | | | Eduardo Mckenna MD | | + + + + + + + + | Performing | Address | City/State/Zipcode | Phone Number | | Organization | | | | + + + + + | [facility] | [address] | [place] | [phone] | | [facility] | | [address] | | | - IMAGING | | | | + + + + + documented in this encounter Visit Diagnoses + + | Diagnosis | + + | Status post cervical spinal fusion - Primary Arthrodesis status | + + documented in this encounter
--- OUTSIDE RECORDS SUMMARY | ~2020-01-22 | XMS | Encounter Summary ---
Demographics + + + | Address | [address] | | | [place] [address] | + + + | Home Phone | | + + + | Preferred Language | Unknown | + + + | Marital Status | | + + + | Sikhism Affiliation | 1073 | + + + | Race | White | + + + | Ethnic Group | Not or | + + + Author + + + | Author | [facility] | | | and [place] | + + + | Organization | [facility] | | [...] Team Providers + +------+ + | Care Cattle Shipper Name | Role | Phone | + +------+ + | Hiram Heredia DO | PCP | | + +------+ + Reason for Visit +--------+--------+ + | Reason | Onset | Comments | | | Date | | +--------+--------+ + | Other | 06/08/ | RETURN TO WORK | | | 2012 | | +--------+--------+ + Encounter Details +--------+ + + + + | Date | Type | Department | Care Team | Description | +--------+ + + + + | 06/08/ | Telephone | [facility] | Eduardo Mckenna | Other (RETURN TO | | 2012 | | [address] | F, [address] | WORK ) | | | | [address] | [place], [place] | | | | | [place] | [id number] | | | | | [address] | [phone] | | | | | [phone] | | | +--------+ + + + [...] this encounter Miscellaneous Notes Telephone Encounter - Erlinda Castro - 06/08/2012 2:25 PM PSTLeft message for Darin to disc uss this with him. Erlinda elephone Encounter - Eduardo Mckenna MD - 06/08/2012 1:04 PM TED'm ok with it if he is. 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 He does not do much lifting, bending, t wisting ect. If Dr. Mckenna has any questions, she would like him to call her. She will be faxing over another transitional work duties form for Dr. Mckenna to fill out. Erlinda documented in this enc ounter Plan of [...] [place] | | | | | | [address] | | | | | | [phone] | | | | | | | | +--------+---------+ + + + documented as of this encounter Visit Diagnoses Not on filedocumented in this encounter
--- OUTSIDE RECORDS SUMMARY | ~2020-01-22 | XMS | Encounter Summary ---
Demographics + + + | Address | [address] | | | [place] [address] | + + + | Home Phone | | + + + | Preferred Language | Unknown | + + + | Marital Status | | + + + | Bahai Affiliation | Unknown | + + + | Race | White | + + + | Ethnic Group | Not or | + + + Author + + + | Author | [facility] | + + + | Organization | [facility] | + + + | Address | Unknown | + + + | Phone | Unavailable | + + + Support + + +---------+ + | Name | Relationship | Address | Phone | + + +---------+ + | Angie He | ECON | Unknown | | + + +---------+ + Care Team Providers + +------+ + | Care Intercell Connector Placer Name | Role | Phone | + +------+ + | Hiram Heredia DO | PCP | | + +------+ + Encounter Details +--------+ + + + + | Date | Type | Department | Care Team | Description | +--------+ + + + + | 08/28/ | Documentati | Dig[facility]ive [facility] | Clinic, Surgery | | | 2018 | on | Center at [facility] [address] | | | | | | [address] [facility] | | | | | | for Health and | | | | | | Healing, [address] | | | | | | [place], [place] | | | | | | [address] | | | | | | [phone] | | | +--------+ + + + [...]
--- OUTSIDE RECORDS SUMMARY | ~2020-01-22 | XMS | Encounter Summary ---
Demographics + + + | Address | [address] | | | [place] [address] | + + + | Home Phone | | + + + | Preferred Language | Unknown | + + + | Marital Status | | + + + | Anabaptist Affiliation | 1073 | + + + | Race | White | + + + | Ethnic Group | Not or | + + + Author + + + | Author | [facility] | | | and [place] | + + + | Organization | [facility] | | | [...] Team Providers + +------+ + | Care Crew Lead Name | Role | Phone | + +------+ + | Hiram Heredia DO | PCP | | + +------+ + Reason for Referral Self-referral (Routine) + + + + + + + | Status | Reason | Specialty | Diagnoses / | Referred By | Referred To | | | | | Procedures | Contact | Contact | + + + + + + + | Authorized | Specialty | Otolaryngolog | Diagnoses | Giovanna, | Andres, | | | Services | y | Lesion of | Hiram Leon, | Clem Mallory MD | | | Required | | lip | DO [address] | [address] | | | | | [address] | | | | | | [place], [place] | [place], [place] | | | | | | [address] | [address] | | | | | | Phone: | Phone: | | | | | | [phone] | [phone] | | | | | | Fax: | Fax: | | | | | | [phone] | [phone] | + + + + + + + Reason for Visit + + + | Reason | Comments | + + + | Results | Review recent labs | + + + | Diabetes Mellitus | | | Management | | + + + Encounter Details +--------+---------+ + + + | Date | Type | Department | Care Team | Description | +--------+---------+ + + + | 08/04/ | Office | [place] [facility] | Hiram Heredia | Type 2 diabetes | | 2019 | Visit | [facility] | E, DO [address] | mellitus without | | | | [facility] [address] | [place], [place] | complication, | | | [address] [place], | [address] | without long-term | | | | [place] [address] | [phone] | current use of | | | | [phone] | | insulin (HCC) | | | | | | (Primary Dx); Lumbar | | | | | | disc herniation | | | | | | with radiculopathy; | | | | | | Lesion of lip; | | | | | | Screening for | | | | | | prostate cancer | +--------+---------+ + + + Social History [...] encounter Progress Notes Hiram Heredia DO - 08/05/2019 8:20 AM PST Patient ID: Darin He is a 53 y.o. year old male Chief Complaint: Chief Complaint Patient presents with Results Review recent labs Diabetes Mellitus Management Assessment 1. Type 2 diabetes mellitus without complication, without long-term current use of insulin (HCC) - Comprehensive Metabolic Panel; Future - Lipid Panel; Future 2. Lumbar disc herniation with radiculopathy 3. Lesion of lip - ENT, External - AMB Referral 4. Screening for prostate cancer - PSA, Screen; Future Plan: -Fasting labs ordered today. Will contact patient with the results. -Referral provided to Dr. Campos in ENT at [facility] for consideration of a biopsy of the lip lesion. -FU PRN. Subjective: HPI: Patient presents to the clinic for DM management. The patient has diabetes mellitus, which he manages with metformin 1000 mg Qam. His last A1 c on 08/03/2019 was 6.6% and his microalbumin level was less than 0.7. He reports some back pain recently. He has been taking the 3 ibuprofen and 2 Tylenol tablet s in the morning. He reports he is tolerating the dosages well with no stomach issues. He is still working through the pain. He reports it is manageable with the medication. The patient also reports a nonhealing lesion for one year on his bottom lip at the vermilio n border. He wonders if he could have it treated. Current Outpatient Medications Medication Sig Dispense Refill ascorbic acid (VITAMIN C) 500 mg chewable tablet Take 500 mg by mouth Daily. aspirin 81 MG tablet Take 81 mg by mouth. atorvaSTATin (LIPITOR) 40 mg tablet take 1 tablet by mouth once daily (LABS NEEDED BEFO RE FURTHER FILLS) 90 tablet 3 cetirizine (ZYRTEC ALLERGY) 10 [...] 1,000 mg by mouth daily (with breakfast).) metFORMIN (GLUCOPHAGE-XR) 500 mg 24 hr tablet Take 2 tablets by mouth 2 times daily. Do not cut or crush. Follow hospital guidelines to determine if metFORMIN should be held follo wing procedures using IV iodinated contrast. 360 tablet 3 multivitamin (THERAGRAN) per tablet daily tocopherol (VITAMIN E) 400 units capsule Take by mouth. valsartan-hydrochlorothiazide (DIOVAN-HCT) 160-12.5 MG per tablet take 1 tablet once da jarad 90 tablet 3 No current facility-administered medications for this visit. Patient Active Problem List Diagnosis JOCELYN on CPAP Essential hypertension Mixed hyperlipidemia Diabetes mellitus Arthritis Morbid obesity Herniated nucleus pulposus, C6-7 left Herniated nucleus pulposus, C5-6 right Cervical radiculopathy at C7 S/P cervical spinal fusion H/O umbilical hernia repair Primary osteoarthritis involving multiple joints Ulnar neuropathy Lumbar disc herniation with radiculopathy Family History Problem Relation Age of Onset Cancer Mother Arthritis Mother Hypertension Father No known problems Sister Heart disease Maternal Grandmother Lung cancer Maternal Grandfather Smoker Stroke Paternal Grandmother Alcohol abuse Paternal Grandmother Heart failure Paternal Grandmother Past Surgical History: Procedure Laterality Date APPENDECTOMY APPENDECTOMY BICEPS TENDON REPAIR Left 12/31/2017 CERVICAL FUSION COLONOSCOPY N/A 10/04/2016 Procedure: COLONOSCOPY; Surgeon: Viraj Rodriguez MD; Location: [facility] Destruction of benign [...] file Highest education level: Not on file Occupational History 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 Social Needs Financial resource strain: Not on file Food insecurity: Worry: Not on file Inability: Not on file Transportation needs: Medical: Not on file Non-medical: Not on file Tobacco Use Smoking status: Never Smoker Smokeless tobacco: Former User Types: Chew Substance and Sexual Activity Alcohol use: Yes Alcohol/week: 3.0 standard drinks Types: 3 Cans of beer per week Frequency: 2-3 times a week Drinks per session: 1 or 2 Binge frequency: Never Drug use: Never Comment: Caffeine: 2-3 cups coffee daily Sexual activity: Yes Partners: Female control/protection: None, Post-menopausal Lifestyle Physical activity: Days per week: Not on file Minutes per session: Not on file Stress: Not on file Relationships Social connections: Talks on phone: Not on file Gets together: Not on file Attends samaritan service: Not on file Active member of club or organization: Not on file Attends meetings of clubs or organizations: Not on file Relationship status: Not on file Intimate partner violence: Fear of current or ex partner: Not on file Emotionally abused: Not on file Physically abused: Not on file Forced sexual activity: Not on file Other Topics Concern Not on file Social History Narrative Not on file No Known Allergies Review of Systems Musculoskeletal: Positive for back pain. Skin: Positive for wound (lip). Objective: Vitals: BP 124/78 Comment: LEFT arm, adult cuff | Pulse 65 | Temp 36.9 C (98.5 F) (Oral) | Re sp 19 | Ht 1.753 m (5' 9") | Wt (!) 138.8 kg (306 lb) | SpO2 95% | BMI 45.19 kg/m Physical Exam Constitutional: He is oriented to person, place, and time. He appears well-developed and we ll-nourished. HENT: Head: Normocephalic and atraumatic. Right Ear: External ear normal. Left Ear: External ear normal. Nose: Nose normal. Mouth/Throat: Oropharynx is clear and moist. No oropharyngeal exudate. Eyes: Pupils are equal, round, and reactive to light. Conjunctivae and EOM are normal. Neck: Normal range of motion. Neck supple. No thyromegaly present. Cardiovascular: Normal rate, regular rhythm, normal heart sounds and intact distal pulses. Pulmonary/Chest: Effort normal and breath sounds normal. Abdominal: Soft. Bowel sounds are normal. Neurological: He is alert and oriented to person, place, and time. He has normal reflexes. Skin: At bottom lip on vermilion border: 4 mm macular, scaly lesion Psychiatric: He has a normal mood and affect. His behavior is normal. Judgment and thought content normal. This documentation prepared by Suly Howell medical doctor nuclear medicine. All aspects of this chart review ed for accuracy and content by Hiram Heredia DO at the date and time of service. Electronically signed by: Dr. Hiram Heredia DO 08/05/2019 8:24 AM documented in this encounter Plan of Treatment [...] [place] | | | | | | [address] | | | | | | [phone] | | | | | | | | +--------+---------+ + + + + +------+--------+ + + | Name | Type | Priori | Associated Diagnoses | Order Schedule | | | | ty | | | + +------+--------+ + + | Comprehensive | Lab | Routin | Type 2 diabetes | 1 Occurrences | | Metabolic Panel | | e | mellitus without | starting 08/05/2019 | | | | | complication, | until 08/04/2020 | | | | | without long-term | | | | | | current use of | | | | | | insulin (HCC) | | + +------+--------+ + + | Lipid Panel | Lab | Routin | Type 2 diabetes | 1 Occurrences | | | | e | mellitus without | starting 08/05/2019 | | | | | complication, | until 08/04/2020 | | | | | without long-term | | | | | | current use of | | | | | | insulin (HCC) | | + +------+--------+ + + | PSA, Screen | Lab | Routin | Screening for | 1 Occurrences | | | | e | prostate cancer | starting 08/05/2019 | | | | | | until 08/04/2020 | + +------+--------+ + + + + +--------+ + + | Name | Type | Priori | Associated Diagnoses | Order Schedule | | | | ty | | | + + +--------+ + + | ENT, External - AMB | Outpatient | Routin | Lesion of lip | Ordered: 08/05/2019 | | Referral | Referral | e | | | + + +--------+ + + documented as of this encounter Visit Diagnoses + + | Diagnosis | + + | Type 2 diabetes mellitus without complication, without long-term current use of | | insulin (HCC) - Primary | + + | Lumbar disc herniation with radiculopathy Displacement of lumbar intervertebral disc | | without myelopathy | + + | Lesion of lip Diseases of lips | + + | Screening for prostate cancer Special screening for malignant neoplasm of prostate | + + documented in this encounter
--- OUTSIDE RECORDS SUMMARY | ~2020-01-22 | XMS | Encounter Summary ---
Demographics + + + | Address | [address] | | | [place] [address] | + + + | Home Phone | | + + + | Preferred Language | Unknown | + + + | Marital Status | | + + + | Scientologist Affiliation | 1073 | + + + | Race | White | + + + | Ethnic Group | Not or | + + + Author + + + | Author | [facility] | | | and [place] | + + + | Organization | [facility] | | [...] Team Providers + +------+ + | Care Oil Separator Name | Role | Phone | + +------+ + | Hiram Heredia DO | PCP | | + +------+ + Reason for Visit + + + | Reason | Comments | + + + | CPAP Follow Up | | + + + Evaluate & Treat (Routine) +--------+--------+ + + + + | Status | Reason | Specialty | Diagnoses / | Referred By | Referred To | | | | | Procedures | Contact | Contact | +--------+--------+ + + + + | Closed | | Physician | Diagnoses | Giovanna, | Chino Angel | | | | Regional Hr Manager / | Obstructive | Hiram Leon, | KIMO Hood [address] | | | | Sleep | sleep apnea | DO [address] | | | | Medicine | (adult) | [address] | [place], | | | | | (pediatric) | [place] | [place] [address] | | | | | 2 year | [address] | Phone: | | | | | follow-up, | Phone: | [phone] | | | | | [email or web address], | [phone] | Fax: | | | | | bring | Fax: | [phone] | | | | | equip/AO | [phone] | | | | | | Procedures | | | | | | | OFFICE VISIT | | | | | | | EXTENDED | | | +--------+--------+ + + + + Encounter Details +--------+---------+ + + + | Date | Type | Department | Care Team | Description | +--------+---------+ + + + | 05/21/ | Office | [facility] | Chino Angel PA | JOCELYN on CPAP (Primary | | 2019 | Visit | SLEEP DISORDER [address] | Dx) | | | | [address] [place] | [place] | | | | | [place] [address] | [address] | | | | | [phone] | | | +--------+---------+ + + + [...] + + + | Blood Pressure | 130/80 | 05/21/2019 10:05 AM | | | | | PST | | + + + + + | Pulse | 71 | 05/21/2019 10:05 AM | | | | | PST | | + + + + + | Temperature | - | - | | + + + + + | Respiratory Rate | 16 | 05/21/2019 10:05 AM | | | | | PST | | + + + + + | Oxygen Saturation | 98% | 05/21/2019 10:05 AM | | | | | PST | | + + + + + | Inhaled Oxygen | - | - | | | Concentration | | | | + + + + + | Weight | 139.2 kg (306 lb | 05/21/2019 10:05 AM | | | | 14.1 oz) | PST | | + + + + + | Height | - | - | | + + + + + | Body Mass Index | 45.32 | 04/06/2019 3:47 PM | | | | | PST | | + + + + + documented in this encounter Progress Notes Chino Angel PA - 05/21/2019 10:30 AM PST Subjective: Patient ID: Darin Sweeney Leighann loera 49 y.o.male. HPI last office visit: 05/19/2017 date of polysomnography: 07/08/2006 AHI: 41.4 O2%: 73% with 54.2 minutes below 90% Machine type: ResMed AirSense 10 Mask type: [employer]kel Brevida nasal mask DME: [facility] [place] pressure: 9-18 cm Median: 11.8cm 95%: 13.6 cm Maximum: 15.2 cm Nights using CPAP: 50/63 290/365 % of nights >4 hours: 76% 77% Average usage (all nights): 7:45 7:27 Average usage (nights used): 9:46 9:23 AHI: 0.8 Darin continues to do well with his CPAP compliance. He is doing well with his CPAP usage w ith his ResMed AirSense 10. His CPAP has become a regular part of his sleep routine. He do es not consider sleeping without CPAP. He is using [employer] to clean his equipment. I have discussed his download and paperwork in detail. The download shows that his sleep a pnea is controlled, with an AHI of 0.8. It also shows that his leaks are controlled. Any nights without using CPAP are due to him using his old machine at work at the [employer]. He plans to retire in the next 1-2 years. Review of Systems Objective: Physical Exam BP 130/80 | Pulse 71 | Resp 16 | Wt (!) 139.2 kg (306 lb 14.1 oz) | SpO2 98% | BMI 45. 32 kg/m Assessment: Problem #1: OBSTRUCTIVE SLEEP APNEA ([id number]) This is controlled with CPAP. His CPAP compliance is going well with his ResMed AirSense 10 . Plan: 1. He is to continue with CPAP indefinitely. 2. Touch base with medical supplier twice per year to ensure that all equipment is satisfa ctory. I will follow up again in 2 years, sooner prn. At that time we will reassess with all appr opriate paperwork. Fifteen minutes were spent ifov-ci-cqom, with the majority of time spent in counseling. Chino Angel PA-C cc: Norman Heredia DO [facility] Medical A ssistant - 05/21/2019 10:30 AM PSTFormatting of this note might be different from the origin al. 05/21/19 0900 Cruz Depression Inventory-II Depression Score 0- No Depression Insomnia Severity Index Insomnia Severity Index 0 Shokan Sleepiness Scale 1. Sitting and reading 0 2. Watching TV 0 3. Sitting, inactive in a public place (e.g. a theatre or a meeting) 0 4. As a passenger in a car for an hour without a break 0 5. Lying down to rest in the afternoon when circumstances permit 0 6. Sitting and talking to someone 0 7. Sitting quietly after a lunch without alcohol 0 8. In a car, while stopped for a few minutes in traffic 0 Total score 0 SF-36v2 Score PF 53.71 RP 50.42 BP 55.55 GH 57.94 VT 70.42 SF 57.34 RE 45.72 MH 63.95 PCS 53.74 MCS 60.13 documented in this enco unter Plan of [...] [place] | | | | | | [address] | | | | | | [phone] | | | | | | | | +--------+---------+ + + + documented as of this encounter Visit Diagnoses + + | Diagnosis | + + | JOCELYN on CPAP - Primary Obstructive sleep apnea (adult) (pediatric) | + + documented in this encounter"
--- OUTSIDE RECORDS SUMMARY | ~2020-01-22 | XMS | Encounter Summary ---
Demographics + + + | Address | [address] | | | [place] [address] | + + + | Home Phone | | + + + | Preferred Language | Unknown | + + + | Marital Status | | + + + | Jew Affiliation | 1073 | + + + | Race | White | + + + | Ethnic Group | Not or | + + + Author + + + | Author | [facility] | | | and [place] | + + + | Organization | [facility] | | [...] Team Providers + +------+ + | Care Net Software Developer Name | Role | Phone | + +------+ + | Hiram Heredia DO | PCP | | + +------+ + Reason for Visit + + + | Reason | Comments | + + + | Pre-op Exam | Pre-Op clearence for lumbar surgery by Dr. Peraza at [facility] in | | | [place]. | + + + Encounter Details +--------+---------+ + + + | Date | Type | Department | Care Team | Description | +--------+---------+ + + + | 04/06/ | Office | [facility] | Hiram Heredia | Pre-op examination | | 2019 | Visit | [facility] | E, DO [address] | (Primary Dx); Lumbar | | | | [facility] | [place] | herniated disc; | | | | [address] [facility], | [address] | Lumbar radiculopathy | | | | [place] [address] | [phone] | | | | | [phone] | | | +--------+---------+ + + + [...] + + + | Blood Pressure | 132/76 | 04/06/2019 3:47 PM | RIGHT arm, large | | | | PST | cuff | + + + + + | Pulse | 68 | 04/06/2019 3:47 PM | | | | | PST | | + + + + + | Temperature | - | - | | + + + + + | Respiratory Rate | 19 | 04/06/2019 3:47 PM | | | | | PST | | + + + + + | Oxygen Saturation | 94% | 04/06/2019 3:47 PM | | | | | PST | | + + + + + | Inhaled Oxygen | - | - | | | Concentration | | | | + + + + + | Weight | - | - | | + + + + + | Height | 175.3 cm (5' 9") | 04/06/2019 3:47 PM | | | | | PST | | + + + + + | Body Mass Index | - | - | | + + + + + documented in this encounter Progress Notes Hiram Heredia DO - 04/06/2019 3:40 PM PST Patient ID: Darin He is a 53 y.o. year old male Chief Complaint: Chief Complaint Patient presents with Pre-op Exam Pre-Op clearence for lumbar surgery by Dr. Preaza at [facility] in [place]. Assessment 1. Pre-op examination - ECG 12 lead; Future - CBC with Differential; Future - Protime INR; Future - PTT; Future - Basic Metabolic Panel; Future 2. Lumbar herniated disc 3. Lumbar radiculopathy Plan: CLEARED FOR ANTICIPATED LUMBAR SURGERY -Ordered pre-operational EKG and blood work to be done today. Will contact patient with the results. -Discussed the REVISED CARDIAC RISK assessment today. He has a score of 0.4% risk. See scan marycarmen documents for further details. -Advised patient to take light-duty at work until further notice to prevent further harm to his back. Subjective: HPI: Patient presents to the clinic for a pre-op clearance. The patient has gone to several specialists that have agreed that he needs surgery. He filemon es headaches, chest pain, cough, shortness of breath, palpitations, abdominal pain, constipa tion or diarrhea. He would like to go over the cardiac risk index today. The patient has already received his flu shot for the season. Current Outpatient Medications Medication Sig Dispense Refill [...] daily tiZANidine (ZANAFLEX) 4 mg tablet Take 4 mg by mouth every 6 hours as needed. tocopherol (VITAMIN E) 400 units capsule Take by mouth. 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 Cardiovascular: Negative for chest pain and palpitations. Gastrointestinal: Negative for abdominal pain, constipation and diarrhea. Musculoskeletal: Positive for back pain. Neurological: Negative for headaches. Objective: Vitals: BP 132/76 Comment: RIGHT arm, large cuff | Pulse 68 | Resp 19 | Ht 1.753 m (5' 9") | SpO 2 94% | BMI 45.60 kg/m Physical Exam Constitutional: He is oriented [...] place, and time. He has normal reflexes. Psychiatric: He has a normal mood and affect. His behavior is normal. Judgment and thought content normal. This documentation prepared by Suly Howell certified medical aide. All aspects of this chart review ed for accuracy and content by Hiram Heredia DO at the date and time of service. Electronically signed by: Dr. Hiram Heredia DO 04/07/2019 9:37 documented in this encounter Plan of Treatment +--------+---------+ + + + | Date | Type | Specialty | Care Team | Description | +--------+---------+ + + + | 02/13/ | Office | Primary Care | Hiram Hereida | | | 2019 | Visit | | DO Edward [address] | | | | | | [place], [place] | | | | | | [address] | | | | | | [phone] | | | | | | | | +--------+---------+ + + + + +------+--------+ + + | Name | Type | Priori | Associated Diagnoses | Order Schedule | | | | ty | | | + +------+--------+ + + | ECG 12 lead | ECG | Routin | Pre-op examination | 1 Occurrences | | | | e | | starting 04/06/2019 | | | | | | until 04/06/2020 | + +------+--------+ + + documented as of this encounter Procedures + +--------+ + + + | Procedure Name | Priori | Date/Time | Associated Diagnosis | Comments | | | ty | | | | + +--------+ + + + | ECG - EXTERNAL SCAN | | 04/08/2019 | | Results for this | | | | 12:00 AM | | procedure are in the | | | | PST | | results section. | + +--------+ + + + documented in this encounter Results ECG - EXTERNAL SCAN (04/08/2019 12:00 AM PST) + + + | Narrative | Performed At | + + + | Ordered by an | | | unspecified provider. | | + + + Basic Metabolic Panel (04/06/2019 4:46 PM PST) + +-------+ + + + | Component | Value | Ref Range | Performed | Pathologist | | | | | At | Signature | + +-------+ + + + | Na | 142 | 132 - 143 | [facility] | | | | | mmol/L | [facility] | | | | [facility] | | + +-------+ + + + | K | 4.3 | 3.3 - 4.9 | [facility] | | | | | mmol/L | [facility] | | | | | | [facility] | | + +-------+ + + + | Cl | 104 | 95 - 108 mmol/L | [facility] | | | | | | [facility] | | | | [facility] | | + +-------+ + + + | CO2 | 27 | 23 - 34 mmol/L | [facility] | | | | | | [facility] | | | | [facility] | | + +-------+ + + + | Anion Gap | 11 | 7 - 16 mmol/L | [facility] | | | | | | [facility] | | | | [facility] | | + +-------+ + + + | Glucose | 105 | 70 - 110 mg/dL | [facility] | | | | | | [facility] | | | | | | [facility] | | + +-------+ + + + | BUN | 13 | 5 - 26 mg/dL | [facility] | | | | | | [facility] | | | | | | [facility] | | + +-------+ + + + | Creatinine | 0.86 | 0.70 - 1.40 | [facility] | | | | | mg/dL | [facility] | | | | | | [facility] | | + +-------+ + + + | eGFR, | >60 | >=60 | [facility] | | | non- | | mL/min/1.73m2 | [facility] | | | [facility] | | [facility] | | | | | | [facility] | | + +-------+ + + + | Calcium | 9.6 | 8.3 - 10.0 | [facility] | | | | | mg/dL | [facility] | | | | [facility] | | | | | | [facility] | | + +-------+ + + + | BUN/Creatin | 15.1 | 7.0 - 24.0 | [facility] | | | ine Ratio | | | [facility] | | | | [facility] | | | | | | [facility] | | + +-------+ + + + + + | Specimen | + + | Blood | + + + + + + + | Performing | Address | City/State/Zipcode | Phone Number | | Organization | | | | + + + + + | [facility] | [address] | [place] | [phone] | | [facility] | | [address] | | + + + + + PTT (04/06/2019 4:46 PM PST) + +--------+ + + + | Component | Value | Ref Range | Performed | Pathologist | | | | | At | Signature | + +--------+ + + + | aPTT | 23 (L) | 25 - 33 seconds | [facility] | | | | | | [facility] | [facility] | | | | | | [facility] | | + +--------+ + + + + + | Specimen | + + | Blood | + + + + + + + | Performing | Address | City/State/Zipcode | Phone Number | | Organization | | | | + + + + + | [facility] | [address] | [place] | [phone] | | [facility] | | [address] | | + + + + + Protime INR (04/06/2019 4:46 PM PST) + +-------+ + + + | Component | Value | Ref Range | Performed | Pathologist | | | | | At | Signature | + +-------+ + + + | Prothrombin | 11.0 | 9.3 - 11.4 | [facility] | | | Time | | seconds | [facility] | | | | | | [facility] | | + +-------+ + + + | INR | 1.1 | 0.8 - 1.2 | [facility] | | | | | | [facility] | | [facility] | | | | | | [facility] | | + +-------+ + + + + + | Specimen | + + | Blood | + + + + + | Narrative | Performed At | + + + | INR Therapeutic Range: INR: 2.0-3.0 CONVENTIONAL ANTICOAGULATION | [facility] | | INR: 2.5-3.5 INTENSIVE ANTICOAGULATION | [facility]OSPITAL | | | LABORATORY | + + + + + + + + | Performing | Address | City/State/Zipcode | Phone Number | | Organization | | | | + + + + + | [facility] | [address] | [place] | [phone] | | [facility] | | [address] | | + + + + + documented in this encounter Visit Diagnoses + + | Diagnosis | + + | Pre-op examination - Primary Preoperative examination, unspecified | + + | Lumbar herniated disc Displacement of lumbar intervertebral disc without myelopathy | + + | Lumbar radiculopathy Thoracic or lumbosacral neuritis or radiculitis, unspecified | + + documented in this encounter
--- OUTSIDE RECORDS SUMMARY | ~2020-01-22 | XMS | Encounter Summary ---
Demographics + + + | Address | [address] | | | [place] [address] | + + + | Home Phone | | + + + | Preferred Language | Unknown | + + + | Marital Status | | + + + | Yarsanism Affiliation | 1073 | + + + | Race | White | + + + | Ethnic Group | Not or | + + + Author + + + | Author | [facility] | | | and [place] | + + + | Organization | [facility] | | | [...] Team Providers + +------+ + | Care Scraper Tender Name | Role | Phone | + +------+ + | Hiram Heredia DO | PCP | | + +------+ + Reason for Visit + +--------+ + | Reason | Onset | Comments | | | Date | | + +--------+ + | Medication Refill | 10/13/ | | | | 2019 | | + +--------+ + Encounter Details +--------+--------+ + + + | Date | Type | Department | Care Team | Description | +--------+--------+ + + + | 10/13/ | Refill | [facility] | Aimee Davey, | Medication Refill | | 2019 | | [facility] | CC RADIO OFFICER | | | | | [facility] [address] | | | | | [address] [place], | | | | | | [place] [address] | | | | | | [phone] | | | +--------+--------+ + + + [...] Notes Telephone Encounter - Aimee Davey CC RADIO OFFICER - 10/13/2018 11:46 AM PDTLast OV 11/27/19 Labs ordered but not complete.Labs re faxed to [facility] in [place] and mailed to patient along with reminder letter. Pended for 30 days. ISAAK Linton CMA documented in th is encounter Plan of Treatment +--------+---------+ + + + | Date | Type | Specialty | Care Team | Description | +--------+---------+ + + + | 02/13/ | Office | Primary Care | Hiram Heredia | | | 2019 | Visit | | [place], [address] | | | | | | [place] | | | | | | [address] | | | | | | [phone] | | | | | | | | +--------+---------+ + + + documented as of this encounter Visit Diagnoses Not on filedocumented in this encounter"
--- OUTSIDE RECORDS SUMMARY | ~2020-01-22 | XMS | Encounter Summary ---
Demographics + + + | Address | [address] | | | [place] [address] | + + + | Home Phone [...] + | Author | [facility] | | | and [place] | + + + | Organization | [facility] | | | and [...] Team Providers + +------+ + | Care Wire Winding Machine Tender Name | Role | Phone | [...] | | | [facility] [address] | [place], [place] | | | | [address] [place], | [address] | | | | | [place] [address] | [phone] | | | | | [phone] | | | +--------+ + + + [...] - Aimee Davey CC CMA - 01/20/2019 3:28 PM PDTMyChart message ISAAK Rivera CMA elephone Aimee Villarreal CC [facility] - 01/20/2019 3:28 PM PDT----- Message from Hiram Heredia DO sent at 01/20/2019 14:55 PDT ----- This is normal except for slightly low platelets. More labs to follow. documented in this encounter Plan of Treatment +--------+---------+ + + + | Date | Type | Specialty | Care Team | Description | +--------+---------+ + + + | 02/13/ | Office | Primary Care | Hiram Heredia | | | 2019 | Visit | | DO Edward | | | | | | [place] | | | | | | [address] | | | | | | [phone] | | | | | | | | +--------+---------+ + + + documented as of this encounter Visit Diagnoses Not on filedocumented in this encounter"
--- OUTSIDE RECORDS SUMMARY | ~2020-01-22 | XMS | Encounter Summary ---
Demographics + + + | Address | [address] | | | [place] [address] | + + + | Home Phone | | + + + | Preferred Language | Unknown | + + + | Marital Status | | + + + | Moravian Affiliation | 1073 | + + + | Race | White | + + + | Ethnic Group | Not or | + + + Author + + + | Author | [facility] | | | and [place] | + + + | Organization | [facility] | | | [...] Team Providers + +------+ + | Care Coke Crane Operator Name | Role | Phone | + +------+ + | Hiram Heredia DO | PCP | | + +------+ + Reason for Visit + + + | Reason | Comments | + + + | Follow-up | | + + + Encounter Details +--------+---------+ + + + | Date | Type | Department | Care Team | Description | +--------+---------+ + + + | 06/09/ | Office | [facility] | Pito Jones | S/P cervical spinal | | 2012 | Visit | NEUROSURGERY [address] | [address] | fusion (Primary Dx) | | | | [address] [place], [place] | | | | | [place], [place] | [address] | | | | | [address] | | | | | | [phone] | | | +--------+---------+ + + + [...] + + + | Blood Pressure | 138/86 | 06/09/2012 9:24 AM | | | | | PST | | + + + + + | Pulse | 74 | 06/09/2012 9:24 AM | | | [...] + + + + | Weight | 139.7 kg (308 lb) | 06/09/2012 9:24 AM | | | | | PST | | + + + + + | Height | 177.8 cm (5' 10") | 06/09/2012 9:24 AM | | | | | PST | | + + + + + | Body Mass Index | 44.19 | 06/09/2012 9:24 AM | | | | | PST | | + + + + + documented in this encounter Patient Instructions Patient Instructions Pito Jones PA-C - 06/09/2012 9:45 AM PSTToday we talk abou t your postoperative care in it appears that you are doing well. We're planning down to ret urn you to full duty starting tomorrow June 10. Today we are plaintive obtaining x-rays o f your neck to check on your fusion and your hardware. We will plan to see you back in abou t 6 months with repeat x-rays. Call if you have any problems between now and the time we se e you. documented in this encounter Progress Notes Pito Jones PA-C - 06/09/2012 9:47 AM PSTFormatting of this note might be differ ent from the original. KIMO Enrique [address] [facility] [place], [place] [id number] FAX: NEUROSURGERY FOLLOW-UP CHIEF COMPLAINT: Chief Complaint Patient presents with Follow-up HISTORY OF PRESENT ILLNESS: The patient is a 46 y.o. male that had a cervical fusion In [facility] 2012.. He feels like he's doing relatively well. He has finished with physical thera py at this time. He feels that the strength in his hands have significantly improved since we saw him last. He has continued with light-duty. 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 PAST MEDICAL HISTORY: Past Medical History Diagnosis [...] Maternal Grandmother INTERIM PHYSICAL EXAMINATION: Blood pressure 138/86, pulse 74, height 1.778 m (5' 10"), weight 139.708 kg (308 lb). Body mass index is 44.19 kg/(m^2). GENERAL: Darin He is in no [...] have some mild weakness in his left crown attacher strength SENSORY EXAM: sensory exam shows numbness [...] doing very well he continues to improve. His crown attacher strength is merely return completely to normal and he's doing great at this time. I would like him to r eturn to full duty starting tomorrow. We will get some x-rays on his cervical spine today. The patient will return in 6 months we will plan for repeat x-rays at that time if he has a ny increasing problems he will let us know. Continue with his primary care provider. ELECTRONICALLY SIGNED BY: KIMO Enrique, 06/09/2012 9:47 documented in this encounter Plan of Treatment +--------+---------+ + + + | Date | Type | Specialty | Care Team | Description | +--------+---------+ + + + | 02/13/ | Office | Primary Care | Hiram Heredia | | | 2020 | Visit | | E, [address] | | | | | | [place] | | | | | | [address] | | | | | | [phone] | | | | | | | | +--------+---------+ + + + + +---------+--------+ + + | Name | Type | Priori | Associated Diagnoses | Order Schedule | | | | ty | | | + +---------+--------+ + + | XR CERVICAL SPINE 3 | Imaging | Routin | S/P cervical | Ordered: 06/09/2012 | | VIEWS OR LESS | | e | spinal fusion | | + +---------+--------+ + + documented as of this encounter Visit Diagnoses + + | Diagnosis | + + | S/P cervical spinal fusion - Primary Arthrodesis status | + + documented in this encounter
--- OUTSIDE RECORDS SUMMARY | ~2020-01-22 | XMS | Encounter Summary ---
Demographics + + + | Address | [address] | | | [place] [address] | + + + | Home Phone | | + + + | Preferred Language | Unknown | + + + | Marital Status | | + + + | Episcopalian Affiliation | 1073 | + + + | Race | White | + + + | Ethnic Group | Not or | + + + Author + + + | Author | [facility] | | | and [place] | + + + | Organization | [facility] | | [...] Team Providers + +------+ + | Care Photo Printer Name | Role | Phone | + +------+ + | Hiram Heredia DO | PCP | | + +------+ + Reason for Visit + +--------+ + | Reason | Onset | Comments | | | Date | | + +--------+ + | Results, Pathology | 10/11/ | Colon polyp tubular adenoma next colonoscopy 2021 | | | 2016 | | + +--------+ + Encounter Details +--------+ + + + + | Date | Type | Department | Care Team | Description | +--------+ + + + + | 10/11/ | Telephone | [facility] | Viraj Rodriguze MD | Results, Pathology | | 2017 | | GASTROENTEROLOGY | [address], [place] | (Colon polyp tubular | | | | [address] [place] | [address] [place], [place] | adenoma next | | | | [address] [place], [place] | [id number] | colonoscopy 2021) | | | | [address] | | | | | | [phone] | | | +--------+ + + + [...] this encounter Miscellaneous Notes Telephone Encounter - Marycruz Fine RN - 10/11/2016 11:17 AM PDTNotified patient th at pathology on colon polyp showed tubular adenoma. Dr Rodriguez recommends next colonoscopy in 5 years. Recall entered. He states he did fine after the procedure. documented in th is encounter Plan of Treatment +--------+---------+ + + + | Date | Type | Specialty | Care Team | Description | +--------+---------+ + + + | 02/13/ | Office | Primary Care | Hiram Heredia | | | 2020 | Visit | | E, DO [address] | | | | | | [place] | | | | | | [address] | | | | | | [phone] | | | | | | | | +--------+---------+ + + + documented as of this encounter Visit Diagnoses Not on filedocumented in this encounter"
--- OUTSIDE RECORDS SUMMARY | ~2020-01-22 | XMS | Encounter Summary ---
Demographics + + + | Address | [address] | | | [place] [address] | + + + | Home Phone | | + + + | Preferred Language | Unknown | + + + | Marital Status | | + + + | Restoration Affiliation | 1073 | + + + | Race | White | + + + | Ethnic Group | Not or | + + + Author + + + | Author | [facility] | | | and [place] | + + + | Organization | [facility] | | | [...] Team Providers + +------+ + | Care Grapple Skidder Operator Name | Role | Phone | + +------+ + | Hiram Heredia DO | PCP | | + +------+ + Reason for Visit + +--------+ + | Reason | Onset | Comments | | | Date | | + +--------+ + | Medication Refill | 12/02/ | | | | 2020 | | + +--------+ + Encounter Details +--------+ + + + + | Date | Type | Department | Care Team | Description | +--------+ + + + + | 12/02/ | Telephone | [facility] | Hiram Heredia | Medication Refill | | 2019 | | [facility] | E, DO [address] | | | | | [facility] [address] | [place], [place] | | | | | [address] [place], | [address] | | | | | [place] [address] | [phone] | | | | | [phone] | | | +--------+ + + + [...] this encounter Miscellaneous Notes Telephone Encounter - Masha Baptiste RN - 12/03/2019 2:21 PM PDTResolved with pharmacist. Masha Baptiste, RN elephone Encounter - Brigitte Albarran MD - 12/03/2019 10:16 AM PDTRx is for 2 daily, please check with pharm acy and give verbal if needed. Electronically signed by Brigitte Albarran MD at 0 10:17 AM PDTTelephone Encounter - Samantha Burnette - 12/03/2019 8:25 AM PDTFLUoxetine (PROZ AC) 20 mg capsule Pt states he takes Rx 2x daily and script at pharmacy is for 1x daily. Please send new Rx to pharmacy to verify [facility] [place] Thank you, Samantha documented in this encounter Plan of Treatment +--------+---------+ + + + | Date | Type | Specialty | Care Team | Description | +--------+---------+ + + + | 02/13/ | Office | Primary Care | Hiram Heredia | | 2019 | Visit | | E, DO [address] | | | | | | [place] | | | | | | [address] | | | | | | [phone] | | | | | | | | +--------+---------+ + + + documented as of this encounter Visit Diagnoses Not on filedocumented in this encounter"
--- OUTSIDE RECORDS SUMMARY | ~2020-01-22 | XMS | Encounter Summary ---
Demographics + + + | Address | [address] | | | [place] [address] | + + + | Home Phone | | + + + | Preferred Language | Unknown | + + + | Marital Status | | + + + | Protestant Affiliation | 1073 | + + + | Race | White | + + + | Ethnic Group | Not or | + + + Author + + + | Author | [facility] | | | and [place] | + + + | Organization | [facility] | | [...] Team Providers + +------+ + | Care Department Of Sociology Chair Name | Role | Phone | + +------+ + | Hiram Heredia DO | PCP | | + +------+ + Reason for Visit + +--------+ + | Reason | Onset | Comments | | | Date | | + +--------+ + | Appointment | 12/04/ | CANCELLATION | | | 2012 | | + +--------+ + Encounter Details +--------+ + + + + | Date | Type | Department | Care Team | Description | +--------+ + + + + | 12/04/ | Telephone | [facility] | Rajesh Self, | Appointment | | 2012 | | NEUROSURGERY [address] | PA-C [address] | (CANCELLATION) | | | | [address] | [address] [place], [place] | | | | | [place], [place] | [address] | | | | | [address] | | | | | | [phone] | | | +--------+ + + + [...] Notes Telephone Encounter - Erlinda Castro - 12/04/2012 10:05 AM Ranulfo, thank you. Angelo y signed by Erlinda Castro at 12/04/2012 10:05 AM PDTTelephone Encounter - Nathaniel Ni - 9:37 AM PDTPatient called the answering service to cancel his appointment. I remov ed the appointment and left a message to reschedule. documented in this encounter Plan of Treatment +--------+---------+ + + + | Date | Type | Specialty | Care Team | Description | +--------+---------+ + + + | 02/13/ | Office | Primary Care | Hiram Heredia | | | 2019 | Visit | | DO [address] | | | | | | [place] | | | | | | [address] | | | | | | [phone] | | | | | | | | +--------+---------+ + + + documented as of this encounter Visit Diagnoses Not on filedocumented in this encounter"
--- OUTSIDE RECORDS SUMMARY | ~2020-01-22 | XMS | Encounter Summary ---
Demographics + + + | Address | [address] | | | [place] [address] | + + + | Home Phone | | + + + | Preferred Language | Unknown | + + + | Marital Status | | + + + | Adventism Affiliation | 1073 | + + + | Race | White | + + + | Ethnic Group | Not or | + + + Author + + + | Author | [facility] | | | and [place] | + + + | Organization | [facility] | | [...] Team Providers + +------+ + | Care Teacher Of The Deaf Name | Role | Phone | + +------+ + | Hiram Heredia DO | PCP | | + +------+ + Encounter Details +--------+ + + + + | Date | Type | Department | Care Team | Description | +--------+ + + + + | 03/23/ | Orders Only | [facility] | Mckenna, Eduardo | Status post cervical | | 2012 | | NEUROSURGERY [address] | F, MD [address] | spinal fusion | | | | [address] | [place] | (Primary Dx) | | | | [place], [place] | [address] | | | | | [address] | [phone] | | | | | [phone] | | | +--------+ + + + [...] [place] | | | | | | [address] | | | | | | [phone] | | | | | | | | +--------+---------+ + + + documented as of this encounter Results XR Cervical Spine 2 or 3 Vw (03/25/2012 6:05 PM PDT) + + | Specimen | + + | | + + + + + | Narrative | Performed At | + + + | [facility] | [place] | | Department [address] [facility] | [facility] | | [ rep [address]] [ rep [facility] | | st zip] Signed | - IMAGING | | | | | Patient Name: JACLYN HE Physician: | | | DARREL : 1965 Age: 46 Sex: M Unit #: [id number] | | | Exam Date: 03/25/12 Location: [facility] [place] | | | Report #: [id number] Page: | | | %(RAD)RES..mtdd.print.filter("pg") of %(RAD) | | | RES..mtdd.print.filter("tpg") | | | | | | Accession Number: [id number] | | | CERVICAL SPINE LIMITED X-RAY [...] Transcribed Date/Time: 03/25/2012 18:25 | | | Film Writer: <<Signature on File>> | | | | | | Blake Maradiaga MD03/26/12 1058 <Electronically signed by Blake | | | Edward Maradiaga MD> Blake Maradiaga MD 03/25/12 0302 | | | Film Writer: [employer] Ryzsqhdyemqct11/24/12 2165 | | | Eduardo Mckenna MD | | + + + + + + + + | Performing | Address | City/State/Zipcode | Phone Number | | Organization | | | | + + + + + | [address] | [address] | [place] | [phone] | | [facility] | | [address] | | | - IMAGING | | | | + + + + + documented in this encounter Visit Diagnoses + + | Diagnosis | + + | Status post cervical spinal fusion - Primary Arthrodesis status | + + documented in this encounter
--- OUTSIDE RECORDS SUMMARY | ~2020-01-22 | XMS | Encounter Summary ---
Demographics + + + | Address | [address] | | | [place] [address] | + + + | Home Phone [...] + + | Author | [facility] | | | and [place] | + + + | Organization | [facility] | | | [...] Team Providers + +------+ + | Care Director Of Recruitment And Admissions Name | Role | Phone | + [...] Description | +--------+--------+ + + + | 10/18/ | Refill | [facility] | Giovanna Hiram | Medication Refill | | 2019 | | [facility] | E, DO [address] | | | | | [facility] [address] | [place], [place] | | | | | [address] [place], | [address] | | | | | [place] [address] | [phone] | | | | | [phone] | | | +--------+--------+ + + + [...] [place] | | | | | | [address] | | | | | | [phone] | | | | | | | | +--------+---------+ + + + documented as of this encounter Visit Diagnoses Not on filedocumented in this encounter"
--- OUTSIDE RECORDS SUMMARY | ~2020-01-22 | XMS | Encounter Summary ---
Demographics + + + | Address | [address] | | | [place] [address] | + + + | Home Phone | | + + + | Preferred Language | Unknown | + + + | Marital Status | | + + + | Hindu Affiliation | 1073 | + + + | Race | White | + + + | Ethnic Group | Not or | + + + Author + + + | Author | [facility] | | | and [place] | + + + | Organization | [facility] | | [...] Team Providers + +------+ + | Care Broadcast Designer Name | Role | Phone | + +------+ + | Hiram Heredia DO | PCP | | + +------+ + Reason for Visit + +--------+ + | Reason | Onset | Comments | | | Date | | + +--------+ + | Medication Question | 10/04/ | | | | 2020 | | + +--------+ + Encounter Details +--------+ + + + + | Date | Type | Department | Care Team | Description | +--------+ + + + + | 10/04/ | Telephone | [facility] | Hiram Heredia | Medication Question | | 2019 | | [facility] | E, DO [address] | | | | | MEDICAL CLINIC [address] | [place], [place] | | | | | [address] [place], | [address] | | | | | [place] [address] | [phone] | | | | | [phone] | | | +--------+ + + + [...] this encounter Miscellaneous Notes Telephone Encounter - Yola Mckenzie CC CMA - 10/05/2019 9:46 AM PDTI left VM info rming pt. Pended 40 mg Fluoxetine for future refills. Thank you! ISAAK Damon CMA elephone E Hiram Earl DO - 10/05/2019 9:40 AM PDTPlease adjust rx as noted to 40mg .--90 days x3 rf. Human oversight.....sorry elephone Encounter - Yola Mckenzie CC CMA - 10/05/2019 8:59 AM PDTPt repor ts starting Fluoxetine 20 mg and was increased by Dr. Heredia to 40 mg QD and feels better a t this dose. Prescription bottle states take 20 mg QD. I do not see an encounter stating thi s was increased. Do you want pt to take 40 mg or 20 mg QD? ISAAK Damon CMA elephone E Idania Burris - 10/05/2019 8:37 AM PDTPt would like a call from med staff r egarding FLUoxetine (PROZAC) 20 mg capsule Pt states he has been taking this in 40mg capsules and is not sure if 20 mg is an error. [phone] pt's cell number Thank you Idania Goldsmith documented in this enc ounter Plan of Treatment +--------+---------+ + + + | Date | Type | Specialty | Care Team | Description | +--------+---------+ + + + | 02/13/ | Office | Primary Care | Hiram Heredia | | | 2020 | Visit | | DO [place] [address] | | | | | | [place] | | | | | | [address] | | | | | | [phone] | | | | | | | | +--------+---------+ + + + documented as of this encounter Visit Diagnoses Not on filedocumented in this encounter"
--- OUTSIDE RECORDS SUMMARY | ~2020-01-22 | XMS | Encounter Summary ---
Demographics + + + | Address | [address] | | | [place] [address] | + + + | Home Phone | | + + + | Preferred Language | Unknown | + + + | Marital Status | | + + + | Muslim Affiliation | Unknown | + + + [...] Team Providers + +------+ + | Care Litharge Mill Operator Name | Role | Phone | + +------+ + | Hiram Heredia DO | PCP | | + +------+ + Reason for Referral Physical Therapy (Routine) +--------+--------+ + + + [...] [facility] | | | | | ([facility]) | [address] | for Health | | | | | Procedures | [place], [place] | and Healing, | | | | | PHYSICAL | [address] | [address], | | | | | THERAPY | Phone: | 1st Floor | | | | | REFERRAL | [phone] | [place], [place] | | | | | | Fax: | [address] | | | | | | [phone] | Phone: | | | | | | | [phone] | | | | | | | Fax: | | | | | | | [phone] | +--------+--------+ + + + + Encounter Details +--------+ + + + + | Date | Type | Department | Care Team | Description | +--------+ + + + + | 09/01/ | Manager Unix | Digestive Health | Vianey Griffith, | Morbid obesity (HCC) | | 2018 | | Center at [facility] [address] | ACNP [address] | (Primary Dx) | | | | [address] | [address] [facility] [place] | | | | | for Health and | [address] | | | | | [facility], [address] | [phone] | | | | | [place], [place] | | | | | | [address] | | | | | | [phone] | | | +--------+ + + + [...] - Primary Morbid obesity | + + documented in this encounter"
--- OUTSIDE RECORDS SUMMARY | ~2020-01-22 | XMS | Encounter Summary ---
Demographics + + + | Address | [address] | | | [place] [address] | + + + | Home Phone | | + + + | Preferred Language | Unknown | + + + | Marital Status | | + + + | Evangelical Affiliation | 1073 | + + + | Race | White | + + + | Ethnic Group | Not or | + + + Author + + + | Author | [facility] | | | and [place] | + + + | Organization | [facility] | | | [...] Team Providers + +------+ + | Care Bed Control Specialist Name | Role | Phone | + +------+ + | Hiram Heredia DO | PCP | | + +------+ + Encounter Details +--------+ + + + + | Date | Type | Department | Care Team | Description | +--------+ + + + + | 06/09/ | Orders Only | [facility] [place] | Pito Jones | | | 2012 | | NEUROSURGERY [address] | [address] | | | | | [address] | [address] [place] | | | | | [place] | [address] | | | | | [address] | | | | | | [phone] | | | +--------+ + + + [...] | | | | | [place], [place] | | | | | | [address] | | | | | | [phone] | | | | | | | | +--------+---------+ + + + documented as of this encounter Procedures + +--------+ + + + | Procedure Name | Priori | Date/Time | Associated Diagnosis | Comments | | | ty | | | | + +--------+ + + + | XR CERVICAL SPINE 2 | Routin | 06/09/2012 | | Results for this | | [place] 3 VIEWS | e | 10:54 AM | | procedure are in the | | | | PST | | results section. | + +--------+ + + + documented in this encounter Results XR Cervical Spine 2 or 3 Views (06/09/2012 10:54 AM PST) + + | Specimen | + + | | + + + + + | Narrative | Performed At | + + + | Accession Number: [id number] CERVICAL SPINE, LIMITED, | | | 06/09/2012 CLINICAL HISTORY: STATUS POST CERVICAL SPINAL | | | FUSION. COMPARISON: 03/25/2012. FINDINGS: Anterior | | | cervical spinal fusion hardware is seen spanning the levels of C5 | | | through T1, without evidence of complication. Note that the hardware | | | is not well seen on the lateral view secondary to technique and | | | patient motion. The hardware otherwise appears intact and | | | appropriately positioned. Interbody fusion prostheses are not as | | | well seen on the current study as compared with the prior. Vertebral | | | body height and alignment appears maintained. Mild to moderate disk | | | space narrowing is again seen at C5-C6. A corticated ossicle is | | | again seen at the posterior margin of the posterior spinous process of | | | C2. The prevertebral soft tissues and structures of the skull base | | | and posterior face are unremarkable. IMPRESSION: STABLE, | | | SATISFACTORY APPEARANCE OF ANTERIOR SPINAL FUSION HARDWARE AT C6-C7 | | | AND C7-T1. Dictated Date/Time: 06/09/2012 14:15 Transcribed | | | Date/Time: 06/09/2012 15:21 At Risk Paraprofessional: | | | <<Signature on File>> | | | Blake Leon | | | MD Hiren06/10/12 1318 <Electronically signed by Blake Leon | | | Hiren COFFMAN> Blake Maradiaga MD 06/09/12 1415 | | | At Risk Paraprofessional: [facility] Jntmcgqxlhgwv71/08/13 1521 | | + + + + + | Procedure Note | + + | Fuentes Sandoval Results In - 10/16/2015 4:25 PM PDT Accession Number: [id number] | | SPINE, LIMITED, 06/09/2012 CLINICAL HISTORY: STATUS POST CERVICAL SPINAL FUSION. | | COMPARISON: 03/25/2012. FINDINGS: Anterior cervical spinal fusion hardware is seen | | spanning the levels of C5 through T1, without evidence of complication. Note that the | | hardwareis not well seen on the lateral view secondary to technique and patient motion. | | The hardware otherwise appears intact and appropriately positioned. Interbody fusion | | prostheses are not as well seen on the current study as compared with the prior. | | Vertebral body height and alignment appears maintained. Mild to moderate disk space | | narrowing is again seen at C5-C6. A corticated ossicle is again seen at the posterior | | margin of the posterior spinous process ofC2. The prevertebral soft tissues and | | structures of the skull base and posterior face are unremarkable. IMPRESSION: STABLE, | | SATISFACTORY APPEARANCE OF ANTERIOR SPINAL FUSION HARDWARE AT C6-C7 AND C7-T1. Dictated | | Date/Time: 06/09/2012 14:15Transcribed Date/Time: 06/09/2012 15:21Transcriptionist: | | <<Signature on | | File>> Blake Maradiaga | | 06/10/12 1318<Electronically signed by Blake Maradiaga MD>Blake Maradiaga MD | | 06/09/12 1415Transcriptionist: Rosa Xkspaczltthjc91/08/13 1521 | | | |STABLE, SATISFACTORY APPEARANCE OF ANTERIOR SPINAL FUSION HARDWARE AT C6-C7 AND C7-T1. | | | |Dictated Date/Time: 06/09/2012 14:15 | |Transcribed Date/Time: 06/09/2012 15:21 | |At Risk Paraprofessional: | | | | | | | |<<Signature on File>> | | | |Blake Maradiaga MD06/10/12 1318 | |<Electronically signed by Blake Maradiaga MD> | | | | | |Blake Maradiaga MD 06/09/12 1415 | |At Risk Paraprofessional: Rosa [id number] 1521 | + + documented in this encounter Visit Diagnoses Not on filedocumented in this encounter"
--- OUTSIDE RECORDS SUMMARY | ~2020-01-22 | XMS | Encounter Summary ---
Demographics + + + | Address | [address] | | | [place] [address] | + + + | Home Phone | | + + + | Preferred Language | Unknown | + + + | Marital Status | | + + + | Confucianism Affiliation | Unknown | + + + | Race | White | + + + | Ethnic Group | Not or | + + + Author + + + | Author | [facility] | + + + | Organization | [facility] | + + + | Address | Unknown | + + + | Phone | Unavailable | + + + Support + + +---------+ + | Name | Relationship | Address | Phone | + + +---------+ + | Angie He | ECON | Unknown | | + + +---------+ + Care Team Providers + +------+ + | Care Submarine Operator Name | Role | Phone | + +------+ + | Hiram Heredia DO | PCP | | + +------+ + Encounter Details +--------+ + + + + | Date | Type | Department | Care Team | Description | +--------+ + + + + | 08/27/ | Abstract | Digestive Health | Clinic, Surgery | | | 2017 | | [place] [address] | | | | | | [facility] | | | | | | for Health and | | | | | | Healing, [address] | | | | | | [place], [place] | | | | | | [address] | | | | | | [phone] | | | +--------+ + + + [...]
--- OUTSIDE RECORDS SUMMARY | ~2020-01-22 | XMS | Encounter Summary ---
Demographics + + + | Address | [address] | | | [place] [address] | + + + | Home Phone | | + + + | Preferred Language | Unknown | + + + | Marital Status | | + + + | Sabianism Affiliation | 1073 | + + + | Race | White | + + + | Ethnic Group | Not or | + + + Author + + + | Author | [facility] | | | and [place] | + + + | Organization | [facility] | | [...] Team Providers + +------+ + | Care Superintendent Local Name | Role | Phone | + +------+ + | Hiram Heredia DO | PCP | | + +------+ + Encounter Details +--------+ + + + + | Date | Type | Department | Care Team | Description | +--------+ + + + + | 06/18/ | Imaging | [facility] | Provider, | | | 2020 | Exam | [facility] | MD Leila [address] | | | | | IMAGING [address] | [address] | | | | | [address] [place] | [place] [address] | | | | | [place] [address] | | | | | | [phone] | | | +--------+ + + + [...] [place] | | | | | | [address] | | | | | | [phone] | | | | | | | [...] | [place] 5 VWS | e | 12:00 AM | | procedure are in the | | | | PDT | | results section. | + +--------+ + + + documented in this encounter Results XR Cervical Spine 4 or 5 Vws (12/01/2017 12:00 AM PDT) + + | Specimen [...]
--- OUTSIDE RECORDS SUMMARY | ~2020-01-22 | XMS | Encounter Summary ---
Demographics + + + | Address | [address] | | | [place] [address] | + + + | Home Phone | | + + + | Preferred Language | Unknown | + + + | Marital Status | | + + + | Quaker Affiliation | Unknown | + + + | Race | White | + + + | Ethnic Group | Not or | + + + Author + + + | Author | [facility] | + + + | Organization | [facility] | + + + | Address | Unknown | + + + | Phone | Unavailable | + + + Support + + +---------+ + | Name | Relationship | Address | Phone | + + +---------+ + | Angie He | ECON | Unknown | | + + +---------+ + Care Team Providers + +------+ + | Care Precision Machine Operator Name | Role | Phone | + +------+ + | Hiram Heredia DO | PCP | | + +------+ + Reason for Visit + + + | Reason | Comments | + + + | Bariatric Nutrition | | + + + Intake Referral (Routine) +--------+--------+ + + + + | Status | Reason | Specialty | Diagnoses / | Referred By | Referred To | | | | | Procedures | Contact | Contact | +--------+--------+ + + + + | Closed | | Nutrition | Diagnoses | Toño Heredia Fn | | | | | Overweight | DO Hiram | [facility] H[facility] | | | | | | [address] | [facility] [address] | | | | | | [place], | [address] | | | | | | [place] | [place] for | | | | | | [address] | Health and | | | | | | Phone: | Healing, | | | | | | [phone] | [address] | | | | | | Fax: | [place], [place] | | | | | | [phone] | [address] | | | | | | | Phone: | | | | | | | [phone] | | | | | | | Fax: | | | | | | | [phone] | +--------+--------+ + + + + Encounter Details +--------+---------+ + + + | Date | Type | Department | Care Team | Description | +--------+---------+ + + + | 10/30/ | Office | Digestive Health | Suzanne Ramos, | Morbid obesity with | | 2017 | Visit | Center at [facility] [address] | [address] [facility] | BMI of 45.0-49.9, | | | | [address] [facility] | [address] | adult (HCC) (Primary | | | | for Health and | [place], [place] | Dx); Diabetes | | | | [facility] | [address] | mellitus type II, | | | | [place], [place] | [phone] | non insulin | | | | [address] | | dependent (HCC) | | | | [phone] | | | +--------+---------+ + + + [...] documented as of this encounter Progress Notes Suzanne Ramos RD - 10/30/2017 10:30 AM PDTFormatting of this note might be different fro m the original. Referring Provider: Hiram Heredia DO [facility], Pre-Bariatric Surgery Evaluation Initial diet consultation prior to having Sleeve Gastrectomy. Documented Time of Visit: 10:31 until 11:26 (55 minutes govm-ry-xlol with patient) SUBJECTIVE: Pt comes in with , Angie. does cooking and shopping. Patient viewed online seminar prior to visit. What have you been doing to prepare for surgery: (research/MD recommended surgery) Questions/Information desired today: Post surgery diet Goals & reasons why patient wants to have bariatric surgery: Wants to be healthy and [place]. Food Allergies: No Food Intolerances: No Lactose Intolerance: No Emotional Eating: Yes, due to boredom Weight irrigator overhead the past year: has decreased slighlty Previous weight loss attempts: Carb restriction/overall calorie restriction Are you able exercise? 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/wk Food recall: when at the fire station Bkfst:skips Lunch: skips Dinner: Pizza or chicken fajitas (cooked by another fire observer) Snacks: Not usually Beverages: Water, occ gatorade/snapple, black coffee At home: graze all day B: skips (unless had tacos or some leftover) L: Snacking on nachos (chips and melted cheese) S: banana D: Hamburger or turkey burger + veggies/salad or protein OR tacos or pizza (1x/month) S: another helping of dinner or chips or cheese Beverages: 1- gallon of crystal light, diet soda-1 can every other day, Coffee-2 cups (dave etimes creamer or black), ETOH 2-3 craft beers per week (average), occasionally protein chelle e Occ eats out: hamburger and fries OBJECTIVE: Height: Ht Readings from Last 1 Encounters: 10/30/17 1.753 m (5' 9") Weight: Wt Readings from Last 1 Encounters: 10/30/17 137.2 kg (302 lb 6.4 oz) BMI: 44.66 Past Medical History: Past Medical History: Diagnosis Date Diabetes mellitus (HCC) HTN (hypertension) Hyperlipidemia JOCELYN treated with BiPAP Medications: See list in Epic snap shot Medications for Diabetes: Metformin 1,000 mg BID Checking blood glucose: no Dietary Supplements: Multivitamin, vitamin D,E,C Labs: see Results Review for current labs (if available) Nutrition Diagnosis: Obesity as evidenced by BMI of 44.66 Factors contributing to obesity: Emotional eating Large portions Intake of excessive empty calories Pre-Surgery Diet: Provided written diet suggestions to help patient lose weight before surgery. -Eat within one hour of waking, then every 3-4 waking hours -Include protein with all meals & snacks -Use healthy plate model or frozen entree (~300 calories, < 600 mg sodium) at lunch & dinn er -Begin keeping daily food logs -Choose foods & beverages with < 14 g sugar & < 5 g fat per serving -Eliminate liquid calories and carbonation; limit caffeine to 16 oz/day Discussed behavior changes to practice before surgery to prepare for surgery. -Begin fluids from meals by 30 minutes before and after -Sip fluids throughout the day, aim for 64 oz/day (non-caloric, non-caffeinated, non-carbo nated) -Begin practicing mindful eating Explore exercise program options Post-surgery diet education: Provided visual, verbal, & written information on all aspects of bariatric surgery. Discuss ed lifelong behavior changes, proper diet selections, and exercise. Encouraged patient to fo llow up with dietitian pre- or post-surgery. Written education provided: Provided and reviewed an instructional handout (bariatric surgery notebook) with the sarah t on post-surgery diet progression, sample menus, behavior modifications, food items, and vi tamin and mineral supplements needed after surgery. Emphasized the importance of a regular p hysical activity program of 30-60 minutes per day to maintain weight loss post-surgery. Patient's Comprehension: The patient is: Receptive Stage of change: Pre contemplation Barrier(s) to education: No Learning style: Patient is a Visual learner Verbal learner Information provided in writing, and used visual aids to demonstrate food portions post-yadira janneth and size of stomach after surgery. Expected Outcome: I think the patient will do moderately if following all lifestyle and be havioral changes discussed today. Patient verbalizes understanding that surgery is a tool to help achieve and maintain weight loss but that surgery will not eliminate the problems that led to weight gain. Yes GOAL: The patient's goal is to have weight loss surgery to maintain weight loss and improve other health conditions. 1. Continue to practice behavioral changes to prepare for surgery. 2. Increase physical activity. 3. Review all information provided for post surgery diet progression in bariatric surger y notebook. Attend 2 pre-surgery classes. 4. Call or send [employer] message to dietitian with any questions. Contact information was provided. Follow up with dietitian 1-2 weeks after surgery at first post-op visit. Suzanne Ramos RD,KAREN Pager# [phone] Phone: [phone] documented in this en counter Plan of Treatment Not on filedocumented as of this encounter Procedures + +--------+ + + + | Procedure Name | Priori | Date/Time | Associated Diagnosis | Comments | | | ty | | | | + +--------+ + + + | [place] MNT INITIAL | Routin | 10/30/2017 | Morbid obesity | | | ASSESSMNT X15MIN | e | 12:40 PM | with BMI of | | | | | PDT | 45.0-49.9, adult | | | | | | (HCC) Diabetes | | | | | | mellitus type II, | | | | | | non insulin | | | | | | dependent (HCC) | | + +--------+ + + + documented in this encounter Visit Diagnoses + + | Diagnosis | + + | Morbid obesity with BMI of 45.0-49.9, adult ([facility]) - Primary | + + | Diabetes mellitus type II, non insulin dependent ([facility]) Type II or unspecified type | | diabetes mellitus without mention of complication, not stated as uncontrolled | + + documented in this encounter
--- OUTSIDE RECORDS SUMMARY | ~2020-01-22 | XMS | Encounter Summary ---
Demographics + + + | Address | [address] | | | [place] [address] | + + + | Home Phone | | + + + | Preferred Language | Unknown | + + + | Marital Status | | + + + | Restorationist Affiliation | [id number] | + + + [...] Team Providers + +------+ + | Care Turbine Operator Name | Role | Phone | + +------+ + | Hiram Heredia DO | PCP | | + +------+ + Reason for Visit + +--------+ + | Reason | Onset | Comments | | | Date | | + +--------+ + | Medication Refill | 10/03/ | | | | 2020 | | + +--------+ + Encounter Details +--------+--------+ + + + | Date | Type | Department | Care Team | Description | +--------+--------+ + + + | 10/03/ | Refill | [facility] | Hiram Heredia | Medication Refill | | 2019 | | [facility] | E, DO [address] | | | | | [facility] | [place], [place] | | | | [address] [facility] [place], | [address] | | | | | [place] [address] | [phone] | | | | | [phone] | | | +--------+--------+ + + + [...] Encounter - Yola Mckenzie CC CMA - 10/04/2019 9:50 AM PDTOV 08/05/2019. L abs UTD. Pended. Please sign. ISAAK Damon PERSONAL FITNESS TRAINER elephone Samantha Moss 10/04/2019 9:16 AM PDTFLUoxetine (PROZAC) 20 mg capsule Sameer Pride documented in t his encounter Plan of Treatment +--------+---------+ + + + | Date | Type | Specialty | Care Team | Description | +--------+---------+ + + + | 02/13/ | Office | Primary Care | Hiram Heredia | | 2019 | Visit | | [address] | | | | | | [place] | | | | | | [address] | | | | | | [phone] | | | | | | | | +--------+---------+ + + + documented as of this encounter Visit Diagnoses Not on filedocumented in this encounter"
--- OUTSIDE RECORDS SUMMARY | ~2020-01-22 | XMS | Encounter Summary ---
Demographics + + + | Address | [address] | | | [place] [address] | + + + | Home Phone [...] Team Providers + +------+ + | Care Audit Partner Name | Role | Phone | + +------+ + | Hiram Heredia DO | PCP | | + +------+ + Reason for Visit + + + | Reason | Comments | + + + | Follow-up | Right wrist | + + + Evaluate & Treat (Routine) +--------+--------+ + + + + | Status | Reason | Specialty | Diagnoses / | Referred By | Referred To | | | | | Procedures | Contact | Contact | +--------+--------+ + + + + | Closed | | | Diagnoses | | Fabio, | | | | | Tear of | Hayley, | Bill Sweeney MD | | | | | skin of | Starla K, | [address] | | | | | right wrist | PA-C [address] [facility], | | | | | | [place] | [place] [address] | | | | | | Ave | Phone: | | | | | | [place], | [phone] | | | | | | [place] | Fax: | | | | | | [address] | [phone] | | | | | | Phone: | | | | | | | [phone] | | | | | | | Fax: | | | | | | | [phone] | | +--------+--------+ + + + + Encounter Details +--------+---------+ + + + | Date | Type | Department | Care Team | Description | +--------+---------+ + + + | 02/18/ | Office | [facility] | Bill Mccarthy, | Injury of triangular | | 2019 | Visit | [facility] | [address] | fibrocartilage | | | | MEDICINE [place] | [place] [address] | complex (TFCC) of | | | | [address] | [phone] | right wrist, initial | | | | [place], [place] | | encounter (Primary | | | | [address] | | Dx); Right wrist | | | | [phone] | | pain; Injury of | | | | | | right scapholunate | | | | | | ligament with no | | | | | | instability, initial | | | | | | encounter | +--------+---------+ + + + Social History [...] + + + + | Pulse | 73 | 02/18/2019 9:15 AM | | | | | PDT | | + + + + + | Temperature | - | - | | + + + + + | Respiratory Rate | - | - | | + + + + + | Oxygen Saturation | 98% | 02/18/2019 9:15 AM | | | | | PDT | | + + + + + | Inhaled Oxygen | - | - | | | Concentration | | | | + + + + + | Weight | 140.1 kg (308 lb | 02/18/2019 9:15 AM | | | | 12.8 oz) | PDT | | + + + + + | Height | 175.3 cm (5' 9") | 02/18/2019 9:15 AM | | | | | PDT | | + + + + + | Body Mass Index | 45.6 | 02/18/2019 9:15 AM | | | | | PDT | | + + + + + documented in this encounter Progress Notes Bill Mccarthy MD - 02/18/2019 9:15 AM PDTFormatting of this note might be different fro m the original. [facility]: Orthopedic Surgery Patient Name:Darin He AGE: 53 y.o. :1965 CHIEF COMPLAINT: Follow-up (Right wrist ) Right wrist pain HPI HISTORY OF PRESENT ILLNESS Mr. He is a very pleasant male I have been following for right wrist pain and possibili ty of scapholunate ligament disruption. We gave him an injection about 6 weeks ago. Unfortun ately, the injection has not provided significant relief. The patient is quite active.. Ther e is no radiation of the pain. The pain is more over the dorsoradial aspect of the wrist wit h mild associated swelling. The pain is intermittent in a mild to moderate severity. No furt her radiation. REVIEW OF SYSTEMS, comprehensive review of systems performed and is negative except for not ed above and below Review of Systems Past Medical History: Diagnosis Date Actinic keratosis Arthritis Benign hypertension Cervical radiculopathy at C7 Coronary artery calcification Diabetes mellitus (HCC) Diabetes type 2, controlled (HCC) Dyslipidemia Dysmetabolic syndrome X Fatty liver Herniated nucleus pulposus, C5-6 right Herniated nucleus pulposus, C6-7 left HLD (hyperlipidemia) HTN (hypertension) Hyperlipidemia Hypogonadism in male Lumbago History of Lumbago - Chronic MCCAULEY (nonalcoholic steatohepatitis) Obesity Obstructive sleep apnea 08/21/2011 Secondary polycythemia -testosterone use Skin lesions Lesions of the scalp Testicular hypofunction Tubular adenoma of colon 10/04/16 tubular adenoma, next colon 09/2021 Past Surgical History: Procedure Laterality Date APPENDECTOMY APPENDECTOMY BICEPS TENDON REPAIR Left 12/31/2017 CERVICAL FUSION COLONOSCOPY N/A 10/04/2016 Procedure: COLONOSCOPY; Surgeon: Viraj Rodriguez MD; Location: [facility] MEDICAL PROCEDURE UNIT Destruction of benign lesion by cryosurgery PARQ freeze ELBOW ARTHROSCOPY Right KNEE ARTHROSCOPY 1994 AND 2007 BILATERAL KNEE ARTHROSCOPY Bilateral KNEE JOINT REPLACEMENT 2013 Dr. Gonzalez, Bilateral LEFT ROTATOR CUFF 09/2014 Dr. Gonzalez OTHER SURGICAL HISTORY TONSILLECTOMY Right Elbow scope 1991 Right Rotator Cuff 2016 ROTATOR CUFF REPAIR Bilateral TONSILLECTOMY TOTAL KNEE ARTHROPLASTY Bilateral UMBILICAL HERNIA REPAIR No Known Allergies Prior to Admission medications Medication Sig Start Date End Date Taking? Authorizing Provider ascorbic acid (VITAMIN C) 500 mg chewable tablet Take 500 mg by mouth Daily. Historical Provider, aspirin 81 MG tablet Take 81 mg by mouth. Historical Provider, atorvaSTATin (LIPITOR) 40 mg tablet Take 1 tablet by mouth Daily. Labs needed before furthe r fills. Patient taking differently: Take 40 mg by mouth Daily. 10/13/18 Hiram Heredia DO cetirizine (ZYRTEC ALLERGY) 10 mg tablet Take 10 mg by mouth Daily. 02/14/12 DATA MIGRATIO N MOHAMUD SR Cholecalciferol (VITAMIN D3 PO) Take 4,000 Int'l Units by mouth. Historical Provider, fish oil 1,000 mg capsule Take 2,000 mg by mouth Daily. Historical Provider, FLUoxetine (PROZAC) 20 mg capsule Take 20 mg by mouth Daily. 03/11/16 Historical Provider , metFORMIN (GLUCOPHAGE) 500 mg tablet Take 500 mg by mouth Daily. Patient taking differently: Take 1,000 mg by mouth daily (with breakfast). 02/14/12 DATA M IGRATION MOHAMUD SR multivitamin (THERAGRAN) per tablet daily 02/14/12 DATA MIGRATION MOHAMUD SR tiZANidine (ZANAFLEX) 4 mg tablet Take 1 tablet by mouth nightly for 28 days. 01/19/19 Hiram Heredia DO tocopherol (VITAMIN E) 400 units capsule Take by mouth. Historical Provider, traMADol (ULTRAM) 50 mg tablet Take 1-2 tabs 2 times daily as needed for pain 02/04/19 Lanre Heredia DO valsartan-hydrochlorothiazide (DIOVAN-HCT) 160-12.5 MG per tablet Take 1 tablet by mouth Da jarad. 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 Tobacco Use Smoking status: Never Smoker Smokeless [...] file Social History Narrative Not on file PHYSICAL EXAM Vital Signs: Pulse 73 | Ht 1.753 m (5' 9") | Wt (!) 140.1 kg (308 lb 12.8 oz) | SpO2 98% | BMI 45.60 kg/m Physical Exam Well developed well nourished patient No acute distress Alert and oriented x3 Head and neck are normal Oropharynx is clear Gaze is conjugate Breathing is unlabored Heart is regular rate and rhythm Ortho Exam Skin is clean, dry and intact Brisk cap refill 2+ pulses No deficits noted Motor and sensation are intact No masses and no lymphadenopathy Normal sweat patterns No hyperreflexia Negative bejarano's maneuver Compartments are soft and compressible Negative Armijo's maneuver. Negative DRUJ shuck test. Mild swelling over the scapholunate a rticulation, but no gross instability PROBLEM LIST Encounter Diagnoses Name Primary? Injury of triangular fibrocartilage complex (TFCC) of right wrist, initial encounter Ye s Right wrist pain Injury of right scapholunate ligament with no instability, initial encounter ASSESSMENT & PLAN We discussed options, both conservative and operative. I discussed the possibility of doing an arthroscopy with possible repair based upon intraoperative findings. I went through the possible rehabilitation outcomes and we spent a lengthy amount of time answering all questio ns. The patient would like to wait on surgery and follow up in about 6 months with repeat ra diographs to see if there are any changes. He understands the risks and benefits of conserva tive care and all questions answered. Documented by Nessa. @[email or web address]@ Primary Care Physician: DO Bill Mcintosh MD documented in this en counter Plan of Treatment +--------+---------+ + + + | Date | Type | Specialty | Care Team | Description | +--------+---------+ + + + | 02/13/ | Office | Primary Care | Hiram Heredia | | | 2019 | Visit | | E, DO [address] | | | | | | [place] | | | | | | [address] | | | | | | [phone] | | | | | | | | +--------+---------+ + + + documented as of this encounter Visit Diagnoses + + | Diagnosis | + + | Injury of triangular fibrocartilage complex (TFCC) of right wrist, initial encounter - | | Primary | + + | Right wrist pain Pain in joint, forearm | + + | Injury of right scapholunate ligament with no instability, initial encounter | + + documented in this encounter
--- OUTSIDE RECORDS SUMMARY | ~2020-01-22 | XMS | Encounter Summary ---
Demographics + + + | Address | [address] | | | [place] [address] | + + + | Home Phone | | + + + | Preferred Language | Unknown | + + + | Marital Status | | + + + | Worship Affiliation | 1073 | + + + [...] Team Providers + +------+ + | Care Assistant Director Of Security Name | Role | Phone | + +------+ + | Hiram Heredia DO | PCP | | + +------+ + Encounter Details +--------+ + + + + | Date | Type | Department | Care Team | Description | +--------+ + + + + | 12/09/ | [facility] | [facility] | Eduardo Mckenna | Status post cervical | | 2012 | Encounter | MED CTR XRAY [address] | F, [address] | spinal fusion | | | | [place] | [place] | | | | | [place] [address] | [address] | | | | | [phone] | | | | | | | [...] | Office | Primary Care | Hiram Hreedia | | | 2019 | Visit | | E, DO [address] | | | | | | [place] | | | | | | [address] | | | | | | [phone] | | | | | | | | +--------+---------+ + + + documented as of this encounter Procedures + +--------+ + + + | Procedure Name | Priori | Date/Time | Associated Diagnosis | Comments | | | ty | | | | + +--------+ + + + | XR CERVICAL SPINE 2 | Routin | 12/09/2012 | Status post | Results for this | | OR 3 VIEWS | e | 11:17 AM | cervical spinal | procedure are in [...] Performed At | + + + | [facility] | [place] | | Department [address] [place] [address] | [facility] | | [ rep [address]] [ rep [facility] | | st zip] Signed | - IMAGING | | | | | Patient Name: JACLYN HE Physician: | | | ARRE.[id number] : 1965 Age: 47 Sex: M Unit #: [id number] | | | Exam Date: 12/09/12 Location: [facility] | | | Report #: [id number] Page: | | | %(RAD)RES..mtdd.print.filter("pg") of %(RAD) | | | RES..mtdd.print.filter("tpg") | | | | | | Accession Number: [id number] | | | CERVICAL SPINE, 12/09/2012 CLINICAL [...] | | | Transcribed Date/Time: 12/09/2012 13:19 Balcon[place] Worker: | | | <<Signature on File>> | | | Viraj | | | Patrick John MD12/09/12 [id number] <Electronically signed by Viraj Nguyen | | | Dora COFFMAN> Viraj John MD 12/09/12 [id number] | | | Balcony Worker: PalindromX [id number]/10/13 [id number] | | | Eduardo Mckenna MD | | + + + + + + + + | Performing | Address | City/State/Zipcode | Phone Number | | Organization | | | | + + + + + | [facility] | [address] | [place] | [phone] | | [facility] | | [address] | | | - IMAGING | | | | + + + + + documented in this encounter Visit Diagnoses + + | Diagnosis | + + | Status post cervical spinal fusion Arthrodesis status | + + documented in this encounter
--- OUTSIDE RECORDS SUMMARY | ~2020-01-22 | XMS | Encounter Summary ---
Demographics + + + | Address | [address] | | | [place] [address] | + + + | Home Phone [...] + + + | Author | [facility] | | | and [place] | + + + | Organization | [facility] | | [...] Team Providers + +------+ + | Care Auto Damage Estimator Name | Role | Phone | + +------+ + | Hiram Heredia DO | PCP | | + +------+ + Encounter Details +--------+ + + + + | Date | Type | Department | Care Team | Description | +--------+ + + + + | 12/28/ | Orders Only | [facility] | Provider, | | | 2019 | | SYSTEM GENERIC OP | MD Abigail Dee | | | | | CONVERSION [address] | [place] | | | | | [address] [place], [place] | [place] [address] | | | | | [address] | | | | | | [phone] | | | +--------+ + + + [...] [place] | | | | | | [address] | | | | | | [phone] | | | | | | | | +--------+---------+ + + + documented as of this encounter Visit Diagnoses Not on filedocumented in this encounter"
--- OUTSIDE RECORDS SUMMARY | ~2020-01-22 | XMS | Encounter Summary ---
Demographics + + + | Address | [address] | | | [place] [address] | + + + | Home Phone | | + + + | Preferred Language | Unknown | + + + | Marital Status | | + + + | Amish Affiliation | 1073 | + + + | Race | White | + + + | Ethnic Group | Not or | + + + Author + + + | Author | [facility] | | | and [place] | + + + | Organization | [facility] | | [...] Team Providers + +------+ + | Care Intern Product Marketing Manager Name | Role | Phone | + +------+ + | Hiram Heredia DO | PCP | | + +------+ + Encounter Details +--------+ + + + + | Date | Type | Department | Care Team | Description | +--------+ + + + + | 10/24/ | Orders Only | [facility] | Venkatesh Rock | | | 2017 | | CARDIOLOGY BASSEM Solomon MD [address] | | | | | ECHO [address] | [address] | | | | | [facility] [place] | [place] [address] | | | | | [address] | [phone] | | | | | [phone] | | | +--------+ + + + [...] [place] | | | | | | [address] | | | | | | [phone] | | | | | | | | +--------+---------+ + + + documented as of this encounter Procedures + +--------+ + + + | Procedure Name | Priori | Date/Time | Associated Diagnosis | Comments | | | ty | | | | + +--------+ + + + | ECHO COMPLETE | Routin | 10/24/2016 | | Results for this | | | e | 8:25 AM | | procedure are in the | | | | PDT | | results section. | + +--------+ + + + documented in this encounter Results ECHO Complete (10/24/2016 8:25 AM PDT) + + | Specimen | + + | | + + + + + | Impressions | Performed At | + + + | 1. Overall left ventricular systolic function is normal with, an EF | | | between 60 - 65 %. 2. There is mild concentric left ventricular | | | hypertrophy. | | + + + + + + | Narrative | Performed At | + + + | Patient Name: JACLYN HE Date of : 1965 | | | Performing Physician: VENKATESH ROCK MD | | | | | | INDICATIONS Systolic murmur, HTN, CAD on CAT scan | | | CONCLUSIONS 1. Overall left ventricular systolic | | | function is normal with, an EF between 60 - 65 %. 2. There is mild | | | concentric left ventricular hypertrophy. FINDINGS -------- ECG | | | rhythm: Sinus rhythm. Study: A 2-dimensional transthoracic | | | echocardiogram with m-mode, spectral and color flow Doppler was | | | perfomed. Study: This was a technically adequate study. Left | | | Ventricle: Overall left ventricular systolic function is normal with, | | | an EF between 60 - 65 %. Left Ventricle: The left ventricle cavity | | | size is normal. Left Ventricle: There is mild concentric left | | | ventricular hypertrophy. Left Ventricle: No regional wall motion | | | abnormalities. Left Ventricle: The diastolic filling pattern is | | | normal for the age of the patient. Right Ventricle: The right | | | ventricle is normal in size. Left Atrium: The left atrium is normal | | | in size. Right Atrium: The right atrium is normal in size. Aortic | | | Valve: The aortic valve is trileaflet, and appears anatomically | | | normal. No aortic stenosis or regurgitation. Mitral Valve: The mitral | | | valve is normal. Mitral Valve: There is trace mitral regurgitation. | | | Tricuspid Valve: The tricuspid valve appears structurally normal. | | | Tricuspid Valve: Trace tricuspid regurgitation present. Tricuspid | | | Valve: There is no evidence of pulmonary hypertension. Tricuspid | | | Valve: The right ventricular systolic pressure (pulmonary artery | | | systolic pressure), as measured by Doppler, is 32.59mmHg. Pulmonic | | | Valve: The pulmonic valve is normal. Pericardium: There is no | | | pericardial effusion. IVC/Hepatic Veins: The IVC is normal size | | | (1.5-2.5cm) and collapses >50% with sniff, consistent with central | | | venous pressures of 5-10mmHg. Aorta: The aortic root, ascending aorta | | | and aortic arch are normal. Mass: No mass visualized Thrombus: No | | | clot visualized Thrombus: No vegetation visualized. Septum: No ASD | | | observed. Septum: No VSD observed. MEASUREMENTS | | | Ao asc: 3.[address] junct: 2.86 cm IVC: 1.66 cm LA | | | Major: 4.75 cm EDV(Teich): 115.60 ml IVSd: 1.02 cm LVIDd: | | | 4.95 cm LVPWd: 1.04 cm LVOT Area: 5.01 cm2 LVOT Diam: | | | 2.52 cm %FS: 34.65 % EF(Teich): 63.60 % ESV(Teich): 42.07 | | | ml LVIDs: 3.23 cm SV(Teich): 73.53 ml RA Major: 4.83 cm | | | RV Major: 6.27 cm RVIDd: 3.08 cm Ao Root: 3.14 cm Ao Diam | | | SVals: 3.23 cm LVEF MOD A2C: 57.27 % SV MOD A2C: 61.06 ml | | | LVEF MOD A4C: 65.47 % SV MOD A4C: 69.92 ml EF Biplane: | | | 61.77 % LVEDV MOD BP: 107.04 ml LVESV MOD BP: 40.91 ml LVEDV | | | MOD A2C: 106.61 ml LVLd A2C: 8.43 cm LVEDV MOD A4C: 106.78 | | | ml LVLd A4C: 8.53 cm LVESV MOD A2C: 45.55 ml LVLs A2C: | | | 7.32 cm LVESV MOD A4C: 36.86 ml LVLs A4C: 7.32 cm LAESV(A-L): | | | 56.02 ml LAESV Index (A-L): 22.86 ml/m2 LAAs A2C: 19.39 | | | cm2 LAESV A-L A2C: 63.06 ml LALs A2C: 5.06 cm LAAs A4C: | | | 16.52 cm2 LAESV A-L A4C: 47.70 ml LALs A4C: 4.85 cm RAAs: | | | 16.50 cm2 RAESV A-L: 44.60 ml RAESV MOD: 42.50 ml RALs: | | | 5.18 cm Ao Diam: 3.58 cm LA Diam: 4.82 cm LA/Ao: 1.34 | | | TAPSE: 2.29 cm AV maxP.89 mmHg AV meanP.10 mmHg AV | | | Vmax: 1.21 m/s AV Vmean: 0.82 m/s AV VTI: 24.85 cm NOE | | | Vmax: 3.63 cm2 NOE (VTI): 3.50 cm2 LVOT maxP.09 mmHg | | | LVOT meanP.67 mmHg LVSI Dopp: 35.58 ml/m2 LVSV Dopp: | | | 87.19 ml LVOT Vmax: 0.87 m/s LVOT Vmean: 0.60 m/s LVOT VTI: | | | 17.37 cm MV A Long: 0.59 m/s MV Dec [place]: 6.51 m/s2 MV | | | DecT: 121.88 ms MV E Long: 0.79 m/s MV E/A Ratio: 1.32 MV | | | PHT: 35.34 ms MVA By PHT: 6.22 cm2 Septal e': 0.08 m/s | | | Septal E/e': 9.29 Lateral e': 0.10 m/s Lateral E/e': 7.30 | | | RAP: 5 mmHg RVSP: 32.59 mmHg TR maxP.59 mmHg TR Vmax: | | | 2.62 m/s S': 0.12 m/s Biochemical Engineer: CHER Authenticated by: | | | VENKATESH ROCK MD Report Date/Time: -- [id number] | | + + + + + | Procedure Note | + + | Jaime, Rad Conversion - 01/21/2019 8:02 PM PDT Patient Name: Erica HE of | | : 1965 Performing Physician: VENKATESH ROCK | | INDICATIONS S | | ystolic murmur, HTN, CAD on CAT scan CONCLUSIONS 1. Overall left ventricular | | systolic function is normal with, an EF between 60 - 65 %.2. There is mild concentric | | left ventricular hypertrophy. FINDINGS--------ECG rhythm: Sinus rhythm.Study: A | | 2-dimensional transthoracic echocardiogram with m-mode, spectral and color flow Doppler | | was perfomed.Study: This was a technically adequate study.Left Ventricle: Overall left | | ventricular systolic function is normal with, an EF between 60 - 65 %.Left Ventricle: | | The left ventricle cavity size is normal.Left Ventricle: There is mild concentric left | | ventricular hypertrophy.Left Ventricle: No regional wall motion abnormalities.Left | | Ventricle: The diastolic filling pattern is normal for the age of the patient.Right | | Ventricle: The right ventricle is normal in size.Left Atrium: The left atrium is normal | | in size.Right Atrium: The right atrium is normal in size.Aortic Valve: The aortic valve | | is trileaflet, and appears anatomically normal. No aortic stenosis or | | regurgitation.Mitral Valve: The mitral valve is normal.Mitral Valve: There is trace | | mitral regurgitation.Tricuspid Valve: The tricuspid valve appears structurally | | normal.Tricuspid Valve: Trace tricuspid regurgitation present.Tricuspid Valve: There is | | no evidence of pulmonary hypertension.Tricuspid Valve: The right ventricular systolic | | pressure (pulmonary artery systolic pressure), as measured by Doppler, is | | 32.59mmHg.Pulmonic Valve: The pulmonic valve is normal.Pericardium: There is no | | pericardial effusion.IVC/Hepatic Veins: The IVC is normal size (1.5-2.5cm) and collapses | | >50% with sniff, consistent with central venous pressures of 5-10mmHg.Aorta: The aortic | | root, ascending aorta and aortic arch are normal.Mass: No mass visualizedThrombus: No | | clot visualizedThrombus: No vegetation visualized.Septum: No ASD observed.Septum: No VSD | | observed. MEASUREMENTS Ao asc: 3.[address] junct: 2.86 cmIVC: 1.66 | | cmLA Major: 4.75 cmEDV(Teich): 115.60 mlIVSd: 1.02 cmLVIDd: 4.95 cmLVPWd: 1.04 | | cmLVOT Area: 5.01 [id number] Diam: 2.52 cm%FS: 34.65 %EF(Teich): 63.60 | | %ESV(Teich): 42.07 mlLVIDs: 3.23 cmSV(Teich): 73.53 mlRA Major: 4.83 cmRV Major: | | 6.27 cmRVIDd: 3.08 cmAo Root: 3.14 cmAo Diam SVals: 3.23 cmLVEF MOD A2C: | | 57.27 %SV MOD A2C: 61.06 mlLVEF MOD A4C: 65.47 %SV MOD A4C: 69.92 mlEF Biplane: | | 61.77 %LVEDV MOD BP: 107.04 mlLVESV MOD BP: 40.91 mlLVEDV MOD A2C: 106.61 mlLVLd | | A2C: 8.43 cmLVEDV MOD A4C: 106.78 mlLVLd A4C: 8.53 cmLVESV MOD A2C: 45.55 mlLVLs | | A2C: 7.32 cmLVESV MOD A4C: 36.86 mlLVLs A4C: 7.32 cmLAESV(A-L): 56.02 mlLAESV | | Index (A-L): 22.86 ml/m2LAAs A2C: 19.39 [id number] A-L A2C: 63.06 mlLALs A2C: 5.06 | | cmLAAs A4C: 16.52 [id number] A-L A4C: 47.70 mlLALs A4C: 4.85 cmRAAs: 16.50 | | [id number] A-L: 44.60 mlRAESV MOD: 42.50 mlRALs: 5.18 cmAo Diam: 3.58 cmLA Diam: | | 4.82 cmLA/Ao: 1.34TAPSE: 2.29 cmAV maxP.89 mmHgAV meanP.10 mmHgAV Vmax: | | 1.21 m/Elsie Vmean: 0.82 m/Elsie VTI: 24.85 cmAVA Vmax: 3.63 cm2AVA (VTI): 3.50 | | [id number] maxP.09 mmHgLVOT meanP.67 mmHgLVSI Dopp: 35.58 ml/m2LVSV Dopp: | | 87.19 mlLVOT Vmax: 0.87 m/sLVOT Vmean: 0.60 m/sLVOT VTI: 17.37 cmMV A Long: 0.59 | | m/sMV Dec [place]: 6.51 m/s2MV DecT: 121.88 msMV E Long: 0.79 m/sMV E/A Ratio: | | 1.32MV PHT: 35.34 msMVA By PHT: 6.22 [id number] e': 0.08 m/sSeptal E/e': | | 9.29Lateral e': 0.10 m/sLateral E/e': 7.30RAP: 5 mmHgRVSP: 32.59 mmHgTR maxPG: | | 27.59 mmHgTR Vmax: 2.62 m/sS': 0.12 m/s Biochemical Engineer: MARIANAuthenticated by: VENKATESH | | SHWETA MDRepck Date/Time: -- [id number] IMPRESSION: 1. Overall left | | ventricular systolic function is normal with, an EF between 60 - 65 %.2. There is mild | | concentric left ventricular hypertrophy. | | | |Ao asc: 3.10 cm | |Ao st junct: 2.86 cm | |IVC: 1.66 cm | |LA Major: 4.75 cm | |EDV(Teich): 115.60 ml | |IVSd: 1.02 cm | |LVIDd: 4.95 cm | |LVPWd: 1.04 cm | |LVOT Area: 5.01 cm2 | |LVOT Diam: 2.52 cm | |%FS: 34.65 % | |EF(Teich): 63.60 % | |ESV(Teich): 42.07 ml | |LVIDs: 3.23 cm | |SV(Teich): 73.53 ml | |RA Major: 4.83 cm | |RV Major: 6.27 cm | |RVIDd: 3.08 cm | |Ao Root: 3.14 cm | |Ao Diam SVals: 3.23 cm | |LVEF MOD A2C: 57.27 % | |SV MOD A2C: 61.06 ml | |LVEF MOD A4C: 65.47 % | |SV MOD A4C: 69.92 ml | |EF Biplane: 61.77 % | |LVEDV MOD BP: 107.04 ml | |LVESV MOD BP: 40.91 ml | |LVEDV MOD A2C: 106.61 ml | |LVLd A2C: 8.43 cm | |LVEDV MOD A4C: 106.78 ml | |LVLd A4C: 8.53 cm | |LVESV MOD A2C: 45.55 ml | |LVLs A2C: 7.32 cm | |LVESV MOD A4C: 36.86 ml | |LVLs A4C: 7.32 cm | |LAESV(A-L): 56.02 ml | |LAESV Index (A-L): 22.86 ml/m2 | |LAAs A2C: 19.39 cm2 | |LAESV A-L A2C: 63.06 ml | |LALs A2C: 5.06 cm | |LAAs A4C: 16.52 cm2 | |LAESV A-L A4C: 47.70 ml | |LALs A4C: 4.85 cm | |RAAs: 16.50 cm2 | |RAESV A-L: 44.60 ml | |RAESV MOD: 42.50 ml | |RALs: 5.18 cm | |Ao Diam: 3.58 cm | |LA Diam: 4.82 cm | |LA/Ao: 1.34 | |TAPSE: 2.29 cm | |AV maxP.89 mmHg | |AV meanP.10 mmHg | |AV Vmax: 1.21 m/s | |AV Vmean: 0.82 m/s | |AV VTI: 24.85 cm | |NOE Vmax: 3.63 cm2 | |NOE (VTI): 3.50 cm2 | |LVOT maxP.09 mmHg | |LVOT meanP.67 mmHg | |LVSI Dopp: 35.58 ml/m2 | |LVSV Dopp: 87.19 ml | |LVOT Vmax: 0.87 m/s | |LVOT Vmean: 0.60 m/s | |LVOT VTI: 17.37 cm | |MV A Long: 0.59 m/s | |MV Dec [place]: 6.51 m/s2 | |MV DecT: 121.88 ms | |MV E Long: 0.79 m/s | |MV E/A Ratio: 1.32 | |MV PHT: 35.34 ms | |MVA By PHT: 6.22 cm2 | |Septal e': 0.08 m/s | |Septal E/e': 9.29 | |Lateral e': 0.10 m/s | |Lateral E/e': 7.30 | |RAP: 5 mmHg | |RVSP: 32.59 mmHg | |TR maxP.59 mmHg | |TR Vmax: 2.62 m/s | |S': 0.12 m/s | | | |Biochemical Engineer: CHER | |Authenticated by: VENKATESH ROCK MD | |Report Date/Time: -- [id number] | | | |IMPRESSION: | |1. Overall left ventricular systolic function is normal with, an EF between 60 - 65 %. | |2. There is mild concentric left ventricular hypertrophy. | + + documented in this encounter Visit Diagnoses Not on filedocumented in this encounter"
--- OUTSIDE RECORDS SUMMARY | ~2020-01-22 | XMS | Encounter Summary ---
Demographics + + + | Address | [address] | | | [place] [address] | + + + | Home Phone | | + + + | Preferred Language | Unknown | + + + | Marital Status | | + + + | Yazidi Affiliation | 1073 | + + + | Race | White | + + + | Ethnic Group | Not or | + + + Author + + + | Author | [facility] | | | and [place] | + + + | Organization | [facility] | | | and [...] Team Providers + +------+ + | Care Centrifugal Spinner Name | Role | Phone | + +------+ + PCP | Unavailable | + +------+ + Encounter Details +--------+ + + + + | Date | Type | Department | Care Team | Description | +--------+ + + + + | 06/18/ | [facility] | [facility] | Vu Lemus | | | 1999 | Encounter | MED [facility] EM[facility] | MD [address] | | | | | CENTER [address] | [address] | | | | | [place] | [place] [address] | | | | | [address] | [phone] | | | | | [phone] | | | +--------+ + + + [...] [place] | | | | | | [address] | | | | | | [phone] | | | | | | | | +--------+---------+ + + + documented as of this encounter Visit Diagnoses Not on filedocumented in this encounter"
--- OUTSIDE RECORDS SUMMARY | ~2020-01-22 | XMS | Encounter Summary ---
Demographics + + + | Address | [address] | | | [place] [address] | + + + | Home Phone | | + + + | Preferred Language | Unknown | + + + | Marital Status | | + + + | Quaker Affiliation | 1073 | + + + | Race | White | + + + | Ethnic Group | Not or | + + + Author + + + | Author | [facility] | | | and [place] | + + + | Organization | [facility] | | [...] Team Providers + +------+ + | Care General Road Production Manager Name | Role | Phone | + +------+ + | Hiram Heredia DO | PCP | | + +------+ + Encounter Details +--------+ + + + + | Date | Type | Department | Care Team | Description | +--------+ + + + + | 04/14/ | Abstract | [facility] | Hiram Heredia | | | 2018 | | [facility] | E, DO [address] | | | | | [facility] [address] | [place] | | | | | [address] [place], | [address] | | | | | [place] [address] | [phone] | | | | | [phone] | | | +--------+ + + + [...] [place] | | | | | | [address] | | | | | | [phone] | | | | | | | | +--------+---------+ + + + documented as of this encounter Procedures + +--------+ + + + | Procedure Name | Priori | Date/Time | Associated Diagnosis | Comments | | | ty | | | | + +--------+ + + + | EXTERNAL LAB: | Routin | 10/30/2017 | | Results for this | | HEMOGLOBIN A1C | e | | | procedure are in the | | | | | | results section. | + +--------+ + + + documented in this encounter Results External Lab: Hemoglobin A1c (10/30/2017) + + + + + + | Component | Value | Ref Range | Performed | Pathologist | | | | | At | Signature | + + + + + + | Hemoglobin | 6.3Comment: [facility] lab, | % | | | | A1c, | [facility] and | | | | | external | [facility] | | | | + + + + + + + + | Specimen | + + | Blood | + + documented in this encounter Visit Diagnoses Not on filedocumented in this encounter"
--- OUTSIDE RECORDS SUMMARY | ~2020-01-22 | XMS | Encounter Summary ---
Demographics + + + | Address | [address] | | | [place] [address] | + + + | Home Phone | | + + + | Preferred Language | Unknown | + + + | Marital Status | | + + + | Quaker Affiliation | 1073 | + + + | Race | White | + + + | Ethnic Group | Not or | + + + Author + + + | Author | [facility] | | | and [place] | + + + | Organization | [facility] | [...] Providers + +------+ + | Care Industrial Radiographer Name | Role | Phone | + +------+ + | Hiram Heredia DO | PCP | | + +------+ + Encounter Details +--------+ + + + + | Date | Type | Department | Care Team | Description | +--------+ + + + + | 02/07/ | Hospital | C GENERIC IP | Conversion | Elbow pain, | | 2018 | Encounter | CONVERSION DEP [address] | Transaction, | unspecified | | | | [place] | Provider Unknown | laterality | | | | [place], [place] | [phone] | | | | | [address] | | | | | | [phone] | | | +--------+ + + + [...] + + + +---------+ + + | [place] 3-6-9 Fatty | Take by mouth. | [...] [place] | | | | | | [address] | | | | | | [phone] | | | | | | | | +--------+---------+ + + + documented as of this encounter Procedures + +--------+ + + + | Procedure Name | Priori | Date/Time | Associated Diagnosis | Comments | | | ty | | | | + +--------+ + + + | MRI ELBOW LEFT WO | Routin | 12/17/2017 | | Results for this | | CONTRAST | e | 10:34 AM | | procedure are in the | | | | PDT | | results section. | + +--------+ + + + documented in this encounter Results MRI Elbow Left wo Contrast (12/17/2017 10:34 AM PDT) + + | Specimen | + + | | + + + + + | Narrative | Performed At | + + + | This is a non-reportable procedure without a radiologist report and | | | is used for image storage only | | + + + + + | Procedure Note | + + | Fuentes Sandoval Reynaldo - 01/13/2019 2:50 PM PDT This is a non-reportable procedure | | without a radiologist report and isused for image storage only | + + documented in this encounter Visit Diagnoses + + | Diagnosis | + + | Elbow pain, unspecified laterality | + + documented in this encounter"
--- OUTSIDE RECORDS SUMMARY | ~2020-01-22 | XMS | Encounter Summary ---
Demographics + + + | Address | [address] | | | [place] [address] | + + + | Home Phone | | + + + | Preferred Language | Unknown | + + + | Marital Status | | + + + | Cheondoism Affiliation | Unknown | + + + | Race | White | + + + | Ethnic Group | Not or | + + + Author + + + | Author | [facility] | + + + | Organization | [facility] | + + + | Address | Unknown | + + + | Phone | Unavailable | + + + Support + + +---------+ + | Name | Relationship | Address | Phone | + + +---------+ + | Angie He | ECON | Unknown | | + + +---------+ + Care Team Providers + +------+ + | Care Violin Teacher Name | Role | Phone | + +------+ + | Hiram Heredia DO | PCP | | + +------+ + Encounter Details +--------+------+ + + + | Date | Type | Department | Care Team | Description | +--------+------+ + + + | 10/30/ | Lab | Laboratory at [facility] | | Morbid obesity with | | 2017 | | [address] | | BMI of 40.0-44.9, | | | | [facility] | | adult (HCC); | | | | and Healing, | | Essential | | | | Building [address] | | hypertension; Mixed | | | | [place], [place] | | hyperlipidemia; [place] | | | | [address] | | on CPAP; Primary | | | | [phone] | | osteoarthritis | | | | | | involving multiple | | | | | | joints; H/O | | | | | | umbilical hernia | | | | | | repair | +--------+------+ + + + Social History + +-------+ [...] + +--------+ + + + | CBC (HEMOGRAM) ONLY | Routin | 10/30/2017 | Morbid obesity | Results for this | | | e | 12:34 PM | with BMI of | procedure are [...] | + +--------+ + + + | VITAMIN B1, WHOLE | Routin | 10/30/2017 | Morbid obesity | Results for this | | BLOOD | e | 12:34 PM | with BMI of | procedure are [...] | + +--------+ + + + | VITAMIN D, | Routin | 10/30/2017 | Morbid obesity | Results for this | | 25-HYDROXY, SERUM | e | 12:34 PM | with BMI of | procedure are [...] | + +--------+ + + + | COMPLETE METABOLIC | Routin | 10/30/2017 | Morbid obesity | Results for this | | SET | e | 12:34 PM | with BMI of | procedure are in the | | (NA,K,CL,CO2,BUN,CRE | | PDT | 40.0-44.9, adult | results section. | | AT,GLUC,CA,AST,ALT,B | | | (HCC) Essential | | | EDOUARD TOTAL,ALK | | | hypertension Mixed | | | PHOS,ALB,PROT TOTAL) | | | hyperlipidemia JOCELYN | | | | | | on CPAP Primary | | | | | | osteoarthritis | | | | | | involving multiple | | | | | | joints H/O | | | | | | umbilical hernia | | | | | | repair | | + +--------+ + + + | CBC ONLY | Routin | 10/30/2017 | Morbid obesity | Results for this | | | e | 12:34 PM | with BMI of | procedure are [...] | + +--------+ + + + | FERRITIN | Routin | 10/30/2017 | Morbid obesity | Results for this | | | e | 12:34 PM | with BMI of | procedure are [...] | + +--------+ + + + | PTH, SERUM | Routin | 10/30/2017 | Morbid obesity | Results for this | | | e | 12:34 PM | with BMI of | procedure are [...] | + +--------+ + + + | TSH | Routin | 10/30/2017 | Morbid obesity | Results for this | | | e | 12:34 PM | with BMI of | procedure are [...] + +--------+ + + + | LIPID SET (TRIG, T | Routin | 10/30/2017 | Morbid obesity | Results for this | | CHOL, HDL, CALC LDL) | e | 12:34 PM | with BMI of | procedure are [...] | + +--------+ + + + | VITAMIN B-12 | Routin | 10/30/2017 | Morbid obesity | Results for this | | | e | 12:34 PM | with BMI of | procedure are [...] + +--------+ + + + | HEMOGLOBIN A1C, | Routin | 10/30/2017 | Morbid obesity | Results for this | | BLOOD | e | 12:34 PM | with BMI of | procedure are [...] | + +--------+ + + + | IRON AND TIBC, SERUM | Routin | 10/30/2017 | Morbid obesity | Results for this | | | e | 12:34 PM | with BMI of | procedure are [...] + + documented in this encounter Results CBC (HEMOGRAM) ONLY (10/30/2017 12:34 PM PDT) + +-------+ + + + | Component | Value | Ref Range | Performed | Pathologist | | | | | At | Signature | + +-------+ + + + | WHITE CELL | 6.62 | 3.50 - 10.80 | [facility] | | | COUNT | | K/cu mm | LABORATORY | | | | | | SERVICES, | | | | | | [facility] | | | | | | [facility] | | + +-------+ + + + | RED CELL | 5.27 | 4.50 - 6.00 | [facility] | | | COUNT | | M/cu mm | LABORATORY | | | | | | SERVICES, | | | | | | [facility] | | | [facility] + | | | | | | [facility]AL[facility] | | + +-------+ + + + | HEMOGLOBIN | 15.9 | 13.5 - 17.5 | [facility] | | | | | g/dL | LABORATORY | | | | | | SERVICES, | | | | | | [facility] | | | | [facility] + | | | | | | [facility]ALING | | + +-------+ + + + | HEMATOCRIT | 46.9 | 41.0 - 53.0 % | [facility] | | | | | | LABORATORY | | | | | | SERVICES, | | | | | | [facility] | | [facility] + | | | | | | [facility]ALING | | + +-------+ + + + | MCV | 89.0 | 80.0 - 100.0 fL | [facility] | | | | | | LABORATORY | | | | | | SERVICES, | | | | | | [facility] | | | [facility] + | | | | | | [facility]ALING | | + +-------+ + + + | MCHC | 33.9 | 32.0 - 36.0 | [facility] | | | | | g/dL | LABORATORY | | | | | | SERVICES, | | | | | | [facility] | | | [facility] + | | | | | | [facility]ALING | | + +-------+ + + + | RDW SD | 41.9 | 35.1 - 46.3 fL | [facility] | | | | | | LABORATORY | | | | | | SERVICES, | | | | | | [facility] | [facility] | | [facility] + | | | | | | [facility]ALING | | + +-------+ + + + | PLATELET | 161 | 150 - 400 K/cu | [facility] | | | COUNT | | mm | LABORATORY | | | | | | SERVICES, | | | | | | [facility] | | | | [facility] + | | | | | | [facility]ALING | | + +-------+ + + + | MPV | 10.8 | 9.7 - 12.3 fL | [facility] | | | | | | LABORATORY | | | | | | SERVICES, | | | | | | [facility] | | | | [facility] + | | | | | | HEALING | | + +-------+ + + + + + | Specimen | + + | Blood - Blood | | (substance) | + + + + + + + | Performing | Address | City/State/Zipcode | Phone Number | | Organization | | | | + + + + + | [facility] | [address] | [place] [address] | | | SERVICES, [facility] | | | | | HE[facility] + HEALING | | | | + + + + + LIPID SET (TRIG, T CHOL, HDL, CALC [...] | + + + + + | [facility] | [address] | [place] [address] | | | SERVICES, CORE | SHANNAN [...] (H)Comment: Hgb A1C | <5.7 % | [facility] | | | A1C | Interpretive | [...] | [facility] | | considered for monitoring terminal superintendent glycemic control in patients with: | LABORATORY [...] | + + + + + | [facility] | [address] | [place] [address] | | | SERVICES, SPECIAL | SHANNAN [...] INTERPRETIVE | 70 - 180 nmol/L | [facility] | | | WHOLE | INFORMATION: Vitamin [...] | | | | | determined by [facility] | | | | | | Laboratories. See | | | | | | Compliance Statement B: | | | | | | The Personal Bee.MySocialNightlife/CSPerformed | | | | | | by [employer],[address] | | | | | | [address] [facility],[place] | | | | | | [address] | | | | | | [phone].The Personal Bee. | | | | | | com, Matthew Craig MD, | | | | | | [...] + + | [facility] | [address] | [place], [place] | | | [facility] | | [address] | | + + + + + [...] | | | LABORATORY | | | [facility] | | | SERVICES, | | | [...] | + + + + + | [facility] | [address] | [place] [address] | | | SERVICES, CORE | SHANNA[address] | | | + + + + [...] [facility] | [address] | [place] [address] | | | SERVICES, CORE | PARK [...] | + + + + + | [facility] | [address] | [place] [address] | | | SERVICES, CORE | SHANNAN [...] [facility] | [address] | [place] [address] | | | SERVICES, CORE | PARK [...] | New Reference Range effective 17. | [facility] | | | LABORATORY | | | CLARA [place]OLSON | + + + + + + + + | Performing | Address | City/State/Zipcode | Phone Number | | Organization | | | | + + + + + | [facility] | [address] | [place] [address] | | | CLARA N[place] | [address] | | | + [...] [facility] | [address] | [place] [address] | | | SERVICES, CORE | SHANNAN [...] | + + + + + | [facility] | [address] | [place] [address] | | | CLARA NICH[place] | [address] | | | + + + + + documented in this encounter Visit Diagnoses + + | Diagnosis | + + | Morbid obesity with BMI of 40.0-44.9, adult (HCC) | + + | Essential hypertension | + + | Mixed hyperlipidemia | + + | JOCELYN on CPAP Obstructive sleep apnea (adult) (pediatric) | + + | Primary osteoarthritis involving multiple joints | + + | H/O umbilical hernia repair Personal history of surgery to other organs | + + documented in this encounter"
--- OUTSIDE RECORDS SUMMARY | ~2020-01-22 | XMS | Encounter Summary ---
Demographics + + + | Address | [address] | | | [place] [address] | + + + | Home Phone | | + + + | Preferred Language | Unknown | + + + | Marital Status | | + + + | Confucianist Affiliation | 1073 | + + + [...] Team Providers + +------+ + | Care Customer Supply Coordinator Name | Role | Phone | + +------+ + | Hiram Heredia DO | PCP | | + +------+ + Reason for Visit + +--------+ + | Reason | Onset | Comments | | | Date | | + +--------+ + | Medication Refill | 01/06/ | | | | 2019 | | + +--------+ + Encounter Details +--------+ + + + + | Date | Type | Department | Care Team | Description | +--------+ + + + + | 01/06/ | Telephone | [facility] | Hiram Heredia | Medication Refill | | 2019 | | [facility] | E, DO [address] | | | | | [facility] [address] | [place], [place] | | | | [address] [place], | [address] | | | | | [place] [address] | [phone] | | | | | [phone] | | | +--------+ + + + [...] this encounter Miscellaneous Notes Telephone Encounter - Meggan Torres CMA - 01/06/2019 4:28 PM PDTCalled patient and he s tated he wanted a rx for prednisone for a back pain flare up. Patient stated that this is wh at he was given last time and it worked for him. Spoke with Quan and he stated he would nee d to be seen to be prescribed this medication. Patient stated understanding and had no furth er questions at this time. Meggan Torres CMA elephone Encounter - Samantha Burnette - 01/06/2019 4:09 PM PDTPt is requesting to speak with nursing staff margarita johnson Rx for back pain and inflammation. Holden CAIN documented in t his encounter Plan of [...] [place] | | | | | | [address] | | | | | | [phone] | | | | | | | | +--------+---------+ + + + documented as of this encounter Visit Diagnoses Not on filedocumented in this encounter"
--- OUTSIDE RECORDS SUMMARY | ~2020-01-22 | XMS | Encounter Summary ---
Demographics + + + | Address | [address] | | | [place] [address] | + + + | Home Phone | | + + + | Preferred Language | Unknown | + + + | Marital Status | | + + + | Methodist Affiliation | 1073 | + + + | Race | White | + + + | Ethnic Group | Not or | + + + Author + + + | Author | [facility] | | | and [place] | + + + | Organization | [facility] | | [...] Team Providers + +------+ + | Care Motion Picture Equipment Machinist Name | Role | Phone | + [...] Description | +--------+---------+ + + + | 03/17/ | Office | [facility] | Chino Angel PA | JOCELYN on CPAP (Primary | | 2017 | Visit | SLEEP DISORDER [address] | [address] | Dx) | | | | [address] [place] | [place] | | | | | [place] [address] | [address] | | | | | [phone] | | | +--------+---------+ + + + [...] + | Blood Pressure | 130/84 | 03/17/2017 10:14 AM | | | | | PDT | | + + + + + | Pulse | 70 | 03/17/2017 10:14 AM | | | | | PDT | | + + + + + | Temperature | - | - | | + + + + + | Respiratory Rate | 16 | 03/17/2017 10:14 AM | | | | | PDT | | + + + + + | Oxygen Saturation | 97% | 03/17/2017 10:14 AM | | | | | PDT | | + + + + + | Inhaled Oxygen | - | - | | | Concentration | | | | + + + + + | Weight | 141.2 kg (311 lb 4.6 | 03/17/2017 10:14 AM | | | | oz) | PDT | | + + + + + | Height | - | - | | + + + + + | Body Mass Index | 45.97 | 10/30/2016 1:24 PM | | | | | PDT | | + + + + + documented in this encounter Progress Notes Chino Angel PA - 03/17/2017 10:30 AM PDT Subjective: Patient ID: Darin He is a 49 y.o. male. HPI last office visit: 10/12/2014 date of polysomnography: 07/08/2006 AHI: 41.4 O2%: 73% with 54.2 minutes below 90% Machine type: ResMed S9 Mask type: nasal mask DME: [facility] [place] pressure: 9-18 cm Median: 11.0 cm 95%: 12.6 cm Maximum: 13.7 cm Nights using CPAP: 336/365 329/365 % of nights >4 hours: 86% 76% Average usage (all nights): 7:49 7:44 Average usage (nights used): 8:30 8:35 AHI: 0.6 Darin continues to do well with his CPAP compliance. He is doing well with his CPAP usage. He does not consider sleeping without CPAP. He is concerned that his ResMed S9 is no longe r working properly and needs to be replaced. He has had problems with getting some of the b uttons to work. His machine is out of warranty, but he is due for a new machine. I have discussed the results of the paperwork in detail. The download shows that his sleep apnea is controlled, with an AHI of 0.6. It also shows that his leaks are controlled. He has had bilateral knee replacement surgery, cervical fusion surgery and rotator cuff yadira janneth in the last couple of years. He has fully recovered from each of the surgeries and is doing well. His pain has greatly reduced and he is starting to exercise more. BP 130/84 | Pulse 70 | Resp 16 | Wt (!) 141.2 kg (311 lb 4.6 oz) | SpO2 97% | BMI 45 .97 kg/m Review of Systems Objective: Physical Exam Assessment: Problem #1: OBSTRUCTIVE SLEEP APNEA (ACH54-B64.33) This is controlled with CPAP. His CPAP compliance is going well, but he feels that his mach ine is not working properly and needs to be replaced. Plan: 1. He is to continue with CPAP indefinitely. 2. We have faxed a prescription to [facility] [place] for a ResMed AirSense 10 w ith a pressure range of 9-20 cm. I will follow up again in 2 months, sooner prn. Fifteen minutes were spent vvxm-da-cppo, w ith the majority of time spent in counseling. Chino Angel PA-C cc: Norman Heredia DO sal, Kristine [facility] Bird Sitter - 03/17/2017 10:30 AM PDTFormatting of this note might be different from the marlon kramer. 03/17/17 [address] Depression Inventory-II Depression Score 3 - Minimal depression Insomnia Severity Index Insomnia Severity Index 1 Courtland Sleepiness Scale Sitting and reading 0 Watching TV 0 Sitting, inactive in a public place (e.g. a theatre or a meeting) 0 As a passenger in a car for an hour without a break 0 Lying down to rest in the afternoon when circumstances permit 3 Sitting and talking to someone 0 Sitting quietly after a lunch without alcohol 0 In a car, while stopped for a few minutes in traffic 0 Total score 3 SF-36v2 Score PF 49.89 RP 50.42 BP 55.55 GH 53.19 VT 52.6 SF 57.34 RE 52.69 MH 58.72 PCS 50.24 MCS 57.37 documented in this enco unter Plan of Treatment +--------+---------+ + + + | Date | Type | Specialty | Care Team | Description | +--------+---------+ + + + | 02/13/ | Office | Primary Care | Hiram Heredia | | | 2019 | Visit | | DO Edward [address] | | | | | | [place] | | | | | | [address] | | | | | | [phone] | | | | | | | | +--------+---------+ + + + documented as of this encounter Visit Diagnoses + + | Diagnosis | + + | JOCELYN on CPAP - Primary Obstructive sleep apnea (adult) (pediatric) | + + documented in this encounter"
--- OUTSIDE RECORDS SUMMARY | ~2020-01-22 | XMS | Encounter Summary ---
Demographics + + + | Address | [address] | | | [place] [address] | + + + | Home Phone | | + + + | Preferred Language | Unknown | + + + | Marital Status | | + + + | Methodist Affiliation | 1073 | + + + | Race | White | + + + | Ethnic Group | Not or | + + + Author + + + | Author | [facility] | | | and [place] | + + + | Organization | [facility] | | [...] Team Providers + +------+ + | Care Almond Grinder Name | Role | Phone | + +------+ + | Hiram Heredia DO | PCP | | + +------+ + Encounter Details +--------+ + + + + | Date | Type | Department | Care Team | Description | +--------+ + + + + | 08/27/ | Abstract | [facility] [place] | Viraj Rodriguez MD | | | 2017 | | GASTROENTEROLOGY | [address] | | | | | [address] | [address] [place], [place] | | | | | [address] [place], [place] | [address] | | | | | [address] | | | | | | [phone] | | | +--------+ + + + [...] Cans of beer | 3.0 | MODERATELY | + + +---------+ + [...] Weight | 139.2 kg (306 lb | 08/27/2016 10:37 AM | | | | 14.4 oz) | PDT | | + + + + + | Height | 177.8 cm (5' 10") | 08/27/2016 10:37 AM | | | | | PDT | | + + + + + | Body Mass Index | 44.04 | 08/27/2016 10:37 AM | | | | | PDT [...] [place] | | | | | | [address] | | | | | | [phone] | | | | | | | | +--------+---------+ + + + documented as of this encounter Visit Diagnoses Not on filedocumented in this encounter
--- OUTSIDE RECORDS SUMMARY | ~2020-01-22 | XMS | Encounter Summary ---
Demographics + + + | Address | [address] | | | [place] [address] | + + + | Home Phone | | + + + | Preferred Language | Unknown | + + + | Marital Status | | + + + | Judaism Affiliation | 1073 | + + + | Race | White | + + + | Ethnic Group | Not or | + + + Author + + + | Author | [facility] | | | and [place] | + + + | Organization | [facility] | | | [...] Team Providers + +------+ + | Care Doctor Of Nurse Anesthesia Practice Name | Role | Phone | + +------+ + | Hiram Heredia DO | PCP | | + +------+ + Encounter Details +--------+ + + + + | Date | Type | Department | Care Team | Description | +--------+ + + + + | 09/02/ | Orders Only | [facility] [place] | Viraj Rodriguez MD | Special screening | | 2017 | | GASTROENTEROLOGY | [address] [place] | for malignant | | | | [address] | [address] [place] | neoplasms, colon | | | | [address] [place], [place] | [address] | (Primary Dx); JOCELYN on | | | | [address] | | CPAP; Obesity, | | | | [phone] | | Class III, BMI | | | | | | 40-49.9 (morbid | | | | | | obesity) (HCC) | +--------+ + + + + Social [...] documented as of this encounter Progress Notes Marycruz Fine RN - 09/02/2016 2:48 PM PDTScheduled patient for screening colonosco py using propofol due to JOCELYN and BMI 44. Scheduled on October 04 checking in at 10 AM. Bowel prep ordered at right aid. Patient denied need for Zofran. Case ordered.Electronical ly signed by Marycruz Fine RN at 09/02/2016 2:49 PM PDTdocumented in this encounter Plan of Treatment +--------+---------+ + + + | Date | Type | Specialty | Care Team | Description | +--------+---------+ + + + | 02/13/ | Office | Primary Care | Hiram Heredia | | | 2019 | Visit | | [address], [address] | | | | | | [place] | | | | | | [address] | | | | | | [phone] | | | | | | | | +--------+---------+ + + + documented as of this encounter Visit Diagnoses + + | Diagnosis | + + | Special screening for malignant neoplasms, colon - Primary | + + | JOCELYN on CPAP Obstructive sleep apnea (adult) (pediatric) | + + | Obesity, Class III, BMI 40-49.9 (morbid obesity) (HCC) Morbid obesity | + + documented in this encounter"
--- OUTSIDE RECORDS SUMMARY | ~2020-01-22 | XMS | Encounter Summary ---
Demographics + + + | Address | [address] | | | [place] [address] | + + + | Home Phone [...] + + + | Author | [facility] | | | and [place] | + + + | Organization | [facility] | | | and [...] Team Providers + +------+ + | Care Cnc Milling Machinist Name | Role | Phone | + +------+ + | Hiram Heredia DO | PCP | | + +------+ + Reason for Visit +--------+--------+ + | Reason | Onset | Comments | | | Date | | +--------+--------+ + | Other | 04/08/ | imaging EKG | | | 2019 | | +--------+--------+ + Encounter Details +--------+ + + + + | Date | Type | Department | Care Team | Description | +--------+ + + + + | 04/08/ | Telephone | [facility] | Hiram Heredia | Other (imaging EKG) | | 2019 | | [facility] | E, DO [address] | | | | | MEDICAL CL[facility] [address] | [place], [place] | | | | | [address] [place], | [address] | | | | | [place] [address] | [phone] | | | | | [phone] | | | +--------+ + + + [...] this encounter Miscellaneous Notes Telephone Encounter - Lianna Florez - 04/08/2019 10:36 AM PSTChantel from [facility]. Please disregard previous msg. Thanks Sharri elephone Encounter - Refugio Troy - 04/08/2019 10:32 AM PSTchantel from [facility] called and was asking for the EKG imaging to be sent to her, fax # [phone]/robin documented in this encounter Plan of Treatment +--------+---------+ + + + | Date | Type | Specialty | Care Team | Description | +--------+---------+ + + + | 02/13/ | Office | Primary Care | Hiram Heredia | | | 2019 | Visit | | DO [address] | | | | | | [place] | | | | | | [address] | | | | | | [phone] | | | | | | | | +--------+---------+ + + + documented as of this encounter Visit Diagnoses Not on filedocumented in this encounter"
[~2020-01-22 11:19] MED LIST changes: +ASPIRIN81 MG PO; +ATORVASTATIN CA40 MG PO; +DICLOFENAC POTA50 MG PO; +FISH OIL EC 1,1 EAC1 PO; +FLUOXETINE HCL20 MG PO
[2020-01-22] MEDS ORDERED: FLUOROURACIL40 GM TOP (13:47)
[2020-01-22] MEDS ORDERED: ZANAFLEX4 MG PO (14:10)
== END 2020-01-22 14:23 | disposition home or self-care (01) ==
LOC: ED 11:19
DX: S39.012A Strain of muscle, fascia and tendon of lower back, initial encounter (principal); I10 Essential (primary) hypertension; E11.9 Type 2 diabetes mellitus without complications; Z79.899 Other long term (current) drug therapy; W01.0XXA Fall on same level from slipping, tripping and stumbling without subsequent striking against object, initial encounter
CPT/HCPCS: 99283; A9270